=== PATIENT | female | born 1950 | race Caucasian/White ===

== ENCOUNTER 2017-01-24 18:06 | Emergency (ER) | payer BC, MEDICARE ==
[2017-01-24] MEDS ORDERED: NORCO 5/325 MG PO ONE (18:18)
[2017-01-24] MEDS ORDERED: BACIGUENT PACKET TP ONE (18:19)
--- NOTE | 2017-01-24 18:25 | ERPHSYRPT ---
- History of Present Illness Time Seen by Provider: 01/24/17 18:15 Source: patient, family Physician History: CC: injury Hx: 67 y/o lady was working on her mower and the deck fell. She has pain and swelling and cut to the left hand. Also pain and swelling to the right distal forearm. No N/T/W. No other injuries. She takes a NOAC for carotid artery disease. She takes ASA. Last tetanus believed to be 3-4 years ago but nurse is trying to confirm. Injury this evening. Pain moderate. She was cutting the grass. Timing/Duration: today Allergies/Adverse Reactions: cephalexin monohydrate [From [employer]] Allergy (Verified 01/24/17 18:27) makes her "swell up like a toad" Home Medications: Hydrocodone/APAP 5/325 [Milldale 5/325 mg] 1 tab PO BID PRN 07/02/13 [History ] Levothyroxine Sodium [Synthroid] 125 mcg PO DAILY 07/02/13 [History] Lisinopril 1 tablet PO DAILY 10/16/14 [History] Aspirin 81 mg PO DAILY 05/29/15 [History] Fluticasone Propionate [Flonase Nasal] 2 spray NS DAILY 05/29/15 [History] Atorvastatin Calcium [Lipitor] 40 mg PO UD 01/24/17 [History] Budesonide/Formoterol Fumarate [Symbicort 80-4.5 Mcg Inhaler] 6.9 gm IH BID 11/05 [History] Ropinirole HCl [Requip] 1 mg PO HS 01/24/17 [History] Ticagrelor [Brilinta] 90 mg PO DAILY 01/24/17 [History] Hx Tetanus, Diphtheria Vaccination/Date Given: Yes Hx Influenza Vaccination/Date Given: Yes Hx Pneumococcal Vaccination/Date Given: No - Review of Systems Constitutional: No Symptoms Respiratory: No Dyspnea Cardiac: No Chest Pain Musculoskeletal: Injury, No Back Pain, No Neck Pain Neurological: No Focal Weakness, No Parasthesia All Other Systems: Reviewed and Negative - Past Medical History Pertinent Past Medical History: Yes Neurological History: No Pertinent History ENT History: No Pertinent History Cardiac History: Hypertension Respiratory History: No Pertinent History Endocrine Medical History: Hypothyroidism Musculoskeletal History: Degenerative Disk Disease, Osteoarthritis, Rheumatoid Arthritis, Other GI Medical History: GERD History: No Pertinent History Psycho-Social History: No Pertinent History Female Reproductive Disorders: No Pertinent History Other Medical History: CHRONIC BACK PAIN,TUBAL - Past Surgical History Past Surgical History: Yes Neuro Surgical History: No Pertinent History Cardiac: No Pertinent History Respiratory: No Pertinent History Gastrointestinal: No Pertinent History Genitourinary: No Pertinent History Musculoskeletal: Orthopedic Surgery Female Surgical History: Tubal Ligation Other Surgical History: back surgery x3 king carpal tunnel, rt elbow, left kness replaced - Social History Smoking Status: Current every day smoker How long have you smoked: 50 yrs Exposure to second hand smoke: Yes Drug Use: none Patient Lives Alone: No - Female History Hx Now: No - Nursing Vital Signs Nursing Vital Signs: Initial Vital Signs Temperature 98.5 F 01/24/17 18:13 Pulse Rate 85 01/24/17 18:13 Respiratory Rate 16 01/24/17 18:13 Blood Pressure 144/74 01/24/17 18:13 O2 Sat by Pulse Oximetry 95 01/24/17 18:13 Pain Scale Pain Intensity 10 - Physical Exam General Appearance: alert Ears, Nose, Throat Exam: moist mucous membranes Neck Exam: supple Cardiovascular Exam: regular rate/rhythm Extremity Exam: lacerations (left hand dorsal 3cm superficail flap arcuate laceration), other (abrasions right forearm distal) Neurologic Exam: alert, oriented x 3, cooperative, sensation nml, No motor deficits Skin Exam: warm, dry - Course Nursing assessment & vital signs reviewed: Yes - Radiology Exams left hand and right forearm X-ray Interpretation: Reviewed by me, Negative, No Fracture, Other (old hand FB present on prior films) Ordered Tests: Active Orders 24 hr Category Date Time Status Cold Application STAT Care 01/24/17 18:19 Active Wound Care STAT Care 01/24/17 18:19 Active Wound Care STAT Care 01/24/17 18:57 Active FOREARM Stat Exams 01/24/17 18:18 Taken HAND (MINIMUM 3 VIEWS) Stat Exams 01/24/17 18:18 Taken Medication Summary Discontinued Medications Generic Name Dose Route Start Last Admin Trade Name Freq PRN Reason Stop Dose Admin Hydrocodone Bitart/Acetaminophen 1 tab 01/24/17 18:18 01/24/17 18:36 Mil[place] 5/325 Mg PO 01/24/17 18:19 1 tab STAT ONE Administration Hydrocodone Bitart/Acetaminophen Confirm 01/24/17 18:32 [place] 5/325 Mg Administered 01/24/17 18:33 Dose 1 tab .ROUTE .STK-MED ONE Bacitracin 0.9 gm 01/24/17 18:19 01/24/17 18:37 Baciguent Packet TP 01/24/17 18:20 0.9 gm STAT ONE Administration Diphtheria/Tetanus/Acell Pertussis 0.5 ml 01/24/17 18:47 Adacel Vial IM 01/24/17 18:48 .ONCE ONE - Progress Progress Note: 01/24/17 18:58 left hand 3 cm arcuate laceration, superficial. Right forearm 2 cm superficial laceration mid forearm. Hematoma underlying and another distal forearm hematoma. Counseled pt/family regarding: diagnosis, need for follow-up, rad results - Departure Time of Disposition: 18:59 Departure Disposition: Home Clinical Impression: Laceration of left hand, Laceration of right forearm, Traumatic hematoma of right forearm Condition: Stable Critical Care Time: No Referrals: LAURA SHELTON, [Primary Care Provider] - Instructions: Laceration Repair Steri-Strips, Contusion Additional Instructions: Keep wounds clean and dry. Ice packs off and on. Take your norco as already prescribed for pain. Stay with family today.
[2017-01-24 18:29] VITALS: BP 144/74; PULSE 85; O2SAT 95
[2017-01-24] MEDS ORDERED: NORCO 5/325 MG ONE (18:32)
[2017-01-24] MEDS ORDERED: Adacel Vial IM ONE ×2 (18:47→19:07)
[2017-01-24] MEDS ORDERED: BACIGUENT PACKET ONE (21:32)
--- NOTE | 2017-01-24 22:44 | XRAY ---
Indication: Pain following injury. Comparison: None 2 views of the right forearm demonstrates tiny epicondyle osteophyte. No other bony, articular, or soft tissue abnormalities.
--- NOTE | 2017-01-24 22:46 | XRAY ---
Indication: Pain following injury. Comparison: None 3 views of the left hand demonstrates mild degenerative changes of the radiocarpal and scaphoid multangular articulation. First metatarsal base tiny soft tissue foreign body. No other bony, articular, or soft tissue abnormalities.
== END 2017-01-24 19:32 | disposition home or self-care (01) ==
LOC: ED 18:06
DX: S61.412A Laceration without foreign body of left hand, initial encounter (principal); S51.811A Laceration without foreign body of right forearm, initial encounter; S50.11XA Contusion of right forearm, initial encounter; W45.8XXA Other foreign body or object entering through skin, initial encounter; W28.XXXA Contact with powered lawn mower, initial encounter
CPT/HCPCS: 73090; 73130; 90471; 90715; 99283; A9270-GY

== ENCOUNTER 2018-01-13 07:31 | Emergency (ER) | payer BC ==
--- NOTE | 2018-01-13 08:00 | ERPHSYRPT ---
- History of Present Illness Time Seen by Provider: 01/13/18 07:54 Source: patient Exam Limitations: no limitations Patient Subjective Stated Complaint: pt reports stumbling and falling into a lawn chair yesterda-reports pain to right rib area-denies sob Triage Nursing Assessment: pt pink warm and dry-ambulatory with no increase work of breathing-bruising noted to right side-no decrepitis noted Physician History: 67-year-old white female arrives with complaint of bruising right anterior chest pain with palpation and movement right anterior chest since yesterday afternoon. Patient states she tripped and hit her chest on the lawn chair she is having the above noted symptoms. She denies any shortness of breath she has had nausea yesterday none today.Patient does have a prescription for chronic Stanford for pain she states she has not taken any today. She does state that she has a history of atherosclerotic coronary artery disease with cardiac stents this does not feel like heart pain she states this is definitely just tenderness in the upper anterior chest. Past medical history includes hypothyroidism, hyperlipidemia, high blood pressure, GERD, arthritis, chronic back pain, tubal ligation. Past surgical history includes tubal ligation, orthopedic surgery, back surgery 3, right elbow surgery, carpal tunnel surgery, left knee arthroplasty. social history is positive for tobacco use. Timing/Duration: yesterday Severity: mild Modifying Factors: Improves With: medication, other (pian right anterior chest with movement and palpation) Associated Symptoms: chest pain (pain right anterior chest with movement and palpation), No nausea, No vomiting, No abdominal pain, No shortness of breath, No heartburn, No diaphoresis, No cough, No chills Allergies/Adverse Reactions: cephalexin monohydrate [From Kef[employer]] Allergy (Verified 01/24/17 18:27) makes her "swell up like a toad" Home Medications: Hydrocodone/APAP 5/325 [Stanford 5/325 mg] 1 tab PO BID PRN 07/02/13 [History ] Levothyroxine Sodium [Synthroid] 125 mcg PO DAILY 07/02/13 [History] Lisinopril 1 tablet PO DAILY 10/16/14 [History] Aspirin 81 mg PO DAILY 05/29/15 [History] Fluticasone Propionate [Flonase Nasal] 2 spray NS DAILY 05/29/15 [History] Atorvastatin Calcium [Lipitor] 40 mg PO UD 01/24/17 [History] Budesonide/Formoterol Fumarate [Symbicort 80-4.5 Mcg Inhaler] 6.9 gm IH BID 11/05 [History] Ropinirole HCl [Requip] 1 mg PO HS 01/24/17 [History] Ticagrelor [Brilinta] 90 mg PO DAILY 01/24/17 [History] Hx Tetanus, Diphtheria Vaccination/Date Given: Yes Hx Influenza Vaccination/Date Given: Yes Hx Pneumococcal Vaccination/Date Given: No Immunizations Up to Date: Yes - Review of Systems Constitutional: No Fever, No Chills Eyes: No Symptoms Ears, Nose, & Throat: No Symptoms Respiratory: No Cough, No Dyspnea Cardiac: Chest Pain (pain right anterior chest with movement and palpation) Abdominal/Gastrointestinal: No Abdominal Pain, No Nausea, No Vomiting, No Diarrhea Genitourinary Symptoms: No Dysuria Musculoskeletal: Injury (contusion right anterior chest yesterday) Skin: Other (ecchymosis right upper anterior chest) Neurological: No Dizziness, No Focal Weakness, No Sensory Changes Psychological: No Symptoms Endocrine: No Symptoms All Other Systems: Reviewed and Negative - Past Medical History Pertinent Past Medical History: Yes Neurological History: No Pertinent History ENT History: No Pertinent History Cardiac History: High Cholesterol, Hypertension, Other (coronary artery disease) Respiratory History: No Pertinent History Endocrine Medical History: Hyperthyroidism Musculoskeletal History: Arthritis GI Medical History: GERD History: No Pertinent History Psycho-Social History: No Pertinent History Female Reproductive Disorders: No Pertinent History Other Medical History: CHRONIC BACK PAIN,TUBAL - Past Surgical History Past Surgical History: Yes Neuro Surgical History: No Pertinent History Cardiac: No Pertinent History, Other (cardiac stents x 4) Respiratory: No Pertinent History Gastrointestinal: No Pertinent History Genitourinary: No Pertinent History Musculoskeletal: Orthopedic Surgery Female Surgical History: Tubal Ligation Other Surgical History: back surgery x3 king carpal tunnel, rt elbow, left kness replaced - Social History Smoking Status: Current every day smoker How long have you smoked: 50 yrs Exposure to second hand smoke: Yes Drug Use: none Patient Lives Alone: No - Female History Hx Now: No - Nursing Vital Signs Nursing Vital Signs: Initial Vital Signs Temperature 98.5 F 01/13/18 07:36 Pulse Rate 100 H 01/13/18 07:36 Respiratory Rate 18 01/13/18 07:36 Blood Pressure 169/87 01/13/18 07:36 O2 Sat by Pulse Oximetry 94 L 01/13/18 07:36 Pain Scale Pain Intensity 9 - Physical Exam General Appearance: no apparent distress, alert Eye Exam: PERRL/EOMI, eyes nml inspection Ears, Nose, Throat Exam: normal ENT inspection, TMs normal, pharynx normal, moist mucous membranes Neck Exam: normal inspection, non-tender, supple, full range of motion Respiratory Exam: normal breath sounds, lungs clear, other (right anterior chest with 2 areas of exxhymosis approximately 3 cm each these afeas are tender with pailpation), No respiratory distress Cardiovascular Exam: regular rate/rhythm, normal heart sounds, normal peripheral pulses, capillary refill <2 sec, No murmur Gastrointestinal/Abdomen Exam: soft, normal bowel sounds, No tenderness, No mass Back Exam: normal inspection, normal range of motion, No CVA tenderness, No vertebral tenderness Extremity Exam: normal inspection, normal range of motion, pelvis stable Neurologic Exam: alert, oriented x 3, cooperative, normal mood/affect, nml cerebellar function, nml station & gait, sensation nml, No motor deficits Skin Exam: ecchymosis (2 areas of ecchymosis right anterior upper chest approximately 3 cm each) Lymphatic Exam: No adenopathy SpO2 Interpretation: normal (94%) SpO2: 94 Oxygen Delivery: Room Air - Course Nursing assessment & vital signs reviewed: Yes EKG Interpreted by Me: RATE (82 bpm), Sinus Rhythm, NORMAL AXIS, Other (EKG: Sinus rhythm 82 bpm, normal axis, isolated T-wave inversion in lead 3 ,new as compared toM2015, no acute ST or T wave changes noted) - Radiology Exams Chest X-ray Interpretation: Discussed w/ radiologist (non acute hyperinflated chest) Ordered Tests: Active Orders 24 hr Category Date Time Status EKG-ER Only STAT Care 01/13/18 07:53 Active IV Insertion STAT Care 01/13/18 08:02 Active CHEST 2 VIEWS (PA AND LAT) Stat Exams 01/13/18 07:53 Completed CBC W DIFF Stat Lab 01/13/18 08:30 Completed CMP Stat Lab 01/13/18 08:30 Completed TROPONIN Q3H Lab 01/13/18 08:30 Completed TROPONIN Q3H Lab 01/13/18 11:15 Ordered TROPONIN Q3 Lab 01/13/18 14:15 Ordered TROPONIN Q3 Lab 01/13/18 17:15 Ordered TROPONIN Q3 Lab 01/13/18 20:15 Ordered Lab/Rad Data: Laboratory Result Diagrams 01/13/18 08:30 01/13/18 08:30 Laboratory Results 01/13/18 01/13/18 01/13/18 Range/Units 08:30 08:30 08:30 WBC 7.0 (4.0-10.5) K/mm3 RBC 4.18 (4.1-5.4) M/mm3 Hgb 13.4 (12.0-16.0) gm/dl Hct 40.3 (35-47) % MCV 96.4 (78-100) fl MCH 32.1 H (26-32) pg MCHC 33.3 (32-36) g/dl RDW 12.7 (11.5-14.0) % Plt Count 171 (150-450) K/mm3 MPV 11.7 H (6-9.5) fl Gran % 59.9 (36.0-66.0) % Eos # (Auto) 0.29 (0-0.5) Absolute Lymphs (auto) 1.88 (1.0-4.6) Absolute Monos (auto) 0.55 (0.0-1.3) Lymphocytes % 27.0 (24.0-44.0) % Monocytes % 7.9 (0.0-12.0) % Eosinophils % 4.2 (0.00-5.0) % Basophils % 1.0 (0.0-0.4) % Absolute Granulocytes 4.18 (1.4-6.9) Basophils # 0.07 (0-0.4) Sodium 143 (137-145) mmol/L Potassium 3.7 (3.5-5.1) mmol/L Chloride 106 (98-107) mmol/L Carbon Dioxide 31 H (22-30) mmol/L Anion Gap 10.1 (5-15) MEQ/L BUN 13 (7-17) mg/dL Creatinine 0.89 (0.52-1.04) mg/dL Estimated GFR > 60.0 ML/MIN Glucose 95 (74-106) mg/dL Calcium 9.1 (8.4-10.2) mg/dL Total Bilirubin 0.50 (0.2-1.3) mg/dL AST 25 (14-36) U/L ALT 19 (0-35) U/L Alkaline Phosphatase 101 (38-126) U/L Troponin I < 0.012 (0.000-0.034) ng/mL Serum Total Protein 6.3 (6.3-8.2) g/dL Albumin 3.7 (3.5-5.0) g/dL - Progress Progress: improved Progress Note: 01/13/18 09:09 67-year-old white female arrives with contusion to her right anterior chest she is tender in the area with movement and palpation. She does have a history of atherosclerotic coronary artery disease. Patient fell yesterday and struck her chest on a on a lawn chair. She has ecchymosis and tenderness in the left upper anterior chest. Tendernesses with palpation and movement she states this does not feel like heart pain. She is stable and only hurts when she moves she was moving at work and this was irritating her. Vitals are stable EKG and chest x-ray are essentially normal. Awaiting troponin. This appears to be noncardiac chest pain. An pain secondary to contusion. Will await troponin patient takes Stanford on a regular basis at home for pain she states she takes this when ever she needs for pain, she recently filled 120 10/ 325 hydrocodone tablets on January 08, 2018, she states she did not take any this morning she states she is driving today and therefore we will let patient take her pain medication when she arrives home. 01/13/18 09:16 Patient's labs, EKG, chest x-ray, troponin all normal. Patient does not want a repeat troponin. Will plan to discharge patient. Will give patient off today and tomorrow from work. 01/13/18 09:18 I have offered the patient aspirin here in the emergency room she states that she has some in the car and prefers to take it there. - Departure Time of Disposition: 09:18 Departure Disposition: Home Clinical Impression: Non-cardiac chest pain Chest wall contusion Qualifiers: Encounter type: initial encounter Laterality: right Qualified Code(s): S20.211A - Contusion of right front wall of thorax, initial encounter Accidental fall Qualifiers: Encounter type: initial encounter Qualified Code(s): W19.XXXA - Unspecified fall, initial encounter Condition: Fair Critical Care Time: No Referrals: LAURA SHELTON, [Primary Care Provider] - Instructions: Bruised Rib Additional Instructions: Return home. Cold packs to contused area 24-48 hours. Continue pain medication as prescribed by your family doctor/pain [facility] traffic controller center. Continue other medications as prescribed by your family doctor. Follow-up with your family doctor. Return for acute distress or for severe symptoms.
[2018-01-13 08:39] LABS: Basophil (Absolute #) 0.07 (0-0.4); Eosinophil % 4.2 % (0.00-5.0); Eosinophil (Absolute #) 0.29 (0-0.5); Granulocyte Absolute (ANC) 4.18 (1.4-6.9); Granulocytes % 59.9 % (36.0-66.0); Hematocrit 40.3 % (35-47); Hemoglobin 13.4 gm/dl (12.0-16.0); Lymphocyte (Absolute #) 1.88 (1.0-4.6); Mean Cell Volume 96.4 fl (78-100); Mean Corpuscular Hemoglobin 32.1 pg (26-32); Mean Corpuscular Hgb Concent. 33.3 g/dl (32-36); Mean Platelet Volume 11.7 fl (6-9.5); Monocyte (Absolute #) 0.55 (0.0-1.3); Monocytes % 7.9 % (0.0-12.0); Platelet Count 171 K/mm3 (150-450); Red Blood Count 4.18 M/mm3 (4.1-5.4); Red Cell Distribution Width 12.7 % (11.5-14.0)
[2018-01-13 08:58] LABS: ALBUMIN 3.7 g/dL (3.5-5.0); ALKALINE PHOSPHATASE 101 U/L (38-126); ANION GAP 10.1 MEQ/L (5-15); BLOOD UREA NITROGEN 13 mg/dL (7-17); CHLORIDE 106 mmol/L (98-107); Calcium 9.1 mg/dL (8.4-10.2); Carbon Dioxide 31 mmol/L (22-30); Creatinine 1 0.89 mg/dL (0.52-1.04); Glucose 95 mg/dL (74-106); Potassium 3.7 mmol/L (3.5-5.1); SGOT/AST 25 U/L (14-36); SGPT/ALT 19 U/L (0-35); SODIUM 143 mmol/L (137-145); Total Protein 6.3 g/dL (6.3-8.2)
--- NOTE | 2018-01-13 08:59 | XRAY ---
Indication: Right chest contusion/pain following fall. Comparison: April 05, 2016. PA/lateral chest hyperinflated and clear. Heart and mediastinal structures within normal limits. New stent graft emanates from the aortic arch. Bony thorax intact again with minimal degenerative changes. Impression: Nonacute hyperinflated chest.
[2018-01-13 09:26] VITALS: BP 147/88; PULSE 91; O2SAT 99
== END 2018-01-13 09:24 | disposition home or self-care (01) ==
LOC: ED 07:31
DX: R07.89 Other chest pain (principal); S20.211A Contusion of right front wall of thorax, initial encounter; W01.198A Fall on same level from slipping, tripping and stumbling with subsequent striking against other object, initial encounter; Z79.82 Long term (current) use of aspirin; Z79.899 Other long term (current) drug therapy
CPT/HCPCS: 36415; 71046; 80053; 84484; 85025; 93005; 99284

== ENCOUNTER 2020-01-09 11:59 | Emergency (ER) | payer MEDICARE ==
--- NOTE | 2020-01-09 12:01 | ERPHSYRPT ---
- History of Present Illness Time Seen by Provider: 01/09/20 12:01 Source: patient Exam Limitations: no limitations Physician History: Is a 69-year-old white female who approximately 1 week ago suffered a direct blow of an ax handle to the left knee and proximal tibia on the left side. Patient continues to have pain. Patient is concerned about her knee replacement site and possible fracture of her bone. Patient can ambulate but it hurts to do so. Method of Injury: direct blow (Ax handle) Occurred: last week Quality: aching Severity of Pain-Max: mild Severity of Pain-Current: mild Lower Extremities Pain: leg: left, knee: left Modifying Factors: Improves With: movement Associated Symptoms: other (Can bear weight but hurts to do so) Allergies/Adverse Reactions: cephalexin [From Keflex] Allergy (Verified 01/09/20 12:06) cephalexin monohydrate [From Keflex] Allergy (Verified 01/09/20 12:06) makes her "swell up like a toad" Home Medications: Aspirin 81 mg PO DAILY 05/29/15 [History] Atorvastatin Calcium [Lipitor] 20 mg PO UD 01/24/17 [History] Ropinirole HCl [Requip] 3 mg PO HS 01/24/17 [History] Isosorbide Mononitrate 30 mg [Imdur 30 MG] 30 mg PO DAILY 08/11/18 [History] Levothyroxine Sodium 112 Mcg [Synthroid 112 Mcg] 137 mcg PO DAILY 08/11/18 [History] Metoprolol Tartrate 50 mg PO BID 08/11/18 [History] lisinopriL [Lisinopril] 20 mg PO DAILY 08/11/18 [History] Hx Tetanus, Diphtheria Vaccination/Date Given: Yes Hx Influenza Vaccination/Date Given: Yes Hx Pneumococcal Vaccination/Date Given: Yes Travel Risk - International Travel Have you traveled outside of the country in past 3 weeks: No - Coronavirus Screening Are you exhibiting any of the following symptoms?: No Close contact with a COVID-19 positive Pt in past 14-21 Days: No - Review of Systems Constitutional: No Symptoms Eyes: No Symptoms Ears, Nose, & Throat: No Symptoms Respiratory: No Symptoms Cardiac: No Symptoms Abdominal/Gastrointestinal: No Symptoms Genitourinary Symptoms: No Symptoms Musculoskeletal: Injury (Left knee and proximal lower leg) Skin: No Symptoms Neurological: No Symptoms Psychological: No Symptoms Endocrine: No Symptoms Hematologic/Lymphatic: No Symptoms Immunological/Allergic: No Symptoms All Other Systems: Reviewed and Negative - Past Medical History Pertinent Past Medical History: Yes Neurological History: No Pertinent History ENT History: No Pertinent History Cardiac History: Coronary Artery Disease, High Cholesterol, Hypertension, Other Respiratory History: No Pertinent History, COPD Endocrine Medical History: Hyperthyroidism, Hypothyroidism Musculoskeletal History: No Pertinent History, Arthritis GI Medical History: GERD History: No Pertinent History Psycho-Social History: No Pertinent History Female Reproductive Disorders: No Pertinent History Other Medical History: CHRONIC BACK PAIN,TUBAL - Past Surgical History Past Surgical History: Yes Neuro Surgical History: No Pertinent History Cardiac: No Pertinent History, Other, Cardiac Stent Respiratory: No Pertinent History Gastrointestinal: No Pertinent History Genitourinary: No Pertinent History Musculoskeletal: Orthopedic Surgery Female Surgical History: No Pertinent History, Tubal Ligation Other Surgical History: Left knee replacement, 3 back surgeries, Right elbow surgeries, 3 carpal tunnel surgeries on right and left hand. - Social History Smoking Status: Current every day smoker How long have you smoked: 55 years Exposure to second hand smoke: Yes Drug Use: none Patient Lives Alone: No - Nursing Vital Signs Nursing Vital Signs: Initial Vital Signs Temperature 98.2 F 01/09/20 12:08 Pulse Rate 105 H 01/09/20 12:08 Respiratory Rate 18 01/09/20 12:08 Blood Pressure 152/86 01/09/20 12:08 O2 Sat by Pulse Oximetry 94 L 01/09/20 12:08 Pain Scale Pain Intensity 10 - Physical Exam General Appearance: no apparent distress, alert, anxiety Eyes, Ears, Nose, Throat Exam: normal ENT inspection, moist mucous membranes Neck Exam: normal inspection, non-tender, supple, full range of motion Cardiovascular/Respiratory Exam: chest non-tender, no respiratory distress Gastrointestinal/Abdominal Exam: non-tender Back Exam: normal inspection, normal range of motion, No CVA tenderness, No vertebral tenderness Hips Exam: bilateral: non-tender, normal inspection, normal range of motion, no evidence of injury Legs Exam: right leg: non-tender, left leg: normal inspection, normal range of motion, no evidence of injury, bone tenderness (Proximal), soft tissue tenderness (Proximal) Knees Exam: right knee: non-tender, left knee: normal inspection, normal range of motion, no evidence of injury, bone tenderness, soft tissue tenderness Ankle Exam: bilateral ankle: non-tender, normal inspection, normal range of motion, no evidence of injury Foot Exam: bilateral foot: non-tender, normal inspection, normal range of motion, no evidence of injury Neuro/Tendon Exam: normal sensation, normal motor functions, normal tendon functions Mental Status Exam: alert, oriented x 3, cooperative Skin Exam: normal color, warm, dry SpO2 Interpretation: normal O2 Delivery: Room Air - Course Nursing assessment & vital signs reviewed: Yes Ordered Tests: Active Orders 24 hr Category Date Time Status KNEE (3 VIEWS) Stat Exams 01/09/20 12:11 Completed LOWER LEG Stat Exams 01/09/20 12:11 Completed - Progress Progress: unchanged, pain not gone completely, re-examined Progress Note: 01/09/20 12:51 X-ray of left knee and x-ray of left lower leg reveals no evidence of acute fracture or dislocation Counseled pt/family regarding: diagnosis, need for follow-up, rad results - Departure Departure Disposition: Home Clinical Impression: Contusion of left knee, Contusion of left lower leg Condition: Stable Critical Care Time: No Referrals: LAURA SHELTON, DO [Primary Care Provider] - Additional Instructions: Ice pack to painful areas 3 times a day for the next 2 to 3 days. Tylenol for pain. May follow-up with your primary care physician or the [facility] orthopedic clinic for persistent symptoms. Forms: Work/School Release Form
[2020-01-09 12:16] VITALS: BP 152/86; O2SAT 94
--- NOTE | 2020-01-09 12:45 | XRAY ---
Indication: Pain following injury one week ago. Comparison: None 2 view left lower leg demonstrates mild osteopenia and total knee arthroplasty with intact articulation/prosthesis and tiny heterotopic ossifications. No other bony, articular, or soft tissue abnormalities.
--- NOTE | 2020-01-09 12:47 | XRAY ---
Indication: Pain following injury one week ago. Comparison: None 3 view left knee demonstrates mild osteopenia, total knee arthroplasty with intact articulation/prosthesis, tiny anterior heterotopic ossifications, and mild vascular calcifications. No other bony, articular, or soft tissue abnormalities.
[2020-01-09 13:03] VITALS: PULSE 88
== END 2020-01-09 13:07 | disposition home or self-care (01) ==
LOC: ED 11:59
DX: S80.02XA Contusion of left knee, initial encounter (principal); S80.12XA Contusion of left lower leg, initial encounter; W22.8XXA Striking against or struck by other objects, initial encounter; Y93.89 Activity, other specified; Y92.9 Unspecified place or not applicable; I25.10 Atherosclerotic heart disease of native coronary artery without angina pectoris; I10 Essential (primary) hypertension; E78.00 Pure hypercholesterolemia, unspecified; E03.9 Hypothyroidism, unspecified; J44.9 Chronic obstructive pulmonary disease, unspecified; E05.90 Thyrotoxicosis, unspecified without thyrotoxic crisis or storm; Z96.652 Presence of left artificial knee joint; Z72.0 Tobacco use
CPT/HCPCS: 73562; 73590; 99283

== ENCOUNTER 2020-09-18 19:43 | Emergency (ER) | payer MEDICARE ==
[2020-09-18 20:10] VITALS: O2SAT 96
--- NOTE | 2020-09-18 20:32 | ERPHSYRPT ---
- History of Present Illness Source: patient Exam Limitations: no limitations Patient Subjective Stated Complaint: The patient states that she was walking down her deck stairs when she slipped on the wet stairs and then the stairs broke. The patient caught her hand on the deck and has a cut on her palm and ring finger on the right hand. The patient states that she feels like she might have a piece of spinter in the cut on her palm. The patient is complaining of a stinging pain of 9/10. Triage Nursing Assessment: . Physician History: 70 yo wf fell while chasing her cat when her wood porch step broke injuring her R hand. Pt is R handed and denies other injury. Tetanus is UTD. Occurred: just prior to arrival Reason for Fall: slipped (When wooden step broke) Injuries/Pain Location: upper extremity Loss of Consciousness: no loss of consciousness Quality: aching Severity of Pain-Max: severe Severity of Pain-Current: severe Modifying Factors: Improves With: movement Associated Symptoms (Fall): extremity injury, No abdominal pain, No back pain, No confusion, No chest pain, No dizziness, No headache, No lightheadedness, No muscle spasms, No nausea, No neck pain, No ringing in ears, No seizures, No shortness of breath, No slurred speech, No trouble walking, No vomiting, No vision changes Allergies/Adverse Reactions: cephalexin [From Keflex] Allergy (Verified 09/18/20 20:13) cephalexin monohydrate [From Keflex] Allergy (Verified 09/18/20 20:13) makes her "swell up like a toad" Home Medications: Aspirin 81 mg PO DAILY 05/29/15 [History] Atorvastatin Calcium [Lipitor] 20 mg PO UD 01/24/17 [History] Ropinirole HCl [Requip] 3 mg PO HS 01/24/17 [History] Isosorbide Mononitrate 30 mg [Imdur 30 MG] 30 mg PO DAILY 08/11/18 [History] Levothyroxine Sodium 112 Mcg [Synthroid 112 Mcg] 137 mcg PO DAILY 08/11/18 [History] Metoprolol Tartrate 50 mg PO BID 08/11/18 [History] lisinopriL [Lisinopril] 20 mg PO DAILY 08/11/18 [History] Alendronate Sodium 70 mg [Fosamax 70 MG] 70 mg PO WEEKLY 09/18/20 [History] Furosemide 20 mg [Lasix 20 mg] 20 mg PO DAILY 09/18/20 [History] Gabapentin 300 mg PO BID 09/18/20 [History] Hydrocodone/Acetaminophen [Hydrocodone-Acetamin 10-325 mg] 10 mg PO Q12H PRN PRN 09/18/20 [History] Hx Tetanus, Diphtheria Vaccination/Date Given: Yes (2 years ago) Hx Influenza Vaccination/Date Given: Yes Hx Pneumococcal Vaccination/Date Given: Yes Immunizations Up to Date: Yes Travel Risk - International Travel Have you traveled outside of the country in past 3 weeks: No - Coronavirus Screening Are you exhibiting any of the following symptoms?: No Close contact with a COVID-19 positive Pt in past 14-21 Days: No - Vaccine Status Have you recieved a Covid-19 vaccination: No - Review of Systems Constitutional: No Symptoms Eyes: No Symptoms Ears, Nose, & Throat: No Symptoms Respiratory: No Symptoms Cardiac: No Symptoms Abdominal/Gastrointestinal: No Symptoms Genitourinary Symptoms: No Symptoms Skin: No Symptoms Neurological: No Symptoms Psychological: No Symptoms Endocrine: No Symptoms Hematologic/Lymphatic: No Symptoms Immunological/Allergic: No Symptoms - Past Medical History Pertinent Past Medical History: Yes Neurological History: No Pertinent History ENT History: No Pertinent History Cardiac History: Coronary Artery Disease, High Cholesterol, Hypertension, Other Respiratory History: No Pertinent History, COPD Endocrine Medical History: Hypothyroidism Musculoskeletal History: Arthritis GI Medical History: GERD History: No Pertinent History Psycho-Social History: No Pertinent History Female Reproductive Disorders: No Pertinent History Other Medical History: CHRONIC BACK PAIN,TUBAL - Past Surgical History Past Surgical History: Yes Neuro Surgical History: No Pertinent History Cardiac: No Pertinent History, Other, Cardiac Stent Respiratory: No Pertinent History Gastrointestinal: No Pertinent History Genitourinary: No Pertinent History Musculoskeletal: Orthopedic Surgery Female Surgical History: No Pertinent History, Tubal Ligation Other Surgical History: Left knee replacement, 3 back surgeries, Right elbow surgeries, 3 carpal tunnel surgeries on right and left hand. 3 cardiac stents in 2019 - Social History Smoking Status: Current every day smoker How long have you smoked: 55 years Exposure to second hand smoke: Yes Drug Use: none Patient Lives Alone: No Significant Family History: no pertinent family hx - Nursing Vital Signs Nursing Vital Signs: Initial Vital Signs Temperature 98.2 F 09/18/20 20:04 Pulse Rate 97 H 09/18/20 20:04 Respiratory Rate 20 09/18/20 20:04 Blood Pressure 99/62 09/18/20 20:04 O2 Sat by Pulse Oximetry 96 09/18/20 20:04 Pain Scale Pain Intensity 1 - Margarita Coma Score Best Eye Response ([place]): (4) open spontaneously Best Verbal Response ([place]): (5) oriented Best Motor Response ([place]): (6) obeys commands [place] Total: 15 - Physical Exam General Appearance: no apparent distress Head Injury: no evidence of injury Eye Exam: PERRL/EOMI, eyes nml inspection ENT Exam: airway nml, nml ext.inspection, No evidence of ENT injury, No clear fluid (ears), No clear fluid (nose), No hemotympanum Neck Exam: supple, trachea midline (C-spine nttp) Respiratory/Chest Exam: normal breath sounds, rhonchi (Occ scattered), No respiratory distress Cardiovascular Exam: normal heart sounds, regular rate/rhythm, No murmur Gastrointestinal Exam: soft, normal bowel sounds, No tenderness Back Exam: normal inspection (No T or L-spine TTP) Extremity Exam: normal inspection, pelvis stable, other (R hand w superficial lac R palm and R 4th digit/Good hemostasis/superficial wo evidence of tendon injury/Good radial pulse, distal sensation, and capillary return) Peripheral Pulses: carotid (R): 2+, carotid (L): 2+ Neurologic Exam: alert, oriented x 3, cooperative, sticker operator II-XII nml as tested, normal mood/affect, nml cerebellar function, nml station & gait, sensation nml Skin Exam: normal color, warm, dry SpO2 Interpretation: normal SpO2: 96 O2 Delivery: Room Air Procedures - Laceration/Wound Repair Right Hand Wound Location: Right, hand (R palm and R 4th digit) Wound Length (cm): 1 Wound's Depth, Shape: superficial Wound Explored: clean Irrigated: No Hibiclens Prep: Yes Wound Repaired With: Steri-strips (Per nursing/NVI) - Course Nursing assessment & vital signs reviewed: Yes - Radiology Exams Hand X-ray Interpretation: Interpreted by me (R hand neg per ER read) Ordered Tests: Active Orders 24 hr Category Date Time Status HAND (MINIMUM 3 VIEWS) Stat Exams 09/18/20 20:44 Taken - Progress Progress: improved Progress Note: 09/18/20 21:04 Pt refuses pain meds as she has [place] prescribed 09/18/20 21:09 Tetanus is up to date - Departure Departure Disposition: Home Clinical Impression: Hand laceration Condition: Stable Critical Care Time: No Referrals: LAURA SHELTON, [Primary Care Provider] - Instructions: Wound Care (DC) Additional Instructions: Keep lacerations dry for 48 hours, then wash 1-2 times a day with soap/water Watch for signs of infection-redness/pain/pus/temperature greater than 100.5 Forms: Work/School Release Form Prescriptions: Doxycycline Monohydrate 100 mg PO BID #14 tablet
[2020-09-18 21:10] VITALS: BP 106/76; PULSE 85
--- NOTE | 2020-09-19 08:57 | XRAY ---
Indication: Laceration following fall. 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 No other bony, articular, or soft tissue abnormalities.
== END 2020-09-18 21:15 | disposition home or self-care (01) ==
LOC: ED 19:43
DX: S61.411A Laceration without foreign body of right hand, initial encounter (principal); S61.214A Laceration without foreign body of right ring finger without damage to nail, initial encounter; W10.9XXA Fall (on) (from) unspecified stairs and steps, initial encounter; Y93.9 Activity, unspecified; Y92.89 Other specified places as the place of occurrence of the external cause
CPT/HCPCS: 73130; 99283

== ENCOUNTER 2021-09-02 12:14 | Day surgery (SDC) | payer MEDICARE ==
[2021-09-02] MEDS ORDERED: Lactated Ringers 1,000 ML IV SCH (13:00)
[2021-09-02] MEDS ORDERED: DIPRIVAN 200 MG/20 ML IV ONE ×2 (16:51→17:35)
[2021-09-02] MEDS ORDERED: Xylocaine-Mpf 2% 5 Ml Vial ONE (16:51)
[2021-09-02] MEDS ORDERED: Versed 2 MG/2 ML Injection ONE (16:51)
[2021-09-02] MEDS ORDERED: Ketamine HCl 50 MG/ML ONE (16:52)
[2021-09-02] MEDS ORDERED: TRANDATE 20 MG/4 ML SYRINGE IV ONE (17:21)
[2021-09-02 18:48] VITALS: BP 133/78; O2SAT 89
[2021-09-02 19:03] VITALS: PULSE 97
--- NOTE | 2021-09-03 08:20 | OP ---
PROCEDURE DATE/TIME: 09/02/2021 7343 PREOPERATIVE DIAGNOSES: 1) Dysphagia. 2) Due for surveillance colonoscopy with history of polyps. POSTOPERATIVE DIAGNOSES: 1) Mild hemorrhagic gastritis, significant respiratory secretions. No esophageal stricture. 2) Colonic polyps. 3) Mild colonic diverticulosis. 4) Mild hemorrhoidal disease. PROCEDURES: 1) EGD with biopsies. 2) Colonoscopy with hot snare polypectomy. 3) Cold snare polypectomies. 4) Cold forceps polypectomy. PROCEDURE PERFORMED BY: Sharron Patrick M.D. ANESTHESIA: MAC. ESTIMATED BLOOD LOSS: Minimal. COMPLICATIONS: None. SPECIMENS: 1) Antral biopsy. 2) Proximal ascending colon polyp (immediately outside of cecum). 3) Ascending colon polyp. 4) Sigmoid colon polyp. 5) Distal sigmoid colon polyps x3. HISTORY: This is a 71-year-old female who presents for EGD and colonoscopy. Risks, benefits, alternatives, H&P and consent, all reviewed with her and confirmed. She was seen in the preoperative area. DESCRIPTION OF PROCEDURE: She was then brought back to the endoscopy suite. She is laid in the left lateral decubitus position. Anesthesia and I were both in close communication. The patient had lowered O2 saturations at baseline and so she was given preoxygenation. After a complete time out, I then inserted the scope. The patient has a significant amount of respiratory secretions suctioned from the back of her throat and I very easily entered the esophagus. There is no cervical stricture. I did however encounter significant thick secretions and so I immediately suctioned these. She also had some secretions down to the level of the stomach as well as some gastric contents in her stomach that were also suctioned immediately about 50 cc. We then advanced the scope to the duodenum. The duodenum was normal. We advanced to approximately the level of proximal section portion. The scope was then withdrawn back into the stomach. She had some mild gastritis with mucosal erythema in the antrum this was biopsied and sent to pathology for Helicobacter pylori. She also had multiple petechiae and spots of old blood throughout her stomach. I suspect this is from coughing this was visualized immediately upon entering the stomach from the esophagus view. The remainder of her stomach the mucosa actually looked okay just mild hemorrhagic gastritis. We then confirmed hemostasis, insured there was no obvious hiatal hernia and then carefully withdrew the scope checking the remainder of the esophagus. The gastroesophageal junction at 40 cm. The gastroesophageal junction looked okay and then the scope was further removed. The esophagus is wide open and patent. There is no cervical stricture. There is no stricture anywhere. I did suction the esophagus the whole way and just in the few minutes that it takes to do the scope she had built up significant thick secretions in her esophagus and my suspicion is that this is what is causing her dysphagia because there is so much of the thick secretions. These were fully suctioned and then the scope is removed. The patient was then repositioned for colonoscopy. First, a rectal exam is done. The patient does have a mass in her anterior perianal area in the posterior perineal region this is about 1 cm to 1.5 cm. It looks warty. There are two other 1 mm perianal lesions suspicious for warty disease. We then did a rectal exam. The patient has mild external and internal hemorrhoid disease, nothing significant. The scope is then inserted and gently advanced to the level of the cecum. The prep throughout the colon looked fair. There was a quite a bit of thick liquid stool and staining. We suctioned and irrigated copiously to clear the cecum. At first I was concerned that we would not be able to clear the cecum because of how thick the stool was but I was able to get a satisfactory view and see approximately over 80% of the mucosa throughout the colon. We continued irrigating copiously and then I was able to visualize the appendiceal orifice and then the edge of the ileocecal valve. We surveyed the remainder of the cecum, which was normal. Immediately outside of the cecum there was a polyp this is about 5 mm. It was taken with cold snare in entirety, suctioned into a trap and retrieved and sent to pathology. We then found another ascending polyp this one was larger this was at least 1 cm to 1.2 cm in size this was a broad-based semi-pedunculated polyp with a broader base this was taken with hot snare in entirety. The defect looked good. Everything looked hemostatic. The polyp is removed in entirety. There is no large mucosal defect. We then continued to withdrawal the scope and we found a sigmoid polyp which was small about 2 x 3 mm taken with cold forceps in entirety and then three small distal sigmoid polyps all about 1 to 2 mm taken with cold snare for the 2 mm polyps and then last one taken with cold forceps in entirety. All of this sent to pathology. All sites were hemostatic. There were no concerns. Nothing looked like cancer. PLAN: The patient tolerated the procedures well. She will need an EGD on an as needed basis and colonoscopy in approximately two years based on her fair prep and significant polyps as well as her polyp history. I have written down when to start her blood thinners and I will hold her aspirin for two days based on the larger polyp and then she will restart these sequentially and then Plavix as long as she is not having any rectal bleeding. She will also be following up with me in the office to discuss her pathology report as well.
== END 2021-09-02 19:05 | disposition home or self-care (01) ==
LOC: SDC 12:14
PROVIDERS: ATTEND Surgery
DX: K29.71 Gastritis, unspecified, with bleeding (principal); R13.10 Dysphagia, unspecified; Z12.11 Encounter for screening for malignant neoplasm of colon; Z09 Encounter for follow-up examination after completed treatment for conditions other than malignant neoplasm; D12.5 Benign neoplasm of sigmoid colon; D12.2 Benign neoplasm of ascending colon; Z86.010 Personal history of colon polyps; K57.30 Diverticulosis of large intestine without perforation or abscess without bleeding; K64.8 Other hemorrhoids
CPT/HCPCS: 88305; 88312; 99100; J2250; J2704

== ENCOUNTER 2021-11-17 15:08 | Emergency (ER) | payer MEDICARE ==
[2021-11-17] MEDS ORDERED: Pepcid 20 MG VIAL IV ONE ×2 (17:44→17:48)
[2021-11-17] MEDS ORDERED: Zofran 4 MG/2 ML VIAL IV ONE (17:44)
--- NOTE | 2021-11-17 17:44 | ERPHSYRPT ---
- History of Present Illness Time Seen by Provider: 11/17/21 17:41 Historian: patient Exam Limitations: no limitations Patient Subjective Stated Complaint: pt here for abd pain . took peto today without relief, some nausea. Triage Nursing Assessment: pt alert, walked in , resp easy, skin w/d/p. pt placed on o2 2 lnc as per home Physician History: pt has abd pain since this am. no trauma, IActivel did not work for it. Nontender abd. prior BG surgery and tubal ligation. no CP or SOBreaqth but has COPD. Timing/Duration: today Activities at Onset: none Quality: cramping, sharpness Abdominal Pain Onset Location: generalized abdomen Pain Radiation: no radiation Severity of Pain-Max: moderate Severity of Pain-Current: moderate Modifying Factors: Improves With: nothing Associated Symptoms: denies symptoms Previous symptoms: no prior history Allergies/Adverse Reactions: cephalexin [From Keflex] Allergy (Verified 09/02/21 12:44) cephalexin monohydrate [From Keflex] Allergy (Verified 09/02/21 12:44) makes her "swell up like a toad" Home Medications: Aspirin 81 mg PO DAILY 05/29/15 [History] Isosorbide Mononitrate 30 mg [Imdur 30 MG] 30 mg PO DAILY 08/11/18 [History] Metoprolol Tartrate 25 mg PO BID 08/11/18 [History] lisinopriL [Lisinopril] 20 mg PO DAILY 08/11/18 [History] Alendronate Sodium 70 mg [Fosamax 70 MG] 70 mg PO WEEKLY 09/18/20 [History] Furosemide 20 mg [Lasix 20 mg] 20 mg PO DAILY PRN 09/18/20 [History] Hydrocodone/Acetaminophen [Hydrocodone-Acetamin 10-325 mg] 10 mg PO Q6H PRN PRN 09/18/20 [History] Atorvastatin Calcium [Lipitor 20MG Tablet] 20 mg PO DAILY 08/28/21 [History] Docusate Sodium [Colace] 100 mg PO BID PRN PRN 08/28/21 [History] Levothyroxine Sodium 100 Mcg [Synthroid 100 Mcg] 200 mcg PO DAILY 08/28/21 [History] Nitroglycerin 0.4 mg (Ed) [Nitrostat 0.4 MG (ED)] 0.4 mg SL DIRECTIONS UNKNOWN 08/28/21 [History] Spironolactone 25 mg PO DAILY 08/28/21 [History] Albuterol 8 gm Mdi Hfa [Ventolin Hfa MDI] 2 puff IH Q4-6HPRN PRN 09/02/21 [History] Fluticasone/Umeclidin/Vilanter [Trelegy Ellipta 100-62.5-25] 1 puff IH DAILY [History] Gabapentin [Neurontin ] 300 mg PO HS 09/02/21 [History] PANTOPRAZOLE 40 mg Tablet [Protonix 40MG Tablet] 40 mg PO HS 09/02/21 [History] Hx Tetanus, Diphtheria Vaccination/Date Given: Yes (2 years ago) Hx Influenza Vaccination/Date Given: Yes Hx Pneumococcal Vaccination/Date Given: Yes Immunizations Up to Date: Yes Travel Risk - International Travel Have you traveled outside of the country in past 3 weeks: No - Coronavirus Screening Are you exhibiting any of the following symptoms?: No - Vaccine Status Have you recieved a Covid-19 vaccination: No - Review of Systems Constitutional: No Fever, No Chills Eyes: No Symptoms Ears, Nose, & Throat: No Symptoms Respiratory: No Cough, No Dyspnea Cardiac: No Chest Pain, No Edema, No Syncope Abdominal/Gastrointestinal: Abdominal Pain, No Nausea, No Vomiting, No Diarrhea Genitourinary Symptoms: No Dysuria Musculoskeletal: No Back Pain, No Neck Pain Skin: No Rash Neurological: No Dizziness, No Focal Weakness, No Sensory Changes Psychological: No Symptoms Endocrine: No Symptoms Hematologic/Lymphatic: No Symptoms Immunological/Allergic: No Symptoms All Other Systems: Reviewed and Negative - Past Medical History Pertinent Past Medical History: Yes Neurological History: No Pertinent History ENT History: No Pertinent History Cardiac History: Coronary Artery Disease, High Cholesterol, Hypertension, Other Respiratory History: No Pertinent History, COPD Endocrine Medical History: Hypothyroidism Musculoskeletal History: Arthritis GI Medical History: GERD History: No Pertinent History Psycho-Social History: No Pertinent History Female Reproductive Disorders: No Pertinent History Other Medical History: CHRONIC BACK PAIN,TUBAL - Past Surgical History Past Surgical History: Yes Neuro Surgical History: No Pertinent History Cardiac: No Pertinent History, Other, Cardiac Stent Respiratory: No Pertinent History Gastrointestinal: No Pertinent History Genitourinary: No Pertinent History Musculoskeletal: Orthopedic Surgery Female Surgical History: No Pertinent History, Tubal Ligation Other Surgical History: Left knee replacement, 3 back surgeries, Right elbow surgeries, 3 carpal tunnel surgeries on right and left hand. 3 cardiac stents in 2019 - Social History Smoking Status: Current every day smoker How long have you smoked: 57 Exposure to second hand smoke: No Drug Use: none Patient Lives Alone: No Significant Family History: no pertinent family hx - Nursing Vital Signs Nursing Vital Signs: Initial Vital Signs Temperature 97.0 F 11/17/21 16:08 Pulse Rate 77 11/17/21 16:08 Respiratory Rate 18 11/17/21 16:08 Blood Pressure 179/75 11/17/21 16:08 O2 Sat by Pulse Oximetry 99 11/17/21 16:08 Pain Scale Pain Intensity 8 - Physical Exam General Appearance: no apparent distress, alert Eye Exam: PERRL/EOMI, eyes nml inspection Ears, Nose, Throat Exam: normal ENT inspection, pharynx normal, moist mucous membranes Neck Exam: normal inspection, non-tender, supple, full range of motion Respiratory Exam: normal breath sounds, lungs clear, No respiratory distress Cardiovascular Exam: regular rate/rhythm, normal heart sounds Gastrointestinal/Abdomen Exam: soft, No tenderness, No mass Pelvic Exam: deferred Rectal Exam: deferred Back Exam: normal inspection, normal range of motion, No CVA tenderness, No vertebral tenderness Extremity Exam: normal inspection, normal range of motion, pelvis stable Neurologic Exam: alert, oriented x 3, cooperative, normal mood/affect, nml cerebellar function, sensation nml, No motor deficits Skin Exam: normal color, warm, dry SpO2 Interpretation: normal SpO2: 99 O2 Delivery: Nasal Cannula - Course Nursing assessment & vital signs reviewed: Yes - CT Exams Head CT Interpretation: Tele-radiologist Report, Other (liver hemangioma, bilateral adrenal adenomas, gran dx, CAD) Ordered Tests: Active Orders 24 hr Category Date Time Status EKG-ER Only STAT Care 11/17/21 17:44 Active IV Insertion STAT Care 11/17/21 17:44 Active ABDOMEN AND PELVIS W/0 CONTRAS [CT] Stat Exams 11/17/21 18:14 Taken AMYLASE Stat Lab 11/17/21 17:47 Completed CBC W DIFF Stat Lab 11/17/21 17:47 Completed CMP Stat Lab 11/17/21 17:47 Completed LIPASE Stat Lab 11/17/21 17:47 Completed Lactic Acid Stat Lab 11/17/21 17:44 Completed TROPONIN Q3H Lab 11/17/21 17:47 Completed TROPONIN Q3H Lab 11/17/21 20:45 Ordered TROPONIN Q3H Lab 11/17/21 23:45 Ordered TROPONIN Q3H Lab 11/18/21 02:45 Ordered TROPONIN Q3H Lab 11/18/21 05:45 Ordered UA W/RFX CULTURE Stat Lab 11/17/21 17:46 Completed Medication Summary Generic Name Dose Route Start Last Admin Trade Name Freq PRN Reason Stop Dose Admin Sodium Chloride 1,000 mls @ 100 mls/hr 11/17/21 17:45 11/17/21 17:54 Sodium Chloride 0.9% 1000 Ml IV 12/17/21 17:44 100 mls/hr .Q10H CHRISTINA Administration Discontinued Medications Generic Name Dose Route Start Last Admin Trade Name Freq PRN Reason Stop Dose Admin Famotidine 20 mg 11/17/21 17:44 11/17/21 17:53 Famotidine 20 Mg/1 Vial IV 11/17/21 17:45 20 mg STAT ONE Administration Famotidine Confirm 11/17/21 17:48 Famotidine 20 Mg/1 Vial Administered 11/17/21 17:49 Dose 20 mg IV .STK-MED ONE Ondansetron HCl 4 mg 11/17/21 17:44 11/17/21 17:53 Ondansetron Hcl 4 Mg/2 Ml Vial IV 11/17/21 17:45 4 mg STAT ONE Administration Ondansetron HCl Confirm 11/17/21 17:48 Ondansetron Hcl 4 Mg/2 Ml Vial Administered 11/17/21 17:49 Dose 4 mg .ROUTE .STK-MED ONE Lab/Rad Data: Laboratory Result Diagrams 11/17/21 17:47 11/17/21 17:47 Laboratory Results 11/17/21 11/17/21 11/17/21 Range/Units 17:47 17:47 17:47 WBC 6.9 (4.0-10.5) x10^3/uL RBC 4.52 (4.1-5.4) x10^6/uL Hgb 11.8 L (12.0-16.0) g/dL Hct 39.7 (35-47) % MCV 87.8 (78-100) fL MCH 26.1 (26-32) pg MCHC 29.7 L (32-36) g/dL RDW 15.7 H (11.5-14.0) % Plt Count 208 (150-450) x10^3/uL MPV 10.8 (7.5-11.0) fL Gran % 70.3 H (36.0-66.0) % Immature Gran % (Auto) 0.3 (0.00-0.4) % Nucleat RBC Rel Count 0.0 (0.00-0.1) % Eos # (Auto) 0.15 (0-0.5) x10^3/uL Immature Gran # (Auto) 0.02 (0.00-0.03) x10^3u/L Absolute Lymphs (auto) 1.36 (1.0-4.6) x10^3/uL Absolute Monos (auto) 0.48 (0.0-1.3) x10^3/uL Absolute Nucleated RBC 0.00 (0.00-0.01) x10^3u/L Lymphocytes % 19.6 L (24.0-44.0) % Monocytes % 6.9 (0.0-12.0) % Eosinophils % 2.2 (0.00-5.0) % Basophils % 0.7 (0.0-0.4) % Absolute Granulocytes 4.88 (1.4-6.9) x10^3/uL Basophils # 0.05 (0-0.4) x10^3/uL Sodium 140 (137-145) mmol/L Potassium 3.5 (3.5-5.1) mmol/L Chloride 106 (98-107) mmol/L Carbon Dioxide 29 (22-30) mmol/L Anion Gap 8.7 (5-15) MEQ/L BUN 11 (7-17) mg/dL Creatinine 0.83 (0.52-1.04) mg/dL Estimated GFR > 60.0 ML/MIN Glucose 106 (74-106) mg/dL Lactic Acid (0.4-2.0) Calcium 9.0 (8.4-10.2) mg/dL Total Bilirubin 0.80 (0.2-1.3) mg/dL AST 23 (14-36) U/L ALT 18 (0-35) U/L Alkaline Phosphatase 93 (38-126) U/L Troponin I < 0.012 (0.000-0.034) ng/mL Serum Total Protein 6.4 (6.3-8.2) g/dL Albumin 3.9 (3.5-5.0) g/dL Amylase 64 (30-110) U/L Lipase 50 (23-300) U/L Urinalys Dipstick Clnc Urine Color (YELLOW) Urine Appearance (CLEAR) Urine pH (5-6) Ur Specific [place] (1.005-1.025) POC Urine Protein Conf (Negative) Urine Ketones (NEGATIVE) Urine Nitrite (NEGATIVE) Urine Bilirubin (NEGATIVE) Urine Urobilinogen (0-1) mg/dL Urine Leukocytes (NEGATIVE) Urine WBC (Auto) (0-5) /HPF Urine RBC (Auto) (0-2) /HPF U Epithel Cells (Auto) (FEW) /HPF Urine Bacteria (Auto) (NEGATIVE) /HPF Urine RBC (0-5) Kasi/ul Ur Culture Indicated? Urine Glucose (NEGATIVE) mg/dL 11/17/21 11/17/21 Range/Units 17:46 17:44 WBC (4.0-10.5) x10^3/uL RBC (4.1-5.4) x10^6/uL Hgb (12.0-16.0) g/dL Hct (35-47) % MCV (78-100) fL MCH (26-32) pg MCHC (32-36) g/dL RDW (11.5-14.0) % Plt Count (150-450) x10^3/uL MPV (7.5-11.0) fL Gran % (36.0-66.0) % Immature Gran % (Auto) (0.00-0.4) % Nucleat RBC Rel Count (0.00-0.1) % Eos # (Auto) (0-0.5) x10^3/uL Immature Gran # (Auto) (0.00-0.03) x10^3u/L Absolute Lymphs (auto) (1.0-4.6) x10^3/uL Absolute Monos (auto) (0.0-1.3) x10^3/uL Absolute Nucleated RBC (0.00-0.01) x10^3u/L Lymphocytes % (24.0-44.0) % Monocytes % (0.0-12.0) % Eosinophils % (0.00-5.0) % Basophils % (0.0-0.4) % Absolute Granulocytes (1.4-6.9) x10^3/uL Basophils # (0-0.4) x10^3/uL Sodium (137-145) mmol/L Potassium (3.5-5.1) mmol/L Chloride (98-107) mmol/L Carbon Dioxide (22-30) mmol/L Anion Gap (5-15) MEQ/L BUN (7-17) mg/dL Creatinine (0.52-1.04) mg/dL Estimated GFR ML/MIN Glucose (74-106) mg/dL Lactic Acid 0.6 (0.4-2.0) Calcium (8.4-10.2) mg/dL Total Bilirubin (0.2-1.3) mg/dL AST (14-36) U/L ALT (0-35) U/L Alkaline Phosphatase (38-126) U/L Troponin I (0.000-0.034) ng/mL Serum Total Protein (6.3-8.2) g/dL Albumin (3.5-5.0) g/dL Amylase (30-110) U/L Lipase (23-300) U/L Urinalys Dipstick Clnc MAIN LAB Urine Color YELLOW (YELLOW) Urine Appearance CLEAR (CLEAR) Urine pH 7.5 (5-6) Ur Specific [place] 1.010 (1.005-1.025) POC Urine Protein Conf NEGATIVE (Negative) Urine Ketones NEGATIVE (NEGATIVE) Urine Nitrite NEGATIVE (NEGATIVE) Urine Bilirubin NEGATIVE (NEGATIVE) Urine Urobilinogen 0.2 (0-1) mg/dL Urine Leukocytes NEGATIVE (NEGATIVE) Urine WBC (Auto) NONE SEEN (0-5) /HPF Urine RBC (Auto) 0-2 (0-2) /HPF U Epithel Cells (Auto) NONE (FEW) /HPF Urine Bacteria (Auto) RARE (NEGATIVE) /HPF Urine RBC TRACE-INTACT (0-5) Kasi/ul Ur Culture Indicated? NO Urine Glucose NEGATIVE (NEGATIVE) mg/dL - Progress Progress: improved, re-examined Progress Note: 11/17/21 20:23 pt is advised that we have not yet determined the cause for her pain and that undetected pathology of a serious nature including vascular or cardiac, could still be evolving- she understands and prefers outpt f/u with pmd rather than admit and further eval in ER or hospital - she has the capacity to make this choice. 11/17/21 20:29 pt advised to f/u PMD with adrenal adenomas, granulomatous dx, blood pressure, trace hematuria CAD vascular Dx, and other findings. 11/17/21 20:32 Discussed with : Malick Counseled pt/family regarding: lab results, diagnosis, need for follow-up, rad results - Departure Departure Disposition: Home Clinical Impression: Abdominal pain of unknown etiology Condition: Good Critical Care Time: No Referrals: LAURA SHELTON, [Primary Care Provider] - Follow up/PCP as directed Instructions: Acute Abdomen (Belly Pain), Adult (DC)
[2021-11-17] MEDS ORDERED: Sodium Chloride 0.9% 1000 ML 1,000 ML IV SCH (17:45)
[2021-11-17] MEDS ORDERED: Zofran 4 MG/2 ML VIAL ONE (17:48)
[2021-11-17] MEDS ORDERED: Sodium Chloride 0.9% 1000 ML 1,000 ML ONE (17:48)
[2021-11-17 17:50] LABS: Absolute Neutrophil Ct (ANC) 4.88 x10^3/uL (1.4-6.9); Basophil (Absolute #) 0.05 x10^3/uL (0-0.4); Eosinophil % 2.2 % (0.00-5.0); Eosinophil (Absolute #) 0.15 x10^3/uL (0-0.5); Hematocrit 39.7 % (35-47); Hemoglobin 11.8 g/dL (12.0-16.0); Lymphocyte (Absolute #) 1.36 x10^3/uL (1.0-4.6); Lymphocytes % 19.6 % (24.0-44.0); Mean Cell Volume 87.8 fL (78-100); Mean Corpuscular Hemoglobin 26.1 pg (26-32); Mean Corpuscular Hgb Concent. 29.7 g/dL (32-36); Mean Platelet Volume 10.8 fL (7.5-11.0); Monocyte (Absolute #) 0.48 x10^3/uL (0.0-1.3); Monocytes % 6.9 % (0.0-12.0); Neutrophil % 70.3 % (36.0-66.0); Platelet Count 208 x10^3/uL (150-450); Red Blood Count 4.52 x10^6/uL (4.1-5.4); Red Cell Distribution Width 15.7 % (11.5-14.0); White Blood Count 6.9 x10^3/uL (4.0-10.5)
[2021-11-17 17:56] LABS: ALBUMIN 3.9 g/dL (3.5-5.0); ALKALINE PHOSPHATASE 93 U/L (38-126); AMYLASE 64 U/L (30-110); ANION GAP 8.7 MEQ/L (5-15); BLOOD UREA NITROGEN 11 mg/dL (7-17); CHLORIDE 106 mmol/L (98-107); Carbon Dioxide 29 mmol/L (22-30); Creatinine 1 0.83 mg/dL (0.52-1.04); EST GLOMERULAR FILTRATION RATE > 60.0 ML/MIN; Glucose 106 mg/dL (74-106); LIPASE 50 U/L (23-300); Potassium 3.5 mmol/L (3.5-5.1); SGOT/AST 23 U/L (14-36); SGPT/ALT 18 U/L (0-35); SODIUM 140 mmol/L (137-145); Total Protein 6.4 g/dL (6.3-8.2)
[2021-11-17 18:10] LABS: Bacteria RARE /HPF (NEGATIVE); RBC 0-2 /HPF (0-2)
[2021-11-17 18:12] LABS: Appearance CLEAR (CLEAR); Bilirubin NEGATIVE (NEGATIVE); Dipstick done @ ? MAIN LAB; Glucose NEGATIVE (NEGATIVE); Ketones NEGATIVE (NEGATIVE); Nitrite NEGATIVE (NEGATIVE); Ph 7.5 (5-6); Protein,Urine Dip NEGATIVE (Negative); RBC TRACE-INTACT Ery/ul (0-5); Urine Cultured Indicated? NO; Urobilinogen 0.2 mg/dL (0-1); WBC NONE SEEN /HPF (0-5)
[2021-11-17 19:57] VITALS: O2SAT 99
[2021-11-17 20:38] VITALS: BP 167/79; PULSE 80
--- NOTE | 2021-11-17 21:25 | XRAY ---
Indication: Abdomen pain, nausea, and constipation. Multiple contiguous axial images obtained through the abdomen and pelvis without contrast. Comparison: July 17, 2021. Lung bases again demonstrates scattered fibrosis/scarring without focal infiltrate or effusion. Heart not enlarged. Noncontrasted stomach and bowel loops appear nonobstructed. Appendix not visualized. Mild diffuse scattered colonic fecal debris. No free fluid/air. Again bilateral adrenal adenomas, tiny hepatic/splenic calcified granulomas, right renal atrophy, and cholecystectomy. Stable CT proven posterior right lobe hepatic hemangioma. Remaining liver, pancreas, spleen, adrenal glands, kidneys, ureters, and bladder are unremarkable for noncontrast exam. There remains moderate aortoiliac calcifications without AAA. Osseous structures intact again with mild/moderate degenerative changes throughout the spine and minimal grade 1 L4 spondylolisthesis. Impression: 1. Again mild diffuse fecal stasis, bilateral adrenal adenomas, right renal atrophy, hepatic hemangioma, arteriosclerotic disease, chronic bony findings, and old granulomatous disease. 2. Remaining CT abdomen/pelvis without contrast exam is again negative. Comment: Preliminary interpretation made by [facility]. No critical discrepancy.
== END 2021-11-17 20:43 | disposition home or self-care (01) ==
LOC: ED 15:08
DX: R10.84 Generalized abdominal pain (principal); E78.5 Hyperlipidemia, unspecified; I10 Essential (primary) hypertension; J44.9 Chronic obstructive pulmonary disease, unspecified; Z72.0 Tobacco use; Z79.891 Long term (current) use of opiate analgesic; Z79.899 Other long term (current) drug therapy
CPT/HCPCS: 36000; 36415; 74176; 80053; 81015; 82150; 83605; 83690; 84484; 85025; 93005; 96374; 96375; 99284; J2405

== ENCOUNTER 2022-07-04 05:28 | Observation (INO) | payer MEDICARE ==
[2022-07-04] MEDS ORDERED: DUONEB 0.5-3 MG/3 ml Neb IH ONE ×3 (05:48→06:14)
[2022-07-04] MEDS ORDERED: solu-MEDROL 125 MG, Sterile H2O 10 ml 2 ML IV ONE ×2 (05:49)
[2022-07-04] MEDS ORDERED: solu-MEDROL ONE (05:51)
[2022-07-04] MEDS ORDERED: Sterile H2O 10 ml IJ ONE (05:51)
[2022-07-04 06:13] LABS: Absolute Neutrophil Ct (ANC) 3.33 x10^3/uL (1.4-6.9); Basophil (Absolute #) 0.02 x10^3/uL (0-0.4); Eosinophil % 0.7 % (0.00-5.0); Eosinophil (Absolute #) 0.03 x10^3/uL (0-0.5); Hematocrit 40.1 % (35-47); Hemoglobin 11.4 g/dL (12.0-16.0); Lymphocyte (Absolute #) 0.73 x10^3/uL (1.0-4.6); Lymphocytes % 16.1 % (24.0-44.0); Mean Cell Volume 78.8 fL (78-100); Mean Corpuscular Hemoglobin 22.4 pg (26-32); Mean Corpuscular Hgb Concent. 28.4 g/dL (32-36); Mean Platelet Volume 10.9 fL (7.5-11.0); Monocyte (Absolute #) 0.42 x10^3/uL (0.0-1.3); Monocytes % 9.3 % (0.0-12.0); Neutrophil % 73.3 % (36.0-66.0); Platelet Count 164 x10^3/uL (150-450); Red Blood Count 5.09 x10^6/uL (4.1-5.4); Red Cell Distribution Width 17.9 % (11.5-14.0); White Blood Count 4.5 x10^3/uL (4.0-10.5)
[2022-07-04 06:20] LABS: ALBUMIN 3.7 g/dL (3.5-5.0); ALKALINE PHOSPHATASE 110 U/L (38-126); ANION GAP 7.7 MEQ/L (5-15); BLOOD UREA NITROGEN 9 mg/dL (7-17); CHLORIDE 98 mmol/L (98-107); Calcium 8.2 mg/dL (8.4-10.2); Carbon Dioxide 32 mmol/L (22-30); Creatinine 1 0.71 mg/dL (0.52-1.04); EST GLOMERULAR FILTRATION RATE > 60.0 ML/MIN; Glucose 121 mg/dL (74-106); Potassium 4.1 mmol/L (3.5-5.1); SGOT/AST 30 U/L (14-36); SGPT/ALT 19 U/L (0-35); SODIUM 134 mmol/L (137-145); Total Protein 6.4 g/dL (6.3-8.2)
[2022-07-04] MEDS ORDERED: Ativan 1 MG ONE (06:42)
[2022-07-04] MEDS ORDERED: Ativan 1 MG PO ONE (06:44)
--- NOTE | 2022-07-04 06:50 | ERPHSYRPT ---
- History of Present Illness Source: patient, family Exam Limitations: no limitations Patient Subjective Stated Complaint: Pt reports on 06/30/22 she developed productive cough worse than usual, fever of 102, congestion, increasing shortness of breath. Pt reports she took at home covid test on 06/30/22 and was positive. Normally wears 2L O2 at home and was told by PCP approx 2 days ago to increase liter flow to 3L. Shortness of breath has worsened. Triage Nursing Assessment: Pt alert and oriented x3. Ambulated to waiting room without difficulty, wheeled from waiting room to ED cot by ED staff due to pt reported shortness of breath and pursed lips breathing on room air. Skin w/p/d. O2 sat 82% on room air. Inspiratory/expiratory wheezing throughout, crackles bilateral lower bases, diminished breath sounds worse left lower base. Bowel sounds active in all four quads. Abdomen firm, nontender, round. No lower extremity edema. Timing/Duration: day(s) (6), gradual onset, worse Activities at Onset: rest Severity of Dyspnea-Max: moderate Severity of Dyspnea-Current: moderate Possible Cause: illness exposure Modifying Factors: Improves With: oxygen. Worsens With: coughing, exertion Associated Symptoms: anxiety, cough, heaviness, productive cough, tightness Hx Tetanus, Diphtheria Vaccination/Date Given: Yes Hx Influenza Vaccination/Date Given: No Hx Pneumococcal Vaccination/Date Given: Yes <MANUEL WHITE - Last Filed: 07/04/22 06:56> <YANETH STOKES - Last Filed: 07/04/22 09:40> - History of Present Illness Time Seen by Provider: 07/04/22 05:50 Physician History: 72-year-old female with history of chronic respiratory failure secondary to COPD, tobacco abuse, hypertension, hyperlipidemia presented to the ER with chief complaint of worsening shortness of breath for last 1 week. Patient reports she has positive home COVID test 4 days ago. Reports cough productive of clear to yellow sputum moderate in amount with bouts of coughing to the point getting difficult to catch her breath. Patient feels short of breath despite using 2 L oxygen. She has saturation in lower 80s on presentation in the ER. Complaining of generalized chest tightness and pressure. (MANUEL WHITE) Allergies/Adverse Reactions: cephalexin [From Keflex] Allergy (Verified 07/04/22 05:30) Home Medications: Isosorbide Mononitrate 30 mg [Imdur 30 MG] 30 mg PO DAILY 08/11/18 [History] Metoprolol Tartrate 25 mg PO BID 08/11/18 [History] lisinopriL [Lisinopril] 20 mg PO DAILY 08/11/18 [History] Alendronate Sodium 70 mg [Fosamax 70 MG] 70 mg PO WEEKLY 09/18/20 [Hi story] Furosemide 20 mg [Lasix 20 mg] 20 mg PO DAILY PRN 09/18/20 [History] Hydrocodone/Acetaminophen [Hydrocodone-Acetamin 10-325 mg] 10 mg PO Q6H PRN PRN 09/18/20 [History] Atorvastatin Calcium [Lipitor 20MG Tablet] 20 mg PO DAILY 08/28/21 [History] Docusate Sodium [Colace] 100 mg PO BID PRN PRN 08/28/21 [History] Levothyroxine Sodium 100 Mcg [Synthroid 100 Mcg] 200 mcg PO DAILY 08/28/21 [History] Nitroglycerin 0.4 mg (Ed) [Nitrostat 0.4 MG (ED)] 0.4 mg SL DIRECTIONS UNKNOWN 08/28/21 [History] Spironolactone 25 mg PO DAILY 08/28/21 [History] Albuterol 8 gm Mdi Hfa [Ventolin Hfa MDI] 2 puff IH Q4-6HPRN PRN 09/02/21 [History] PANTOPRAZOLE 40 mg Tablet [Protonix 40MG Tablet] 40 mg PO HS 09/02/21 [History] Fluticasone/Umeclidin/Vilanter [Trelegy Ellipta 100-62.5-25] 1 puff IH DAILY 07/04/22 [History] Prednisone 20 mg [Deltasone 20 mg] 20 mg PO DAILY 07/04/22 [History] Travel Risk - International Travel Have you traveled outside of the country in past 3 weeks: No - Coronavirus Screening Are you exhibiting any of the following symptoms?: Yes Symptoms: Fever, Cough: New Onset, Shortness of Breath, Headaches/Body Aches/Fat igue Close contact with a COVID-19 positive Pt in past 14-21 Days: Yes - Vaccine Status Have you recieved a Covid-19 vaccination: Yes 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 - Vaccination Dates Date of 2cond Vaccination (if applicable): n/a <CHRISTOPHERMANUEL - Last Filed: 07/04/22 06:56> - Review of Systems Constitutional: Fever, Chills, Fatigue, Weakness Eyes: No Symptoms Ears, Nose, & Throat: Sinus Drainage Respiratory: Cough, Dyspnea, Wheezing Cardiac: No Symptoms Abdominal/Gastrointestinal: No Symptoms Genitourinary Symptoms: No Symptoms Musculoskeletal: Myalgias Skin: No Symptoms Neurological: No Symptoms Psychological: No Symptoms Endocrine: No Symptoms Hematologic/Lymphatic: No Symptoms Immunological/Allergic: No Symptoms <MANUEL WHITE - Last Filed: 07/04/22 06:56> - Past Medical History Pertinent Past Medical History: Yes Neurological History: No Pertinent History ENT History: No Pertinent History Cardiac History: Coronary Artery Disease, High Cholesterol, Hypertension, Other Respiratory History: No Pertinent History, COPD Endocrine Medical History: Hypothyroidism Musculoskeletal History: Arthritis GI Medical History: GERD History: No Pertinent History Psycho-Social History: No Pertinent History Female Reproductive Disorders: No Pertinent History Other Medical History: CHRONIC BACK PAIN,TUBAL - Past Surgical History Past Surgical History: Yes Neuro Surgical History: No Pertinent History Cardiac: No Pertinent History, Other, Cardiac Stent Respiratory: No Pertinent History Gastrointestinal: No Pertinent History Genitourinary: No Pertinent History Musculoskeletal: Orthopedic Surgery Female Surgical History: No Pertinent History, Tubal Ligation Other Surgical History: Left knee replacement, 3 back surgeries, Right elbow surgeries, 3 carpal tunnel surgeries on right and left hand. 3 cardiac stents in 2019 - Social History Smoking Status: Current every day smoker How long have you smoked: 57 Exposure to second hand smoke: Yes Drug Use: none Patient Lives Alone: No Significant Family History: no pertinent family hx <MANUEL WHITE - Last Filed: 07/04/22 06:56> - Physical Exam General Appearance: mild distress, alert, anxiety Eye Exam: PERRL/EOMI, eyes nml inspection Ears, Nose, Throat Exam: hearing grossly normal, pharyngeal erythema Neck Exam: normal inspection, non-tender, supple, full range of motion Respiratory Exam: diminished breath sounds, accessory muscle use, rhonchi, wheezing Cardiovascular/Chest Exam: normal heart sounds, regular rate/rhythm Abdominal/Gastrointestinal Exam: soft Extremity Exam: non-tender, normal range of motion Neurologic Exam: alert, oriented x 3, 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-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 as tested Skin Exam: normal color SpO2 Interpretation: hypoxic, O2 applied SpO2: 92 O2 Delivery: Nasal Cannula (3 L) <MANUEL WHITE - Last Filed: 07/04/22 06:56> - Nursing Vital Signs Nursing Vital Signs: Initial Vital Signs Temperature 98 F 07/04/22 05:29 Pulse Rate 104 H 07/04/22 05:29 Respiratory Rate 28 H 07/04/22 05:29 Blood Pressure 160/84 07/04/22 05:29 O2 Sat by Pulse Oximetry 82 L 07/04/22 05:29 Pain Scale Pain Intensity 4 - Course EKG Interpreted by Me: RATE, Sinus Rhythm, NORMAL AXIS, NORMAL INTERVALS, Non- specific ST Changes <MANUEL WHITE - Last Filed: 07/04/22 06:56> - CT Exams Chest CT Interpretation: Discussed w/radiologist (RLL atelectasis/fibrosis-sca rring/5mm nodule) <YANETH STOKES - Last Filed: 07/04/22 09:40> Ordered Tests: Active Orders 24 hr Category Date Time Status Bedrest ROUTINE Activity 07/04/22 09:22 Active Snuff Maker STAT Care 07/04/22 06:04 Active Code Status Order ROUTINE Care 07/04/22 09:22 Active EKG-ER Only STAT Care 07/04/22 06:03 Active IV Care Q6H Care 07/04/22 09:22 Active IV Insertion STAT Care 07/04/22 06:[address] in Observation ROUTINE Care 07/04/22 09:22 Active Pulse Oximetry (ED) STAT Care 07/04/22 06:03 Active Abdias Amandae, Apply ROUTINE Care 07/04/22 09:22 Active Vital Signs Q4H Care 07/04/22 09:22 Active Weight,Daily 0600 Care 07/04/22 09:22 Active Heart-Healthy Diet Diet 07/04/22 Lunch Active CHEST 1 VIEW (PORTABLE) Stat Exams 07/04/22 06:06 Completed CHEST WITHOUT CONTRAST [CT] Stat Exams 07/04/22 07:32 Completed BLOOD CULTURE Stat Lab 07/04/22 06:23 Received BNP [NT PRO BNP] Stat Lab 07/04/22 06:07 Completed CBC AM.LAB Lab 07/05/22 04:00 Ordered CBC W DIFF Stat Lab 07/04/22 06:03 Completed CMP AM.LAB Lab 07/05/22 04:00 Ordered CMP Stat Lab 07/04/22 06:03 Completed D-DIMER QUANTITATIVE Stat Lab 07/04/22 06:46 Completed Lactic Acid Stat Lab 07/04/22 06:23 Completed MAG [MAGNESIUM] Stat Lab 07/04/22 06:46 Completed PROCALCITONIN Stat Lab 07/04/22 06:10 Completed TROPONIN Q4H Lab 07/04/22 06:15 Completed TROPONIN Q4H Lab 07/04/22 11:15 Ordered TROPONIN Q4H Lab 07/04/22 15:15 Ordered UA W/RFX UR CULTURE Stat Lab 07/04/22 06:06 Completed Oxygen Nasal Cannula 3 lpm RT 07/04/22 09:22 Active Respiratory Therapy Assessment DAILY RT 07/04/22 06:17 Active Transfer Order Routine Transfer 07/04/22 Ordered Medication Summary Generic Name Dose Route Start Last Admin Trade Name Freq PRN Reason Stop Dose Admin Albuterol/Ipratropium 3 ml 07/04/22 11:00 Ipratropium/Albuterol Sulfate 3 Ml Ampul.Neb IH 08/03/22 10:59 Q4HRT [facility] Enoxaparin Sodium 40 mg 07/04/22 10:00 Enoxaparin Sodium 40 Mg/0.4 Ml Syringe SQ 08/03/22 09:59 DAILY [facility] Famotidine 20 mg 07/04/22 10:00 Famotidine 20 Mg Tablet PO 08/03/22 09:59 Q12HT [facility] Remdesivir 200 mg/ Sodium 250 mls @ 125 mls/hr 07/04/22 09:25 Chloride IV 07/04/22 11:24 ONCE ONE Remdesivir 100 mg/ Sodium 100 mls @ 100 mls/hr 07/04/22 09:30 Chloride IV 07/07/22 10:29 Q24H CHRISTINA Nicotine 21 mg 07/04/22 09:30 Nicotine 21 Mg/Patch Patch TOP 08/03/22 09:29 Q24H CHRISTINA Discontinued Medications Generic Name Dose Route Start Last Admin Trade Name Freq PRN Reason Stop Dose Admin Albuterol/Ipratropium 3 ml 07/04/22 05:48 07/04/22 06:16 Ipratropium/Albuterol Sulfate 3 Ml Ampul.Neb IH 07/04/22 05:49 3 ml STAT ONE Administration Albuterol/Ipratropium Confirm 07/04/22 06:11 Ipratropium/Albuterol Sulfate 3 Ml Ampul.Neb Administered 07/04/22 06:12 Dose 3 ml IH .STK-MED ONE Albuterol/Ipratropium Confirm 07/04/22 06:14 Ipratropium/Albuterol Sulfate 3 Ml Ampul.Neb Administered 07/04/22 06:15 Dose 3 ml IH .STK-MED ONE Methylprednisolone Sodium 0 mg 07/04/22 05:49 07/04/22 05:52 Succinate 125 mg/ Sterile IV 07/04/22 05:50 125 mg Water 2 ml STAT ONE Administration Dexamethasone Sodium Phosphate 10 mg 07/04/22 09:24 07/04/22 09:28 Dexamethasone Sod Phosphate 10 Mg/Ml IV 07/04/22 09:25 10 mg STAT ONE Administration Dexamethasone Sodium Phosphate Confirm 07/04/22 09:26 Dexamethasone Sod Phosphate 10 Mg/Ml Administered 07/04/22 09:27 Dose 10 mg .ROUTE .STK-MED ONE Ketorolac Tromethamine 15 mg 07/04/22 08:31 07/04/22 08:33 Ketorolac Tromethamine 30 Mg/Ml Inj IV 07/04/22 08:32 15 mg STAT ONE Administration Ketorolac Tromethamine Confirm 07/04/22 08:32 Ketorolac Tromethamine 30 Mg/Ml Inj Administered 07/04/22 08:33 Dose 30 mg .ROUTE .STK-MED ONE Lorazepam 1 mg 07/04/22 06:44 07/04/22 06:46 Lorazepam 1 Mg Tablet PO 07/04/22 06:45 1 mg STAT ONE Administration Lorazepam Confirm 07/04/22 06:42 Lorazepam 1 Mg Tablet Administered 07/04/22 06:43 Dose 1 mg .ROUTE .STK-MED ONE Methylprednisolone Sodium Succinate Confirm 07/04/22 05:51 Methylprednis Sod Succ 125 Mg/2 Ml Vial Administered 07/04/22 05:52 Dose 125 mg .ROUTE .STK-MED ONE Sterile Water Confirm 07/04/22 05:51 Water For Injection,Sterile 10 Ml Vial Administered 07/04/22 05:52 Dose 10 ml IJ .[facility]-MED ONE Lab/Rad Data: Laboratory Result Diagrams 07/04/22 06:03 07/04/22 06:03 Laboratory Results 07/04/22 07/04/22 07/04/22 Range/Units 06:46 06:46 06:23 WBC (4.0-10.5) x10^3/uL RBC (4.1-5.4) x10^6/uL Hgb (12.0-16.0) g/dL Hct (35-47) % MCV (78-100) fL MCH (26-32) pg MCHC (32-36) g/dL RDW (11.5-14.0) % Plt Count (150-450) x10^3/uL MPV (7.5-11.0) fL Gran % (36.0-66.0) % Immature Gran % (Auto) (0.00-0.4) % Nucleat RBC Rel Count (0.00-0.1) % Eos # (Auto) (0-0.5) x10^3/uL Immature Gran # (Auto) (0.00-0.03) x10^3u/L Absolute Lymphs (auto) (1.0-4.6) x10^3/uL Absolute Monos (auto) (0.0-1.3) x10^3/uL Absolute Nucleated RBC (0.00-0.01) x10^3u/L Lymphocytes % (24.0-44.0) % Monocytes % (0.0-12.0) % Eosinophils % (0.00-5.0) % Basophils % (0.0-0.4) % Absolute Granulocytes (1.4-6.9) x10^3/uL Basophils # (0-0.4) x10^3/uL D-Dimer 0.27 (0.0-0.50) mg/L Sodium (137-145) mmol/L Potassium (3.5-5.1) mmol/L Chloride (98-107) mmol/L Carbon Dioxide (22-30) mmol/L Anion Gap (5-15) MEQ/L BUN (7-17) mg/dL Creatinine (0.52-1.04) mg/dL Estimated GFR ML/MIN Glucose (74-106) mg/dL Lactic Acid 0.7 (0.4-2.0) Calcium (8.4-10.2) mg/dL Magnesium 2.2 (1.6-2.3) mg/dL Total Bilirubin (0.2-1.3) mg/dL AST (14-36) U/L ALT (0-35) U/L Alkaline Phosphatase (38-126) U/L Troponin I (0.000-0.034) ng/mL NT-Pro-B Natriuret Pep (0-900) pg/mL Serum Total Protein (6.3-8.2) g/dL Albumin (3.5-5.0) g/dL Procalcitonin (0.030-0.080) ng/mL Urine Color (Yellow) Urine Appearance (Clear) Urine pH (4.6-8.0) Ur Specific Flippin (1.005-1.030) Urine Protein (Negative) Urine Glucose (UA) (Negative) mg/dL Urine Ketones (Negative) Urine Blood (Negative) Urine Nitrite (Negative) Urine Bilirubin (Negative) Urine Urobilinogen (0.2) mg/dL Ur Leukocyte Esterase (Negative) U Hyaline Cast (Auto) (0-2) /LPF Urine Microscopic RBC (0-5) /HPF Urine Microscopic WBC (0-5) /HPF Ur Epithelial Cells (None Seen) /HPF Urine Bacteria (None Seen) /HPF Urine Culture Reflexed (NO) Influenza Type A Ag (NEGATIVE) Influenza Type B Ag (NEGATIVE) RSV (PCR) (Negative) SARS-CoV-2 (PCR) (NEGATIVE) Slides for Path Review 07/04/22 07/04/22 07/04/22 Range/Units 06:18 06:15 06:10 WBC (4.0-10.5) x10^3/uL RBC (4.1-5.4) x10^6/uL Hgb (12.0-16.0) g/dL Hct (35-47) % MCV (78-100) fL MCH (26-32) pg MCHC (32-36) g/dL RDW (11.5-14.0) % Plt Count (150-450) x10^3/uL MPV (7.5-11.0) fL Gran % (36.0-66.0) % Immature Gran % (Auto) (0.00-0.4) % Nucleat RBC Rel Count (0.00-0.1) % Eos # (Auto) (0-0.5) x10^3/uL Immature Gran # (Auto) (0.00-0.03) x10^3u/L Absolute Lymphs (auto) (1.0-4.6) x10^3/uL Absolute Monos (auto) (0.0-1.3) x10^3/uL Absolute Nucleated RBC (0.00-0.01) x10^3u/L Lymphocytes % (24.0-44.0) % Monocytes % (0.0-12.0) % Eosinophils % (0.00-5.0) % Basophils % (0.0-0.4) % Absolute Granulocytes (1.4-6.9) x10^3/uL Basophils # (0-0.4) x10^3/uL D-Dimer (0.0-0.50) mg/L Sodium (137-145) mmol/L Potassium (3.5-5.1) mmol/L Chloride (98-107) mmol/L Carbon Dioxide (22-30) mmol/L Anion Gap (5-15) MEQ/L BUN (7-17) mg/dL Creatinine (0.52-1.04) mg/dL Estimated GFR ML/MIN Glucose (74-106) mg/dL Lactic Acid (0.4-2.0) Calcium (8.4-10.2) mg/dL Magnesium (1.6-2.3) mg/dL Total Bilirubin (0.2-1.3) mg/dL AST (14-36) U/L ALT (0-35) U/L Alkaline Phosphatase (38-126) U/L Troponin I < 0.012 (0.000-0.034) ng/mL NT-Pro-B Natriuret Pep (0-900) pg/mL Serum Total Protein (6.3-8.2) g/dL Albumin (3.5-5.0) g/dL Procalcitonin 0.062 (0.030-0.080) ng/mL Urine Color (Yellow) Urine Appearance (Clear) Urine pH (4.6-8.0) Ur Specific Flippin (1.005-1.030) Urine Protein (Negative) Urine Glucose (UA) (Negative) mg/dL Urine Ketones (Negative) Urine Blood (Negative) Urine Nitrite (Negative) Urine Bilirubin (Negative) Urine Urobilinogen (0.2) mg/dL Ur Leukocyte Esterase (Negative) U Hyaline Cast (Auto) (0-2) /LPF Urine Microscopic RBC (0-5) /HPF Urine Microscopic WBC (0-5) /HPF Ur Epithelial Cells (None Seen) /HPF Urine Bacteria (None Seen) /HPF Urine Culture Reflexed (NO) Influenza Type A Ag NEGATIVE (NEGATIVE) Influenza Type B Ag NEGATIVE (NEGATIVE) RSV (PCR) NEGATIVE (Negative) SARS-CoV-2 (PCR) POSITIVE A (NEGATIVE) Slides for Path Review 07/04/22 07/04/22 07/04/22 Range/Units 06:07 06:06 06:03 WBC (4.0-10.5) x10^3/uL RBC (4.1-5.4) x10^6/uL Hgb (12.0-16.0) g/dL Hct (35-47) % MCV (78-100) fL MCH (26-32) pg MCHC (32-36) g/dL RDW (11.5-14.0) % Plt Count (150-450) x10^3/uL MPV (7.5-11.0) fL Gran % (36.0-66.0) % Immature Gran % (Auto) (0.00-0.4) % Nucleat RBC Rel Count (0.00-0.1) % Eos # (Auto) (0-0.5) x10^3/uL Immature Gran # (Auto) (0.00-0.03) x10^3u/L Absolute Lymphs (auto) (1.0-4.6) x10^3/uL Absolute Monos (auto) (0.0-1.3) x10^3/uL Absolute Nucleated RBC (0.00-0.01) x10^3u/L Lymphocytes % (24.0-44.0) % Monocytes % (0.0-12.0) % Eosinophils % (0.00-5.0) % Basophils % (0.0-0.4) % Absolute Granulocytes (1.4-6.9) x10^3/uL Basophils # (0-0.4) x10^3/uL D-Dimer (0.0-0.50) mg/L Sodium 134 L (137-145) mmol/L Potassium 4.1 (3.5-5.1) mmol/L Chloride 98 (98-107) mmol/L Carbon Dioxide 32 H (22-30) mmol/L Anion Gap 7.7 (5-15) MEQ/L BUN 9 (7-17) mg/dL Creatinine 0.71 (0.52-1.04) mg/dL Estimated GFR > 60.0 ML/MIN Glucose 121 H (74-106) mg/dL Lactic Acid (0.4-2.0) Calcium 8.2 L (8.4-10.2) mg/dL Magnesium (1.6-2.3) mg/dL Total Bilirubin 0.40 (0.2-1.3) mg/dL AST 30 (14-36) U/L ALT 19 (0-35) U/L Alkaline Phosphatase 110 (38-126) U/L Troponin I (0.000-0.034) ng/mL NT-Pro-B Natriuret Pep 311 (0-900) pg/mL Serum Total Protein 6.4 (6.3-8.2) g/dL Albumin 3.7 (3.5-5.0) g/dL Procalcitonin (0.030-0.080) ng/mL Urine Color Yellow (Yellow) Urine Appearance Cloudy A (Clear) Urine pH 6.0 (4.6-8.0) Ur Specific Flippin 1.010 (1.005-1.030) Urine Protein 30 (Negative) Urine Glucose (UA) Negative (Negative) mg/dL Urine Ketones Negative (Negative) Urine Blood Negative (Negative) Urine Nitrite Negative (Negative) Urine Bilirubin Negative (Negative) Urine Urobilinogen 1.0 A (0.2) mg/dL Ur Leukocyte Esterase Negative (Negative) U Hyaline Cast (Auto) NONE SEEN (0-2) /LPF Urine Microscopic RBC 0-2 (0-5) /HPF Urine Microscopic WBC 0-2 (0-5) /HPF Ur Epithelial Cells Rare (None Seen) /HPF Urine Bacteria None Seen (None Seen) /HPF Urine Culture Reflexed NO (NO) Influenza Type A Ag (NEGATIVE) Influenza Type B Ag (NEGATIVE) RSV (PCR) (Negative) SARS-CoV-2 (PCR) (NEGATIVE) Slides for Path Review 07/04/22 Range/Units 06:03 WBC 4.5 (4.0-10.5) x10^3/uL RBC 5.09 (4.1-5.4) x10^6/uL Hgb 11.4 L (12.0-16.0) g/dL Hct 40.1 (35-47) % MCV 78.8 (78-100) fL MCH 22.4 L (26-32) pg MCHC 28.4 L (32-36) g/dL RDW 17.9 H (11.5-14.0) % Plt Count 164 (150-450) x10^3/uL MPV 10.9 (7.5-11.0) fL Gran % 73.3 H (36.0-66.0) % Immature Gran % (Auto) 0.2 (0.00-0.4) % Nucleat RBC Rel Count 0.0 (0.00-0.1) % Eos # (Auto) 0.03 (0-0.5) x10^3/uL Immature Gran # (Auto) 0.01 (0.00-0.03) x10^3u/L Absolute Lymphs (auto) 0.73 L (1.0-4.6) x10^3/uL Absolute Monos (auto) 0.42 (0.0-1.3) x10^3/uL Absolute Nucleated RBC 0.00 (0.00-0.01) x10^3u/L Lymphocytes % 16.1 L (24.0-44.0) % Monocytes % 9.3 (0.0-12.0) % Eosinophils % 0.7 (0.00-5.0) % Basophils % 0.4 (0.0-0.4) % Absolute Granulocytes 3.33 (1.4-6.9) x10^3/uL Basophils # 0.02 (0-0.4) x10^3/uL D-Dimer (0.0-0.50) mg/L Sodium (137-145) mmol/L Potassium (3.5-5.1) mmol/L Chloride (98-107) mmol/L Carbon Dioxide (22-30) mmol/L Anion Gap (5-15) MEQ/L BUN (7-17) mg/dL Creatinine (0.52-1.04) mg/dL Estimated GFR ML/MIN Glucose (74-106) mg/dL Lactic Acid (0.4-2.0) Calcium (8.4-10.2) mg/dL Magnesium (1.6-2.3) mg/dL Total Bilirubin (0.2-1.3) mg/dL AST (14-36) U/L ALT (0-35) U/L Alkaline Phosphatase (38-126) U/L Troponin I (0.000-0.034) ng/mL NT-Pro-B Natriuret Pep (0-900) pg/mL Serum Total Protein (6.3-8.2) g/dL Albumin (3.5-5.0) g/dL Procalcitonin (0.030-0.080) ng/mL Urine Color (Yellow) Urine Appearance (Clear) Urine pH (4.6-8.0) Ur Specific Flippin (1.005-1.030) Urine Protein (Negative) Urine Glucose (UA) (Negative) mg/dL Urine Ketones (Negative) Urine Blood (Negative) Urine Nitrite (Negative) Urine Bilirubin (Negative) Urine Urobilinogen (0.2) mg/dL Ur Leukocyte Esterase (Negative) U Hyaline Cast (Auto) (0-2) /LPF Urine Microscopic RBC (0-5) /HPF Urine Microscopic WBC (0-5) /HPF Ur Epithelial Cells (None Seen) /HPF Urine Bacteria (None Seen) /HPF Urine Culture Reflexed (NO) Influenza Type A Ag (NEGATIVE) Influenza Type B Ag (NEGATIVE) RSV (PCR) (Negative) SARS-CoV-2 (PCR) (NEGATIVE) Slides for Path Review YES - Progress Progress: improved, re-examined Air Movement: fair Blood Culture(s) Obtained: Yes Counseled pt/family regarding: lab results, diagnosis, need for follow-up, rad results <MANUEL WHITE - Last Filed: 07/04/22 06:56> - Progress Discussed with : N.Willow Will see patient in: hospital (observation) <YANETH STOKES - Last Filed: 07/04/22 09:40> - Progress Progress Note: 07/04/22 06:54 72-year-old with history of COPD tobacco abuse on 2 L oxygen normally is evaluated for increasing shortness of breath and positive COVID-19 at home few days ago. Patient was in mild to moderate distress on presentation with oxygen saturation in the low 80s. She is given DuoNeb and Solu-Medrol, placed on 3 L oxygen and satting in the low 90s. Chest x-ray questionable airspace disease on the right side. Normal white count, fairly unremarkable chemistry is an negative procalcitonin. (MANUEL WHITE) 07/04/22 07:33 Assumed care of pt at 7:00AM w h/o COPD/continued tobacco abuse/2L O2 dep at home/CAD/stents/hypertension/hypothyroidism who tested + for CV19 on 06/30/22 at home who presented for worsening dyspnea. Pt has had a cough x2wks/coryza/nausea/ wo vomiting/diarrhea/melena/hematochezia. WF on 3L O2 NC w sats 92% Lungs scattered rales, worse at L base Heart Tachy woM Abdomen good BS, soft/NTTP +CV19 WBC4.5/Lactate WNL/+CV19 CXR diffuse airspace dz EKG-NSR/Normal QT-QTc/Tall Rwave V2/Tall Twaves/No acute ST segment changes Ordered Trop/CT chest wo Troponin neg/CT chest wo acute infiltrate Obs per Dr. Daugherty, wants to start Remdisavir All labs/CXR/CT chest results reviewed and shared w pt Pt w obs admit due to hypoxia/COPD w continued tobacco use/high risk of ER return/Increasing O2 requirement Full Code per pt History per pt and daughter Daughter w CV19 also, so unable to care for pt 20mg IV Decadron 07/04/22 07:39 07/04/22 09:27 07/04/22 09:39 (YANETH STOKES) <MANUEL WHITE - Last Filed: 07/04/22 06:56> - Departure Departure Disposition: Observation Critical Care Time: Yes Critical Care Time(excluding separately billable procedures): Critical 30-74 mins (hypoxia) <YANETH STOKES - Last Filed: 07/04/22 09:40> - Departure Clinical Impression: COVID-19, COPD (chronic obstructive pulmonary disease) with chronic bronchitis Condition: Stable Referrals: LAURA SHELTON, DO [Primary Care Provider] - Follow up/PCP as directed Instructions: Chronic Obstructive Pulmonary Disease
[2022-07-04 06:56] LABS: Appearance Cloudy (Clear); Bacteria None Seen /HPF (None Seen); Bilirubin Negative (Negative); Blood Negative (Negative); Epithelial Cells Rare /HPF (None Seen); Glucose, Urine Negative (Negative); Hyaline Casts NONE SEEN /LPF (0-2); Ketones Negative (Negative); Leukocyte Esterase Negative (Negative); Nitrite Negative (Negative); Protein,Urine Dip 30 (Negative); RBC 0-2 /HPF (0-5); WBC 0-2 /HPF (0-5)
[2022-07-04 07:05] LABS: ADD URINE CULTURE? NO (NO)
[2022-07-04 07:05] LABS: INFLUENZA A NEGATIVE (NEGATIVE); INFLUENZA B NEGATIVE (NEGATIVE); RESPIRATORY SYNCTIAL VIRUS NEGATIVE (Negative)
[2022-07-04 07:06] LABS: SARS-CoV-2 Xpert Express POSITIVE (NEGATIVE)
[2022-07-04] MEDS ORDERED: TORAdol 30 mg Injection IV ONE (08:31)
[2022-07-04] MEDS ORDERED: TORAdol 30 mg Injection ONE (08:32)
--- NOTE | 2022-07-04 08:35 | XRAY ---
Indication: Short of breath. Positive Covid 19. Multiple contiguous axial images obtained through the chest without contrast as ordered. Comparison: None Lungs demonstrate anterior medial right lower lobe postobstructive atelectasis. Elsewhere mild scattered bilateral subsegmental fibrosis/scarring and tiny left upper lobe calcified granulomas. Left midlung demonstrates 5 mm dayton-fissural noncalcified nodularity. No infiltrate, effusion, or pneumothorax. Heart not enlarged with scattered coronary calcifications. Aorta moderately arteriosclerotic without aneurysm. Left subclavian artery stent. Small left hilar calcified nodes. No pathologic mediastinal lymphadenopathy. Small hiatal hernia. Mid to distal esophagus demonstrates small fluid leveling presumed from gastroesophageal reflux. Bony thorax intact with osteopenia and mild/moderate degenerative changes throughout the spine. Limited upper abdomen demonstrates splenic calcified granulomas, right renal atrophy, and cholecystectomy clips. Impression: 1. Anterior medial right lower lobe postobstructive atelectasis. Rule out aspiration given small hiatal hernia and evidence for GERD. Endobronchial mass not completely excluded. 2. Indeterminant 5 mm left dayton-fissural noncalcified nodularity. Outside comparison studies recommended if available. If not, recommend follow-up per Fleischner guidelines. 3. Chronic findings including pulmonary fibrosis/scarring, chronic bony findings, right renal atrophy, arteriosclerotic disease, and old granulomatous disease.
--- NOTE | 2022-07-04 08:36 | XRAY ---
Indication: Short of breath. Positive Covid 19. Comparison: None Portable chest hyperinflated with CT proven medial right lower lobe postobstructive atelectasis and scattered adenosis/scarring. Heart not enlarged. Bony thorax intact with mild osteopenia and degenerative changes.
[2022-07-04 09:06] LABS: Slide Review 1 YES
[2022-07-04] MEDS ORDERED: DECADRON 10MG INJ. IV ONE (09:24)
[2022-07-04] MEDS ORDERED: REMDESIVIR 200 MG in Sodium Chloride 0.9% 250 ML 250 ML IV ONE (09:25)
[2022-07-04] MEDS ORDERED: DECADRON 10MG INJ. ONE (09:26)
[2022-07-04] MEDS: DUONEB 0.5-3 MG/3 ml Neb IH SCH ×3 (11:22→18:45)
[2022-07-04] MEDS: Pepcid 20 MG PO SCH ×2 (11:28→21:42)
[2022-07-04] MEDS: ENOXAPARIN SODIUM SQ SCH (11:28)
[2022-07-04] MEDS: Nicoderm CQ 21 MG TOP SCH (11:39)
[2022-07-04] MEDS ORDERED: xanAX 0.25 MG PO PRN (14:30)
[2022-07-04] MEDS: NEURONTIN PO SCH ×2 (14:41→21:42)
[2022-07-04 15:02] LABS: Amphetamine,Urine NEGATIVE (NEGATIVE); Barbiturate,Urine NEGATIVE (NEGATIVE); Benzodiazepine,Urine NEGATIVE (NEGATIVE); Cocaine,Urine NEGATIVE (NEGATIVE); Methadone,Urine NEGATIVE (NEGATIVE); Opiate,Urine POSITIVE (NEGATIVE); PCP,Urine NEGATIVE (NEGATIVE); THC,Urine NEGATIVE (NEGATIVE)
[2022-07-04] MEDS ORDERED: Docusate Sodium 100 MG PO PRN (17:23)
[2022-07-04] MEDS ORDERED: LASIX 20 MG PO PRN (17:23)
[2022-07-04] MEDS ORDERED: Ventolin Hfa MDI IH PRN (17:23)
[2022-07-04] MEDS ORDERED: Fosamax 70 MG PO PRN (17:30)
[2022-07-04] MEDS ORDERED: Nitrostat 0.4 MG Tablet SL PRN (17:30)
[2022-07-04] MEDS ORDERED: VENTOLIN COMMON CANISTER IH PRN (17:32)
[2022-07-04] MEDS ORDERED: MEDICATION INTERVENTION MC SCH (17:45)
[2022-07-04] MEDS: Protonix 40MG Tablet PO SCH (21:42)
[2022-07-04] MEDS: Mylicon 80MG PO SCH (21:42)
[2022-07-04] MEDS: Lopressor 25MG Tab PO SCH (21:42)
[2022-07-04] MEDS ORDERED: NON-FORMULARY ITEM (Budesonide/Glycopyr/Formoterol [Breztri Aerosphere Inhaler] 10.7 GM Hf IH SCH (22:00)
[2022-07-05] MEDS: DUONEB 0.5-3 MG/3 ml Neb IH SCH ×4 (00:57→10:54)
[2022-07-05 06:28] LABS: Hematocrit 40.8 % (35-47); Hemoglobin 11.6 g/dL (12.0-16.0); Mean Cell Volume 79.4 fL (78-100); Mean Corpuscular Hemoglobin 22.6 pg (26-32); Mean Corpuscular Hgb Concent. 28.4 g/dL (32-36); Mean Platelet Volume 10.7 fL (7.5-11.0); Platelet Count 143 x10^3/uL (150-450); Red Blood Count 5.14 x10^6/uL (4.1-5.4); Red Cell Distribution Width 18.1 % (11.5-14.0); White Blood Count 6.9 x10^3/uL (4.0-10.5)
[2022-07-05 06:48] LABS: ALBUMIN 3.7 g/dL (3.5-5.0); ALKALINE PHOSPHATASE 103 U/L (38-126); BLOOD UREA NITROGEN 13 mg/dL (7-17); CHLORIDE 100 mmol/L (98-107); Calcium 8.3 mg/dL (8.4-10.2); Carbon Dioxide 33 mmol/L (22-30); Creatinine 1 0.61 mg/dL (0.52-1.04); EST GLOMERULAR FILTRATION RATE > 60.0 ML/MIN; Glucose 117 mg/dL (74-106); Potassium 4.3 mmol/L (3.5-5.1); SGOT/AST 33 U/L (14-36); SGPT/ALT 23 U/L (0-35); SODIUM 137 mmol/L (137-145); Total Protein 6.5 g/dL (6.3-8.2)
[2022-07-05] MEDS: PLAVIX Tablet PO SCH (09:10)
[2022-07-05] MEDS: SYNTHROID 25 MCG PO SCH (09:10)
[2022-07-05] MEDS: Lopressor 25MG Tab PO SCH ×2 (09:10→21:21)
[2022-07-05] MEDS: SYNTHROID 100 MCG PO SCH (09:10)
[2022-07-05] MEDS: Zestril 20 MG PO SCH (09:10)
[2022-07-05] MEDS: Pepcid 20 MG PO SCH ×2 (09:10→21:21)
[2022-07-05] MEDS: NEURONTIN PO SCH ×3 (09:10→21:21)
[2022-07-05] MEDS: ENOXAPARIN SODIUM SQ SCH (09:11)
[2022-07-05] MEDS: ZOCOR 20MG PO SCH (09:11)
[2022-07-05] MEDS: Mylicon 80MG PO SCH ×3 (09:11→21:21)
[2022-07-05] MEDS: Aldactone 25 MG PO SCH (09:13)
[2022-07-05] MEDS: HYDROCODONE-ACETAMIN 10-325 MG PO PRN ×2 (09:16→18:50)
[2022-07-05 09:57] LABS: Slide Review YES
[2022-07-05] MEDS ORDERED: NON-FORMULARY ITEM (Atorvastatin Calcium 20 MG Tab) PO SCH (10:00)
[2022-07-05] MEDS: REMDESIVIR 100 MG in Sodium Chloride 100ML MINI-BAG PLUS 100 ML IV SCH (10:49)
[2022-07-05] MEDS: VENTOLIN COMMON CANISTER IH SCH ×3 (10:58→18:28)
[2022-07-05] MEDS: Nicoderm CQ 21 MG TOP SCH (10:58)
[2022-07-05] MEDS ORDERED: MOTRIN 600 MG PO PRN (16:35)
--- NOTE | 2022-07-05 18:15 | PCM.HP ---
History of Present Illness - Chief Complaint Chief Complaint: covid 19 , hypoxia History of Present Illness: is a 72 year old female patient of Dr Lisa Jerez with history of chronic respiratory failure secondary to COPD, tobacco abuse, hypertension, hyperlipidemia presented to the ER with chief complaint of worsening shortness of breath for last 1 week. Patient reports she has positive home COVID test 4 days ago. Reports cough productive of clear to yellow sputum moderate in amount with bouts of coughing to the point getting difficult to catch her breath. Patient feels short of breath despite using 2 L oxygen. She has saturation in lower 80s on presentation in the ER. Complaining of generalized chest tightness and pressure. ER covid test is positive and patient is admited to Covid room on Medsurg with protocol. 1st dose Remdisivir given in ER. - Review of Systems Constitutional: Fever, Chills, Weakness Eyes: No Symptoms Ears, Nose, & Throat: Nose Congestion, Sinus Drainage Abdominal/Gastrointestinal: Hematemesis Genitourinary Symptoms: No Symptoms Musculoskeletal: Myalgias Skin: No Symptoms Neurological: No Symptoms Psychological: No Symptoms Endocrine: No Symptoms Hematologic/Lymphatic: No Symptoms Immunological/Allergic: No Symptoms Medications & Allergies Home Medications: Home Medication List Metoprolol Tartrate 25 mg PO BID 08/11/18 [History Confirmed 07/04/22] lisinopriL [Lisinopril] 20 mg PO DAILY 08/11/18 [History Confirmed 07/04/22] Alendronate Sodium 70 mg [Fosamax 70 MG] 70 mg PO WEEKLY 09/18/20 [History Confirmed 07/04/22] Furosemide 20 mg [Lasix 20 mg] 20 mg PO DAILY PRN 09/18/20 [History Confirmed 07/04/22] Hydrocodone/Acetaminophen [Hydrocodone-Acetamin 10-325 mg] 10 mg PO Q8HPRN PRN 09/18/20 [History Confirmed 07/04/22] Atorvastatin Calcium [Lipitor 20MG Tablet] 40 mg PO DAILY 08/28/21 [History Confirmed 07/04/22] Docusate Sodium [Colace] 100 mg PO BID PRN PRN 08/28/21 [History Confirmed 07/04/22] Levothyroxine Sodium 100 Mcg [Synthroid 100 Mcg] 200 mcg PO DAILY 08/28/21 [History Confirmed 07/04/22] Nitroglycerin 0.4 mg (Ed) [Nitrostat 0.4 MG (ED)] 0.4 mg SL DIRECTIONS UNKNOWN 08/28/21 [History Confirmed 07/04/22] Spironolactone 25 mg PO DAILY 08/28/21 [History Confirmed 07/04/22] Albuterol 8 gm Mdi Hfa [Ventolin Hfa MDI] 2 puff IH Q4-6HPRN PRN 09/02/21 [History Confirmed 07/04/22] Clopidogrel Bisulfate [Plavix] 75 mg PO DAILY #0 09/02/21 [Rx Confirmed 07/04/22] PANTOPRAZOLE 40 mg Tablet [Protonix 40MG Tablet] 40 mg PO HS 09/02/21 [History Confirmed 07/04/22] Budesonide/Glycopyr/Formoterol [Breztri Aerosphere Inhaler] 2 puff IH BID 07/04/22 [History Confirmed 07/04/22] Gabapentin [Neurontin ] 300 mg PO TID 07/04/22 [History Confirmed 07/04/22] Levothyroxine Sodium 25 Mcg [Synthroid 25 Mcg] 25 mcg PO DAILY 07/04/22 [History Confirmed 07/04/22] Simethicone 80 mg [Mylicon 80MG] 80 mg PO TID 07/04/22 [History Confirmed 07/04/22] Allergies/Adverse Reactions: Allergies Allergy/AdvReac Type Severity Reaction Status Date / Time cephalexin [From Keflex] Allergy Verified 07/04/22 05:30 - Past Medical History Past Medical History: Yes Neurological History: No Pertinent History ENT History: No Pertinent History Cardiac History: Coronary Artery Disease, High Cholesterol, Hypertension, Other Respiratory History: No Pertinent History, COPD Endocrine Medical History: Hypothyroidism Musculoskelatal History: Arthritis GI Medical History: GERD History: No Pertinent History Pyscho-Social History: No Pertinent History Reproductive Disorders: No Pertinent History Comment: CHRONIC BACK PAIN,TUBAL - Female History Are you now?: No - Past Surgical History Past Surgical History: Yes Neuro Surgical History: No Pertinent History Cardiac History: No Pertinent History, Other, Cardiac Stent Respiratory Surgery: No Pertinent History GI Surgical History: No Pertinent History Genitourinary Surgical Hx: No Pertinent History Musculskeletal Surgical Hx: Orthopedic Surgery Female Surgical History: No Pertinent History, Tubal Ligation Other Surgical History: Left knee replacement, 3 back surgeries, Right elbow surgeries, 3 carpal tunnel surgeries on right and left hand. 3 cardiac stents in 2019 - Social History Smoking Status: Former smoker How long have you smoked: 57 Exposure to second hand smoke: Yes Alcohol: None Drug Use: none Significant Family History: no pertinent family hx - Physical Exam Vital Signs: Vital Signs - 24 hr Temp Pulse Resp BP Pulse Ox 07/05/22 16:00 97.9 F 86 17 153/64 90 L 07/05/22 15:10 87 20 94 L 07/05/22 11:34 98.0 F 85 17 121/63 92 L 07/05/22 11:15 91 L 07/05/22 10:58 69 20 84 L 07/05/22 08:02 90 22 92 L 07/05/22 08:00 97.1 F 82 18 166/86 96 07/05/22 04:00 98.0 F 74 18 163/85 95 07/04/22 23:44 97.6 F 72 22 144/72 95 07/04/22 20:00 98.1 F 95 H 17 154/81 94 L 07/04/22 18:45 95 H 17 93 L Neurologic Exam: alert, oriented x 3, cooperative Eye Exam: eyes nml inspection Ears, Nose, Throat Exam: moist mucous membranes, pharyngeal erythema (PND) Neck Exam: normal inspection Respiratory Exam: wheezing (coarse exp scattered mid lung swann), other (O2 4L/NC) Cardiovascular Exam: tachycardia (regular 90), other Gastrointestinal/Abdomen Exam: soft (nontender) Back Exam: normal inspection Extremity Exam: normal inspection, other (no tenderness) Skin Exam: warm, dry, pale Results - Labs Lab/Micro Results: Lab Results-Last 24 Hours 07/05/22 07/05/22 Range/Units 06:01 06:01 WBC 6.9 (4.0-10.5) x10^3/uL RBC 5.14 (4.1-5.4) x10^6/uL Hgb 11.6 L (12.0-16.0) g/dL Hct 40.8 (35-47) % MCV 79.4 (78-100) fL MCH 22.6 L (26-32) pg MCHC 28.4 L (32-36) g/dL RDW 18.1 H (11.5-14.0) % Plt Count 143 L (150-450) x10^3/uL MPV 10.7 (7.5-11.0) fL Sodium 137 (137-145) mmol/L Potassium 4.3 (3.5-5.1) mmol/L Chloride 100 (98-107) mmol/L Carbon Dioxide 33 H (22-30) mmol/L Anion Gap 8.0 (5-15) MEQ/L BUN 13 (7-17) mg/dL Creatinine 0.61 (0.52-1.04) mg/dL Estimated GFR > 60.0 ML/MIN Glucose 117 H (74-106) mg/dL Calcium 8.3 L (8.4-10.2) mg/dL Total Bilirubin 0.40 (0.2-1.3) mg/dL AST 33 (14-36) U/L ALT 23 (0-35) U/L Alkaline Phosphatase 103 (38-126) U/L Serum Total Protein 6.5 (6.3-8.2) g/dL Albumin 3.7 (3.5-5.0) g/dL Slides for Path Review YES Microbiology 07/04/22 06:23 Blood Culture - Preliminary Blood NO GROWTH TO DATE 07/04/22 06:18 Blood Culture - Preliminary Blood NO GROWTH TO DATE - Radiology Impressions Radiology Exams & Impressions: Radiology Procedures Category Date Time Status CHEST 1 VIEW (PORTABLE) Stat Exams 07/04/22 06:06 Completed CHEST WITHOUT CONTRAST [CT] Stat Exams 07/04/22 07:32 Completed - Other Procedures and Tests Respiratory Therapy 07/05/22 07:00 Respiratory Therapy Assessment DAILY Assessment/Plan (1) COVID-19 Current Visit: Yes Status: Acute Assessment & Plan: started o Remdisivir Code(s): U07.1 - COVID-19 (2) COPD with exacerbation Current Visit: No Status: Acute Assessment & Plan: RT- monitor continuous Oximetry Code(s): J44.1 - CHRONIC OBSTRUCTIVE PULMONARY DISEASE W (ACUTE) EXACERBATION (3) Anxiety Current Visit: Yes Status: Acute Code(s): F41.9 - ANXIETY DISORDER, UNSPECIFIED (4) Hypertension Current Visit: No Status: Acute Code(s): I10 - ESSENTIAL (PRIMARY) HYPERTENSION
[2022-07-05] MEDS: FLUTICASONE-SALMETEROL 250-50 IH SCH (18:28)
[2022-07-05] MEDS: Protonix 40MG Tablet PO SCH (21:21)
[2022-07-05] MEDS: xanAX 0.25 MG PO SCH (21:22)
[2022-07-05] MEDS: Cyclobenzaprine 10 MG PO SCH (21:22)
[2022-07-06 05:42] LABS: A-aADO2 99; ABG HEMOGLOBIN 11.6; ABG POTASSIUM 4.5 (3.5-5.1); ARTERIAL BLD GAS O2 SATURATION 99.7 % (95-100); ARTERIAL BLOOD GAS BASE EXCESS 9.5 (-2.0-2.0); ARTERIAL BLOOD GAS FIO2 40 %; ARTERIAL BLOOD GAS PCO2 31 mmHg (35-45); ARTERIAL BLOOD GAS PO2 147 mmHg (75-100); ARTERIAL BLOOD GAS pH 7.61 (7.35-7.45); HCO3- 31.1 (22-28); HGB O2 SAT 88.1 g/dF (94-100); Methhemoglobin 1.1 % (1.4-1.5)
[2022-07-06 05:43] LABS: ABG SITE LEFT RADIAL; ALLEN TEST OK? YES; CARBOXYHEMOGLOBIN 10.5 % THgb (0.0-6.9)
[2022-07-06] MEDS: VENTOLIN COMMON CANISTER IH SCH ×4 (06:53→20:15)
[2022-07-06] MEDS: FLUTICASONE-SALMETEROL 250-50 IH SCH ×2 (06:54→20:15)
[2022-07-06] MEDS: Spiriva 18 Mcg/Cap Inhaler IH SCH (06:54)
[2022-07-06] MEDS: NEURONTIN PO SCH ×3 (08:53→21:01)
[2022-07-06] MEDS: Mylicon 80MG PO SCH ×3 (08:53→21:01)
[2022-07-06] MEDS: Zestril 20 MG PO SCH (08:53)
[2022-07-06] MEDS: ZOCOR 20MG PO SCH (08:53)
[2022-07-06] MEDS: Aldactone 25 MG PO SCH (08:53)
[2022-07-06] MEDS: xanAX 0.25 MG PO SCH ×3 (08:53→21:01)
[2022-07-06] MEDS: SYNTHROID 100 MCG PO SCH (08:53)
[2022-07-06] MEDS: Pepcid 20 MG PO SCH ×2 (08:54→21:01)
[2022-07-06] MEDS: SYNTHROID 25 MCG PO SCH (08:54)
[2022-07-06] MEDS: ENOXAPARIN SODIUM SQ SCH (08:54)
[2022-07-06] MEDS: PLAVIX Tablet PO SCH (08:54)
[2022-07-06] MEDS: Lopressor 25MG Tab PO SCH ×2 (08:54→21:01)
[2022-07-06] MEDS: Nicoderm CQ 21 MG TOP SCH (09:13)
[2022-07-06] MEDS: HYDROCODONE-ACETAMIN 10-325 MG PO PRN (09:19)
[2022-07-06] MEDS: REMDESIVIR 100 MG in Sodium Chloride 100ML MINI-BAG PLUS 100 ML IV SCH (11:00)
--- NOTE | 2022-07-06 12:52 | PCM.NOTE ---
Date and Time: 07/06/22 1250 Subjective Assessment: Patient with wheezing/coarse exp today but feeling stronger ,appetite is ok. Will start IV Dexamethasone now. Objective Exam General Appearance: no apparent distress Neurologic Exam: alert, oriented x 3, cooperative Skin Exam: normal color, warm, dry Ears, Nose, Throat Exam: normal ENT inspection Neck Exam: normal inspection Respiratory Exam: rhonchi, wheezing Cardiovascular Exam: regular rate/rhythm Extremity Exam: normal inspection OBJECTIVE DATA Vital Signs: Vital Signs - 24 hr Temp Pulse Resp BP Pulse Ox 07/06/22 12:00 97.2 F 82 16 144/64 93 L 07/06/22 11:04 76 20 94 L 07/06/22 08:00 97.4 F 71 21 128/63 93 L 07/06/22 06:54 92 H 16 95 07/06/22 04:00 97.1 F 60 20 131/63 93 L 07/06/22 02:00 20 07/05/22 23:51 98.2 F 64 17 99/57 95 07/05/22 20:00 97.8 F 76 20 128/63 95 07/05/22 18:28 96 H 16 96 07/05/22 16:00 97.9 F 86 17 153/64 90 L 07/05/22 15:10 87 20 94 L Pain Assessment - Last Documented Pain Intensity 4 Pain Scale Used 0-10 Pain Scale Intake and Output: Intake & Output 07/04/22 07/05/22 07/06/22 07/07/22 11:59 11:59 11:59 11:59 Intake Total 1132 880 Output Total 200 250 Balance 932 630 Weight 52.3 kg 71.4 kg 72 kg Lab Results: Lab Results-Last 24 Hours 07/06/22 Range/Units 05:37 Puncture Site LEFT RADIAL pCO2 31 L (35-45) mmHg pO2 147 H* (75-100) mmHg Base Excess 9.5 H (-2.0-2.0) O2 Saturation 88.1 L (94-100) g/dF ABG pH 7.61 H* (7.35-7.45) ABG HCO3 31.1 H* (22-28) ABG O2 Sat (Measured) 99.7 (95-100) % Mello Test YES A-a Gradient 99 a/A Ratio 0.60 Hemoglobin 11.6 Carboxyhemoglobin 10.5 H* (0.0-6.9) % THgb Methemoglobin 1.1 L (1.4-1.5) % Potassium 4.5 (3.5-5.1) Temperature 37.0 C POC O2 Flow Rate 40 % Multi-Disciplinary Progress Notes: Multi-Disciplinary Progress Notes 07/06/22 05:10 Respiratory Note by Abelardo Garcia DUE TO INCREASING FIO2 AND PT SHOWING SIGNS OF AMS, NURSING CALLED TO ASK IF I WOULD PERFORM AN ABG. Initialized on 07/06/22 05:10 - END OF NOTE Assessment/Plan (1) COPD (chronic obstructive pulmonary disease) with chronic bronchitis Current Visit: Yes Status: Acute Assessment & Plan: see orders Code(s): J44.9 - CHRONIC OBSTRUCTIVE PULMONARY DISEASE, UNSPECIFIED (2) COVID-19 Current Visit: Yes Status: Acute Code(s): U07.1 - COVID-19
[2022-07-06] MEDS: Decadron 4 MG INJ IV SCH (13:43)
[2022-07-06] MEDS: Cyclobenzaprine 10 MG PO SCH (21:01)
[2022-07-06] MEDS: Protonix 40MG Tablet PO SCH (21:01)
[2022-07-07] MEDS: FLUTICASONE-SALMETEROL 250-50 IH SCH ×2 (07:31→17:56)
[2022-07-07] MEDS: VENTOLIN COMMON CANISTER IH SCH ×2 (07:31→10:35)
[2022-07-07] MEDS: Spiriva 18 Mcg/Cap Inhaler IH SCH (07:31)
[2022-07-07] MEDS: ZOCOR 20MG PO SCH (10:46)
[2022-07-07] MEDS: PLAVIX Tablet PO SCH (10:46)
[2022-07-07] MEDS: SYNTHROID 100 MCG PO SCH (10:46)
[2022-07-07] MEDS: Pepcid 20 MG PO SCH (10:46)
[2022-07-07] MEDS: Aldactone 25 MG PO SCH (10:46)
[2022-07-07] MEDS: Lopressor 25MG Tab PO SCH (10:46)
[2022-07-07] MEDS: Mylicon 80MG PO SCH (10:46)
[2022-07-07] MEDS: Zestril 20 MG PO SCH (10:46)
[2022-07-07] MEDS: NEURONTIN PO SCH ×2 (10:46→16:03)
[2022-07-07] MEDS: xanAX 0.25 MG PO SCH ×2 (10:46→16:03)
[2022-07-07] MEDS: SYNTHROID 25 MCG PO SCH (10:47)
[2022-07-07] MEDS: REMDESIVIR 100 MG in Sodium Chloride 100ML MINI-BAG PLUS 100 ML IV SCH (10:47)
[2022-07-07] MEDS: ENOXAPARIN SODIUM SQ SCH (10:47)
[2022-07-07] MEDS: Nicoderm CQ 21 MG TOP SCH (10:48)
[2022-07-07] MEDS: Decadron 4 MG INJ IV SCH (10:48)
[2022-07-07 16:12] VITALS: BP 154/71
[2022-07-07 18:04] VITALS: PULSE 68; O2SAT 94
--- NOTE | 2022-07-07 18:54 | PCM.DCORD ---
- Discharge Disposition: HOME HEALTH SERVICE Prescriptions: New Prednisone 10 mg [Deltasone 10 mg] 30 mg PO DAILY #20 tablet Albuterol 2.5 mg/3 ml Neb [Proventil 2.5 mg/3 ml Neb] 2.5 mg IH QID #60 Continue Metoprolol Tartrate 25 mg PO BID lisinopriL [Lisinopril] 20 mg PO DAILY Alendronate Sodium 70 mg [Fosamax 70 MG] 70 mg PO WEEKLY Hydrocodone/Acetaminophen [Hydrocodone-Acetamin 10-325 mg] 10 mg PO Q8HPRN PRN PRN Reason: Pain Furosemide 20 mg [Lasix 20 mg] 20 mg PO DAILY PRN PRN Reason: fluid overload Atorvastatin Calcium [Lipitor 20MG Tablet] 40 mg PO DAILY Docusate Sodium [Colace] 100 mg PO BID PRN PRN PRN Reason: Constipation Nitroglycerin 0.4 mg (Ed) [Nitrostat 0.4 MG (ED)] 0.4 mg SL DIRECTIONS UNKNOWN Spironolactone 25 mg PO DAILY Levothyroxine Sodium 100 Mcg [Synthroid 100 Mcg] 200 mcg PO DAILY Albuterol 8 gm Mdi Hfa [Ventolin Hfa MDI] 2 puff IH Q4-6HPRN PRN PRN Reason: Shortness Of Breath/Wheezing PANTOPRAZOLE 40 mg Tablet [Protonix 40MG Tablet] 40 mg PO HS Clopidogrel Bisulfate [Plavix] 75 mg PO DAILY #0 Gabapentin [Neurontin ] 300 mg PO TID Levothyroxine Sodium 25 Mcg [Synthroid 25 Mcg] 25 mcg PO DAILY Budesonide/Glycopyr/Formoterol [Breztri Aerosphere Inhaler] 2 puff IH BID Simethicone 80 mg [Mylicon 80MG] 80 mg PO TID Additional Instructions: WEAR 3L/NC AT ALL TIMES A REFERRAL WAS FAXED TO [facility]. THEY WILL CONTACT YOU TO ARRANGE A VISIT. THEIR PHONE NUMBER IS [phone] Follow up with: SHELTON,LAURA D., DO [Primary Care Provider] - Call for Appointment
[2022-07-07] MEDS ORDERED: VENTOLIN COMMON CANISTER IH SCH (19:00)
--- NOTE | 2022-07-07 19:13 | PCM.DS ---
Discharge Summary Date of Admission: 07/04/22 09:50 Date of Discharge: 07/07/22 Admitting Physician: JACK PARK DO Primary Care Provider: LAURA SHELTON Allergies Allergies cephalexin [From Keflex] Allergy (Verified 07/04/22 05:30) Hospital Summary - Hospital Course Hospital Course: Patient with COPD exacerbation due to Covid. Has improved but still wheezing . Treated with Remdisivir ,Dexamethasone IV. At baseline patient is on O2 @Lat HS but requires continuous O2 at 4 L. Has had reduced appetite but still eating at each meal and drinking. Anxiety chrinic and worse on steroids but mild. See discharge orders and followup instructions. - Vitals & Intake/Output Vital Signs: Vital Signs Temperature 97.3 F 07/07/22 11:28 Pulse Rate 68 07/07/22 18:03 Respiratory Rate 18 07/07/22 18:03 Blood Pressure 154/71 07/07/22 16:00 O2 Sat by Pulse Oximetry 94 L 07/07/22 18:03 Intake & Output: Intake & Output 07/05/22 07/06/22 07/07/22 07/08/22 11:59 11:59 11:59 11:59 Intake Total 8431 035 7026 240 Output Total 200 250 500 Balance 748 518 1541 240 Weight 71.4 kg 72 kg 71.8 kg - Lab Result Diagrams: 07/05/22 06:01 07/05/22 06:01 Micro Results-Entire Visit: Microbiology 07/04/22 06:23 Blood Culture - Preliminary Blood NO GROWTH TO DATE 07/04/22 06:18 Blood Culture - Preliminary Blood NO GROWTH TO DATE - Procedures and Test Procedures and Tests throughout Hospitalization: Therapy Orders & Screens 07/04/22 06:17 Respiratory Therapy Assessment DAILY Comment: 07/04/22 09:22 Oxygen Nasal Cannula 3 lpm Comment: 07/05/22 07:00 Respiratory Therapy Assessment DAILY Comment: Diagnosis: covid 19 , hypoxia 07/05/22 18:44 Respiratory MDI BID Comment: Diagnosis: covid 19 , hypoxia Discharge Exam General Appearance: no apparent distress Neurologic Exam: alert, oriented x 3, cooperative, normal mood/affect Eye Exam: eyes nml inspection Ears, Nose, Throat Exam: normal ENT inspection Neck Exam: normal inspection Respiratory Exam: wheezing (scattered) Cardiovascular Exam: regular rate/rhythm Gastrointestinal/Abdomen Exam: soft (nontender) Extremity Exam: normal inspection Final Diagnosis/Problem List - Final Discharge Diagnosis/Problem (1) COVID-19 Current Visit: Yes Status: Acute Assessment & Plan: improved on Remdisivir Code(s): U07.1 - COVID-19 (2) COPD with exacerbation Current Visit: No Status: Acute Assessment & Plan: improved still wheezing -Home neb tx and prednisone Code(s): J44.1 - CHRONIC OBSTRUCTIVE PULMONARY DISEASE W (ACUTE) EXACERBATION (3) Anxiety Current Visit: Yes Status: Chronic Code(s): F41.9 - ANXIETY DISORDER, UNSPECIFIED (4) Hypertension Current Visit: No Status: Chronic Code(s): I10 - ESSENTIAL (PRIMARY) HYPERTENSION - Discharge Disposition: HOME HEALTH SERVICE Condition: Stable Prescriptions: New Prednisone 10 mg [Deltasone 10 mg] 30 mg PO DAILY #20 tablet Albuterol 2.5 mg/3 ml Neb [Proventil 2.5 mg/3 ml Neb] 2.5 mg IH QID #60 Continue Metoprolol Tartrate 25 mg PO BID lisinopriL [Lisinopril] 20 mg PO DAILY Alendronate Sodium 70 mg [Fosamax 70 MG] 70 mg PO WEEKLY Hydrocodone/Acetaminophen [Hydrocodone-Acetamin 10-325 mg] 10 mg PO Q8HPRN PRN PRN Reason: Pain Furosemide 20 mg [Lasix 20 mg] 20 mg PO DAILY PRN PRN Reason: fluid overload Atorvastatin Calcium [Lipitor 20MG Tablet] 40 mg PO DAILY Docusate Sodium [Colace] 100 mg PO BID PRN PRN PRN Reason: Constipation Nitroglycerin 0.4 mg (Ed) [Nitrostat 0.4 MG (ED)] 0.4 mg SL DIRECTIONS UNKNOWN Spironolactone 25 mg PO DAILY Levothyroxine Sodium 100 Mcg [Synthroid 100 Mcg] 200 mcg PO DAILY Albuterol 8 gm Mdi Hfa [Ventolin Hfa MDI] 2 puff IH Q4-6HPRN PRN PRN Reason: Shortness Of Breath/Wheezing PANTOPRAZOLE 40 mg Tablet [Protonix 40MG Tablet] 40 mg PO HS Clopidogrel Bisulfate [Plavix] 75 mg PO DAILY #0 Gabapentin [Neurontin ] 300 mg PO TID Levothyroxine Sodium 25 Mcg [Synthroid 25 Mcg] 25 mcg PO DAILY Budesonide/Glycopyr/Formoterol [Breztri Aerosphere Inhaler] 2 puff IH BID Simethicone 80 mg [Mylicon 80MG] 80 mg PO TID Additional Instructions: WEAR 3L/NC AT ALL TIMES A REFERRAL WAS FAXED TO [facility]. THEY WILL CONTACT YOU TO ARRANGE A VISIT. THEIR PHONE NUMBER IS [phone] Follow up with: LAURA SHELTON, [Primary Care Provider] - Call for Appointment
== END 2022-07-07 19:35 | disposition home health service (06) ==
LOC: ED 05:28 → MED SURG 09:50
PROVIDERS: ADMIT Family Medicine; ATTEND Family Medicine
DX: U07.1 COVID-19 (principal); J44.1 Chronic obstructive pulmonary disease with (acute) exacerbation; F41.9 Anxiety disorder, unspecified; J96.10 Chronic respiratory failure, unspecified whether with hypoxia or hypercapnia; I10 Essential (primary) hypertension; E78.5 Hyperlipidemia, unspecified; I25.10 Atherosclerotic heart disease of native coronary artery without angina pectoris; Z79.899 Other long term (current) drug therapy; Z20.828 Contact with and (suspected) exposure to other viral communicable diseases; Z72.0 Tobacco use; Z99.81 Dependence on supplemental oxygen; Z79.01 Long term (current) use of anticoagulants
CPT/HCPCS: 0241U; 36000; 36415; 36600; 71045; 71250; 80053; 80307; 81001; 82375; 82803; 83605; 83735; 83880; 84145; 84484; 85025; 85027; 85379; 87040; 93005; 93041; 94640; 94760; 94762; 96374; 96375; 99285; 99291; 93268; J0248; J1100; J1650; J1885; J2930; A9270-GY; G0378

== ENCOUNTER 2022-09-28 18:17 | Emergency (ER) | payer MEDICARE ==
--- NOTE | 2022-09-28 18:35 | ERPHSYRPT ---
- History of Present Illness Time Seen by Provider: 09/28/22 19:00 Historian: patient Exam Limitations: no limitations Physician History: Recurring abdominal pain without pattern for about 4 months. Primarily RUQ area, already had her gallbladder removed. No fever or other sx. Timing/Duration: today, worse Activities at Onset: none Quality: cramping Abdominal Pain Onset Location: RUQ Pain Radiation: no radiation Severity of Pain-Max: moderate Modifying Factors: Improves With: nothing Associated Symptoms: denies symptoms Allergies/Adverse Reactions: cephalexin [From Keflex] Allergy (Verified 09/28/22 18:38) Home Medications: Metoprolol Tartrate 25 mg PO BID 08/11/18 [History] lisinopriL [Lisinopril] 20 mg PO DAILY 08/11/18 [History] Alendronate Sodium 70 mg [Fosamax 70 MG] 70 mg PO WEEKLY 09/18/20 [History] Furosemide 20 mg [Lasix 20 mg] 20 mg PO DAILY PRN 09/18/20 [History] Hydrocodone/Acetaminophen [Hydrocodone-Acetamin 10-325 mg] 10 mg PO Q8HPRN PRN 09/18/20 [History] Atorvastatin Calcium [Lipitor 20MG Tablet] 40 mg PO DAILY 08/28/21 [History] Docusate Sodium [Colace] 100 mg PO BID PRN PRN 08/28/21 [History] Levothyroxine Sodium 100 Mcg [Synthroid 100 Mcg] 200 mcg PO DAILY 08/28/21 [History] Nitroglycerin 0.4 mg (Ed) [Nitrostat 0.4 MG (ED)] 0.4 mg SL DIRECTIONS UNKNOWN 08/28/21 [History] Spironolactone 25 mg PO DAILY 08/28/21 [History] Albuterol 8 gm Mdi Hfa [Ventolin Hfa MDI] 2 puff IH Q4-6HPRN PRN 09/02/21 [History] PANTOPRAZOLE 40 mg Tablet [Protonix 40MG Tablet] 40 mg PO HS 09/02/21 [History] Budesonide/Glycopyr/Formoterol [Breztri Aerosphere Inhaler] 2 puff IH BID 07/04/22 [History] Gabapentin [Neurontin ] 300 mg PO TID 07/04/22 [History] Levothyroxine Sodium 25 Mcg [Synthroid 25 Mcg] 25 mcg PO DAILY 07/04/22 [History] Simethicone 80 mg [Mylicon 80MG] 80 mg PO TID 07/04/22 [History] Hx Tetanus, Diphtheria Vaccination/Date Given: Yes Hx Influenza Vaccination/Date Given: No Hx Pneumococcal Vaccination/Date Given: Yes Travel Risk - Vaccine Status Have you recieved a Covid-19 vaccination: Yes 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[employer] - Vaccination Dates Date of 2cond Vaccination (if applicable): 2020 - Review of Systems Constitutional: No Symptoms Eyes: No Symptoms Ears, Nose, & Throat: No Symptoms Respiratory: No Symptoms Cardiac: No Symptoms Abdominal/Gastrointestinal: Abdominal Pain Genitourinary Symptoms: No Symptoms Musculoskeletal: No Symptoms Skin: No Symptoms Neurological: No Symptoms Psychological: No Symptoms Endocrine: No Symptoms Hematologic/Lymphatic: No Symptoms Immunological/Allergic: No Symptoms All Other Systems: Reviewed and Negative - Past Medical History Pertinent Past Medical History: Yes Neurological History: No Pertinent History ENT History: No Pertinent History Cardiac History: Coronary Artery Disease, High Cholesterol, Hypertension, Other Respiratory History: No Pertinent History, COPD Endocrine Medical History: Hypothyroidism Musculoskeletal History: Arthritis GI Medical History: GERD History: No Pertinent History Psycho-Social History: No Pertinent History Female Reproductive Disorders: No Pertinent History Other Medical History: CHRONIC BACK PAIN,TUBAL - Past Surgical History Past Surgical History: Yes Neuro Surgical History: No Pertinent History Cardiac: No Pertinent History, Other, Cardiac Stent Respiratory: No Pertinent History Gastrointestinal: No Pertinent History Genitourinary: No Pertinent History Musculoskeletal: Orthopedic Surgery Female Surgical History: No Pertinent History, Tubal Ligation Other Surgical History: Left knee replacement, 3 back surgeries, Right elbow surgeries, 3 carpal tunnel surgeries on right and left hand. 3 cardiac stents in 2019 - Social History Smoking Status: Former smoker How long have you smoked: 57 Exposure to second hand smoke: Yes Drug Use: none Patient Lives Alone: No Significant Family History: no pertinent family hx - Nursing Vital Signs Nursing Vital Signs: Initial Vital Signs Temperature 97.5 F 09/28/22 18:38 Pulse Rate 93 H 09/28/22 18:38 Respiratory Rate 18 09/28/22 18:38 Blood Pressure 171/72 09/28/22 18:38 O2 Sat by Pulse Oximetry 96 09/28/22 18:38 Pain Scale Pain Intensity 9 - Physical Exam General Appearance: mild distress Eye Exam: PERRL/EOMI Ears, Nose, Throat Exam: normal ENT inspection Neck Exam: normal inspection, non-tender Respiratory Exam: normal breath sounds, lungs clear Cardiovascular Exam: regular rate/rhythm, normal heart sounds Gastrointestinal/Abdomen Exam: soft, normal bowel sounds, tenderness (RUQ , mild) Pelvic Exam: not done Rectal Exam: not done Back Exam: normal inspection, normal range of motion Extremity Exam: normal inspection, normal range of motion Neurologic Exam: alert, oriented x 3, cooperative Skin Exam: normal color, warm, dry SpO2 Interpretation: normal O2 Delivery: Nasal Cannula (on home oxygen) - Course Nursing assessment & vital signs reviewed: Yes - Radiology Exams Chest X-ray Interpretation: Interpreted by me, Other (COPD) - CT Exams Abdomen/Pelvis CT Interpretation: Tele-radiologist Report, Other (no acute changes) Ordered Tests: Active Orders 24 hr Category Date Time Status IV Insertion STAT Care 09/28/22 19:13 Active ABDOMEN AND PELVIS W/0 CONTRAS [CT] Stat Exams 09/28/22 19:31 Completed CHEST 1 VIEW (PORTABLE) Stat Exams 09/28/22 19:30 Taken AMYLASE Stat Lab 09/28/22 19:03 Completed CBC W DIFF Stat Lab 09/28/22 19:03 Completed CMP Stat Lab 09/28/22 19:03 Completed LIPASE Stat Lab 09/28/22 19:03 Completed UA W/RFX UR CULTURE Stat Lab 09/28/22 19:31 Completed Medication Summary Discontinued Medications Generic Name Dose Route Start Last Admin Trade Name Sandie PRN Reason Stop Dose Admin Hydrocodone Bitart/Acetaminophen 1 tablet 09/28/22 20:52 09/28/22 20:58 Hydrocodone/Acetamin 10-325 Mg Tablet PO 09/28/22 20:53 1 tablet NOW ONE Administration Lab/Rad Data: Laboratory Result Diagrams 09/28/22 19:03 09/28/22 19:03 Laboratory Results 09/28/22 09/28/22 09/28/22 Range/Units 19:31 19:03 19:03 WBC (4.0-10.5) x10^3/uL RBC (4.1-5.4) x10^6/uL Hgb (12.0-16.0) g/dL Hct (35-47) % MCV (78-100) fL MCH (26-32) pg MCHC (32-36) g/dL RDW (11.5-14.0) % Plt Count (150-450) x10^3/uL MPV (7.5-11.0) fL Gran % (36.0-66.0) % Immature Gran % (Auto) (0.00-0.4) % Nucleat RBC Rel Count (0.00-0.1) % Eos # (Auto) (0-0.5) x10^3/uL Immature Gran # (Auto) (0.00-0.03) x10^3u/L Absolute Lymphs (auto) (1.0-4.6) x10^3/uL Absolute Monos (auto) (0.0-1.3) x10^3/uL Absolute Nucleated RBC (0.00-0.01) x10^3u/L Lymphocytes % (24.0-44.0) % Monocytes % (0.0-12.0) % Eosinophils % (0.00-5.0) % Basophils % (0.0-0.4) % Absolute Granulocytes (1.4-6.9) x10^3/uL Basophils # (0-0.4) x10^3/uL Sodium 140 (137-145) mmol/L Potassium 4.2 (3.5-5.1) mmol/L Chloride 102 (98-107) mmol/L Carbon Dioxide 33 H (22-30) mmol/L Anion Gap 9.3 (5-15) MEQ/L BUN 12 (7-17) mg/dL Creatinine 0.86 (0.52-1.04) mg/dL Estimated GFR > 60.0 ML/MIN Glucose 124 H (74-106) mg/dL Calcium 8.3 L (8.4-10.2) mg/dL Total Bilirubin 0.60 (0.2-1.3) mg/dL AST 31 (14-36) U/L ALT 25 (0-35) U/L Alkaline Phosphatase 103 (38-126) U/L Serum Total Protein 6.6 (6.3-8.2) g/dL Albumin 3.6 (3.5-5.0) g/dL Amylase 53 (30-110) U/L Lipase 57 (23-300) U/L Urine Color Yellow (Yellow) Urine Appearance Clear (Clear) Urine pH 8.0 (4.6-8.0) Ur Specific [place] <=1.005 (1.005-1.030) Urine Protein Negative (Negative) Urine Glucose (UA) Negative (Negative) mg/dL Urine Ketones Negative (Negative) Urine Blood Negative (Negative) Urine Nitrite Negative (Negative) Urine Bilirubin Negative (Negative) Urine Urobilinogen 0.2 (0.2) mg/dL Ur Leukocyte Esterase Negative (Negative) U Hyaline Cast (Auto) NONE SEEN (0-2) /LPF Urine Microscopic RBC 0-2 (0-5) /HPF Urine Microscopic WBC 0-2 (0-5) /HPF Ur Epithelial Cells None Seen (None Seen) /HPF Urine Bacteria None Seen (None Seen) /HPF Urine Culture Reflexed NO (NO) 09/28/22 Range/Units 19:03 WBC 7.7 (4.0-10.5) x10^3/uL RBC 5.06 (4.1-5.4) x10^6/uL Hgb 11.6 L (12.0-16.0) g/dL Hct 40.9 (35-47) % MCV 80.8 (78-100) fL MCH 22.9 L (26-32) pg MCHC 28.4 L (32-36) g/dL RDW 17.2 H (11.5-14.0) % Plt Count 274 (150-450) x10^3/uL MPV 10.4 (7.5-11.0) fL Gran % 75.8 H (36.0-66.0) % Immature Gran % (Auto) 0.1 (0.00-0.4) % Nucleat RBC Rel Count 0.0 (0.00-0.1) % Eos # (Auto) 0.20 (0-0.5) x10^3/uL Immature Gran # (Auto) 0.01 (0.00-0.03) x10^3u/L Absolute Lymphs (auto) 1.12 (1.0-4.6) x10^3/uL Absolute Monos (auto) 0.46 (0.0-1.3) x10^3/uL Absolute Nucleated RBC 0.00 (0.00-0.01) x10^3u/L Lymphocytes % 14.6 L (24.0-44.0) % Monocytes % 6.0 (0.0-12.0) % Eosinophils % 2.6 (0.00-5.0) % Basophils % 0.9 (0.0-0.4) % Absolute Granulocytes 5.79 (1.4-6.9) x10^3/uL Basophils # 0.07 (0-0.4) x10^3/uL Sodium (137-145) mmol/L Potassium (3.5-5.1) mmol/L Chloride (98-107) mmol/L Carbon Dioxide (22-30) mmol/L Anion Gap (5-15) MEQ/L BUN (7-17) mg/dL Creatinine (0.52-1.04) mg/dL Estimated GFR ML/MIN Glucose (74-106) mg/dL Calcium (8.4-10.2) mg/dL Total Bilirubin (0.2-1.3) mg/dL AST (14-36) U/L ALT (0-35) U/L Alkaline Phosphatase (38-126) U/L Serum Total Protein (6.3-8.2) g/dL Albumin (3.5-5.0) g/dL Amylase (30-110) U/L Lipase (23-300) U/L Urine Color (Yellow) Urine Appearance (Clear) Urine pH (4.6-8.0) Ur Specific [place] (1.005-1.030) Urine Protein (Negative) Urine Glucose (UA) (Negative) mg/dL Urine Ketones (Negative) Urine Blood (Negative) Urine Nitrite (Negative) Urine Bilirubin (Negative) Urine Urobilinogen (0.2) mg/dL Ur Leukocyte Esterase (Negative) U Hyaline Cast (Auto) (0-2) /LPF Urine Microscopic RBC (0-5) /HPF Urine Microscopic WBC (0-5) /HPF Ur Epithelial Cells (None Seen) /HPF Urine Bacteria (None Seen) /HPF Urine Culture Reflexed (NO) No sig. abnormalities. - Progress Progress: improved Progress Note: 09/28/22 21:08 Unclear source of this recurring RUQ abdominal pain, she has no gallbladder, no sig abnormalities on testing, she declined a GI cocktail, ischemic bowel seems unlikely, but should be considered, advised recheck soon with PCP. Counseled pt/family regarding: lab results, diagnosis, need for follow-up, rad results Medical Desision Making - Diagnostic Testing Diagnostic test were ordered, analyzed, and reviewed by me: Yes Radiological Interpretation: Teleradiologist Report - Departure Departure Disposition: Home Clinical Impression: Abdominal pain Qualifiers: Abdominal location: right upper quadrant Qualified Code(s): R10.11 - Right upper quadrant pain Condition: Stable Critical Care Time: No Referrals: LAURA SHELTON, DO [Primary Care Provider] - Follow up/PCP as directed Additional Instructions: Take your medicine, including antacids, see your PCP for a recheck, more tests or a referral to a specialist could be done.
[2022-09-28 19:06] LABS: Absolute Neutrophil Ct (ANC) 5.79 x10^3/uL (1.4-6.9); BASOPHIL % 0.9 % (0.0-0.4); Basophil (Absolute #) 0.07 x10^3/uL (0-0.4); Eosinophil % 2.6 % (0.00-5.0); Hematocrit 40.9 % (35-47); Hemoglobin 11.6 g/dL (12.0-16.0); IMMATURE GRAN # 0.01 x10^3u/L (0.00-0.03); IMMATURE GRAN % 0.1 % (0.00-0.4); Lymphocyte (Absolute #) 1.12 x10^3/uL (1.0-4.6); Lymphocytes % 14.6 % (24.0-44.0); Mean Cell Volume 80.8 fL (78-100); Mean Corpuscular Hemoglobin 22.9 pg (26-32); Mean Corpuscular Hgb Concent. 28.4 g/dL (32-36); Mean Platelet Volume 10.4 fL (7.5-11.0); Monocyte (Absolute #) 0.46 x10^3/uL (0.0-1.3); Neutrophil % 75.8 % (36.0-66.0); Platelet Count 274 x10^3/uL (150-450); Red Blood Count 5.06 x10^6/uL (4.1-5.4); Red Cell Distribution Width 17.2 % (11.5-14.0); White Blood Count 7.7 x10^3/uL (4.0-10.5)
[2022-09-28 19:15] LABS: ALBUMIN 3.6 g/dL (3.5-5.0); ALKALINE PHOSPHATASE 103 U/L (38-126); AMYLASE 53 U/L (30-110); ANION GAP 9.3 MEQ/L (5-15); BLOOD UREA NITROGEN 12 mg/dL (7-17); CHLORIDE 102 mmol/L (98-107); Calcium 8.3 mg/dL (8.4-10.2); Carbon Dioxide 33 mmol/L (22-30); Creatinine 1 0.86 mg/dL (0.52-1.04); EST GLOMERULAR FILTRATION RATE > 60.0 ML/MIN; Glucose 124 mg/dL (74-106); LIPASE 57 U/L (23-300); Potassium 4.2 mmol/L (3.5-5.1); SGOT/AST 31 U/L (14-36); SGPT/ALT 25 U/L (0-35); SODIUM 140 mmol/L (137-145); Total Protein 6.6 g/dL (6.3-8.2)
[2022-09-28 19:40] LABS: Appearance Clear (Clear); Bacteria None Seen /HPF (None Seen); Bilirubin Negative (Negative); Blood Negative (Negative); Epithelial Cells None Seen /HPF (None Seen); Glucose, Urine Negative (Negative); Hyaline Casts NONE SEEN /LPF (0-2); Ketones Negative (Negative); Leukocyte Esterase Negative (Negative); Nitrite Negative (Negative); Protein,Urine Dip Negative (Negative); RBC 0-2 /HPF (0-5); Specific Gravity <=1.005 (1.005-1.030); Urobilinogen 0.2 mg/dL (0.2); WBC 0-2 /HPF (0-5)
[2022-09-28 19:42] LABS: ADD URINE CULTURE? NO (NO)
[2022-09-28 20:39] VITALS: BP 183/96; PULSE 93; O2SAT 99
--- NOTE | 2022-09-28 20:49 | XRAY ---
CLINICAL HISTORY:abd pain COMPARISON:None; TECHNIQUES:Contiguous multislice CT examination of the abdomen and pelvis were acquired in axial plane with coronal and sagittal reconstruction without IV contrast. CTDI: 6.77 mGy, DLP: 322.7 mGy*cm; FINDINGS: The liver shows unchanged hypodense lesion in the right posterior lobe measuring 2.3 cm. Mild hepatomegaly. Gallbladder is postsurgical. Unchanged bilateral hypodense benign adrenal adenomas are seen. The right adrenal nodule measures 4.0 x 2.6 cm and the left nodule measures 3.2 x 2.6 cm in size. Pancreas is normal in shape. Peripancreatic planes appear normal. No parenchymal calcification or ductal dilatation is seen. The spleen shows multiple tiny calcified granulomas. Mild right renal atrophy. Both kidneys are otherwise normal in attenuation. No calculi or hydronephrosis is seen. The stomach and bowel loops are normal. The constipation is noted. The appendix is normal. Intimal calcification of aorta and its branches is seen. The urinary bladder is empty. The uterus is retroverted, atrophic and grossly unremarkable. Bone window setting shows severe lumbar spondylosis in the form of multilevel disc space reduction, degenerative vacuum disc phenomenon, osteophytes and multilevel vertebral listhesis. IMPRESSION: 1-The present CT was compared with previous study dated 11/17/2021. No interval change is noted in the findings. 2-No acute abdominal pathology is noted. 3-Unchanged hypodense lesion in the liver. 4-Mild hepatomegaly. 5-Unchanged bilateral adrenal adenomas. 6-Severe lumbar spondylosis. Electronically Signed by: Gregorio Krause MD. 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
[2022-09-28] MEDS ORDERED: HYDROCODONE-ACETAMIN 10-325 MG PO ONE (20:52)
--- NOTE | 2022-09-29 08:33 | XRAY ---
Indication: COPD. Comparison: July 04, 2022 Portable chest again demonstrates COPD and scattered subsegmental atelectasis/scarring. No focal infiltrate, consolidation, or large effusion. Heart not enlarged again with coronary stent and stent emanating from aortic arch. Bony thorax intact again with osteopenia and degenerative changes. Impression: Nonacute chest with chronic features.
== END 2022-09-28 21:08 | disposition home or self-care (01) ==
LOC: ED 18:17
DX: R10.11 Right upper quadrant pain (principal); E78.5 Hyperlipidemia, unspecified; I10 Essential (primary) hypertension; Z79.891 Long term (current) use of opiate analgesic; Z79.899 Other long term (current) drug therapy
CPT/HCPCS: 36000; 36415; 71045; 74176; 80053; 81001; 82150; 83690; 85025; 99284; A9270-GY

== ENCOUNTER 2023-10-11 10:35 | Emergency (ER) | payer MEDICARE ==
--- NOTE | 2023-10-11 11:11 | ERPHSYRPT ---
- History of Present Illness Time Seen by Provider: 10/11/23 11:11 Source: patient Exam Limitations: no limitations Physician History: This is a 73-year-old white female patient who does have a history of chronic low back pain issues and presents to the emergency department with worsening low back pain in the last few days. Pain suddenly got much worse at approximately 1 AM when the patient ended up taking gabapentin, hydrocodone and tizanidine without much relief of her pain. She is chronically on those medications. Patient denies fall or acute trauma. She denies urinary urgency, urinary frequency or dysuria. Patient has multiple medical problems including COPD, coronary artery disease, hyperlipidemia, hypertension and hypothyroidism. Timing/Duration: day(s) (Last few days), worse (This morning at 1 AM) Quality: sharp, stabbing Back Pain Location: lumbar spine, paraspinous muscles Severity of Pain-Max: moderate Severity of Pain-Current: moderate Modifying Factors: Improves With: movement Associated Symptoms: lower back pain, muscle spasms (Primarily to the right side of the lumbar spine level.), No urinary incontinence, No loss of bowel control, No numbness in legs/feet Previous symptoms: same symptoms as today, no recent treatment Allergies/Adverse Reactions: cephalexin [From Keflex] Allergy (Verified 10/11/23 11:12) Home Medications: Metoprolol Tartrate 25 mg PO BID 08/11/18 [History] lisinopriL [Lisinopril] 20 mg PO DAILY 08/11/18 [History] Alendronate Sodium 70 mg [Fosamax 70 MG] 70 mg PO WEEKLY 09/18/20 [History] Furosemide 20 mg [Lasix 20 mg] 20 mg PO DAILY PRN 09/18/20 [History] Hydrocodone/Acetaminophen [Hydrocodone-Acetamin 10-325 mg] 10 mg PO Q8HPRN PRN 09/18/20 [History] Atorvastatin Calcium [Lipitor 20MG Tablet] 40 mg PO DAILY 08/28/21 [History] Docusate Sodium [Colace] 100 mg PO BID PRN PRN 08/28/21 [History] Levothyroxine Sodium 100 Mcg [Synthroid 100 Mcg] 200 mcg PO DAILY 08/28/21 [History] Nitroglycerin 0.4 mg (Ed) [Nitrostat 0.4 MG (ED)] 0.4 mg SL DIRECTIONS UNKNOWN 08/28/21 [History] Spironolactone 25 mg PO DAILY 08/28/21 [History] Albuterol 8 gm Mdi Hfa [Ventolin Hfa MDI] 2 puff IH Q4-6HPRN PRN 09/02/21 [History] PANTOPRAZOLE 40 mg Tablet [Protonix 40MG Tablet] 40 mg PO HS 09/02/21 [History] Budesonide/Glycopyr/Formoterol [Breztri Aerosphere Inhaler] 2 puff IH BID 07/04/22 [History] Gabapentin [Neurontin ] 300 mg PO TID 07/04/22 [History] Levothyroxine Sodium 25 Mcg [Synthroid 25 Mcg] 25 mcg PO DAILY 07/04/22 [History] Simethicone 80 mg [Mylicon 80MG] 80 mg PO TID 07/04/22 [History] Hx Tetanus, Diphtheria Vaccination/Date Given: Yes Hx Influenza Vaccination/Date Given: No Hx Pneumococcal Vaccination/Date Given: Yes Travel Risk - International Travel Have you traveled outside of the country in past 3 weeks: No - Emerging Infectious Disease Are you exhibiting symptoms associated with any current EIDs: No - Review of Systems Constitutional: No Symptoms Eyes: No Symptoms Ears, Nose, & Throat: No Symptoms Respiratory: No Symptoms Cardiac: No Symptoms Abdominal/Gastrointestinal: No Symptoms Genitourinary Symptoms: No Symptoms Musculoskeletal: Back Pain (Right side lumbar level muscle spasms) Skin: No Symptoms Neurological: No Symptoms Psychological: No Symptoms Endocrine: No Symptoms Hematologic/Lymphatic: No Symptoms Immunological/Allergic: No Symptoms All Other Systems: Reviewed and Negative - Past Medical History Pertinent Past Medical History: Yes Neurological History: No Pertinent History ENT History: No Pertinent History Cardiac History: Coronary Artery Disease, High Cholesterol, Hypertension, Other Respiratory History: No Pertinent History, COPD Endocrine Medical History: Hypothyroidism Musculoskeletal History: Arthritis GI Medical History: GERD History: No Pertinent History Psycho-Social History: No Pertinent History Female Reproductive Disorders: No Pertinent History Other Medical History: CHRONIC BACK PAIN,TUBAL - Past Surgical History Past Surgical History: Yes Neuro Surgical History: No Pertinent History Cardiac: No Pertinent History, Other, Cardiac Stent Respiratory: No Pertinent History Gastrointestinal: No Pertinent History Genitourinary: No Pertinent History Musculoskeletal: Orthopedic Surgery Female Surgical History: No Pertinent History, Tubal Ligation Other Surgical History: Left knee replacement, 3 back surgeries, Right elbow surgeries, 3 carpal tunnel surgeries on right and left hand. 3 cardiac stents in 2019 Significant Family History: no pertinent family hx - Social History Smoking Status: Former smoker How long have you smoked: 57 Exposure to second hand smoke: Yes Drug Use: none Patient Lives Alone: No - Nursing Vital Signs Nursing Vital Signs: Initial Vital Signs Temperature 98.0 F 10/11/23 11:13 Pulse Rate 53 L 10/11/23 11:13 Respiratory Rate 18 10/11/23 11:13 Blood Pressure 117/58 10/11/23 11:13 O2 Sat by Pulse Oximetry 98 10/11/23 11:13 Pain Scale Pain Intensity 10 - Physical Exam General Appearance: no apparent distress, alert, anxiety Eye Exam: PERRL/EOMI, eyes nml inspection Ears, Nose, Throat Exam: normal ENT inspection, moist mucous membranes Neck Exam: normal inspection, non-tender, supple, full range of motion Respiratory Exam: normal breath sounds, lungs clear, airway intact, No chest tenderness, No respiratory distress Cardiovascular Exam: regular rate/rhythm, normal heart sounds, normal peripheral pulses Gastrointestinal Exam: soft, normal bowel sounds, tenderness (Mild bilateral lower quadrant tenderness to palpation), guarding (Mild to palpation bilateral lower quadrants), No rebound Pelvic Exam: not done Rectal Exam: not done Back Exam: normal inspection, normal range of motion, muscle spasm (Lumbar level right side), No CVA tenderness, No vertebral tenderness Neurologic Exam: alert, oriented x 3, cooperative, dough cutter II-XII nml as tested, nml cerebellar function, nml station & gait, sensation nml Skin Exam: normal color, warm, No dry Lymphatic Exam: No adenopathy SpO2 Interpretation: normal - Course Nursing assessment & vital signs reviewed: Yes Ordered Tests: Active Orders 24 hr Category Date Time Status ABDOMEN AND PELVIS W/0 CONTRAS [CT] Stat Exams 10/11/23 11:34 Completed RECONSTRUCTION [CT] Stat Exams 10/11/23 11:34 Completed CULTURE,URINE Stat Lab 10/11/23 11:40 Received UA W/RFX UR CULTURE Stat Lab 10/11/23 11:40 Completed Lab/Rad Data: Laboratory Results 10/11/23 Range/Units 11:40 Urine Color Yellow (Yellow) Urine Appearance Clear (Clear) Urine pH 8.0 (4.6-8.0) Ur Specific [place] 1.015 (1.005-1.030) Urine Protein Trace A (Negative) Urine Glucose (UA) Negative (Negative) mg/dL Urine Ketones Negative (Negative) Urine Blood Negative (Negative) Urine Nitrite Negative (Negative) Urine Bilirubin Negative (Negative) Urine Urobilinogen 1.0 A (0.2) mg/dL Ur Leukocyte Esterase Negative (Negative) U Hyaline Cast (Auto) NONE SEEN (0-2) /LPF Urine Microscopic RBC 0-2 (0-5) /HPF Urine Microscopic WBC 0-2 (0-5) /HPF Ur Epithelial Cells None Seen (None Seen) /HPF Urine Bacteria None Seen (None Seen) /HPF Urine Culture Reflexed YES (NO) - Progress Progress: improved, pain not gone completely, re-examined Progress Note: 10/11/23 11:57 My medical decision making and the assignment of moderate complexity to this patient's medical issue today is based on review of the patient's past medical history, review the patient's medication list, review of the patient's drug allergy list, history of present illness and physical findings on examination. The workup in this patient includes urinalysis, CT scan of the abdomen pelvis, CT scan of the lumbar spine. Differential diagnosis includes urinary tract infection/kidney infection, acute lumbar spine abnormality, intra-abdominal/pelvic acute process. 10/11/23 13:52 I interpreted the patient's urinalysis. There is no evidence of any acute urinary tract infection. The CT scans were interpreted by the radiologist and I reviewed the impression. The CT scan of the abdomen pelvis without contrast shows no acute appendicitis. There is no evidence of ureteral calculi. There are multiple splenic focal calcification presumed to be granuloma. Lower cuts of the chest revealed minimal pericardial effusion. The stomach, small bowel and large bowel are normal without evidence of obstruction. There are marked aortoiliac atherosclerotic calcifications without mention of abdominal aortic aneurysm. The CT scan of the lumbar spine reconstruction reveals no acute fracture. There are lumbar spine degenerative changes. There are bilateral adrenal masses which were also defined in the CT scan of the abdomen pelvis. The results were discussed in detail with the patient and the patient's family member. Counseled pt/family regarding: lab results, diagnosis, rad results Medical Desision Making - Independent Historian Additional History obtained from: Family - Diagnostic Testing Diagnostic test were ordered, analyzed, and reviewed by me: Yes Radiological Interpretation: Reviewed by me - Departure Departure Disposition: Home Clinical Impression: Acute exacerbation of chronic low back pain Condition: Stable Critical Care Time: No Referrals: LAURA SHELTON, [Primary Care Provider] - Follow up/PCP as directed Additional Instructions: Continue your other pain medication as prescribed. In addition take your prednisone as prescribed. Call your primary prescribing provider tomorrow, 10/11/2023 to make arrangement for further evaluation and management within the next 3 to 5 days Prescriptions: Prednisone 10 mg [Deltasone 10 mg] 10 mg PO TID #12 tablet
[2023-10-11 11:20] VITALS: RESP 18
[2023-10-11 11:21] VITALS: TEMP 98
[2023-10-11 11:54] LABS: Appearance Clear (Clear); Bacteria None Seen /HPF (None Seen); Bilirubin Negative (Negative); Blood Negative (Negative); Epithelial Cells None Seen /HPF (None Seen); Glucose, Urine Negative (Negative); Hyaline Casts NONE SEEN /LPF (0-2); Ketones Negative (Negative); Leukocyte Esterase Negative (Negative); Nitrite Negative (Negative); Protein,Urine Dip Trace (Negative); RBC 0-2 /HPF (0-5); Specific Gravity 1.015 (1.005-1.030); WBC 0-2 /HPF (0-5)
[2023-10-11 11:55] LABS: ADD URINE CULTURE? YES (NO)
--- NOTE | 2023-10-11 13:36 | XRAY ---
CLINICAL HISTORY: Back pain COMPARISON: None. TECHNIQUE: CT scan of lumbar spine done. Axial images were obtained with reformatted coronal and sagittal images and submitted for interpretation. One of the following dose reduction techniques were utilized for this exam: Automated exposure control, adjustment of the mA and/or kV according to patient size, and use of iterative reconstruction. FINDINGS: No acute fractures could be detected. Degenerated lumbar discs in the form of reduced height with vacuum phenomena. Lumbar spine degenerative changes with osteophytes formation and endplate sclerosis. First-degree spondylolisthesis of L3 over L4 vertebra. First degree retrolisthesis of L2 over L3 and L4 over L5 vertebrae Reduced osseous mineralization. Lower lumbar spine-laminectomy with clear operative bed. Sacralized L5 with pseudoarthrosis of its dysplastic transverse processes on each side with the sacrum , no fusion. No definite fractures could be detected. Segmental disc analysis level by level: L1- L2: There is a posterior disc bulge compressing the ventral aspect of thecal sac, lateral recesses, and neural foraminal narrowing with exiting nerve root indentation. L2- L3: There is a bi-posterolateral asymmetrical disc bulge compressing the ventral aspect of the thecal sac, lateral recesses, and neural foraminal narrowing with exiting nerve roots indentation more on the right side. L3- L4: There is a bi-posterolateral asymmetrical disc bulge compressing the ventral aspect of the thecal sac, lateral recesses and neural foraminal narrowing with exiting nerve roots indentation more on the right side, bilateral moderate facet joint arthrosis noted in the form of joint narrowing, marginal sclerosis and subchondral cystic erosions. L4- L5: There is a wide base posterior disc bulge compressing the ventral aspect of thecal sasc , lateral recesses, and neural foraminal narrowing with exiting nerve root indentation. L5- S1: There is posterior asymmetrical disc herniation compressing the ventral aspect of thecal sasc , lateral recesses and neural foraminal narrowing with exiting nerve roots indentation more on the right side , bilateral mild facet joint arthrosis noted. Multilevel facet joint arthropathy is noted. The central canal is unremarkable. No retro paraspinal soft tissue masses. No developmental canal stenosis. Other findings include splenic calcification, aortic atherosclerotic calcification, and bilateral adrenal masses. IMPRESSION: 1. No acute fractures. 2. Lumbar spine degenerative changes with osteophytes formation and endplate sclerosis. 3. First-degree spondylolisthesis of L3 over L4. 4. First-degree retrolisthesis of L2 over L3 and L4 over L5. 5. Lower lumbar spine-laminectomy with clear operative bed. 6. Reduced osseous mineralization. 7. Type IIb Sacralized L5 regarding Castelvi classification. 8. Multilevel lumbar disc lesions as described. 9. Bilateral adrenal masses. CT is advised for further characterization. The referring physician's office was called at at 12:[address] on 10/11/2023 and the results were verbally communicated to Dr. Stringer. Electronically Signed by: Gregorio Krause MD. (10/11/2023 13:31:33 EDT)
--- NOTE | 2023-10-11 13:44 | XRAY ---
CLINICAL HISTORY: Back pain COMPARISON: None. TECHNIQUE: A CT scan of the abdomen and pelvis was performed without IV contrast. Coronal and sagittal reconstructive images were also obtained. One of the following dose reduction techniques were utilized for this exam: Automated exposure control, adjustment of the mA and/or kV according to patient size, and use of iterative reconstruction. FINDINGS: Marked aortoiliac intimal atherosclerotic calcifications. Scanned chest cuts revealed minimal pericardial effusion measuring 9 mm in depth, and bilateral lower thick atelectatic bands. Surgically removed gall bladder, with a clear operative bed. Average-sized spleen, with multiple calcific foci scattered in its parenchyma, could be granulomas. The liver is enlarged, right lobe span is 18.8 cm with regular margins. No focal or diffuse parenchymal abnormality. No hepatic mass is identified. Dilated subhepatic IVC and hepatic veins, could be secondary right heart strain for further assessment. 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 Small-sized right kidney, with no dense stones, cysts or back pressure. Normal CT appearance of the uterus and both adenxial regions. A small omental nodule noted anterior to spleen, measures 12 mm, with minute calcific foci likely splenule. The intrahepatic biliary radicals and the bile ducts are normal. Pancreas appears normal. No peripancreatic fat stranding, pancreatic pseudocyst, or peripancreatic fluid collection. The left kidney is normal in size, shape and orientation. No calculi, cyst mass, or hydronephrosis. No evidence of acute appendicitis Both ureters and urinary bladder appear normal. Stomach and small bowel loops are unremarkable. Caecum and ileocecal junction appear normal. Large bowel loops appear normal without evidence of bowel obstruction. Sigmoid and rectum appear normal. Inadequate filling of the urinary bladder with no stones or masses inside. No evidence of significant enlargement of the mesenteric or retroperitoneal lymph nodes. IMPRESSION: 1. Scanned chest cuts revealed minimal pericardial effusion and bilateral lower thick atelectatic bands. 2. Multiple splenic calcific foci could be granulomas. 3. Hepatomegaly, for clinicolaboratory correlation. 4. Dilated subhepatic IVC and hepatic veins, could be secondary right heart strain for further assessment. 5. 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 6. Small-sized right kidney. Electronically Signed by: Gregorio Krause MD. (10/11/2023 13:40:50 EDT)
[2023-10-11] MEDS ORDERED: Sterile H2O 10 ml IJ ONE (14:07)
[2023-10-11] MEDS ORDERED: ZOFRAN ODT 4 MG ONE (14:08)
[2023-10-11] MEDS ORDERED: Norflex 60 MG/2 ML ONE (14:08)
[2023-10-11] MEDS ORDERED: Hydromorphone 1 mg/ml Injection ONE (14:08)
[2023-10-11] MEDS ORDERED: solu-MEDROL ONE (14:09)
[2023-10-11] MEDS: ZOFRAN ODT 4 MG PO ONE (14:11)
[2023-10-11] MEDS: Norflex 60 MG/2 ML IM ONE (14:11)
[2023-10-11] MEDS: solu-MEDROL 125 MG, Sterile H2O 10 ml 2 ML IM ONE (14:11)
[2023-10-11] MEDS: Hydromorphone 1 mg/ml Injection IM ONE (14:12)
[2023-10-11 14:47] VITALS: BP 130/75; PULSE 52; O2SAT 97
== END 2023-10-11 14:49 | disposition home or self-care (01) ==
LOC: ED 10:35
DX: G89.29 Other chronic pain (principal); M54.50 Low back pain, unspecified; E27.8 Other specified disorders of adrenal gland; E78.5 Hyperlipidemia, unspecified; I10 Essential (primary) hypertension; Z79.891 Long term (current) use of opiate analgesic; Z79.52 Long term (current) use of systemic steroids; Z79.899 Other long term (current) drug therapy
CPT/HCPCS: 74176; 76376; 81001; 87086; 96372; 99284; J1170; J2360; J2919; Q0162

== ENCOUNTER 2023-11-17 23:40 | Emergency (ER) | payer MEDICARE ==
[2023-11-17 23:54] VITALS: TEMP 97.1
[2023-11-18] MEDS ORDERED: DECADRON 10MG INJ. ONE (00:03)
[2023-11-18] MEDS ORDERED: TORAdol 30 mg Injection ONE (00:03)
[2023-11-18] MEDS: DECADRON 10MG INJ. IM ONE (00:05)
[2023-11-18] MEDS: TORAdol 30 mg Injection IM ONE (00:05)
--- NOTE | 2023-11-18 00:08 | ERPHSYRPT ---
- History of Present Illness Time Seen by Provider: 11/17/23 23:55 Source: patient Exam Limitations: no limitations Patient Subjective Stated Complaint: pt states she has been having lower back pain increased today with radiation down her lt leg. Triage Nursing Assessment: pt alert and oriented, answers questions approp. pt ambulates into room with slow steady gait noted. respirations nonlabored. skin warm and dry. Physician History: Patient is a 73-year-old female presents to the emergency department for evaluation of acute on chronic back pain. Patient's back pain today is typical of her usual back pain. Patient had her usual pain back in September last month. Today's pain is the same. No interval trauma. No numbness tingling or weakness. No change in bowel bladder function. No saddle anesthesia. No recen t back procedure. No fever. Leg pain described as an ache that is localized to the lumbar area. Pain worse with movement and palpation. Pain improves with rest. Patient voices no other complaints or concerns at this time. Portions of this note were created with voice recognition technology. There may be grammatical, spelling, punctuation or sound alike errors Timing/Duration: today Method of Injury: unknown Quality: dull Back Pain Location: lumbar spine Severity of Pain-Max: moderate Severity of Pain-Current: mild Modifying Factors: Improves With: movement Associated Symptoms: denies symptoms Previous symptoms: same symptoms as today Allergies/Adverse Reactions: cephalexin [From Keflex] Allergy (Verified 11/17/23 23:44) Home Medications: Metoprolol Tartrate 25 mg PO BID 08/11/18 [History] lisinopriL [Lisinopril] 20 mg PO DAILY 08/11/18 [History] Alendronate Sodium 70 mg [Fosamax 70 MG] 70 mg PO WEEKLY 09/18/20 [History] Furosemide 20 mg [Lasix 20 mg] 20 mg PO DAILY PRN 09/18/20 [History] Hydrocodone/Acetaminophen [Hydrocodone-Acetamin 10-325 mg] 10 mg PO Q8HPRN PRN 09/18/20 [History] Atorvastatin Calcium [Lipitor 20MG Tablet] 40 mg PO DAILY 08/28/21 [History] Docusate Sodium [Colace] 100 mg PO BID PRN PRN 08/28/21 [History] Levothyroxine Sodium 100 Mcg [Synthroid 100 Mcg] 200 mcg PO DAILY 08/28/21 [History] Nitroglycerin 0.4 mg (Ed) [Nitrostat 0.4 MG (ED)] 0.4 mg SL DIRECTIONS UNKNOWN 08/28/21 [History] Spironolactone 25 mg PO DAILY 08/28/21 [History] Albuterol 8 gm Mdi Hfa [Ventolin Hfa MDI] 2 puff IH Q4-6HPRN PRN 09/02/21 [History] PANTOPRAZOLE 40 mg Tablet [Protonix 40MG Tablet] 40 mg PO HS 09/02/21 [History] Budesonide/Glycopyr/Formoterol [Breztri Aerosphere Inhaler] 2 puff IH BID 07/04/22 [History] Gabapentin [Neurontin ] 300 mg PO TID 07/04/22 [History] Levothyroxine Sodium 25 Mcg [Synthroid 25 Mcg] 25 mcg PO DAILY 07/04/22 [History] Simethicone 80 mg [Mylicon 80MG] 80 mg PO TID 07/04/22 [History] Hx Tetanus, Diphtheria Vaccination/Date Given: Yes (2016) Hx Influenza Vaccination/Date Given: Yes Hx Pneumococcal Vaccination/Date Given: Yes Immunizations Up to Date: Yes Travel Risk - International Travel Have you traveled outside of the country in past 3 weeks: No - Emerging Infectious Disease Are you exhibiting symptoms associated with any current EIDs: No - Review of Systems Constitutional: No Symptoms, No Fever, No Chills Eyes: No Symptoms Ears, Nose, & Throat: No Symptoms Respiratory: No Symptoms, No Cough, No Dyspnea Cardiac: No Symptoms, No Chest Pain, No Edema, No Syncope Abdominal/Gastrointestinal: No Symptoms, No Abdominal Pain, No Nausea, No Vomiting, No Diarrhea Genitourinary Symptoms: No Symptoms, No Dysuria Musculoskeletal: No Symptoms, No Back Pain, No Neck Pain Skin: No Symptoms, No Rash Neurological: No Symptoms, No Dizziness, No Focal Weakness, No Sensory Changes Psychological: No Symptoms Endocrine: No Symptoms Hematologic/Lymphatic: No Symptoms Immunological/Allergic: No Symptoms All Other Systems: Reviewed and Negative - Past Medical History Pertinent Past Medical History: Yes Neurological History: No Pertinent History ENT History: No Pertinent History Cardiac History: Coronary Artery Disease, High Cholesterol, Hypertension, Other Respiratory History: COPD Endocrine Medical History: Hypothyroidism Musculoskeletal History: Arthritis GI Medical History: GERD History: No Pertinent History Psycho-Social History: No Pertinent History Female Reproductive Disorders: No Pertinent History Other Medical History: CHRONIC BACK PAIN,TUBAL - Past Surgical History Past Surgical History: Yes Neuro Surgical History: No Pertinent History Cardiac: No Pertinent History, Other, Cardiac Stent Respiratory: No Pertinent History Gastrointestinal: No Pertinent History Genitourinary: No Pertinent History Musculoskeletal: Orthopedic Surgery Female Surgical History: No Pertinent History, Tubal Ligation Other Surgical History: Left knee replacement, 3 back surgeries, Right elbow surgeries, 3 carpal tunnel surgeries on right and left hand. 3 cardiac stents in 2019 Significant Family History: no pertinent family hx - Social History Smoking Status: Current every day smoker How long have you smoked: 57 Exposure to second hand smoke: Yes Drug Use: none Patient Lives Alone: No - Nursing Vital Signs Nursing Vital Signs: Initial Vital Signs Temperature 97.1 F 11/17/23 23:46 Pulse Rate 84 11/17/23 23:46 Respiratory Rate 16 11/17/23 23:46 Blood Pressure 153/106 11/17/23 23:46 O2 Sat by Pulse Oximetry 94 L 11/17/23 23:46 Pain Scale Pain Intensity [Left Lower 10 Back] Pain Intensity 3 - Physical Exam General Appearance: no apparent distress, alert Eye Exam: PERRL/EOMI, eyes nml inspection Neck Exam: normal inspection, non-tender, supple, full range of motion, No meningismus, No midline tenderness Respiratory Exam: normal breath sounds, lungs clear, airway intact, No respiratory distress Cardiovascular Exam: regular rate/rhythm, normal heart sounds, No normal peripheral pulses Gastrointestinal Exam: soft, No tenderness, No mass Extremity Exam: normal inspection, normal range of motion, No calf tenderness, No pedal edema Peripheral Pulses: dorsalis-pedis (R): 2+, dorsalis-pedis (L): 2+ Neurologic Exam: alert, oriented x 3, cooperative, cell installer II-XII nml as tested, normal mood/affect, nml station & gait, sensation nml, No motor deficits Skin Exam: normal color, warm, dry, No rash Lymphatic Exam: No adenopathy SpO2 Interpretation: normal SpO2: 94 O2 Delivery: Room Air - Course Nursing assessment & vital signs reviewed: Yes Ordered Tests: Active Orders 24 hr Category Date Time Status UA W/RFX UR CULTURE Stat Lab 11/18/23 00:01 Completed Medication Summary Discontinued Medications Generic Name Dose Route Start Last Admin Trade Name Freq PRN Reason Stop Dose Admin Dexamethasone Sodium Phosphate 10 mg 11/18/23 00:01 11/18/23 00:05 Dexamethasone Sod Phosphate 10 Mg/Ml IM 11/18/23 00:02 10 mg STAT ONE Administration Dexamethasone Sodium Phosphate Confirm 11/18/23 00:03 Dexamethasone Sod Phosphate 10 Mg/Ml Administered 11/18/23 00:04 Dose 10 mg .ROUTE .STK-MED ONE Ketorolac Tromethamine 30 mg 11/18/23 00:02 11/18/23 00:05 Ketorolac Tromethamine 30 Mg/Ml Inj IM 11/18/23 00:03 30 mg STAT ONE Administration Ketorolac Tromethamine Confirm 11/18/23 00:03 Ketorolac Tromethamine 30 Mg/Ml Inj Administered 11/18/23 00:04 Dose 30 mg .ROUTE .STK-MED ONE Ondansetron HCl 4 mg 11/18/23 00:49 11/18/23 00:56 Zofran 4 Mg/Udtablet Orally Disintegrating PO 11/18/23 00:50 4 mg STAT ONE Administration Ondansetron HCl Confirm 11/18/23 00:55 Zofran 4 Mg/Udtablet Orally Disintegrating Administered 11/18/23 00:56 Dose 4 mg .ROUTE .STK-MED ONE Lab/Rad Data: Laboratory Results 11/18/23 Range/Units 00:01 Urine Color Yellow (Yellow) Urine Appearance Clear (Clear) Urine pH 7.5 (4.6-8.0) Ur Specific [place] 1.010 (1.005-1.030) Urine Protein Negative (Negative) Urine Glucose (UA) Negative (Negative) mg/dL Urine Ketones Negative (Negative) Urine Blood Negative (Negative) Urine Nitrite Negative (Negative) Urine Bilirubin Negative (Negative) Urine Urobilinogen 1.0 A (0.2) mg/dL Ur Leukocyte Esterase Negative (Negative) U Hyaline Cast (Auto) NONE SEEN (0-2) /LPF Urine Microscopic RBC 0-2 (0-5) /HPF Urine Microscopic WBC 0-2 (0-5) /HPF Ur Epithelial Cells None Seen (None Seen) /HPF Urine Bacteria None Seen (None Seen) /HPF Urine Culture Reflexed NO (NO) - Progress Progress: improved Progress Note: Patient reassessed. She states the same improving. However she reports that she has not eaten. She is hungry but states that the medication made her feel somewhat nauseous. We will administer Zofran ODT. And we will feed patient and reassess pain within the hour. 11/18/23 00:50 Patient reassessed. Patient states pain has improved. Patient ready for discharge. Will discharge home. Patient agrees to follow-up with her primary care doctor within 48 hours for evaluation. Patient 73-year-old female presents to our ED with acute on chronic back pain. Patient's back pain is the same as previous. Will discharge home. Complexity problem addressed is moderate acute complicated. No critical care time. Complexity data reviewed and analyzed is none. No specialized testing ordered. Risk of complication and or risk morbidity/mortality patient management is low. Vital stable. Time spent to discharge patient is ap proximately 10 minutes. Plan of care established for shared decision making. No social determinants of health present impede follow-up. Portions of this note were created with voice recognition technology. There may be grammatical, spelling, punctuation or sound alike errors 11/18/23 02:19 Counseled pt/family regarding: diagnosis, need for follow-up - Departure Departure Disposition: Home Clinical Impression: Chronic back pain Condition: Stable Critical Care Time: No Referrals: LAURA SHELTON, DO [Primary Care Provider] - Follow up/PCP as directed Additional Instructions: Discharge/Care Plan JUS AZUL was seen on 11/18/23 in the Emergency Room. The patient was counseled regarding Diagnosis,Lab results, Imaging studies, need for follow up and when to return to the Emergency Room. Prescriptions given: Discharge Note I have spoken with the patient and/or caregivers. I have explained the patient's condition, diagnosis and treatment plan based on the information available to me at this time. I have answered the patient's and/or caregiver's questions and a ddressed any concerns. The patient and/or caregivers have as good understanding of the patient's diagnosis, condition and treatment plan as can be expected at this point. The vital signs have been stable. The patient's condition is stable and appropriate for discharge from the emergency department. The patient will pursue further outpatient evaluation with the primary care physician or other designated or consulting physician as outlined in the discharge instructions. The patient and/or caregivers are agreeable to this plan of care and follow-up instructions have been explained in detail. The patient and/or caregivers have received these instruction. The patient/and or caregivers are aware that any significant change in condition or worsening of symptoms should prompt an immediate return to this or the closest emergency department or call 911.
[2023-11-18 00:23] LABS: Appearance Clear (Clear); Bacteria None Seen /HPF (None Seen); Bilirubin Negative (Negative); Blood Negative (Negative); Epithelial Cells None Seen /HPF (None Seen); Glucose, Urine Negative (Negative); Hyaline Casts NONE SEEN /LPF (0-2); Ketones Negative (Negative); Leukocyte Esterase Negative (Negative); Nitrite Negative (Negative); Ph 7.5 (4.6-8.0); Protein,Urine Dip Negative (Negative); RBC 0-2 /HPF (0-5); WBC 0-2 /HPF (0-5)
[2023-11-18 00:33] LABS: ADD URINE CULTURE? NO (NO)
[2023-11-18] MEDS ORDERED: ZOFRAN ODT 4 MG ONE (00:55)
[2023-11-18] MEDS: ZOFRAN ODT 4 MG PO ONE (00:56)
[2023-11-18 01:03] VITALS: RESP 18
[2023-11-18 02:21] VITALS: O2SAT 94
[2023-11-18 02:25] VITALS: BP 146/78; PULSE 87
== END 2023-11-18 02:45 | disposition home or self-care (01) ==
LOC: ED 23:40
DX: G89.29 Other chronic pain (principal); M54.50 Low back pain, unspecified; E78.5 Hyperlipidemia, unspecified; I10 Essential (primary) hypertension; Z79.891 Long term (current) use of opiate analgesic; Z79.899 Other long term (current) drug therapy; Z72.0 Tobacco use
CPT/HCPCS: 81001; 96372; 99283; J1100; J1885; Q0162

== ENCOUNTER 2024-03-16 11:59 | Emergency (ER) | payer MEDICARE ==
--- NOTE | 2024-03-16 12:02 | ERPHSYRPT ---
- History of Present Illness Time Seen by Provider: 03/16/24 12:02 Source: patient, family Exam Limitations: no limitations Physician History: This is an obese 74-year-old white female patient of nurse practitioner Solitario who also sees a pain specialist for chronic low back pain issues and was brought in to the emergency department by private vehicle escorted by her daughter. Patient is chronically on gabapentin, tizanidine and hydrocodone. Patient fell 2 days ago hitting her head and abdominal wall as well as her posterior pelvis. Patient has a history of COPD, coronary artery disease, hyperlipidemia, hypertension, hypothyroidism and gastroesophageal reflux disease. Patient denies neck pain. Patient denies chest pain. Patient has no complaints of extremity pain or trauma. Occurred: days ago (2) Reason for Fall: lost balance Injuries/Pain Location: head, abdomen (Anteriorly), pelvis (Posteriorly) Loss of Consciousness: no loss of consciousness Quality: aching Severity of Pain-Max: moderate Severity of Pain-Current: moderate Modifying Factors: Improves With: movement Associated Symptoms (Fall): abdominal pain, back pain (Posterior pelvis), No confusion, No chest pain, No extremity injury Allergies/Adverse Reactions: cephalexin [From Keflex] Allergy (Verified 11/17/23 23:44) Home Medications: Metoprolol Tartrate 25 mg PO BID 08/11/18 [History] lisinopriL [Lisinopril] 20 mg PO DAILY 08/11/18 [History] Alendronate Sodium 70 mg [Fosamax 70 MG] 70 mg PO WEEKLY 09/18/20 [History] Furosemide 20 mg [Lasix 20 mg] 20 mg PO DAILY PRN 09/18/20 [History] Hydrocodone/Acetaminophen [Hydrocodone-Acetamin 10-325 mg] 10 mg PO Q8HPRN PRN 09/18/20 [History] Atorvastatin Calcium [Lipitor 20MG Tablet] 40 mg PO DAILY 08/28/21 [History] Docusate Sodium [Colace] 100 mg PO BID PRN PRN 08/28/21 [History] Levothyroxine Sodium 100 Mcg [Synthroid 100 Mcg] 200 mcg PO DAILY 08/28/21 [History] Nitroglycerin 0.4 mg (Ed) [Nitrostat 0.4 MG (ED)] 0.4 mg SL DIRECTIONS UNKNOWN 08/28/21 [History] Spironolactone 25 mg PO DAILY 08/28/21 [History] Albuterol 8 gm Mdi Hfa [Ventolin Hfa MDI] 2 puff IH Q4-6HPRN PRN 09/02/21 [History] PANTOPRAZOLE 40 mg Tablet [Protonix 40MG Tablet] 40 mg PO HS 09/02/21 [History] Budesonide/Glycopyr/Formoterol [Breztri Aerosphere Inhaler] 2 puff IH BID 07/04/22 [History] Gabapentin [Neurontin ] 300 mg PO TID 07/04/22 [History] Levothyroxine Sodium 25 Mcg [Synthroid 25 Mcg] 25 mcg PO DAILY 07/04/22 [History] Simethicone 80 mg [Mylicon 80MG] 80 mg PO TID 07/04/22 [History] Hx Tetanus, Diphtheria Vaccination/Date Given: Yes (2016) Hx Influenza Vaccination/Date Given: Yes Hx Pneumococcal Vaccination/Date Given: Yes Travel Risk - International Travel Have you traveled outside of the country in past 3 weeks: No - Emerging Infectious Disease Are you exhibiting symptoms associated with any current EIDs: No - Review of Systems Constitutional: No Symptoms Eyes: No Symptoms Ears, Nose, & Throat: No Symptoms Respiratory: No Symptoms Cardiac: No Symptoms Abdominal/Gastrointestinal: Abdominal Pain (Anterior abdominal wall) Genitourinary Symptoms: No Symptoms Musculoskeletal: No Symptoms, Fall (Posterior pelvic rim) Skin: No Symptoms Neurological: Headache Psychological: No Symptoms Endocrine: No Symptoms Hematologic/Lymphatic: No Symptoms Immunological/Allergic: No Symptoms All Other Systems: Reviewed and Negative - Past Medical History Pertinent Past Medical History: Yes Neurological History: No Pertinent History ENT History: No Pertinent History Cardiac History: Coronary Artery Disease, High Cholesterol, Hypertension, Other Respiratory History: COPD Endocrine Medical History: Hypothyroidism Musculoskeletal History: Arthritis GI Medical History: GERD History: No Pertinent History Psycho-Social History: No Pertinent History Female Reproductive Disorders: No Pertinent History Other Medical History: CHRONIC BACK PAIN,TUBAL - Past Surgical History Past Surgical History: Yes Neuro Surgical History: No Pertinent History Cardiac: No Pertinent History, Other, Cardiac Stent Respiratory: No Pertinent History Gastrointestinal: No Pertinent History Genitourinary: No Pertinent History Musculoskeletal: Orthopedic Surgery Female Surgical History: No Pertinent History, Tubal Ligation Other Surgical History: Left knee replacement, 3 back surgeries, Right elbow surgeries, 3 carpal tunnel surgeries on right and left hand. 3 cardiac stents in 2019 Significant Family History: no pertinent family hx - Social History Smoking Status: Current every day smoker How long have you smoked: 57 Exposure to second hand smoke: Yes Drug Use: none Patient Lives Alone: No - Social Determinants of Health Will the patient participate in the screening: Declined to provide - Nursing Vital Signs Nursing Vital Signs: Initial Vital Signs Temperature 97.2 F 03/16/24 12:08 Pulse Rate 79 03/16/24 12:08 Respiratory Rate 20 03/16/24 12:08 Blood Pressure 201/103 03/16/24 12:08 O2 Sat by Pulse Oximetry 94 L 03/16/24 12:08 Pain Scale Pain Intensity 7 - Margarita Coma Score Best Eye Response ([place]): (4) open spontaneously Best Verbal Response ([place]): (5) oriented Best Motor Response ([place]): (6) obeys commands [place] Total: 15 - Physical Exam General Appearance: no apparent distress, alert, anxiety, obese Head Injury: no evidence of injury Eye Exam: PERRL/EOMI, eyes nml inspection ENT Exam: airway nml, nml ext.inspection Neck Exam: supple, trachea midline, full range of motion, normal alignment, normal inspection Respiratory/Chest Exam: normal breath sounds, No chest tenderness, No respiratory distress, No ecchymosis, No crepitus Cardiovascular Exam: normal heart sounds, regular rate/rhythm Gastrointestinal Exam: soft, normal bowel sounds, tenderness (Generalized abdominal wall tenderness to palpation), guarding (Abdominal wall tenderness to palpation), No rebound Rectal Exam: not done Back Exam: normal inspection, normal range of motion, No CVA tenderness, No vertebral tenderness Extremity Exam: normal inspection, normal range of motion, capillary refill <3 sec, pelvis stable Neurologic Exam: alert, oriented x 3, cooperative, catalogue clerk II-XII nml as tested, nml cerebellar function, nml station & gait, sensation nml Skin Exam: normal color, warm, dry SpO2 Interpretation: normal O2 Delivery: Room Air - Course Nursing assessment & vital signs reviewed: Yes Ordered Tests: Active Orders 24 hr Category Date Time Status ABDOMEN AND PELVIS W/0 CONTRAS [CT] Stat Exams 03/16/24 12:28 Completed HEAD WITHOUT CONTRAST [CT] Stat Exams 03/16/24 12:29 Completed UA W/RFX UR CULTURE Stat Lab 03/16/24 12:34 Completed Medication Summary Discontinued Medications Generic Name Dose Route Start Last Admin Trade Name Freq PRN Reason Stop Dose Admin Hydromorphone HCl 0.5 mg 03/16/24 12:29 03/16/24 12:36 Hydromorphone 1 Mg/1ml Inj IM 03/16/24 12:30 0.5 mg STAT ONE Administration Hydromorphone HCl Confirm 03/16/24 12:35 Hydromorphone 1 Mg/1ml Inj Administered 03/16/24 12:36 Dose 1 mg .ROUTE .STK-MED ONE Ondansetron HCl 4 mg 03/16/24 12:29 03/16/24 12:36 Zofran 4 Mg/Udtablet Orally Disintegrating PO 03/16/24 12:30 4 mg STAT ONE Administration Ondansetron HCl Confirm 03/16/24 12:35 Zofran 4 Mg/Udtablet Orally Disintegrating Administered 03/16/24 12:36 Dose 4 mg .ROUTE .STK-MED ONE Lab/Rad Data: Laboratory Results 03/16/24 Range/Units 12:34 Urine Color Yellow (Yellow) Urine Appearance Clear (Clear) Urine pH 8.0 (4.6-8.0) Ur Specific [place] 1.010 (1.005-1.030) Urine Protein Negative (Negative) Urine Glucose (UA) Negative (Negative) mg/dL Urine Ketones Negative (Negative) Urine Blood Negative (Negative) Urine Nitrite Negative (Negative) Urine Bilirubin Negative (Negative) Urine Urobilinogen 1.0 A (0.2) mg/dL Ur Leukocyte Esterase Negative (Negative) U Hyaline Cast (Auto) NONE SEEN (0-2) /LPF Urine Microscopic RBC 3-5 (0-5) /HPF Urine Microscopic WBC 0-2 (0-5) /HPF Ur Epithelial Cells None Seen (None Seen) /HPF Urine Bacteria None Seen (None Seen) /HPF Urine Culture Reflexed NO (NO) - Progress Progress Note: 03/16/24 12:37 Medical decision making and the assignment of low to moderate complexity of this patient's medical issue today is based on review of the patient's past medical history, review patient medication list, review patient drug allergy list, history present illness and physical findings on examination. The workup in this patient includes urinalysis, CT scan of the head without contrast and CT scan of the abdomen pelvis without contrast. Differential diagnosis includes but is not limited to acute intracranial abnormality, intra-abdominal/pelvic abnormality, urinary tract infection 03/16/24 14:14 I interpreted the patient's laboratory data results. Based on the laboratory data results, there are no acute, emergent medical issues. CT scan of the abdomen pelvis without contrast was interpreted by the radiologist and I reviewed the impression. The impression states mild diffuse fecal stasis with rectal impaction. Borderline cardiomegaly. Bilateral adenomas of the adrenal glands that are stable. Right renal atrophy. No abdominal aortic aneurysm. No free air or free fluid. Counseled pt/family regarding: lab results, diagnosis, need for follow-up, rad results Medical Desision Making - Independent Historian Additional History obtained from: Family - Diagnostic Testing Diagnostic test were ordered, analyzed, and reviewed by me: Yes Radiological Interpretation: Reviewed by me, Teleradiologist Report - Risk of complications Low Risk: Low risk of morbidity from additional dx testing or treatment - Departure Departure Disposition: Home Clinical Impression: Fall with no significant injury, Constipation Condition: Stable Critical Care Time: No Referrals: LAURA SHELTON, DO [Primary Care Provider] - Follow up/PCP as directed Additional Instructions: Drink plenty of fluids. Minimize your narcotic use. If there are no contraindications you may use MiraLAX and milk of magnesia [id number]. Follow directions on the container/package. You may also use [id number] fleets enemas or glycerin suppositories rectally. Call your primary care provider today to make arrangements for follow-up appointment to be seen in the next 3 to 5 days.
[2024-03-16 12:15] VITALS: RESP 20; TEMP 97.2
[2024-03-16] MEDS ORDERED: Hydromorphone 1 mg/ml Injection ONE (12:35)
[2024-03-16] MEDS ORDERED: ZOFRAN ODT 4 MG ONE (12:35)
[2024-03-16] MEDS: Hydromorphone 1 mg/ml Injection IM ONE (12:36)
[2024-03-16] MEDS: ZOFRAN ODT 4 MG PO ONE (12:36)
[2024-03-16 13:02] VITALS: PULSE 88
[2024-03-16 13:03] LABS: Appearance Clear (Clear); Bacteria None Seen /HPF (None Seen); Bilirubin Negative (Negative); Blood Negative (Negative); Epithelial Cells None Seen /HPF (None Seen); Glucose, Urine Negative (Negative); Hyaline Casts NONE SEEN /LPF (0-2); Ketones Negative (Negative); Leukocyte Esterase Negative (Negative); Nitrite Negative (Negative); Protein,Urine Dip Negative (Negative); WBC 0-2 /HPF (0-5)
[2024-03-16 13:04] LABS: ADD URINE CULTURE? NO (NO)
--- NOTE | 2024-03-16 13:58 | XRAY ---
Indication: Status post fall. Multiple contiguous axial images obtained through the head without contrast. Comparison: None Age-appropriate global atrophy. Remote lacunar infarct right caudate head. Right mid centrum semi-ovale demonstrates 1.1 cm focus of remote infarct. No acute intracranial hemorrhage, abnormal extra-axial fluid collection, or mass effect. Fourth ventricle is midline without hydrocephalus. Bony calvarium intact. Visualized paranasal sinuses and mastoid air cells are clear. Impression: Atrophy within normal limits. Remote lacunar infarct right caudate head and small remote infarct right centrum semiovale. No acute intracranial abnormalities.
--- NOTE | 2024-03-16 14:04 | XRAY ---
Indication: Status post fall. Multiple contiguous axial images obtained through the abdomen and pelvis without contrast. Comparison: October 11, 2023 Lung bases again demonstrates scattered subsegmental atelectasis/scarring. No infiltrate or effusion. Heart is again borderline enlarged with scattered coronary calcifications. Noncontrasted stomach and bowel loops appear nonobstructed. Again mild diffuse scattered colonic fecal debris throughout with new mild rectal impaction. Again incidental bilateral adrenal adenomas, right renal atrophy, tiny splenic calcified granulomas, and cholecystectomy. No free fluid/air. Remaining liver, pancreas, spleen, adrenal glands, kidneys, ureters, bladder, and uterus are unremarkable for noncontrast exam. Again moderate scattered aortoiliac calcifications without AAA. Osseous structures intact again with osteopenia, minimal dextroscoliosis centered at L2, mild/moderate multilevel degenerative spondylosis, and minimal grade 1 L3 listhesis. Impression: 1. Again mild diffuse fecal stasis with new rectal impaction. 2. Stable chronic findings including borderline cardiomegaly, bibasilar atelectasis/scarring, bilateral adrenal adenomas, right renal atrophy, arteriosclerotic disease, chronic bony findings, and old granulomatous disease. 3. Remaining CT abdomen/pelvis without contrast exam is negative.
[2024-03-16 14:23] VITALS: BP 157/80; O2SAT 97
== END 2024-03-16 14:29 | disposition home or self-care (01) ==
LOC: ED 11:59
DX: Z04.3 Encounter for examination and observation following other accident (principal); K59.00 Constipation, unspecified; R51.9 Headache, unspecified; R10.9 Unspecified abdominal pain; E78.5 Hyperlipidemia, unspecified; I10 Essential (primary) hypertension; Z79.891 Long term (current) use of opiate analgesic; Z79.899 Other long term (current) drug therapy; Z72.0 Tobacco use
CPT/HCPCS: 70450; 74176; 81001; 96372; 99283; J1170; Q0162

== ENCOUNTER 2024-06-28 23:33 | Observation (INO) | payer MEDICARE ==
[2024-06-29 01:04] LABS: Absolute Neutrophil Ct (ANC) 10.66 x10^3/uL (1.56-6.13); BASOPHIL % 0.5 % (0.1-1.2); Basophil (Absolute #) 0.06 x10^3/uL (0.01-0.08); Eosinophil % 1.5 % (0.7-5.8); Hematocrit 47.8 % (34.1-44.9); Hemoglobin 15.2 g/dL (11.2-15.7); IMMATURE GRAN # 0.05 x10^3u/L (0.001-0.031); IMMATURE GRAN % 0.4 % (0.001-0.429); Lymphocyte (Absolute #) 1.63 x10^3/uL (1.18-3.74); Lymphocytes % 12.2 % (19.3-51.7); Mean Cell Volume 95.4 fL (79.4-94.8); Mean Corpuscular Hemoglobin 30.3 pg (25.6-32.2); Mean Corpuscular Hgb Concent. 31.8 g/dL (32.2-35.5); Mean Platelet Volume 11.3 fL (9.4-12.3); Monocyte (Absolute #) 0.72 x10^3/uL (0.24-0.86); Monocytes % 5.4 % (4.7-12.5); Platelet Count 181 x10^3/uL (182-369); Red Blood Count 5.01 x10^6/uL (3.93-5.22); Red Cell Distribution Width 14.1 % (11.7-14.4); White Blood Count 13.3 x10^3/uL (3.98-10.04)
[2024-06-29 01:12] LABS: ALBUMIN 3.8 g/dL (3.5-5.0); ANION GAP 5.5 MEQ/L (5-15); BILIRUBIN,TOTAL 0.6 mg/dL (0.2-1.3); Calcium 8.9 mg/dL (8.4-10.2); Creatinine 1 0.95 mg/dL (0.52-1.04); EST GLOMERULAR FILTRATION RATE 63.3 ML/MIN; Potassium 3.8 mmol/L (3.5-5.1); Total Protein 7.1 g/dL (6.3-8.2)
[2024-06-29] MEDS ORDERED: Levofloxacin 500MG/100ML D5W 500 MG/100 ML BAG IV ONE (01:38)
[2024-06-29] MEDS ORDERED: Sterile H2O 10 ml IJ ONE (01:38)
[2024-06-29] MEDS ORDERED: solu-MEDROL ONE (01:38)
--- NOTE | 2024-06-29 01:38 | ERPHSYRPT ---
- History of Present Illness Time Seen by Provider: 06/29/24 01:52 Source: patient Exam Limitations: no limitations Patient Subjective Stated Complaint: c/o shortness of breath Triage Nursing Assessment: patient brought to ED by daughter with c/o shortness of breath. patient was 85% on 2L via nasal cannula. patient is 91% on 3L. patient has course crackles in upper lobes. Patient is a current everyday smoker. Tachycardic, hypertensive, gait steady, patient is unable to lay flat. Patient states that shes had a cough for several months. coughing up yellow thick sputum. Physician History: 74-year-old female current smoker history of COPD home O2 presents to emergency department for evaluation of shortness of breath. Patient states her shortness of breath has gotten progressively worse over the last 3 to 4 days. Patient normally uses 3 L nasal cannula however her requirement has gone up. Patient admits to a productive cough of yellow sputum. Symptoms are progressive symptoms are moderate in intensity. No specific worsening or improving factors. No associated chest pain. No nausea vomiting or diaphoresis. Patient otherwise feels well. She voices no other complaints or concerns at this time. Portions of this note were created with voice recognition technology. There may be grammatical, spelling, punctuation or sound alike errors Timing/Duration: day(s) Activities at Onset: activity Severity of Dyspnea-Max: moderate Severity of Dyspnea-Current: mild Possible Cause: occasional episodes Modifying Factors: Improves With: albuterol nebulizer Associated Symptoms: denies symptoms Allergies/Adverse Reactions: cephalexin [From Keflex] Allergy (Verified 06/28/24 23:50) Home Medications: Metoprolol Tartrate 25 mg PO BID 08/11/18 [History] lisinopriL [Lisinopril] 20 mg PO DAILY 08/11/18 [History] Alendronate Sodium 70 mg [Fosamax 70 MG] 70 mg PO WEEKLY 09/18/20 [History] Furosemide 20 mg [Lasix 20 mg] 20 mg PO DAILY PRN 09/18/20 [History] Atorvastatin Calcium [Lipitor 20MG Tablet] 40 mg PO DAILY 08/28/21 [History] Docusate Sodium [Colace] 100 mg PO BID PRN PRN 08/28/21 [History] Levothyroxine Sodium 100 Mcg [Synthroid 100 Mcg] 200 mcg PO DAILY 08/28/21 [History] Nitroglycerin 0.4 mg (Ed) [Nitrostat 0.4 MG (ED)] 0.4 mg SL DIRECTIONS UNKNOWN 08/28/21 [History] Spironolactone 25 mg PO DAILY 08/28/21 [History] Albuterol 8 gm Mdi Hfa [Ventolin Hfa MDI] 2 puff IH Q4-6HPRN PRN 09/02/21 [History] PANTOPRAZOLE 40 mg Tablet [Protonix 40MG Tablet] 40 mg PO HS 09/02/21 [History] Budesonide/Glycopyr/Formoterol [Breztri Aerosphere Inhaler] 2 puff IH BID 07/04/22 [History] Gabapentin [Neurontin ] 300 mg PO TID 07/04/22 [History] Levothyroxine Sodium 25 Mcg [Synthroid 25 Mcg] 25 mcg PO DAILY 07/04/22 [History] Simethicone 80 mg [Mylicon 80MG] 80 mg PO BID 07/04/22 [History] Tramadol HCl 50 mg [Ultram 50 mg] 50 mg PO Q8H PRN PRN 06/29/24 [History] Hx Tetanus, Diphtheria Vaccination/Date Given: Yes (2016) Hx Influenza Vaccination/Date Given: No Hx Pneumococcal Vaccination/Date Given: No Travel Risk - International Travel Have you traveled outside of the country in past 3 weeks: No - Emerging Infectious Disease Are you exhibiting symptoms associated with any current EIDs: Yes Symptoms: Shortness of Breath - Review of Systems Constitutional: No Symptoms, No Fever, No Chills Eyes: No Symptoms Ears, Nose, & Throat: No Symptoms Respiratory: No Symptoms, No Cough, No Dyspnea Cardiac: No Symptoms, No Chest Pain, No Edema, No Syncope Abdominal/Gastrointestinal: No Symptoms, No Abdominal Pain, No Nausea, No Vomiting, No Diarrhea Genitourinary Symptoms: No Symptoms, No Dysuria Musculoskeletal: No Symptoms, No Back Pain, No Neck Pain Skin: No Symptoms, No Rash Neurological: No Symptoms, No Dizziness, No Focal Weakness, No Sensory Changes Psychological: No Symptoms Endocrine: No Symptoms Hematologic/Lymphatic: No Symptoms Immunological/Allergic: No Symptoms All Other Systems: Reviewed and Negative - Past Medical History Pertinent Past Medical History: Yes Neurological History: No Pertinent History ENT History: No Pertinent History Cardiac History: Coronary Artery Disease, High Cholesterol, Hypertension, Other Respiratory History: COPD Endocrine Medical History: Hypothyroidism Musculoskeletal History: Arthritis GI Medical History: GERD History: No Pertinent History Psycho-Social History: No Pertinent History Female Reproductive Disorders: No Pertinent History Other Medical History: CHRONIC BACK PAIN,TUBAL - Past Surgical History Past Surgical History: Yes Neuro Surgical History: No Pertinent History Cardiac: No Pertinent History, Other, Cardiac Stent Respiratory: No Pertinent History Gastrointestinal: No Pertinent History Genitourinary: No Pertinent History Musculoskeletal: Orthopedic Surgery Female Surgical History: No Pertinent History, Tubal Ligation Other Surgical History: Left knee replacement, 3 back surgeries, Right elbow surgeries, 3 carpal tunnel surgeries on right and left hand. 3 cardiac stents in 2019 Significant Family History: no pertinent family hx - Social History Smoking Status: Current every day smoker How long have you smoked: 57 Exposure to second hand smoke: Yes Drug Use: none Patient Lives Alone: No - Social Determinants of Health Will the patient participate in the screening: Yes Do you worry about a steady place to live?: No Do you have any problems with any of the following?: Unsafe leanne/stairs In the past 12 months,have you had to go without utilities?: No Transportation Issues: No Has anyone in your support network made you feel unsafe?: No Have you or anyone in your house had to go without enough: No - Nursing Vital Signs Nursing Vital Signs: Initial Vital Signs Temperature 98.4 F 06/28/24 23:37 Pulse Rate 118 H 06/28/24 23:37 Respiratory Rate 20 06/28/24 23:37 Blood Pressure 187/133 06/28/24 23:37 O2 Sat by Pulse Oximetry 85 L 06/28/24 23:37 Pain Scale Pain Intensity 0 - Physical Exam General Appearance: no apparent distress, alert Eye Exam: PERRL/EOMI, eyes nml inspection Ears, Nose, Throat Exam: hearing grossly normal, normal ENT inspection, normal pharynx Neck Exam: normal inspection, supple Respiratory Exam: diminished breath sounds, rhonchi, wheezing Cardiovascular/Chest Exam: normal heart sounds, regular rate/rhythm Abdominal/Gastrointestinal Exam: soft, No tenderness, No distention, No mass Extremity Exam: non-tender, normal range of motion, normal inspection, no calf tenderness, pedal edema (1+ pitting edema) Neurologic Exam: alert, oriented x 3, cooperative, instrument designer II-XII nml as tested, sensation nml, No motor deficits Skin Exam: normal color, warm, No dry Lymphatic Exam: No adenopathy SpO2 Interpretation: normal SpO2: 92 O2 Delivery: Nasal Cannula - Course Nursing assessment & vital signs reviewed: Yes EKG Interpreted by Me: RATE (73), Sinus Rhythm, NORMAL AXIS, NORMAL INTERVALS, NORMAL QRS - Radiology Exams Chest X-ray Interpretation: Teleradiologist Report (Basal congestion, atelectasis) Ordered Tests: Active Orders 24 hr Category Date Time Status Residential Advisor STAT Care 06/29/24 00:32 Active EKG-ER Only STAT Care 06/29/24 00:31 Active IV Insertion STAT Care 06/29/24 00:31 Active Pulse Oximetry (ED) STAT Care 06/29/24 00:31 Active CHEST 1 VIEW (PORTABLE) Stat Exams 06/29/24 01:34 Completed BLOOD CULTURE Stat Lab 06/29/24 00:50 Received CBC W DIFF Stat Lab 06/29/24 00:45 Completed CMP Stat Lab 06/29/24 00:45 Completed CULTURE,SPUTUM Stat Lab 06/29/24 02:26 Received D-DIMER QUANTITATIVE Stat Lab 06/29/24 00:45 Completed MAG [MAGNESIUM] Stat Lab 06/29/24 00:50 Completed NT PRO BNPII Stat Lab 06/29/24 00:45 Completed TROPONIN Q4H Lab 06/29/24 00:45 Completed TROPONIN Q4H Lab 06/29/24 04:45 Ordered TROPONIN Q4H Lab 06/29/24 08:45 Ordered Respiratory Therapy Assessment DAILY RT 06/29/24 01:54 Active Transfer Order Routine Transfer 06/29/24 Ordered Medication Summary Discontinued Medications Generic Name Dose Route Start Last Admin Trade Name Freq PRN Reason Stop Dose Admin Albuterol/Ipratropium 3 ml 06/29/24 01:33 06/29/24 01:53 Ipratropium/Albuterol Sulfate 3 Ml Ampul.Neb IH 06/29/24 01:34 3 ml STAT ONE Administration Albuterol/Ipratropium Confirm 06/29/24 01:49 Ipratropium/Albuterol Sulfate 3 Ml Ampul.Neb Administered 06/29/24 01:50 Dose 3 ml IH .STK-MED ONE Methylprednisolone Sodium 0 mg 06/29/24 01:32 06/29/24 01:39 Succinate 125 mg/ Sterile IV 06/29/24 01:33 125 mg Water 2 ml STAT ONE Administration Furosemide 20 mg 06/29/24 03:07 Furosemide 20 Mg/Vial IV 06/29/24 03:08 ONCE STA Levofloxacin/Dextrose 500 mg in 100 mls @ 100 mls/hr 06/29/24 01:33 06/29/24 01:40 Levofloxacin 500mg/100ml D5w IV 06/29/24 02:32 100 mls/hr STAT STA 100 mls/hr Administration Levofloxacin/Dextrose Confirm 06/29/24 01:38 Levofloxacin 500mg/100ml D5w Administered 06/29/24 01:39 Dose 500 mg in 100 mls @ ud IV .STK-MED ONE Methylprednisolone Sodium Succinate Confirm 06/29/24 01:38 Methylprednis Sod Succ 125 Mg/2 Ml Vial Administered 06/29/24 01:39 Dose 125 mg .ROUTE .STK-MED ONE Sterile Water Confirm 06/29/24 01:38 Water For Injection,Sterile 10 Ml Vial Administered 06/29/24 01:39 Dose 10 ml IJ .STK-MED ONE Lab/Rad Data: Laboratory Result Diagrams 06/29/24 00:45 06/29/24 00:45 Laboratory Results 06/29/24 06/29/24 06/29/24 Range/Units 00:50 00:45 00:45 WBC (3.98-10.04) x10^3/uL RBC (3.93-5.22) x10^6/uL Hgb (11.2-15.7) g/dL Hct (34.1-44.9) % MCV (79.4-94.8) fL MCH (25.6-32.2) pg MCHC (32.2-35.5) g/dL RDW (11.7-14.4) % Plt Count (182-369) x10^3/uL MPV (9.4-12.3) fL Gran % (34.0-71.1) % Immature Gran % (Auto) (0.001-0.429) % Nucleat RBC Rel Count (0.00-0.2) % Eos # (Auto) (0.04-0.36) x10^3/uL Immature Gran # (Auto) (0.001-0.031) x10^3u/L Absolute Lymphs (auto) (1.18-3.74) x10^3/uL Absolute Monos (auto) (0.24-0.86) x10^3/uL Absolute Nucleated RBC (0.00-0.012) x10^3u/L Lymphocytes % (19.3-51.7) % Monocytes % (4.7-12.5) % Eosinophils % (0.7-5.8) % Basophils % (0.1-1.2) % Absolute Granulocytes (1.56-6.13) x10^3/uL Basophils # (0.01-0.08) x10^3/uL D-Dimer (0.0-0.50) mg/L Sodium (135-145) mmol/L Potassium (3.5-5.1) mmol/L Chloride (98-107) mmol/L Carbon Dioxide (22-30) mmol/L Anion Gap (5-15) MEQ/L BUN (7-17) mg/dL Creatinine (0.52-1.04) mg/dL Estimated GFR ML/MIN Glucose (74-106) mg/dL Calcium (8.4-10.2) mg/dL Magnesium 2.1 (1.6-2.3) mg/dL Total Bilirubin (0.2-1.3) mg/dL AST (14-36) U/L ALT (0-35) U/L Alkaline Phosphatase (38-126) U/L Troponin I < 0.012 (0.000-0.033) ng/mL NT-Pro-B Natriuret Pep 1570 (<300) pg/mL Serum Total Protein (6.3-8.2) g/dL Albumin (3.5-5.0) g/dL 06/29/24 06/29/24 06/29/24 Range/Units 00:45 00:45 00:45 WBC 13.3 H (3.98-10.04) x10^3/uL RBC 5.01 (3.93-5.22) x10^6/uL Hgb 15.2 (11.2-15.7) g/dL Hct 47.8 H (34.1-44.9) % MCV 95.4 H (79.4-94.8) fL MCH 30.3 (25.6-32.2) pg MCHC 31.8 L (32.2-35.5) g/dL RDW 14.1 (11.7-14.4) % Plt Count 181 L (182-369) x10^3/uL MPV 11.3 (9.4-12.3) fL Gran % 80.0 H (34.0-71.1) % Immature Gran % (Auto) 0.4 (0.001-0.429) % Nucleat RBC Rel Count 0.0 (0.00-0.2) % Eos # (Auto) 0.20 (0.04-0.36) x10^3/uL Immature Gran # (Auto) 0.05 H (0.001-0.031) x10^3u/L Absolute Lymphs (auto) 1.63 (1.18-3.74) x10^3/uL Absolute Monos (auto) 0.72 (0.24-0.86) x10^3/uL Absolute Nucleated RBC 0.00 (0.00-0.012) x10^3u/L Lymphocytes % 12.2 L (19.3-51.7) % Monocytes % 5.4 (4.7-12.5) % Eosinophils % 1.5 (0.7-5.8) % Basophils % 0.5 (0.1-1.2) % Absolute Granulocytes 10.66 H (1.56-6.13) x10^3/uL Basophils # 0.06 (0.01-0.08) x10^3/uL D-Dimer 0.48 (0.0-0.50) mg/L Sodium 140 (135-145) mmol/L Potassium 3.8 (3.5-5.1) mmol/L Chloride 101 (98-107) mmol/L Carbon Dioxide 37 H (22-30) mmol/L Anion Gap 5.5 (5-15) MEQ/L BUN 11 (7-17) mg/dL Creatinine 0.95 (0.52-1.04) mg/dL Estimated GFR 63.3 ML/MIN Glucose 116 H (74-106) mg/dL Calcium 8.9 (8.4-10.2) mg/dL Magnesium (1.6-2.3) mg/dL Total Bilirubin 0.60 (0.2-1.3) mg/dL AST 23 (14-36) U/L ALT 14 (0-35) U/L Alkaline Phosphatase 120 (38-126) U/L Troponin I (0.000-0.033) ng/mL NT-Pro-B Natriuret Pep (<300) pg/mL Serum Total Protein 7.1 (6.3-8.2) g/dL Albumin 3.8 (3.5-5.0) g/dL - Progress Progress: improved Air Movement: good Progress Note: 74-year-old female presents to emergency department for evaluation of shortness of breath. Patient is a current smoker on home O2. Physical exam reveals coarse diminished breath sounds with wheezing at both lung swann. No acute respiratory distress. Initial troponin negative. D-dimer negative. Chest x- ray shows some mild basal congestion. 1+ pitting edema. BNP elevated. Patient received 20 mg of Lasix IV. Patient also received Solu-Medrol nebulized albuterol as well as antibiotics. Patient reassessed. Symptoms improved at rest. However patient tends to become short of breath and desaturates with exertion. Patient will require further evaluation and treatment. Case discussed with hospitalist Dr. Murray who accepts admission to observation. Plan of care discussed with patient. She agrees to admission at [facility] for further evaluation and treatment. Patient voices no other complaints or concerns at this time. Portions of this note were created with voice recognition technology. There may be grammatical, spelling, punctuation or sound alike errors Complexity of problem addressed is moderate acute complicated no critical care time. Complexity of data reviewed and analyzed is extensive. Test ordered test reviewed results analyzed and correlated clinically with history and physical exam. Management discussed with hospitalist Dr. Murray who accepts admission to observation at 3:07 AM. Risk of complication and or risk of morbidity/mortality of patient management is high. Patient requires hospitalization for further evaluation and treatment. Vital stable. Time spent admit patient approximately 15 minutes. Plan of care established for shared decision making. No social determinants of health present to impede follow-up. Portions of this note were created with voice recognition technology. There may be grammatical, spelling, punctuation or sound alike errors 06/29/24 03:10 Blood Culture(s) Obtained: Yes Antibiotics given: Yes Counseled pt/family regarding: lab results, diagnosis, rad results - Departure Departure Disposition: Observation Clinical Impression: COPD exacerbation, Shortness of breath, Current smoker, Prolonged QT interval, Hypoxia Condition: Stable Critical Care Time: No Referrals: LAURA SHELTON, DO [Primary Care Provider] - Follow up/PCP as directed Instructions: Chronic Obstructive Pulmonary Disease
[2024-06-29] MEDS: solu-MEDROL 125 MG, Sterile H2O 10 ml 2 ML IV ONE (01:39)
[2024-06-29] MEDS: Levofloxacin 500MG/100ML D5W 500 MG/100 ML BAG IV STA (01:40)
[2024-06-29] MEDS ORDERED: DUONEB 0.5-3 MG/3 ml Neb IH ONE (01:49)
[2024-06-29] MEDS: DUONEB 0.5-3 MG/3 ml Neb IH ONE (01:53)
--- NOTE | 2024-06-29 02:54 | XRAY ---
CLINICAL HISTORY: sob COMPARISON: None. TECHNIQUE: Radiograph of chest was acquired. FINDINGS: Suspicious reticulonodular opacities are noted in bilateral lower zones, more on right side. Ill-defined opacities noted in the right supradiaphragmatic region, possibly basal atelectasis. No pleural effusion is detected. Apparent cardiomegaly is detected. No acute osseous abnormality. IMPRESSION: 1. Suspicious reticulonodular opacities are noted in bilateral lower zones, more on right side. This could be secondary to basal congestion. 2. Few linear atelectatic changes noted in the left costophrenic angle region. 3. Ill-defined opacities noted in the right supradiaphragmatic region, possibly basal atelectasis. Electronically Signed by: Gabriel Tabor MD. (06/29/2024 02:50:28 EST)
[2024-06-29] MEDS: Lasix 20 MG/2 ML IV STA (03:12)
[2024-06-29] MEDS ORDERED: Lasix 20 MG/2 ML ONE (03:12)
[2024-06-29] MEDS ORDERED: Ventolin Hfa MDI IH PRN (05:04)
--- NOTE | 2024-06-29 05:16 | PCM.HP ---
History of Present Illness - Chief Complaint Chief Complaint: Shortness of breath Date: 06/29/24 History of Present Illness: 74-year-old with a history of CHF, COPD, chronic hypoxia on 3 L, hypothyroidism, CAD, and current tobacco use, who presents with progressive dyspnea for the past few days. She notes that today she was having difficulty maintaining her oxygen saturation, and was satting 89% on her usual 3 L by nasal cannula. Patient noticed progressive worsening leg edema, orthopnea, and early satiety for the past few days. She takes PRN Lasix, but has not used it recently. She tried using her albuterol inhaler for her dyspnea, with no relief. She denies PND, fevers, congestion, sore throat, sick contacts. Denies chest pain or nausea. She has had some right sided, aching, constant abdominal pain present for the last year that is unchanged today. - Review of Systems All Other Systems: Reviewed and Negative Medications & Allergies Home Medications: Home Medication List Metoprolol Tartrate 25 mg PO BID 08/11/18 [History Confirmed 06/29/24] lisinopriL [Lisinopril] 20 mg PO DAILY 08/11/18 [History Confirmed 06/29/24] Alendronate Sodium 70 mg [Fosamax 70 MG] 70 mg PO WEEKLY 09/18/20 [History Confirmed 06/29/24] Furosemide 20 mg [Lasix 20 mg] 20 mg PO DAILY PRN 09/18/20 [History Confirmed 06/29/24] Atorvastatin Calcium [Lipitor 20MG Tablet] 40 mg PO DAILY 08/28/21 [History Confirmed 06/29/24] Docusate Sodium [Colace] 100 mg PO BID PRN PRN 08/28/21 [History Confirmed 06/29/24] Levothyroxine Sodium 100 Mcg [Synthroid 100 Mcg] 200 mcg PO DAILY 08/28/21 [History Confirmed 06/29/24] Nitroglycerin 0.4 mg (Ed) [Nitrostat 0.4 MG (ED)] 0.4 mg SL DIRECTIONS UNKNOWN 08/28/21 [History Confirmed 06/29/24] Spironolactone 25 mg PO DAILY 08/28/21 [History Confirmed 06/29/24] Albuterol 8 gm Mdi Hfa [Ventolin Hfa MDI] 2 puff IH Q4-6HPRN PRN 09/02/21 [History Confirmed 06/29/24] Clopidogrel Bisulfate [Plavix] 75 mg PO DAILY #0 09/02/21 [Rx Confirmed 06/29/24] PANTOPRAZOLE 40 mg Tablet [Protonix 40MG Tablet] 40 mg PO HS 09/02/21 [History Confirmed 06/29/24] Budesonide/Glycopyr/Formoterol [Breztri Aerosphere Inhaler] 2 puff IH BID [History Confirmed 06/29/24] Gabapentin [Neurontin ] 300 mg PO TID 07/04/22 [History Confirmed 06/29/24] Levothyroxine Sodium 25 Mcg [Synthroid 25 Mcg] 25 mcg PO DAILY 07/04/22 [History Confirmed 06/29/24] Simethicone 80 mg [Mylicon 80MG] 80 mg PO BID 07/04/22 [History Confirmed 06/29/24] Tramadol HCl 50 mg [Ultram 50 mg] 50 mg PO Q8H PRN PRN 06/29/24 [History Confirmed 06/29/24] Allergies/Adverse Reactions: Allergies Allergy/AdvReac Type Severity Reaction Status Date / Time cephalexin [From Keflex] Allergy Verified 06/28/24 23:50 - Past Medical History Past Medical History: Yes Neurological History: No Pertinent History ENT History: No Pertinent History Cardiac History: Coronary Artery Disease, High Cholesterol, Hypertension, Other Respiratory History: COPD Endocrine Medical History: Hypothyroidism Musculoskelatal History: Arthritis GI Medical History: GERD History: No Pertinent History Pyscho-Social History: No Pertinent History Reproductive Disorders: No Pertinent History Comment: CHRONIC BACK PAIN,TUBAL - Past Surgical History Past Surgical History: Yes Neuro Surgical History: No Pertinent History Cardiac History: No Pertinent History, Other, Cardiac Stent Respiratory Surgery: No Pertinent History GI Surgical History: No Pertinent History Genitourinary Surgical Hx: No Pertinent History Musculskeletal Surgical Hx: Orthopedic Surgery Female Surgical History: Hysterectomy, Tubal Ligation Other Surgical History: Left knee replacement, 3 back surgeries, Right elbow surgeries, 3 carpal tunnel surgeries on right and left hand. 3 cardiac stents in 2019 Significant Family History: no pertinent family hx - Social History Smoking Status: Current every day smoker How long have you smoked: 57 Exposure to second hand smoke: Yes Alcohol: None Drug Use: none - Social Determinants of Health Will the patient participate in the screening: Yes Do you worry about a steady place to live?: No Do you have any problems with any of the following?: Water leak In the past 12 months,have you had to go without utilities?: Yes Have you or anyone in your house had to go without enough: No Transportation Issues: No Has anyone in your support network made you feel unsafe?: No Does the patient want assistance with any of the above?: Yes Comment: Pt and daughter want help getting on [facility]. - Physical Exam Vital Signs: Vital Signs - 24 hr Temp Pulse Resp BP BP Pulse Ox 06/29/24 04:57 86 18 90 L 06/29/24 04:13 97.1 F 102 H 16 161/72 88 L 06/29/24 03:56 97.1 F 102 H 16 161/72 88 L 06/29/24 03:13 92 L 06/29/24 03:00 101 H 20 164/104 93 L 06/29/24 02:30 105 H 17 155/80 93 L 06/29/24 02:00 106 H 26 H 157/106 93 L 06/29/24 01:53 105 H 18 91 L 06/29/24 01:30 107 H 19 176/95 92 L 06/29/24 01:00 98 H 18 184/96 91 L 06/29/24 00:31 92 L 06/29/24 00:30 100 H 22 167/108 93 L 06/29/24 00:00 172/104 06/28/24 23:37 98.4 F 118 H 20 187/133 91 L General Appearance: no apparent distress, other (Sitting up in bed) Neurologic Exam: alert, oriented x 3, normal mood/affect Eye Exam: eyes nml inspection, No scleral icterus Ears, Nose, Throat Exam: normal ENT inspection, moist mucous membranes Neck Exam: supple, full range of motion Respiratory Exam: other (No wheezing. Mild faint crackles in the bilateral bases. No work of breathing, on 5 L oxygen by nasal cannula.) Cardiovascular Exam: other (Regular rate and rhythm. No murmurs or gallops. 2+ pitting edema in the ankles bilaterally.) Gastrointestinal/Abdomen Exam: No tenderness, No distention Back Exam: normal inspection, normal range of motion Extremity Exam: normal range of motion, No joint swelling Skin Exam: normal color, No rash Results - Labs Lab/Micro Results: Lab Results-Last 24 Hours 06/29/24 06/29/24 06/29/24 Range/Units 00:45 00:45 00:45 WBC 13.3 H (3.98-10.04) x10^3/uL RBC 5.01 (3.93-5.22) x10^6/uL Hgb 15.2 (11.2-15.7) g/dL Hct 47.8 H (34.1-44.9) % MCV 95.4 H (79.4-94.8) fL MCH 30.3 (25.6-32.2) pg MCHC 31.8 L (32.2-35.5) g/dL RDW 14.1 (11.7-14.4) % Plt Count 181 L (182-369) x10^3/uL MPV 11.3 (9.4-12.3) fL Gran % 80.0 H (34.0-71.1) % Immature Gran % (Auto) 0.4 (0.001-0.429) % Nucleat RBC Rel Count 0.0 (0.00-0.2) % Eos # (Auto) 0.20 (0.04-0.36) x10^3/uL Immature Gran # (Auto) 0.05 H (0.001-0.031) x10^3u/L Absolute Lymphs (auto) 1.63 (1.18-3.74) x10^3/uL Absolute Monos (auto) 0.72 (0.24-0.86) x10^3/uL Absolute Nucleated RBC 0.00 (0.00-0.012) x10^3u/L Lymphocytes % 12.2 L (19.3-51.7) % Monocytes % 5.4 (4.7-12.5) % Eosinophils % 1.5 (0.7-5.8) % Basophils % 0.5 (0.1-1.2) % Absolute Granulocytes 10.66 H (1.56-6.13) x10^3/uL Basophils # 0.06 (0.01-0.08) x10^3/uL D-Dimer 0.48 (0.0-0.50) mg/L Sodium 140 (135-145) mmol/L Potassium 3.8 (3.5-5.1) mmol/L Chloride 101 (98-107) mmol/L Carbon Dioxide 37 H (22-30) mmol/L Anion Gap 5.5 (5-15) MEQ/L BUN 11 (7-17) mg/dL Creatinine 0.95 (0.52-1.04) mg/dL Estimated GFR 63.3 ML/MIN Glucose 116 H (74-106) mg/dL Calcium 8.9 (8.4-10.2) mg/dL Magnesium (1.6-2.3) mg/dL Total Bilirubin 0.60 (0.2-1.3) mg/dL AST 23 (14-36) U/L ALT 14 (0-35) U/L Alkaline Phosphatase 120 (38-126) U/L Troponin I (0.000-0.033) ng/mL NT-Pro-B Natriuret Pep (<300) pg/mL Serum Total Protein 7.1 (6.3-8.2) g/dL Albumin 3.8 (3.5-5.0) g/dL 06/29/24 06/29/24 06/29/24 Range/Units 00:45 00:45 00:50 WBC (3.98-10.04) x10^3/uL RBC (3.93-5.22) x10^6/uL Hgb (11.2-15.7) g/dL Hct (34.1-44.9) % MCV (79.4-94.8) fL MCH (25.6-32.2) pg MCHC (32.2-35.5) g/dL RDW (11.7-14.4) % Plt Count (182-369) x10^3/uL MPV (9.4-12.3) fL Gran % (34.0-71.1) % Immature Gran % (Auto) (0.001-0.429) % Nucleat RBC Rel Count (0.00-0.2) % Eos # (Auto) (0.04-0.36) x10^3/uL Immature Gran # (Auto) (0.001-0.031) x10^3u/L Absolute Lymphs (auto) (1.18-3.74) x10^3/uL Absolute Monos (auto) (0.24-0.86) x10^3/uL Absolute Nucleated RBC (0.00-0.012) x10^3u/L Lymphocytes % (19.3-51.7) % Monocytes % (4.7-12.5) % Eosinophils % (0.7-5.8) % Basophils % (0.1-1.2) % Absolute Granulocytes (1.56-6.13) x10^3/uL Basophils # (0.01-0.08) x10^3/uL D-Dimer (0.0-0.50) mg/L Sodium (135-145) mmol/L Potassium (3.5-5.1) mmol/L Chloride (98-107) mmol/L Carbon Dioxide (22-30) mmol/L Anion Gap (5-15) MEQ/L BUN (7-17) mg/dL Creatinine (0.52-1.04) mg/dL Estimated GFR ML/MIN Glucose (74-106) mg/dL Calcium (8.4-10.2) mg/dL Magnesium 2.1 (1.6-2.3) mg/dL Total Bilirubin (0.2-1.3) mg/dL AST (14-36) U/L ALT (0-35) U/L Alkaline Phosphatase (38-126) U/L Troponin I < 0.012 (0.000-0.033) ng/mL NT-Pro-B Natriuret Pep 1570 (<300) pg/mL Serum Total Protein (6.3-8.2) g/dL Albumin (3.5-5.0) g/dL - Radiology Impressions Radiology Exams & Impressions: Radiology Procedures Category Date Time Status CHEST 1 VIEW (PORTABLE) Stat Exams 06/29/24 01:34 Completed ECHO W/2D AND DOPPLER [US] Routine Exams 06/29/24 05:06 Ordered Chest x-ray pulmonary cephalization and bibasilar congestion, consistent with pulmonary edema. (Images personally reviewed) - Other Procedures and Tests Respiratory Therapy 06/29/24 01:54 Respiratory Therapy Assessment DAILY 06/29/24 05:01 Incentive Spirometry UD 06/29/24 05:03 Oxygen Nasal Cannula 3 lpm Assessment/Plan (1) Acute exacerbation of CHF (congestive heart failure) Current Visit: Yes Status: Acute Assessment & Plan: 74-year-old woman with a history of CHF, COPD, chronic hypoxia, hypertension, hypothyroidism, and CAD, here with dyspnea and edema, consistent with CHF exacerbation. ## Acute on chronic heart failure unknown if systolic or diastolic type, although since patient is on beta-joceline, MONICA inhibitor, and spironolactone, I suspect it is systolic. Patient here with progressive leg edema, orthopnea, worsening hypoxia, pulmonary edema on chest x-ray, and elevation in BNP from baseline 300 up to 1570. Although patient has COPD, these findings suggest more CHF. Trigger is unknown, although patient takes her Lasix only PRN at home and has not taken recently. Start Lasix 40 mg IV BID Daily weight Low-sodium diet Check TSH Check echocardiogram Continue lisinopril 20 mg daily, spironolactone 25 mg daily Continue Lopressor 25 mg BID ## Acute on chronic hypoxic respiratory failure patient at baseline is on 3 L oxygen. Currently she is up to 5 L, secondary to CHF exacerbation as above. Titrate FiO2 to maintain SpO2 between 91 to 94% ## Hypothyroidism Continue home levothyroxine 225 mcg daily Check TSH levels ## COPD does not appear to be in acute exacerbation (see above). She was given a dose of Solu-Medrol in the ED for presumed COPD exacerbation, but her history, exam, lab, and imaging findings point more to a cardiac cause. Discontinue any further steroids Continue home Breztri inhaler BID PRN albuterol CODE STATUS: Full code Diet: Low-sodium Prophylaxis: Lovenox 40 Dispo: Place in observation Code(s): I50.9 - HEART FAILURE, UNSPECIFIED Telemedicine Encounter - Telemedicine Encounter Telemedicine Encounter: "The entirety of this encounter was performed via Telemedicine" This visit was performed using real-time audio and video connection between my location and thepatients locationwith the assistance of a surrogateat the patients location. Written or verbal consent was obtained from the patient/guardian to perform this [facility]. Any patient questions regarding the telemedicine interaction were answered.
[2024-06-29] MEDS: ULTRAM 50 MG PO PRN (05:28)
[2024-06-29] MEDS ORDERED: VENTOLIN COMMON CANISTER IH PRN (06:40)
[2024-06-29] MEDS: DUONEB 0.5-3 MG/3 ml Neb IH SCH (06:57)
[2024-06-29] MEDS: NEURONTIN PO SCH (08:04)
[2024-06-29] MEDS: ZOCOR 20MG PO SCH (08:44)
[2024-06-29] MEDS: Zofran 4 MG/2 ML VIAL IV PRN (08:44)
[2024-06-29] MEDS: SYNTHROID 100 MCG PO SCH (08:45)
[2024-06-29] MEDS: Lopressor 25MG Tab PO SCH (08:45)
[2024-06-29] MEDS: SYNTHROID 25 MCG PO SCH (08:45)
[2024-06-29] MEDS: Zestril 20 MG PO SCH (08:45)
[2024-06-29] MEDS: PLAVIX Tablet PO SCH (08:46)
[2024-06-29] MEDS: Lasix 40 MG/4 ML IV SCH (08:46)
[2024-06-29] MEDS: Mylicon 80MG PO SCH (08:46)
[2024-06-29] MEDS: ENOXAPARIN SODIUM SQ SCH (08:46)
[2024-06-29] MEDS: Aldactone 25 MG PO SCH (08:46)
[2024-06-29] MEDS ORDERED: Lopressor 50 MG PO SCH (10:00)
[2024-06-29] MEDS ORDERED: NON-FORMULARY ITEM (Budesonide/Glycopyr/Formoterol [Breztri Aerosphere Inhaler] 10.7 GM Hf IH SCH (10:00)
[2024-06-29] MEDS ORDERED: NON-FORMULARY ITEM (Atorvastatin Calcium 20 MG Tab) PO SCH (10:00)
[2024-06-29] MEDS: TYLENOL 325 MG PO PRN (10:19)
[2024-06-29] MEDS: Requip 0.5 MG PO SCH (10:20)
[2024-06-29] MEDS: PATIENT OWN MEDICATION IH SCH (10:22)
[2024-06-29] MEDS ORDERED: PATIENT OWN MEDICATION IH PRN (13:03)
[2024-06-29] MEDS: Augmentin 875-125 Tablet PO SCH (14:06)
[2024-06-29] MEDS: Acidophilus TABLET PO SCH (16:54)
[2024-06-29] MEDS: solu-MEDROL 40 MG, Sterile H2O 10 ml 1 ML IV SCH (21:36)
[2024-06-29] MEDS: Protonix 40MG Tablet PO SCH (21:36)
--- NOTE | 2024-06-30 05:08 | PCM.NOTE ---
Date and Time: 06/30/24 0502 Subjective Assessment: HPI: 74-year-old with a history of CHF, COPD, chronic hypoxia on 3 L, hypothyroidism, CAD, and current tobacco use, who presents with progressive dyspnea for the past few days. She notes that today she was having difficulty maintaining her oxygen saturation, and was satting 89% on her usual 3 L by nasal cannula. Patient noticed progressive worsening leg edema, orthopnea, and early satiety for the past few days. She takes PRN Lasix, but has not used it recently. She tried using her albuterol inhaler for her dyspnea, with no relief. She denies PND, fevers, congestion, sore throat, sick contacts. Denies chest pain or nausea. She has had some right sided, aching, constant abdominal pain present for the last year that is unchanged today. CXR demonstrated reticulonodular opacities are noted in bilateral lower zones, more on right side. This could be secondary to basal congestion. Few linear atelectatic changes noted in the left costophrenic angle region. Ill-defined opacities noted in the right supradiaphragmatic region, possibly basal atelectasis. Admitted for CHF exacerbation 06/30/24: Met with patient bedside. Abdominal pain has improved. Dyspnea improved. 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 U-cult with gram negative ID -sens pending. Will continue augmentin for now. - Review of Systems Constitutional: Weakness Eyes: No Symptoms Ears, Nose, & Throat: No Symptoms Respiratory: Cough, Short Of Breath Cardiac: Edema (BLE) Abdominal/Gastrointestinal: Abdominal Pain Genitourinary Symptoms: No Symptoms Musculoskeletal: No Symptoms Skin: No Symptoms Neurological: No Symptoms Psychological: No Symptoms Endocrine: No Symptoms Hematologic/Lymphatic: No Symptoms Immunological/Allergic: No Symptoms Objective Exam General Appearance: no apparent distress Neurologic Exam: alert, oriented x 3, cooperative Skin Exam: pale Eye Exam: PERRL Ears, Nose, Throat Exam: normal ENT inspection Neck Exam: normal inspection Respiratory Exam: diminished breath sounds, crackles/rales Cardiovascular Exam: regular rate/rhythm, normal heart sounds Gastrointestinal/Abdomen Exam: soft, normal bowel sounds Extremity Exam: swelling (BLE +2 pitting) Back Exam: normal inspection Pelvic Exam: deferred Rectal Exam: deferred Objective Data Vital Signs: Vital Signs - 24 hr Temp Pulse Resp BP Pulse Ox 06/30/24 04:00 97.1 F 80 20 129/61 99 06/30/24 01:00 72 18 91 L 06/29/24 23:47 96.8 F 72 20 145/67 94 L 06/29/24 19:42 96.0 F 77 18 116/61 97 06/29/24 19:20 78 18 93 L 06/29/24 15:27 97.9 F 80 17 127/65 97 06/29/24 13:15 69 18 93 L 06/29/24 11:35 98.0 F 61 16 136/64 95 06/29/24 07:17 98.2 F 94 H 16 180/81 96 06/29/24 07:02 88 20 96 Pain Assessment - Last Documented Pain Intensity 0 Pain Scale Used 0-10 Pain Scale Intake and Output: Intake & Output 06/27/24 06/28/24 06/29/24 06/30/24 11:59 11:59 11:59 11:59 Intake Total 480 1000 Output Total 800 Balance 480 200 Weight 63.9 kg Lab Results: Lab Results-Last 24 Hours 06/29/24 Range/Units 21:02 POC Glucometer 115 H (74 to 106) mg/dL Radiology Exams: Radiology Procedures Category Date Time Status CHEST 1 VIEW (PORTABLE) Stat Exams 06/29/24 01:34 Completed ECHO W/2D AND DOPPLER [US] Routine Exams 06/29/24 05:06 Taken Assessment/Plan (1) Acute exacerbation of CHF (congestive heart failure) Current Visit: Yes Status: Acute Assessment & Plan: -Acute on chronic heart failure unknown if systolic or diastolic type, although since patient is on beta-joceline, MONICA inhibitor, and spironolactone, I suspect it is systolic. Patient here with progressive leg edema, orthopnea, worsening hypoxia, pulmonary edema on chest x-ray, and elevation in BNP from baseline 300 up to 1570. Although patient has COPD, these findings suggest more CHF. Trigger is unknown, although patient takes her Lasix only PRN at home and has not taken recently -BNP reviewed at 1570 Check echocardiogram Continue lisinopril 20 mg daily, spironolactone 25 mg daily Continue Lopressor 25 mg BID -continue lasix 40mg bid -strict I&O -elevate HOB -daily weights Code(s): I50.9 - HEART FAILURE, UNSPECIFIED (2) Acute respiratory failure with hypoxia Current Visit: Yes Status: Acute Assessment & Plan: 2/ to chf/copd exac see plan above Code(s): J96.01 - ACUTE RESPIRATORY FAILURE WITH HYPOXIA (3) Hypothyroid Current Visit: Yes Status: Acute Assessment & Plan: -continue levothyroxine -TSH pending Code(s): E03.9 - HYPOTHYROIDISM, UNSPECIFIED (4) COPD exacerbation Current Visit: Yes Status: Acute Assessment & Plan: -supplemental oxygen with spo2 goal > 91% - currently on 5L baseline 2L -continue home breztri inh -NEB as needed -solumedrol -RT to follow - Augmentin (allergy to cephalexin) Code(s): J44.1 - CHRONIC OBSTRUCTIVE PULMONARY DISEASE W (ACUTE) EXACERBATION (5) Current smoker Current Visit: Yes Status: Acute Assessment & Plan: -advised cessation Code(s): F17.200 - NICOTINE DEPENDENCE, UNSPECIFIED, UNCOMPLICATED (6) UTI (urinary tract infection) Current Visit: Yes Status: Acute Assessment & Plan: -Ucult reviewed showing gram - ID - sensitivity pending - continue Augmentin for now Code(s): N39.0 - URINARY TRACT INFECTION, SITE NOT SPECIFIED
[2024-06-30 05:13] LABS: Hematocrit 48.7 % (34.1-44.9); Hemoglobin 15.4 g/dL (11.2-15.7); Mean Cell Volume 94.9 fL (79.4-94.8); Mean Corpuscular Hgb Concent. 31.6 g/dL (32.2-35.5); Mean Platelet Volume 11.1 fL (9.4-12.3); Platelet Count 182 x10^3/uL (182-369); Red Blood Count 5.13 x10^6/uL (3.93-5.22); Red Cell Distribution Width 13.7 % (11.7-14.4); White Blood Count 12.9 x10^3/uL (3.98-10.04)
[2024-06-30 05:30] LABS: Calcium 9.2 mg/dL (8.4-10.2); Creatinine 1 1.18 mg/dL (0.52-1.04); EST GLOMERULAR FILTRATION RATE 48.8 ML/MIN; MAGNESIUM 2.3 mg/dL (1.6-2.3); Potassium 4.3 mmol/L (3.5-5.1)
[2024-06-30 05:49] LABS: ANION GAP 11.3 MEQ/L (5-15)
[2024-06-30 06:02] LABS: TSH, 3RD Generation 9.218 mIU/L (0.470-4.680)
[2024-06-30] MEDS ORDERED: ROCEPHIN 1 GM / 100 ML NaCl 1 GM/100 ML IVPB IV SCH (10:00)
[2024-06-30] MEDS: Docusate Sodium 100 MG PO PRN (16:42)
--- NOTE | 2024-07-01 05:09 | PCM.NOTE ---
Date and Time: 07/01/24 0508 Subjective Assessment: HPI: 74-year-old with a history of CHF, COPD, chronic hypoxia on 3 L, hypothyroidism, CAD, and current tobacco use, who presents with progressive dyspnea for the past few days. She notes that today she was having difficulty maintaining her oxygen saturation, and was satting 89% on her usual 3 L by nasal cannula. Patient noticed progressive worsening leg edema, orthopnea, and early satiety for the past few days. She takes PRN Lasix, but has not used it recently. She tried using her albuterol inhaler for her dyspnea, with no relief. She denies PND, fevers, congestion, sore throat, sick contacts. Denies chest pain or nausea. She has had some right sided, aching, constant abdominal pain present for the last year that is unchanged today. CXR demonstrated reticulonodular opacities are noted in bilateral lower zones, more on right side. This could be secondary to basal congestion. Few linear atelectatic changes noted in the left costophrenic angle region. Ill-defined opacities noted in the right supradiaphragmatic region, possibly basal atelectasis. Admitted for CHF exacerbation 06/30/24: Met with patient bedside. Abdominal pain has improved. Dyspnea improved. 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 U-cult with gram negative ID -sens pending. Will continue augmentin for now. Objective Data Vital Signs: Vital Signs - 24 hr Temp Pulse Resp BP Pulse Ox 07/01/24 03:40 97.9 F 82 18 130/60 96 07/01/24 01:15 82 16 95 07/01/24 00:00 97.3 F 77 16 135/71 97 06/30/24 19:51 98.2 F 91 H 18 120/58 97 06/30/24 19:28 98.2 F 91 H 18 126/58 97 06/30/24 17:37 71 16 96 06/30/24 15:58 97.9 F 75 16 148/66 92 L 06/30/24 13:00 64 16 96 06/30/24 11:24 97.9 F 83 16 124/58 93 L 06/30/24 07:13 98.2 F 81 21 128/60 96 06/30/24 05:23 61 18 94 L Pain Assessment - Last Documented Pain Intensity 0 Pain Scale Used 0-10 Pain Scale Intake and Output: Intake & Output 06/28/24 06/29/24 06/30/24 07/01/24 11:59 11:59 11:59 11:59 Intake Total 480 1480 1560 Output Total 1800 1400 Balance 480 -320 160 Weight 63.9 kg 63.2 kg Lab Results: Lab Results-Last 24 Hours 06/30/24 06/30/24 06/30/24 Range/Units 05:05 05:05 05:05 WBC 12.9 H (3.98-10.04) x10^3/uL RBC 5.13 (3.93-5.22) x10^6/uL Hgb 15.4 (11.2-15.7) g/dL Hct 48.7 H (34.1-44.9) % MCV 94.9 H (79.4-94.8) fL MCH 30.0 (25.6-32.2) pg MCHC 31.6 L (32.2-35.5) g/dL RDW 13.7 (11.7-14.4) % Plt Count 182 (182-369) x10^3/uL MPV 11.1 (9.4-12.3) fL Sodium 139 (135-145) mmol/L Potassium 4.3 (3.5-5.1) mmol/L Chloride 95 L (98-107) mmol/L Carbon Dioxide 37 H (22-30) mmol/L Anion Gap 11.3 (5-15) MEQ/L BUN 23 H (7-17) mg/dL Creatinine 1.18 H (0.52-1.04) mg/dL Estimated GFR 48.8 ML/MIN Glucose 152 H (74-106) mg/dL Calcium 9.2 (8.4-10.2) mg/dL Magnesium 2.3 (1.6-2.3) mg/dL Procalcitonin 0.063 (0.030-0.080) ng/mL TSH 3rd Generation 9.218 H (0.470-4.680) mIU/L Radiology Exams: Radiology Procedures Category Date Time Status ECHO W/2D AND DOPPLER [US] Routine Exams 06/29/24 05:06 Taken Multi-Disciplinary Progress Notes: Multi-Disciplinary Progress Notes 06/30/24 11:30 (created 06/30/24 15:11) Case Management Note by Nessa Thompson S/W PATIENT- SHE CONTINUES TO DENY ANY NEW NEEDS AT TIME OF DC. SHE REPORTS SHE HAS HER DAUGHTER AT HOME TO HELP HER IF NEEDED Initialized on 06/30/24 15:11 - END OF NOTE Assessment/Plan (1) Acute exacerbation of CHF (congestive heart failure) Current Visit: Yes Status: Acute Assessment & Plan: -Acute on chronic heart failure unknown if systolic or diastolic type, although since patient is on beta-joceline, MONICA inhibitor, and spironolactone, I suspect it is systolic. Patient here with progressive leg edema, orthopnea, worsening hypoxia, pulmonary edema on chest x-ray, and elevation in BNP from baseline 300 up to 1570. Although patient has COPD, these findings suggest more CHF. Trigger is unknown, although patient takes her Lasix only PRN at home and has not taken recently -BNP reviewed at 1570 Check echocardiogram Continue lisinopril 20 mg daily, spironolactone 25 mg daily Continue Lopressor 25 mg BID -continue lasix 40mg bid -strict I&O -elevate HOB -daily weights Code(s): I50.9 - HEART FAILURE, UNSPECIFIED (2) Acute respiratory failure with hypoxia Current Visit: Yes Status: Acute Assessment & Plan: 2/2 to chf/copd exac see plan above Code(s): J96.01 - ACUTE RESPIRATORY FAILURE WITH HYPOXIA (3) Hypothyroid Current Visit: Yes Status: Acute Assessment & Plan: -continue levothyroxine -TSH pending Code(s): E03.9 - HYPOTHYROIDISM, UNSPECIFIED (4) COPD exacerbation Current Visit: Yes Status: Acute Assessment & Plan: -supplemental oxygen with spo2 goal > 91% - currently on 5L baseline 2L -continue home breztri inh -NEB as needed -solumedrol -RT to follow - Augmentin (allergy to cephalexin) Code(s): J44.1 - CHRONIC OBSTRUCTIVE PULMONARY DISEASE W (ACUTE) EXACERBATION (5) Current smoker Current Visit: Yes Status: Acute Assessment & Plan: -advised cessation Code(s): F17.200 - NICOTINE DEPENDENCE, UNSPECIFIED, UNCOMPLICATED (6) UTI (urinary tract infection) Current Visit: Yes Status: Acute Assessment & Plan: -Ucult reviewed showing gram - ID - sensitivity pending - continue Augmentin for now Code(s): I50.9 - HEART FAILURE, UNSPECIFIED (2) Acute respiratory failure with hypoxia Current Visit: Yes Status: Acute Code(s): J96.01 - ACUTE RESPIRATORY FAILURE WITH HYPOXIA (3) Hypothyroid Current Visit: Yes Status: Acute Code(s): E03.9 - HYPOTHYROIDISM, UNSPECIFIED (4) COPD exacerbation Current Visit: Yes Status: Acute Code(s): J44.1 - CHRONIC OBSTRUCTIVE PULMONARY DISEASE W (ACUTE) EXACERBATION (5) Current smoker Current Visit: Yes Status: Acute Code(s): F17.200 - NICOTINE DEPENDENCE, UNSPECIFIED, UNCOMPLICATED (6) UTI (urinary tract infection) Current Visit: Yes Status: Acute Code(s): N39.0 - URINARY TRACT INFECTION, SITE NOT SPECIFIED
[2024-07-01 05:21] LABS: Hematocrit 47.7 % (34.1-44.9); Hemoglobin 14.9 g/dL (11.2-15.7); Mean Cell Volume 94.5 fL (79.4-94.8); Mean Corpuscular Hemoglobin 29.5 pg (25.6-32.2); Mean Corpuscular Hgb Concent. 31.2 g/dL (32.2-35.5); Platelet Count 181 x10^3/uL (182-369); Red Blood Count 5.05 x10^6/uL (3.93-5.22); White Blood Count 10.2 x10^3/uL (3.98-10.04)
--- NOTE | 2024-07-01 09:22 | XRAY ---
Indication: Short of breath. Comparison: June 29, 2024 Portable apical lordotic chest again hyperinflated with new mild left base infiltrate/atelectasis/effusion. Right base subsegmental atelectasis/scarring improved. Heart not enlarged again with incidental stent emanating from aortic arch. Bony thorax intact again with osteopenia and degenerative changes.
[2024-07-01] MEDS ORDERED: LEVOFLOXACIN 750MG/150ML D5W 750 MG/150 ML BAG IV SCH (10:00)
[2024-07-01] MEDS: Levaquin 250MG/50ML D5W 250 MG/50 ML BAG IV SCH (11:36)
--- NOTE | 2024-07-01 11:42 | PCM.DS ---
Discharge Summary Date of Admission: 06/29/24 03:22 Date of Discharge: 07/01/24 Admitting Physician: JESSE NATION MD Consults: Consults on Case 06/29/24 04:48 Case Management [facility] Needs Assessment ROUTINE Primary Care Provider: LAURA SHELTON Allergies Allergies cephalexin [From Keflex] Allergy (Verified 06/28/24 23:50) Hospital Summary - Hospital Course Hospital Course: HPI: 74-year-old with a history of CHF, COPD, chronic hypoxia on 3 L, hypothyroidism, CAD, and current tobacco use, who presents with progressive dyspnea for the past few days. She notes that today she was having difficulty maintaining her oxygen saturation, and was satting 89% on her usual 3 L by nasal cannula. Patient noticed progressive worsening leg edema, orthopnea, and early satiety for the past few days. She takes PRN Lasix, but has not used it recently. She tried using her albuterol inhaler for her dyspnea, with no relief. She denies PND, fevers, congestion, sore throat, sick contacts. Denies chest pain or nausea. She has had some right sided, aching, constant abdominal pain present for the last year that is unchanged today. CXR demonstrated reticulonodular opacities are noted in bilateral lower zones, more on right side. This could be secondary to basal congestion. Few linear atelectatic changes noted in the left costophrenic angle region. Ill-defined opacities noted in the right supradiaphragmatic region, possibly basal atelectasis. Admitted for CHF exacerbation and pneumonia. Sputum cultures showing ecoli and proteus mirabilis with sensitivity to levaquin. Abdominal pain resolved. Dyspnea and cough improved. Edema resolved. Patient at baseline oxygen of 3L. Levothyroxine adjustments made due to increased TSH level, dose increased to 250 - patient advised recheck with PCP in 4 weeks. Advised smoking cessation. Will send on nicotine patches. Previous reported UTI in error Discharge Note New Diagnosis: pneumonia/chf exacerbation New Medications: Levofloxacin/ prednisone/ levothyroxine - dose change to 250mcg Follow Up: Pulm/pcp Latest Assessment & Plan (1) Acute exacerbation of CHF (congestive heart failure) Current Visit: Yes Status: Acute Assessment & Plan: -Acute on chronic heart failure unknown if systolic or diastolic type, although since patient is on beta-joceline, MONICA inhibitor, and spironolactone, I suspect it is systolic. Patient here with progressive leg edema, orthopnea, worsening hypoxia, pulmonary edema on chest x-ray, and elevation in BNP from baseline 300 up to 1570. Although patient has COPD, these findings suggest more CHF. Trigger is unknown, although patient takes her Lasix only PRN at home and has not taken recently -BNP reviewed at 1570 Check echocardiogram Continue lisinopril 20 mg daily, spironolactone 25 mg daily Continue Lopressor 25 mg BID -continue lasix 40mg bid -strict I&O -elevate HOB -daily weights Code(s): I50.9 - HEART FAILURE, UNSPECIFIED Pneumonia -CXR with mild left base infiltrate/atelectasis/effusion. Right base subsegmental atelectasis/scarring improved. -sputum culture with proteus mirabilis - will send home with levofloxacin (2) Acute respiratory failure with hypoxia Current Visit: Yes Status: Acute Assessment & Plan: / to chf/copd exac see plan above Code(s): J96.01 - ACUTE RESPIRATORY FAILURE WITH HYPOXIA (3) Hypothyroid Current Visit: Yes Status: Acute Assessment & Plan: -continue levothyroxine -TSH \ Code(s): E03.9 - HYPOTHYROIDISM, UNSPECIFIED (4) COPD exacerbation Current Visit: Yes Status: Acute Assessment & Plan: -supplemental oxygen with spo2 goal > 91% - currently on 5L baseline 2L -continue home breztri inh -NEB as needed -solumedrol -RT to follow - Augmentin (allergy to cephalexin) Code(s): J44.1 - CHRONIC OBSTRUCTIVE PULMONARY DISEASE W (ACUTE) EXACERBATION (5) Current smoker Current Visit: Yes Status: Acute Assessment & Plan: -advised cessation Code(s): F17.200 - NICOTINE DEPENDENCE, UNSPECIFIED, UNCOMPLICATED Code(s): I50.9 - HEART FAILURE, UNSPECIFIED I spent 35 minutes [id number] with the patient on the day of discharge performing discharge exam, discussing hospital stay and discharge instructions with patient and caregivers, preparation of discharge records, prescriptions & referral forms and addressing any questions/concerns the patient had as docume nted above. - Vitals & Intake/Output Vital Signs: Vital Signs Temperature 97.8 F 07/01/24 07:23 Pulse Rate 77 07/01/24 07:23 Respiratory Rate 16 07/01/24 07:23 Blood Pressure 146/68 07/01/24 07:23 O2 Sat by Pulse Oximetry 92 L 07/01/24 07:23 Intake & Output: Intake & Output 06/28/24 06/29/24 06/30/24 07/01/24 11:59 11:59 11:59 11:59 Intake Total 480 1480 1920 Output Total 1800 1400 Balance 480 -320 520 Weight 63.9 kg 63.2 kg - Lab Result Diagrams: 07/01/24 05:13 06/30/24 05:05 Lab Results-Last 24 Hrs: Lab Results-Last 24 Hours 07/01/24 Range/Units 05:13 WBC 10.2 H (3.98-10.04) x10^3/uL RBC 5.05 (3.93-5.22) x10^6/uL Hgb 14.9 (11.2-15.7) g/dL Hct 47.7 H (34.1-44.9) % MCV 94.5 (79.4-94.8) fL MCH 29.5 (25.6-32.2) pg MCHC 31.2 L (32.2-35.5) g/dL RDW 14.0 (11.7-14.4) % Plt Count 181 L (182-369) x10^3/uL MPV 11.0 (9.4-12.3) fL Micro Results-Entire Visit: Microbiology 06/29/24 02:26 Gram Stain - Final Sputum - Expectorant Sputum Culture - Final Proteus Mirabilis Escherichia Coli 06/29/24 00:45 Blood Culture - Preliminary Blood 06/29/24 00:50 Blood Culture - Preliminary Blood - Radiology Exams Ordered Rad Exams-Entire Visit: Radiology Procedures Category Date Time Status CHEST 1 VIEW (PORTABLE) Routine Exams 07/01/24 07:22 Completed - Procedures and Test Procedures and Tests throughout Hospitalization: Therapy Orders & Screens 06/29/24 01:54 Respiratory Therapy Assessment DAILY Comment: 06/29/24 04:48 RT Screen per Nursing Assess ONCE Comment: Protocol Order Physician Instructions: Greater than 3 points order RT Admission Screen Reason For Exam: Triggered on Admission Diagnosis: COPD Exacerbation Diagnosis: COPD Exacerbation Pneumonia: No Home O2: Yes: Baseline 2L Asthma: No CHF: No Home CPAP/BIPAP: Yes: Non-compliant Home Nebs/MDI: Yes: Non-compliant Total Points: 15 Smoking Cessation Education ONCE Comment: Diagnosis: COPD Exacerbation Smoking Status: Current every day smoker How long have you smoked: 57 Approximately how many cigarettes per day: 1/2 pack a day Do you dip or chew tobacco: No 06/29/24 04:57 Oxygen Nasal Cannula 5 lpm Comment: Diagnosis: COPD Exacerbation 06/29/24 05:01 Incentive Spirometry UD Comment: Diagnosis: COPD Exacerbation 06/29/24 05:03 Oxygen Nasal Cannula 3 lpm Comment: titrate to keep SpO2 91-94% Diagnosis: CHF Exacerbation 06/29/24 13:27 Respiratory MDI BID Comment: Diagnosis: Shortness of breath Final Diagnosis/Problem List - Final Discharge Diagnosis/Problem (1) Acute exacerbation of CHF (congestive heart failure) Current Visit: Yes Status: Acute Code(s): I50.9 - HEART FAILURE, UNSPECIFIED (2) Pneumonia Current Visit: Yes Status: Acute Code(s): J18.9 - PNEUMONIA, UNSPECIFIED ORGANISM (3) Acute respiratory failure with hypoxia Current Visit: Yes Status: Resolved Code(s): J96.01 - ACUTE RESPIRATORY FAILURE WITH HYPOXIA (4) Hypothyroid Current Visit: Yes Status: Chronic Code(s): E03.9 - HYPOTHYROIDISM, UNSPECIFIED (5) COPD exacerbation Current Visit: Yes Status: Acute Code(s): J44.1 - CHRONIC OBSTRUCTIVE PULMONARY DISEASE W (ACUTE) EXACERBATION (6) Current smoker Current Visit: Yes Status: Chronic Code(s): F17.200 - NICOTINE DEPENDENCE, UNSPECIFIED, UNCOMPLICATED - Discharge Discharge Date: 07/01/24 Disposition: Home, Self-Care Condition: Stable Prescriptions: New levoFLOXacin [Levofloxacin] 750 mg PO DAILY 7 Days #7 tablet Levothyroxine Sodium 200 mcg PO DAILY 30 Days #30 tablet Levothyroxine Sodium 50 mcg PO DAILY 30 Days #30 cap predniSONE [Prednisone] 20 mg PO BID 5 Days #10 tablet Continue Metoprolol Tartrate 25 mg PO BID lisinopriL [Lisinopril] 20 mg PO DAILY Alendronate Sodium 70 mg [Fosamax 70 MG] 70 mg PO WEEKLY Furosemide 20 mg [Lasix 20 mg] 20 mg PO DAILY PRN PRN Reason: fluid overload Atorvastatin Calcium [Lipitor 20MG Tablet] 40 mg PO DAILY Docusate Sodium [Colace] 100 mg PO BID PRN PRN PRN Reason: Constipation Nitroglycerin 0.4 mg (Ed) [Nitrostat 0.4 MG (ED)] 0.4 mg SL DIRECTIONS UNKNOWN Spironolactone 25 mg PO DAILY Albuterol 8 gm Mdi Hfa [Ventolin Hfa MDI] 2 puff IH Q4-6HPRN PRN PRN Reason: Shortness Of Breath/Wheezing PANTOPRAZOLE 40 mg Tablet [Protonix 40MG Tablet] 40 mg PO HS Clopidogrel Bisulfate [Plavix] 75 mg PO DAILY #0 Gabapentin [Neurontin ] 300 mg PO TID Budesonide/Glycopyr/Formoterol [Breztri Aerosphere Inhaler] 2 puff IH BID Simethicone 80 mg [Mylicon 80MG] 80 mg PO BID Tramadol HCl 50 mg [Ultram 50 mg] 50 mg PO Q8H PRN PRN PRN Reason: Pain Discontinued Levothyroxine Sodium 100 Mcg [Synthroid 100 Mcg] 200 mcg PO DAILY Levothyroxine Sodium 25 Mcg [Synthroid 25 Mcg] 25 mcg PO DAILY Follow up with: LAURA SHELTON DO [Primary Care Provider] - Call for Appointment
[2024-07-01] MEDS: Levofloxacin 500MG/100ML D5W 500 MG/100 ML BAG IV SCH (12:45)
[2024-07-01 12:54] VITALS: BP 111/42; RESP 18; TEMP 98.5
[2024-07-01 13:26] VITALS: PULSE 75; O2SAT 97
== END 2024-07-01 14:48 | disposition home health service (06) ==
LOC: ED 23:33 → MED SURG 06-29 03:22
PROVIDERS: ADMIT Internal Medicine; ATTEND Internal Medicine
DX: I50.9 Heart failure, unspecified (principal); J18.9 Pneumonia, unspecified organism; Z59.19 Other inadequate housing; J96.01 Acute respiratory failure with hypoxia; E03.9 Hypothyroidism, unspecified; J44.1 Chronic obstructive pulmonary disease with (acute) exacerbation; F17.200 Nicotine dependence, unspecified, uncomplicated; J44.9 Chronic obstructive pulmonary disease, unspecified; I25.10 Atherosclerotic heart disease of native coronary artery without angina pectoris; N39.0 Urinary tract infection, site not specified; Z79.899 Other long term (current) drug therapy; Z99.81 Dependence on supplemental oxygen; Z79.01 Long term (current) use of anticoagulants
CPT/HCPCS: 36415; 71045; 80048; 80053; 82947; 83735; 83880; 84145; 84443; 84484; 85025; 85027; 85379; 87040; 87070; 87077; 87186; 93005; 93041; 93306; 94640; 94760; 94762; 96365; 96374; 99285; Q3014; 93268; J1650; J1940; J1956; J2405; J2919; A9270-GY; G0378

== ENCOUNTER 2024-08-06 20:30 | Emergency (ER) | payer MEDICARE ==
[2024-08-06 20:49] VITALS: TEMP 97.3
--- NOTE | 2024-08-06 21:15 | ERPHSYRPT ---
- History of Present Illness Time Seen by Provider: 08/06/24 21:07 Source: patient, family Exam Limitations: no limitations Patient Subjective Stated Complaint: Pt reports she was carrying groceries into the house on uneven concrete when she fell landing on right side of chin. Pt denies any other pain/injuries. Pt denies any LOC. Triage Nursing Assessment: Pt alert and oriented x3. Respirations easy/nonlabored. Skin w/p/d. Wheeled to ED cot, transferred from chair to cot per self without difficulty. Bruising to right side of chin with minimal swelling. No active bleeding. Physician History: 74-year-old female with multiple medical problems including coronary artery disease with stenting, congestive heart failure, hypertension, hyperlipidemia, COPD with chronic respiratory failure on 2 L oxygen was carrying grocery bags and tripped leading to fall and hit her right lateral face/mandible with swelling and hematoma. Patient reports mild to moderate dull aching pain with palpation. No difficulty talking. Patient also report mild dull aching pain on the right side of the neck. Denies any loss of consciousness. No numbness tingling or focal weakness. Patient also wants to be checked for flu as she is having mild sinus/nasal congestion and occasional cough. She is on 2 L normally and no shortness of breath. Allergies/Adverse Reactions: cephalexin [From Keflex] Allergy (Verified 08/06/24 20:42) Home Medications: Metoprolol Tartrate 25 mg PO BID 08/11/18 [History] lisinopriL [Lisinopril] 20 mg PO DAILY 08/11/18 [History] Alendronate Sodium 70 mg [Fosamax 70 MG] 70 mg PO WEEKLY 09/18/20 [History] Furosemide 20 mg [Lasix 20 mg] 20 mg PO DAILY PRN 09/18/20 [History] Atorvastatin Calcium [Lipitor 20MG Tablet] 40 mg PO DAILY 08/28/21 [History] Docusate Sodium [Colace] 100 mg PO BID PRN PRN 08/28/21 [History] Nitroglycerin 0.4 mg (Ed) [Nitrostat 0.4 MG (ED)] 0.4 mg SL DIRECTIONS UNKNOWN 08/28/21 [History] Spironolactone 25 mg PO DAILY 08/28/21 [History] Albuterol 8 gm Mdi Hfa [Ventolin Hfa MDI] 2 puff IH Q4-6HPRN PRN 09/02/21 [History] PANTOPRAZOLE 40 mg Tablet [Protonix 40MG Tablet] 40 mg PO HS 09/02/21 [History] Budesonide/Glycopyr/Formoterol [Breztri Aerosphere Inhaler] 2 puff IH BID 07/04/22 [History] Gabapentin [Neurontin ] 300 mg PO TID 07/04/22 [History] Simethicone 80 mg [Mylicon 80MG] 80 mg PO BID 07/04/22 [History] Tramadol HCl 50 mg [Ultram 50 mg] 50 mg PO Q8H PRN PRN 06/29/24 [History] Promethazine HCl 25 mg [Phenergan 25 mg] 1 tab PO Q6HPRN PRN 08/06/24 [History] Hx Tetanus, Diphtheria Vaccination/Date Given: No Hx Influenza Vaccination/Date Given: No Hx Pneumococcal Vaccination/Date Given: No Travel Risk - International Travel Have you traveled outside of the country in past 3 weeks: No - Emerging Infectious Disease Are you exhibiting symptoms associated with any current EIDs: Yes Symptoms: Fever - Review of Systems Constitutional: No Symptoms Ears, Nose, & Throat: Nose Congestion, Mouth Pain Respiratory: Cough Cardiac: No Symptoms Abdominal/Gastrointestinal: No Symptoms Musculoskeletal: Fall Skin: No Symptoms Neurological: No Symptoms - Past Medical History Pertinent Past Medical History: Yes Neurological History: No Pertinent History ENT History: No Pertinent History Cardiac History: Coronary Artery Disease, High Cholesterol, Hypertension, Other Respiratory History: COPD Endocrine Medical History: Hypothyroidism Musculoskeletal History: Arthritis GI Medical History: GERD, Hernia History: No Pertinent History Psycho-Social History: No Pertinent History Female Reproductive Disorders: No Pertinent History Other Medical History: CHRONIC BACK PAIN,TUBAL - Past Surgical History Past Surgical History: Yes Neuro Surgical History: No Pertinent History Cardiac: No Pertinent History, Other, Cardiac Stent Respiratory: No Pertinent History Gastrointestinal: No Pertinent History Genitourinary: No Pertinent History Musculoskeletal: Orthopedic Surgery Female Surgical History: Hysterectomy, Tubal Ligation Other Surgical History: Left knee replacement, 3 back surgeries, Right elbow surgeries, 3 carpal tunnel surgeries on right and left hand. 3 cardiac stents in 2019 Significant Family History: no pertinent family hx - Social History Smoking Status: Current every day smoker Exposure to second hand smoke: Yes Drug Use: none - Social Determinants of Health Will the patient participate in the screening: Declined to provide - Nursing Vital Signs Nursing Vital Signs: Initial Vital Signs Temperature 97.3 F 08/06/24 20:37 Pulse Rate 90 08/06/24 20:37 Respiratory Rate 17 08/06/24 20:37 Blood Pressure 166/87 08/06/24 20:37 O2 Sat by Pulse Oximetry 94 L 08/06/24 20:37 Pain Scale Pain Intensity 8 - Margarita Coma Score Best Eye Response ([place]): (4) open spontaneously Best Verbal Response (Margarita): (5) oriented Best Motor Response (Margarita): (6) obeys commands [place] Total: 15 - Physical Exam General Appearance: no apparent distress, alert Head Injury: no evidence of injury Eye Exam: PERRL/EOMI, eyes nml inspection ENT Exam: airway nml, nml ext.inspection, other (Contusion/bruising right lateral mandible) Neck Exam: supple, trachea midline, normal alignment, other (Mild tenderness right trapezius) Respiratory/Chest Exam: decreased breath sounds, wheezing, No respiratory distress Cardiovascular Exam: normal heart sounds, regular rate/rhythm Back Exam: normal inspection, normal range of motion Extremity Exam: normal inspection, normal range of motion Neurologic Exam: alert, oriented x 3, cooperative, 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 II-XII nml as tested, normal mood/affect, nml cerebellar function, sensation nml, motor deficits Skin Exam: normal color SpO2 Interpretation: normal SpO2: 94 O2 Delivery: Room Air Ordered Tests: Active Orders 24 hr Category Date Time Status CERVICAL SPINE WO CONTRAST [CT] Stat Exams 08/06/24 21:07 Completed FACIAL BONES WO CONTRAST [CT] Stat Exams 08/06/24 21:08 Completed HEAD WITHOUT CONTRAST [CT] Stat Exams 08/06/24 21:07 Completed Medication Summary Discontinued Medications Generic Name Dose Route Start Last Admin Trade Name Freq PRN Reason Stop Dose Admin Hydrocodone Bitart/Acetaminophen 1 tab 08/06/24 22:17 08/06/24 22:36 Hydrocodone/Apap 5/325 1 Tab Tablet PO 08/06/24 22:18 1 tab STAT ONE Administration Hydrocodone Bitart/Acetaminophen Confirm 08/06/24 22:35 Hydrocodone/Apap 5/325 1 Tab Tablet Administered 08/06/24 22:36 Dose 1 tab .ROUTE .STK-MED ONE Lab/Rad Data: Laboratory Results 08/06/24 Range/Units 21:00 Influenza Type A Ag NEGATIVE (NEGATIVE) Influenza Type B Ag NEGATIVE (NEGATIVE) RSV (PCR) NEGATIVE (NEGATIVE) SARS-CoV-2 (PCR) NEGATIVE (NEGATIVE) - Progress Progress: improved Progress Note: 08/06/24 22:54 74-year-old is evaluated in the ER for ground-level mechanical fall with injury to the right mandible and pain in the right neck. She is given symptomatic treatment. CT head cervical spine and facial bones are negative for any acute trauma findings. Patient is feeling better on reevaluation. Also has negative COVID flu and RSV. Has minimal wheezing on exam and patient is on 2 L oxygen with saturation around 95%. Do not think needs imaging or any other workup and is stable for discharge. Counseled on symptomatic care. Discussed signs symptoms of worsening needing return to ER which she seems understanding. Stable for discharge. Counseled pt/family regarding: lab results, diagnosis, need for follow-up, rad results Medical Desision Making - Independent Historian Additional History obtained from: Child - Diagnostic Testing Diagnostic test were ordered, analyzed, and reviewed by me: Yes Radiological Interpretation: Reviewed by me, Teleradiologist Report - Risk of complications The pt has a mod risk of morbidity or mortality based on: Need for prescription drug management - Departure Departure Disposition: Home Clinical Impression: Contusion of ramus of mandible, Viral URI with cough, Fall Condition: Stable Critical Care Time: No Referrals: LAURA SHELTON DO [Primary Care Provider] - Follow up with PCP 1 day Instructions: Contusion (DC), Preventing falls in adults Additional Instructions: Take Tylenol as needed. Intermittent ice application. Follow-up with primary care for reevaluation. Return to ER for any worsening.
[2024-08-06 21:33] VITALS: RESP 16
[2024-08-06 21:40] LABS: INFLUENZA A NEGATIVE (NEGATIVE); INFLUENZA B NEGATIVE (NEGATIVE); RESPIRATORY SYNCTIAL VIRUS NEGATIVE (NEGATIVE); SARS-CoV-2 Xpert Express NEGATIVE (NEGATIVE)
--- NOTE | 2024-08-06 22:25 | XRAY ---
CLINICAL HISTORY: fall COMPARISON: - TECHNIQUE: Multiple axial images are obtained from the skull base to the vertex without contrast. CT scan was performed according to ALARA (as low as reasonable achievable). FINDINGS: There is cerebral atrophy. Enlarged Virchow Rashard space is seen in the right centrum semiovale No evidence of space occupying lesion, hemorrhage, edema, mass effect, midline shift, extra axial collection, or hydrocephalus is noted. Basal cisterns are symmetric and normal in size and configuration. There are scattered periventricular hypodensities as can be seen with chronic microvascular ischemic changes. The howe-white matter differentiation is preserved. Visualized paranasal sinuses and mastoid air cells are well aerated. Orbital contents are within normal limits. Bony structures are intact. IMPRESSION: 1. No evidence of acute intracranial abnormality is demonstrated. 2. Chronic microvascular ischemic changes. 3. Cerebral atrophy. Electronically Signed by: Gabriel Tabor MD. (08/06/2024 22:20:35 EST)
--- NOTE | 2024-08-06 22:27 | XRAY ---
CLINICAL HISTORY: fall COMPARISON: - TECHNIQUE: Computed tomography of the cervical spine performed without intravenous contrast. Contiguous axial images were obtained from the skull base to T2, with sagittal and coronal reformatted images reconstructed from the axial data. CT scan was performed according to ALARA (as low as reasonable achievable). FINDINGS: Loss of normal cervical lordosis. Anterior osteophytes are seen at multiple levels C3-4 disc space is reduced with endplate degenerative changes at inferior endplate of C3. Cervical vertebral bodies are normal in height and alignment, with no evidence of fracture or subluxation. Lateral masses of C1 are symmetrical, and the dens is intact. Prevertebral soft tissues are not widened. The remaining suprahyoid and infrahyoid soft tissues in the neck are unremarkable. C2-C3: No disc bulge, mass effect on the cord or neuroforaminal narrowing. C3-C4: No disc bulge, mass effect on the cord or neuroforaminal narrowing. C4-C5: Disc osteophytic complex with bilateral foraminal narrowing C5-C6: Disc osteophytic complex with bilateral foraminal narrowing C6-C7: Disc osteophytic complex with bilateral foraminal narrowing C7-T1: No disc bulge, mass effect on the cord or neuroforaminal narrowing. Thyroid gland appears unremarkable. IMPRESSION: 1.No acute fracture or subluxation in the cervical spine 2. Changes of cervical spondylosis Electronically Signed by: Gabriel Tabor MD. (08/06/2024 22:22:20 EST)
[2024-08-06] MEDS ORDERED: NORCO 5/325 MG ONE (22:35)
[2024-08-06] MEDS: NORCO 5/325 MG PO ONE (22:36)
--- NOTE | 2024-08-06 22:39 | XRAY ---
CLINICAL HISTORY: fall, right mandible injury COMPARISON: None. TECHNIQUE: Computed tomography of the orbits/face was performed without intravenous contrast. Contiguous axial images were obtained. Reformatted coronal and sagittal images were also reviewed. CT scan was performed according to ALARA (as low as reasonable achievable). FINDINGS: Subcutaneous soft tissue edema, fat stranidng is seen in the right lower face. No acute facial fractures. The paranasal sinuses and mastoid air cells are clear. The globes, optic nerves, extraocular muscles and retro-orbital fat are grossly unremarkable. Reformatted imaging demonstrates intact roof and floor of the orbits. Included portions of the mandible are intact. The included intracranial substances and airway are unremarkable. IMPRESSION: 1. No fracture seen in the facial bones 2. Subcutaneous soft tissue edema, fat stranidng is seen in the right lower face. Electronically Signed by: Gabriel Tabor MD. (08/06/2024 22:34:38 EST)
[2024-08-06 23:06] VITALS: BP 155/74; PULSE 76
[2024-08-07 00:27] VITALS: O2SAT 94
== END 2024-08-06 23:12 | disposition home or self-care (01) ==
LOC: ED 20:30
DX: S00.83XA Contusion of other part of head, initial encounter (principal); W01.0XXA Fall on same level from slipping, tripping and stumbling without subsequent striking against object, initial encounter; J06.9 Acute upper respiratory infection, unspecified; R05.1 Acute cough; R51.9 Headache, unspecified; M54.2 Cervicalgia; R09.81 Nasal congestion; I10 Essential (primary) hypertension; E78.5 Hyperlipidemia, unspecified; Z79.891 Long term (current) use of opiate analgesic; Z79.899 Other long term (current) drug therapy; Z72.0 Tobacco use; Z99.81 Dependence on supplemental oxygen
CPT/HCPCS: 0241U; 70450; 70486; 72125; 99284; A9270-GY

== ENCOUNTER 2024-08-11 22:33 | Observation (INO) | payer MEDICARE ==
[2024-08-11] MEDS ORDERED: DUONEB 0.5-3 MG/3 ml Neb IH ONE (22:46)
--- NOTE | 2024-08-11 23:02 | ERPHSYRPT ---
- History of Present Illness Time Seen by Provider: 08/11/24 22:37 Source: patient Exam Limitations: no limitations Patient Subjective Stated Complaint: short of breath since yesterday, wear O2 at home, been dropping to 85%. Triage Nursing Assessment: Pt brought back in a wheelchair, c/o not being able to keep her oxygen sats up at home. Pt states, "I have been running 86% on 2L at home" that she wears all the times. Pt came into ER not wearing her oxygen, informed me that she left it in the car. Pt was 86% on rm air upon arrival, placed pt on 2L n/c and she anna to 88%, placed pt on 4L n/c and pt anna to 90- 91%. Pt has inspiratory wheezes noted to rt ant upper lobe and crackles/rhonchi to rt ant base. Pt is clear to left upper ant lobe and coarse to left lower ant lobe. Pt has coarse breath sounds to bilat post lobes upper and lower. Pt has 1+ pitting edema to bilat lower ext, but pt did not take her water pill today. Heart tones reg. Physician History: 74-year-old female with history of coronary artery disease with stenting, hypertension, hyperlipidemia, COPD with tobacco abuse, chronic respiratory failure on 2 L oxygen presented in the ER with increasing shortness of breath and cough for the last couple of days. Patient report her oxygen saturation was dropping to 85% on 2 L, increased to 3 L but still was not much up. Patient usual oxygen saturation is around 90 to 91%. Denies any chest pain or palpitations. Denies any fever or chills. Cough is productive of minimal clear to yellow sputum. Allergies/Adverse Reactions: cephalexin [From Keflex] Allergy (Verified 08/11/24 22:56) Home Medications: Metoprolol Tartrate 25 mg PO BID 08/11/18 [History] lisinopriL [Lisinopril] 20 mg PO DAILY 08/11/18 [History] Alendronate Sodium 70 mg [Fosamax 70 MG] 70 mg PO WEEKLY 09/18/20 [History] Furosemide 20 mg [Lasix 20 mg] 20 mg PO DAILY PRN 09/18/20 [History] Atorvastatin Calcium [Lipitor 20MG Tablet] 40 mg PO HS 08/28/21 [History] Docusate Sodium [Colace] 100 mg PO BID PRN PRN 08/28/21 [History] Nitroglycerin 0.4 mg (Ed) [Nitrostat 0.4 MG (ED)] 0.4 mg SL DIRECTIONS UNKNOWN 08/28/21 [History] Spironolactone 25 mg PO DAILY 08/28/21 [History] Albuterol 8 gm Mdi Hfa [Ventolin Hfa MDI] 2 puff IH Q4-6HPRN PRN 09/02/21 [History] PANTOPRAZOLE 40 mg Tablet [Protonix 40MG Tablet] 40 mg PO HS 09/02/21 [History] Budesonide/Glycopyr/Formoterol [Breztri Aerosphere Inhaler] 2 puff IH BID 07/04/22 [History] Gabapentin [Neurontin ] 300 mg PO TID 07/04/22 [History] Simethicone 80 mg [Mylicon 80MG] 80 mg PO BID 07/04/22 [History] Tramadol HCl 50 mg [Ultram 50 mg] 50 mg PO Q8H PRN PRN 06/29/24 [History] Promethazine HCl 25 mg [Phenergan 25 mg] 1 tab PO Q6HPRN PRN 08/06/24 [Hi story] Albuterol 2.5 mg/3 ml Neb [Proventil 2.5 mg/3 ml Neb] 1 neb NEB Q6H PRN PRN 08/11/24 [History] Hx Tetanus, Diphtheria Vaccination/Date Given: No Hx Influenza Vaccination/Date Given: No Hx Pneumococcal Vaccination/Date Given: No Travel Risk - International Travel Have you traveled outside of the country in past 3 weeks: No - Emerging Infectious Disease Are you exhibiting symptoms associated with any current EIDs: Yes Symptoms: Shortness of Breath - Review of Systems Constitutional: Fatigue, Weakness Eyes: No Symptoms Ears, Nose, & Throat: No Symptoms Respiratory: Cough, Dyspnea, Dyspnea on Exertion (SILVA), Wheezing Cardiac: Edema Abdominal/Gastrointestinal: No Symptoms Genitourinary Symptoms: No Symptoms Musculoskeletal: Arthralgias Skin: No Symptoms Neurological: No Symptoms Psychological: No Symptoms Endocrine: No Symptoms Hematologic/Lymphatic: No Symptoms Immunological/Allergic: No Symptoms - Past Medical History Pertinent Past Medical History: Yes Neurological History: No Pertinent History ENT History: No Pertinent History Cardiac History: Coronary Artery Disease, High Cholesterol, Hypertension, Other Respiratory History: COPD Endocrine Medical History: Hypothyroidism Musculoskeletal History: Arthritis GI Medical History: GERD, Hernia History: No Pertinent History Psycho-Social History: No Pertinent History Female Reproductive Disorders: No Pertinent History Other Medical History: CHRONIC BACK PAIN,TUBAL, wears home oxygen 2L at all times - Past Surgical History Past Surgical History: Yes Neuro Surgical History: No Pertinent History Cardiac: Cardiac Catheterization, Cardiac Stent, Other Respiratory: No Pertinent History Gastrointestinal: No Pertinent History Genitourinary: No Pertinent History Musculoskeletal: Orthopedic Surgery Female Surgical History: Hysterectomy, Tubal Ligation Other Surgical History: Left knee replacement, 3 back surgeries, Right elbow surgeries, 3 carpal tunnel surgeries on right and left hand. 3 cardiac stents in 2019 Significant Family History: no pertinent family hx - Social History Smoking Status: Current every day smoker How long have you smoked: 60 yrs Exposure to second hand smoke: Yes Drug Use: none - Social Determinants of Health Will the patient participate in the screening: Yes Do you worry about a steady place to live?: No Do you have any problems with any of the following?: No known problems In the past 12 months,have you had to go without utilities?: No Transportation Issues: No Has anyone in your support network made you feel unsafe?: No Have you or anyone in your house had to go w/o enough food: No - Nursing Vital Signs Nursing Vital Signs: Initial Vital Signs Blood Pressure 165/104 08/11/24 22:34 O2 Sat by Pulse Oximetry 87 L 08/11/24 22:34 Pain Scale Pain Intensity 0 - Physical Exam General Appearance: no apparent distress, alert Eye Exam: PERRL/EOMI Ears, Nose, Throat Exam: hearing grossly normal, nasal congestion Neck Exam: normal inspection, non-tender, supple, full range of motion Respiratory Exam: diminished breath sounds, accessory muscle use, rhonchi, wheezing Cardiovascular/Chest Exam: normal heart sounds, regular rate/rhythm Abdominal/Gastrointestinal Exam: soft, normal bowel sounds, No tenderness Extremity Exam: non-tender, No no pedal edema Neurologic Exam: alert, oriented x 3, cooperative Skin Exam: normal color SpO2 Interpretation: O2 applied SpO2: 90 O2 Delivery: Nasal Cannula Ordered Tests: Active Orders 24 hr Category Date Time Status Sausage Meat Trimmer STAT Care 08/11/24 22:39 Active EKG-ER Only STAT Care 08/11/24 22:37 Active IV Insertion STAT Care 08/11/24 22:37 Active Oxygen-ED Only Nasal Cannula 2 lpm Care 08/11/24 22:37 Active CHEST 1 VIEW (PORTABLE) Stat Exams 08/11/24 23:23 Taken BLOOD CULTURE Stat Lab 08/11/24 23:01 Ordered CBC W DIFF Stat Lab 08/11/24 23:01 Completed CMP Stat Lab 08/11/24 23:01 Completed Lactic Acid Stat Lab 08/11/24 22:37 Completed MAGNESIUM Stat Lab 08/11/24 23:01 Completed NT PRO BNPII Stat Lab 08/11/24 23:00 Completed TROPONIN Q4H Lab 08/11/24 22:45 Completed TROPONIN Q4H Lab 08/12/24 02:45 Ordered TROPONIN Q4H Lab 08/12/24 06:45 Ordered Respiratory Therapy Assessment DAILY RT 08/11/24 23:09 Active Transfer Order Routine Transfer 08/12/24 Ordered Medication Summary Generic Name Dose Route Start Last Admin Trade Name Freq PRN Reason Stop Dose Admin Levofloxacin/Dextrose 750 mg in 150 mls @ 100 mls/hr 08/11/24 23:45 08/12/24 00:02 Levofloxacin 750mg/150ml D5w IV 08/12/24 01:14 100 mls/hr STAT STA 100 mls/hr Administration Discontinued Medications Generic Name Dose Route Start Last Admin Trade Name Freq PRN Reason Stop Dose Admin Albuterol/Ipratropium 3 ml 08/11/24 22:37 08/11/24 23:08 Ipratropium/Albuterol Sulfate 3 Ml Ampul.Neb IH 08/11/24 22:38 3 ml STAT ONE Administration Albuterol/Ipratropium Confirm 08/11/24 22:46 Ipratropium/Albuterol Sulfate 3 Ml Ampul.Neb Administered 08/11/24 22:47 Dose 3 ml IH .STK-MED ONE Methylprednisolone Sodium 0 mg 08/11/24 22:37 08/11/24 23:26 Succinate 125 mg/ Sterile IV 08/11/24 22:38 125 mg Water 2 ml STAT ONE Administration Hydralazine HCl 10 mg 08/11/24 23:45 08/12/24 00:02 Hydralazine Hcl 20 Mg/Ml Vial IV 08/11/24 23:46 10 mg STAT ONE Administration Hydralazine HCl Confirm 08/12/24 00:01 Hydralazine Hcl 20 Mg/Ml Vial Administered 08/12/24 00:02 Dose 20 mg .ROUTE .STK-MED ONE Levofloxacin/Dextrose Confirm 08/12/24 00:01 Levofloxacin 750mg/150ml D5w Administered 08/12/24 00:02 Dose 750 mg in 150 mls @ ud IV .STK-MED ONE Methylprednisolone Sodium Succinate Confirm 08/11/24 23:24 Methylprednis Sod Succ 125 Mg/2 Ml Vial Administered 08/11/24 23: Dose 125 mg .ROUTE .STK-MED ONE Sterile Water Confirm 08/11/24 23:24 Water For Injection,Sterile 10 Ml Vial Administered 08/11/24 23:25 Dose 10 ml IJ .STK-MED ONE Lab/Rad Data: Laboratory Result Diagrams 08/11/24 23:01 08/11/24 23:01 Laboratory Results 08/11/24 08/11/24 08/11/24 Range/Units 23:01 23:01 23:00 WBC 14.9 H (3.98-10.04) x10^3/uL RBC 4.64 (3.93-5.22) x10^6/uL Hgb 14.0 (11.2-15.7) g/dL Hct 43.4 (34.1-44.9) % MCV 93.5 (79.4-94.8) fL MCH 30.2 (25.6-32.2) pg MCHC 32.3 (32.2-35.5) g/dL RDW 14.8 H (11.7-14.4) % Plt Count 186 (182-369) x10^3/uL MPV 10.3 (9.4-12.3) fL Gran % 81.1 H (34.0-71.1) % Immature Gran % (Auto) 0.5 H (0.001-0.429) % Nucleat RBC Rel Count 0.0 (0.00-0.2) % Eos # (Auto) 0.10 (0.04-0.36) x10^3/uL Immature Gran # (Auto) 0.07 H (0.001-0.031) x10^3u/L Absolute Lymphs (auto) 1.50 (1.18-3.74) x10^3/uL Absolute Monos (auto) 1.09 H (0.24-0.86) x10^3/uL Absolute Nucleated RBC 0.00 (0.00-0.012) x10^3u/L Lymphocytes % 10.1 L (19.3-51.7) % Monocytes % 7.3 (4.7-12.5) % Eosinophils % 0.7 (0.7-5.8) % Basophils % 0.3 (0.1-1.2) % Absolute Granulocytes 12.11 H (1.56-6.13) x10^3/uL Basophils # 0.05 (0.01-0.08) x10^3/uL Sodium 139 (135-145) mmol/L Potassium 3.5 (3.5-5.1) mmol/L Chloride 101 (98-107) mmol/L Carbon Dioxide 30 (22-30) mmol/L Anion Gap 10.7 (5-15) MEQ/L BUN 11 (7-17) mg/dL Creatinine 0.81 (0.52-1.04) mg/dL Estimated GFR 76.6 ML/MIN Glucose 139 H (74-106) mg/dL Lactic Acid (0.4-2.0) Calcium 8.3 L (8.4-10.2) mg/dL Magnesium 2.3 (1.6-2.3) mg/dL Total Bilirubin 0.70 (0.2-1.3) mg/dL AST 19 (14-36) U/L ALT 15 (0-35) U/L Alkaline Phosphatase 99 (38-126) U/L Troponin I (0.000-0.033) ng/mL NT-Pro-B Natriuret Pep (<300) pg/mL Serum Total Protein 6.1 L (6.3-8.2) g/dL Albumin 3.5 (3.5-5.0) g/dL Influenza Type A Ag NEGATIVE (NEGATIVE) Influenza Type B Ag NEGATIVE (NEGATIVE) RSV (PCR) NEGATIVE (NEGATIVE) SARS-CoV-2 (PCR) NEGATIVE (NEGATIVE) 08/11/24 08/11/24 08/11/24 Range/Units 23:00 22:45 22:37 WBC (3.98-10.04) x10^3/uL RBC (3.93-5.22) x10^6/uL Hgb (11.2-15.7) g/dL Hct (34.1-44.9) % MCV (79.4-94.8) fL MCH (25.6-32.2) pg MCHC (32.2-35.5) g/dL RDW (11.7-14.4) % Plt Count (182-369) x10^3/uL MPV (9.4-12.3) fL Gran % (34.0-71.1) % Immature Gran % (Auto) (0.001-0.429) % Nucleat RBC Rel Count (0.00-0.2) % Eos # (Auto) (0.04-0.36) x10^3/uL Immature Gran # (Auto) (0.001-0.031) x10^3u/L Absolute Lymphs (auto) (1.18-3.74) x10^3/uL Absolute Monos (auto) (0.24-0.86) x10^3/uL Absolute Nucleated RBC (0.00-0.012) x10^3u/L Lymphocytes % (19.3-51.7) % Monocytes % (4.7-12.5) % Eosinophils % (0.7-5.8) % Basophils % (0.1-1.2) % Absolute Granulocytes (1.56-6.13) x10^3/uL Basophils # (0.01-0.08) x10^3/uL Sodium (135-145) mmol/L Potassium (3.5-5.1) mmol/L Chloride (98-107) mmol/L Carbon Dioxide (22-30) mmol/L Anion Gap (5-15) MEQ/L BUN (7-17) mg/dL Creatinine (0.52-1.04) mg/dL Estimated GFR ML/MIN Glucose (74-106) mg/dL Lactic Acid 1.2 (0.4-2.0) Calcium (8.4-10.2) mg/dL Magnesium (1.6-2.3) mg/dL Total Bilirubin (0.2-1.3) mg/dL AST (14-36) U/L ALT (0-35) U/L Alkaline Phosphatase (38-126) U/L Troponin I 0.013 (0.000-0.033) ng/mL NT-Pro-B Natriuret Pep 1450 (<300) pg/mL Serum Total Protein (6.3-8.2) g/dL Albumin (3.5-5.0) g/dL Influenza Type A Ag (NEGATIVE) Influenza Type B Ag (NEGATIVE) RSV (PCR) (NEGATIVE) SARS-CoV-2 (PCR) (NEGATIVE) - Progress Progress: improved, re-examined Air Movement: fair Progress Note: 08/12/24 00:42 74-year-old with chronic respiratory failure on 2 L oxygen, CAD with stenting, hypertension, tobacco abuse is evaluated in the ER for increasing shortness of breath and cough with hypoxia. Patient is given DuoNeb and Solu-Medrol, placed on 4 L oxygen with saturation in low 90s. EKG showed sinus rhythm with no ST elevation. Negative initial troponins. White count of 15, chemistries fairly unremarkable except for chronic CKD. Chest x-ray showed bilateral airspace disease reviewed by me with pending official read. I have given a dose of Levaquin. Patient is feeling better on reevaluation. I believe patient would benefit with IV steroid, frequent neb treatments and antibiotics. Discussed with Dr. Gunn, reviewed history, workup and agreed with admission. Complexity of problem addressed: High Mild/complexity of data reviewed and analyzed: Extensive Risk of complication LRR/dependence of morbidity/mortality of patient management: High risk. Blood Culture(s) Obtained: Yes Antibiotics given: Yes Discussed with : Fay Will see patient in: hospital (observation) Counseled pt/family regarding: lab results, diagnosis, need for follow-up, rad results, smoking cessation Medical Desision Making - Independent Historian Additional History obtained from: Family - Discussion of managment Care discussed with:: hospitalist Reviewed:: Test results Agreed on:: Treatment plan, place in obs Will see patient: in hospital - Diagnostic Testing Diagnostic test were ordered, analyzed, and reviewed by me: Yes Radiological Interpretation: Interpreted by me, Reviewed by me - Risk of complications The pt has a mod risk of morbidity or mortality based on: Need for prescription drug management The pt has a high risk of morbidity or mortality based on: Drug therapy requiring intensive monitoring for toxicity, Decision regarding hospitilization or escalation of hosp level of care - Departure Departure Disposition: Observation Clinical Impression: COPD with acute exacerbation, Pneumonia Condition: Stable Critical Care Time: No Referrals: LAURA SHELTON DO [Primary Care Provider] - Follow up/PCP as directed Instructions: Chronic Obstructive Pulmonary Disease
[2024-08-11 23:04] LABS: Absolute Neutrophil Ct (ANC) 12.11 x10^3/uL (1.56-6.13); BASOPHIL % 0.3 % (0.1-1.2); Basophil (Absolute #) 0.05 x10^3/uL (0.01-0.08); Eosinophil % 0.7 % (0.7-5.8); Hematocrit 43.4 % (34.1-44.9); IMMATURE GRAN # 0.07 x10^3u/L (0.001-0.031); IMMATURE GRAN % 0.5 % (0.001-0.429); Lymphocytes % 10.1 % (19.3-51.7); Mean Cell Volume 93.5 fL (79.4-94.8); Mean Corpuscular Hemoglobin 30.2 pg (25.6-32.2); Mean Corpuscular Hgb Concent. 32.3 g/dL (32.2-35.5); Mean Platelet Volume 10.3 fL (9.4-12.3); Monocyte (Absolute #) 1.09 x10^3/uL (0.24-0.86); Monocytes % 7.3 % (4.7-12.5); Neutrophil % 81.1 % (34.0-71.1); Platelet Count 186 x10^3/uL (182-369); Red Blood Count 4.64 x10^6/uL (3.93-5.22); Red Cell Distribution Width 14.8 % (11.7-14.4); White Blood Count 14.9 x10^3/uL (3.98-10.04)
[2024-08-11] MEDS: DUONEB 0.5-3 MG/3 ml Neb IH ONE (23:08)
[2024-08-11 23:18] LABS: ALBUMIN 3.5 g/dL (3.5-5.0); ANION GAP 10.7 MEQ/L (5-15); BILIRUBIN,TOTAL 0.7 mg/dL (0.2-1.3); Calcium 8.3 mg/dL (8.4-10.2); Creatinine 1 0.81 mg/dL (0.52-1.04); EST GLOMERULAR FILTRATION RATE 76.6 ML/MIN; MAGNESIUM 2.3 mg/dL (1.6-2.3); Potassium 3.5 mmol/L (3.5-5.1); Total Protein 6.1 g/dL (6.3-8.2)
[2024-08-11] MEDS ORDERED: Sterile H2O 10 ml IJ ONE (23:24)
[2024-08-11] MEDS ORDERED: solu-MEDROL ONE (23:24)
[2024-08-11] MEDS: solu-MEDROL 125 MG, Sterile H2O 10 ml 2 ML IV ONE (23:26)
[2024-08-11 23:42] LABS: INFLUENZA A NEGATIVE (NEGATIVE); INFLUENZA B NEGATIVE (NEGATIVE); RESPIRATORY SYNCTIAL VIRUS NEGATIVE (NEGATIVE); SARS-CoV-2 Xpert Express NEGATIVE (NEGATIVE)
[2024-08-12] MEDS ORDERED: LEVOFLOXACIN 750MG/150ML D5W 750 MG/150 ML BAG IV ONE (00:01)
[2024-08-12] MEDS ORDERED: APRESOLINE 20 MG/ML INJ ONE (00:01)
[2024-08-12] MEDS: LEVOFLOXACIN 750MG/150ML D5W 750 MG/150 ML BAG IV STA (00:02)
[2024-08-12] MEDS: APRESOLINE 20 MG/ML INJ IV ONE (00:02)
[2024-08-12] MEDS ORDERED: Docusate Sodium 100 MG PO PRN (04:24)
[2024-08-12] MEDS ORDERED: TYLENOL 325 MG PO PRN (04:26)
--- NOTE | 2024-08-12 04:42 | PCM.HP ---
History of Present Illness - Chief Complaint Chief Complaint: shortness of breath Date: 08/12/24 History of Present Illness: 74-year-old woman with a history of diastolic heart failure, COPD, chronic hypoxia on 2 L oxygen, hypothyroidism, CAD, and active tobacco use, who presents with 2 days of progressive dyspnea and wheezing, associated with worsening of her hypoxia. She had to increase her oxygen to 3 L, but remained hypoxic. She has had some nausea, but denies any cough, fever, congestion, or sore throat. Denies any chest pain. Of note, she did not take any of her medications today. She reports some possible leg edema, but denies PND or early satiety. Notes that her weight was measured by her home health nurse yesterday and is at her baseline of 144 pounds. She only felt relief after getting neb treatments in the ED, and feels like her breathing is doing better now. - Review of Systems All Other Systems: Reviewed and Negative Medications & Allergies Home Medications: Home Medication List Metoprolol Tartrate 25 mg PO BID 08/11/18 [History Confirmed 08/11/24] lisinopriL [Lisinopril] 20 mg PO DAILY 08/11/18 [History Confirmed 08/11/24] Alendronate Sodium 70 mg [Fosamax 70 MG] 70 mg PO WEEKLY 09/18/20 [History Confirmed 08/11/24] Furosemide 20 mg [Lasix 20 mg] 20 mg PO DAILY PRN 09/18/20 [History Confirmed 08/11/24] Atorvastatin Calcium [Lipitor 20MG Tablet] 40 mg PO HS 08/28/21 [History Confirmed 08/11/24] Docusate Sodium [Colace] 100 mg PO BID PRN PRN 08/28/21 [History Confirmed 08/11/24] Nitroglycerin 0.4 mg (Ed) [Nitrostat 0.4 MG (ED)] 0.4 mg SL DIRECTIONS UNKNOWN 08/28/21 [History Confirmed 08/11/24] Spironolactone 25 mg PO DAILY 08/28/21 [History Confirmed 08/11/24] Albuterol 8 gm Mdi Hfa [Ventolin Hfa MDI] 2 puff IH Q4-6HPRN PRN 09/02/21 [History Confirmed 08/11/24] Clopidogrel Bisulfate [Plavix] 75 mg PO DAILY #0 09/02/21 [Rx Confirmed 08/11/24] PANTOPRAZOLE 40 mg Tablet [Protonix 40MG Tablet] 40 mg PO HS 09/02/21 [ History Confirmed 08/11/24] Budesonide/Glycopyr/Formoterol [Breztri Aerosphere Inhaler] 2 puff IH BID 07/04/22 [History Confirmed 08/11/24] Gabapentin [Neurontin ] 300 mg PO TID 07/04/22 [History Confirmed 08/11/24] Simethicone 80 mg [Mylicon 80MG] 80 mg PO BID 07/04/22 [History Confirmed 08/11/24] Tramadol HCl 50 mg [Ultram 50 mg] 50 mg PO Q8H PRN PRN 06/29/24 [History Confirmed 08/11/24] Levothyroxine Sodium 50 mcg PO DAILY 30 Days #30 cap 07/01/24 [Rx Confirmed 08/11/24] Levothyroxine Sodium 200 mcg PO DAILY 30 Days #30 tablet 07/01/24 [Rx Confirmed 08/11/24] Promethazine HCl 25 mg [Phenergan 25 mg] 1 tab PO Q6HPRN PRN 08/06/24 [History Confirmed 08/11/24] Albuterol 2.5 mg/3 ml Neb [Proventil 2.5 mg/3 ml Neb] 1 neb NEB Q6H PRN PRN 08/11/24 [History Confirmed 08/11/24] Allergies/Adverse Reactions: Allergies Allergy/AdvReac Type Severity Reaction Status Date / Time cephalexin [From Keflex] Allergy Verified 08/11/24 22:56 - Past Medical History Past Medical History: Yes Neurological History: No Pertinent History ENT History: No Pertinent History Cardiac History: Coronary Artery Disease, High Cholesterol, Hypertension, Other Respiratory History: COPD Endocrine Medical History: Hypothyroidism Musculoskelatal History: Arthritis GI Medical History: GERD, Hernia History: No Pertinent History Pyscho-Social History: No Pertinent History Reproductive Disorders: No Pertinent History Comment: CHRONIC BACK PAIN,TUBAL, wears home oxygen 2L at all times - Past Surgical History Past Surgical History: Yes Neuro Surgical History: No Pertinent History Cardiac History: Cardiac Catheterization, Cardiac Stent, Other Respiratory Surgery: No Pertinent History GI Surgical History: No Pertinent History Genitourinary Surgical Hx: No Pertinent History Musculskeletal Surgical Hx: Orthopedic Surgery Female Surgical History: Hysterectomy, Tubal Ligation Other Surgical History: Left knee replacement, 3 back surgeries, Right elbow surgeries, 3 carpal tunnel surgeries on right and left hand. 3 cardiac stents in 2019 Significant Family History: no pertinent family hx - Social History Smoking Status: Current every day smoker How long have you smoked: 60 yrs Exposure to second hand smoke: Yes Alcohol: None Drug Use: none - Social Determinants of Health Will the patient participate in the screening: Yes Do you worry about a steady place to live?: No Do you have any problems with any of the following?: No known problems In the past 12 months,have you had to go without utilities?: No Have you or anyone in your house had to go without enough: No Transportation Issues: No Has anyone in your support network made you feel unsafe?: No Does the patient want assistance with any of the above?: Yes Comment: Pt and daughter want help getting on [facility]. - Physical Exam Vital Signs: Vital Signs - 24 hr Temp Pulse Resp BP BP Pulse Ox 08/12/24 04:02 82 16 91 L 08/12/24 01:00 96 H 25 H 158/75 88 L 08/12/24 00:50 90 L 08/12/24 00:45 99 H 20 152/80 93 L 08/12/24 00:30 96 H 26 H 149/78 90 L 08/12/24 00:16 100 H 23 152/90 93 L 08/12/24 00:03 100 H 24 167/142 90 L 08/11/24 23:30 106 H 17 205/106 90 L 08/11/24 23:21 24 92 L 08/11/24 23:11 100 H 20 91 L 08/11/24 23:00 101 H 24 170/86 88 L 08/11/24 22:36 98.7 F 103 H 24 165/104 90 L 08/11/24 22:34 165/104 87 L Physical Exam GEN: Sitting up in bed in no acute distress. HENT: Normocephalic, atraumatic. Moist mucous membranes. EYES: Normal inspection, anicteric sclera, extraocular movements intact. NECK: Supple, full range of motion CV: Regular rate and rhythm, no murmurs, no gallops. No edema noted in legs. PULM: Clear to auscultation bilaterally, no work of breathing. On 4 L oxygen by nasal cannula. ABD: Nondistended, nontender. MSK: No joint effusions, full range of motion SKIN: No rashes, normal color. NEURO: Face symmetric, no focal motor or sensory deficits. PSYCH: Alert, oriented x 3 Results - Labs Lab/Micro Results: Lab Results-Last 24 Hours 08/11/24 08/11/24 08/11/24 Range/Units 22:37 22:45 23:00 WBC (3.98-10.04) x10^3/uL RBC (3.93-5.22) x10^6/uL Hgb (11.2-15.7) g/dL Hct (34.1-44.9) % MCV (79.4-94.8) fL MCH (25.6-32.2) pg MCHC (32.2-35.5) g/dL RDW (11.7-14.4) % Plt Count (182-369) x10^3/uL MPV (9.4-12.3) fL Gran % (34.0-71.1) % Immature Gran % (Auto) (0.001-0.429) % Nucleat RBC Rel Count (0.00-0.2) % Eos # (Auto) (0.04-0.36) x10^3/uL Immature Gran # (Auto) (0.001-0.031) x10^3u/L Absolute Lymphs (auto) (1.18-3.74) x10^3/uL Absolute Monos (auto) (0.24-0.86) x10^3/uL Absolute Nucleated RBC (0.00-0.012) x10^3u/L Lymphocytes % (19.3-51.7) % Monocytes % (4.7-12.5) % Eosinophils % (0.7-5.8) % Basophils % (0.1-1.2) % Absolute Granulocytes (1.56-6.13) x10^3/uL Basophils # (0.01-0.08) x10^3/uL Sodium (135-145) mmol/L Potassium (3.5-5.1) mmol/L Chloride (98-107) mmol/L Carbon Dioxide (22-30) mmol/L Anion Gap (5-15) MEQ/L BUN (7-17) mg/dL Creatinine (0.52-1.04) mg/dL Estimated GFR ML/MIN Glucose (74-106) mg/dL Lactic Acid 1.2 (0.4-2.0) Calcium (8.4-10.2) mg/dL Magnesium (1.6-2.3) mg/dL Total Bilirubin (0.2-1.3) mg/dL AST (14-36) U/L ALT (0-35) U/L Alkaline Phosphatase (38-126) U/L Troponin I 0.013 (0.000-0.033) ng/mL NT-Pro-B Natriuret Pep 1450 (<300) pg/mL Serum Total Protein (6.3-8.2) g/dL Albumin (3.5-5.0) g/dL Influenza Type A Ag (NEGATIVE) Influenza Type B Ag (NEGATIVE) RSV (PCR) (NEGATIVE) SARS-CoV-2 (PCR) (NEGATIVE) 08/11/24 08/11/24 08/11/24 Range/Units 23:00 23:01 23:01 WBC 14.9 H (3.98-10.04) x10^3/uL RBC 4.64 (3.93-5.22) x10^6/uL Hgb 14.0 (11.2-15.7) g/dL Hct 43.4 (34.1-44.9) % MCV 93.5 (79.4-94.8) fL MCH 30.2 (25.6-32.2) pg MCHC 32.3 (32.2-35.5) g/dL RDW 14.8 H (11.7-14.4) % Plt Count 186 (182-369) x10^3/uL MPV 10.3 (9.4-12.3) fL Gran % 81.1 H (34.0-71.1) % Immature Gran % (Auto) 0.5 H (0.001-0.429) % Nucleat RBC Rel Count 0.0 (0.00-0.2) % Eos # (Auto) 0.10 (0.04-0.36) x10^3/uL Immature Gran # (Auto) 0.07 H (0.001-0.031) x10^3u/L Absolute Lymphs (auto) 1.50 (1.18-3.74) x10^3/uL Absolute Monos (auto) 1.09 H (0.24-0.86) x10^3/uL Absolute Nucleated RBC 0.00 (0.00-0.012) x10^3u/L Lymphocytes % 10.1 L (19.3-51.7) % Monocytes % 7.3 (4.7-12.5) % Eosinophils % 0.7 (0.7-5.8) % Basophils % 0.3 (0.1-1.2) % Absolute Granulocytes 12.11 H (1.56-6.13) x10^3/uL Basophils # 0.05 (0.01-0.08) x10^3/uL Sodium 139 (135-145) mmol/L Potassium 3.5 (3.5-5.1) mmol/L Chloride 101 (98-107) mmol/L Carbon Dioxide 30 (22-30) mmol/L Anion Gap 10.7 (5-15) MEQ/L BUN 11 (7-17) mg/dL Creatinine 0.81 (0.52-1.04) mg/dL Estimated GFR 76.6 ML/MIN Glucose 139 H (74-106) mg/dL Lactic Acid (0.4-2.0) Calcium 8.3 L (8.4-10.2) mg/dL Magnesium 2.3 (1.6-2.3) mg/dL Total Bilirubin 0.70 (0.2-1.3) mg/dL AST 19 (14-36) U/L ALT 15 (0-35) U/L Alkaline Phosphatase 99 (38-126) U/L Troponin I (0.000-0.033) ng/mL NT-Pro-B Natriuret Pep (<300) pg/mL Serum Total Protein 6.1 L (6.3-8.2) g/dL Albumin 3.5 (3.5-5.0) g/dL Influenza Type A Ag NEGATIVE (NEGATIVE) Influenza Type B Ag NEGATIVE (NEGATIVE) RSV (PCR) NEGATIVE (NEGATIVE) SARS-CoV-2 (PCR) NEGATIVE (NEGATIVE) - Radiology Impressions Radiology Exams & Impressions: Radiology Procedures Category Date Time Status CHEST 1 VIEW (PORTABLE) Stat Exams 08/11/24 23:23 Taken Chest x-ray bibasilar scattered infiltrates (images reviewed) - Other Procedures and Tests Respiratory Therapy 08/11/24 23:09 Respiratory Therapy Assessment DAILY 08/12/24 03:14 Oxygen Nasal Cannula 4 lpm 08/12/24 04:26 Respiratory Therapy Consult ONCE Assessment/Plan (1) COPD with exacerbation Current Visit: Yes Status: Acute Assessment & Plan: 74-year-old woman with a history of COPD, chronic hypoxia, HFpEF, CAD, hypertension, tobacco use, and hypothyroidism, who presents with acute dyspnea and acute on chronic hypoxia, consistent with acute exacerbation of her COPD. ## COPD with acute exacerbation triggered by possible pneumonia (see below). Causing acute on chronic hypoxic respiratory failure. Currently up to 4 L oxygen, from baseline of 2 L. Start prednisone 40 mg daily DuoNeb q.4 hours PRN Treat pneumonia as below ## Pneumonia suspected, with some worsening infiltrate on her chest x-ray, al though no clear consolidation. However, does have leukocytosis, even prior to getting steroids. Note, patient has allergy to cephalexin. Continue levofloxacin 750 mg IV daily Follow-up blood cultures ## Acute on chronic hypoxic respiratory failure increase from her baseline 2 L up to 4 L currently. Titrate oxygen to maintain SpO2 between 91 and 94% ## Hypertension blood pressure elevated on arrival, secondary to not taking her medications today, as well as acute COPD exacerbation likely worsening her blood pressure. Resume home regimen including lisinopril 20 daily, Lopressor 25 BID, spironolactone 25 ## Chronic diastolic heart failure patient appears generally euvolemic currently, despite her description of leg edema, none is seen on exam. Her weight is unchanged. Although her proBNP is elevated to a similar degree as her admission last month when she had acute on chronic heart failure, the current episode seems to be more driven by COPD. Continue Lasix 20 mg daily Consider SGLT2 inhibitor as an outpatient ## CAD Continue Plavix 75, atorvastatin 40, Lopressor 25 BID CODE STATUS: Full code Prophylaxis: Start Lovenox 40 mg daily Diet: Regular Disposition: Place in observation, expect discharge to home once oxygen levels are back to baseline Entirety of encounter took place via live audio/video telemedicine device, with remote physician and patient in hospital, with the assistance of bedside nurse. Code(s): J44.1 - CHRONIC OBSTRUCTIVE PULMONARY DISEASE W (ACUTE) EXACERBATION Telemedicine Encounter - Telemedicine Encounter Telemedicine Encounter: "The entirety of this encounter was performed via Telemedicine" This visit was performed using real-time audio and video connection between my location and thepatients locationwith the assistance of a surrogateat the patients location. Written or verbal consent was obtained from the patient/guardian to perform this visit using[facility] technology. Any patient questions regarding the telemedicine interaction were answered.
[2024-08-12 04:46] LABS: Hematocrit 42.1 % (34.1-44.9); Hemoglobin 13.7 g/dL (11.2-15.7); Mean Corpuscular Hemoglobin 30.6 pg (25.6-32.2); Mean Corpuscular Hgb Concent. 32.5 g/dL (32.2-35.5); Mean Platelet Volume 10.8 fL (9.4-12.3); Platelet Count 184 x10^3/uL (182-369); Red Blood Count 4.48 x10^6/uL (3.93-5.22); Red Cell Distribution Width 14.6 % (11.7-14.4); White Blood Count 13.3 x10^3/uL (3.98-10.04)
[2024-08-12 04:52] LABS: ANION GAP 13.1 MEQ/L (5-15); Calcium 8.2 mg/dL (8.4-10.2); Creatinine 1 0.76 mg/dL (0.52-1.04); EST GLOMERULAR FILTRATION RATE 82.7 ML/MIN; Potassium 3.8 mmol/L (3.5-5.1)
--- NOTE | 2024-08-12 08:42 | XRAY ---
Indication: Short of breath. Comparison: July 01, 2024 Portable chest again demonstrates COPD. New mild bibasilar infiltrates/atelectasis/effusions. Heart not enlarged again with stent emanating from aortic arch. Bony thorax intact again with osteopenia and degenerative changes.
[2024-08-12] MEDS: SYNTHROID 125 MCG PO SCH (10:00)
[2024-08-12] MEDS ORDERED: LEVOTHYROXINE SODIUM 200 MCG PO SCH (10:00)
[2024-08-12] MEDS: NEURONTIN PO SCH (10:00)
[2024-08-12] MEDS: ENOXAPARIN SODIUM SQ SCH (10:00)
[2024-08-12] MEDS: PLAVIX Tablet PO SCH (10:00)
[2024-08-12] MEDS ORDERED: LEVOFLOXACIN 750MG/150ML D5W 750 MG/150 ML BAG IV SCH (10:00)
[2024-08-12] MEDS: Tums EX 750 MG PO SCH (10:01)
[2024-08-12] MEDS: Mylicon 80MG PO SCH (10:01)
[2024-08-12] MEDS: Aldactone 25 MG PO SCH (10:01)
[2024-08-12] MEDS: Zestril 20 MG PO SCH (10:01)
[2024-08-12] MEDS: LASIX 20 MG PO SCH (10:01)
[2024-08-12] MEDS: Lopressor 50 MG PO SCH (10:01)
[2024-08-12] MEDS: DELTASONE 20 MG PO SCH (10:01)
[2024-08-12] MEDS: ULTRAM 50 MG PO PRN (15:26)
[2024-08-12] MEDS: Nicoderm CQ 21 MG TOP SCH (15:46)
[2024-08-12] MEDS: PHENERGAN 25 MG PO PRN (15:48)
[2024-08-12] MEDS ORDERED: NON-FORMULARY ITEM (Atorvastatin Calcium 20 MG Tab) PO SCH (22:00)
[2024-08-12] MEDS: Lopressor 25MG Tab PO SCH (22:04)
[2024-08-12] MEDS: Protonix 40MG Tablet PO SCH (22:05)
[2024-08-12] MEDS: ZOCOR 20MG PO SCH (22:05)
[2024-08-12] MEDS ORDERED: Levaquin 250MG/50ML D5W 250 MG/50 ML BAG IV ONE (22:14)
[2024-08-12] MEDS ORDERED: Levofloxacin 500MG/100ML D5W 500 MG/100 ML BAG IV ONE (22:14)
[2024-08-12] MEDS: Levaquin 250MG/50ML D5W 250 MG/50 ML BAG IV SCH (22:16)
[2024-08-12] MEDS: Levofloxacin 500MG/100ML D5W 500 MG/100 ML BAG IV SCH (22:19)
[2024-08-12] MEDS ORDERED: Sodium Chloride 0.9% 100 ML ONE (22:22)
[2024-08-13] MEDS: DUONEB 0.5-3 MG/3 ml Neb IH PRN (08:49)
--- NOTE | 2024-08-13 10:38 | PCM.NOTE ---
Date and Time: 08/13/24 1033 Subjective Assessment: Ms. Yarbrough is a 74-year-old woman with a medical history of diastolic heart failure, COPD, chronic hypoxia on 2 L oxygen, hypothyroidism, coronary artery disease (CAD), and active tobacco. She presented on 08/12/24 with 2 days of progressively worsening dyspnea and wheezing, along with increased hypoxia. She increased her oxygen to 3 L but remained hypoxic. She reports some nausea but denies cough, fever, congestion, or sore throat, and has no chest pain. She also did not take any of her medications today. The patient notes some possible leg edema but denies paroxysmal nocturnal dyspnea (PND) or early satiety. Her weight was measured by her home health nurse yesterday at her baseline of 144 pounds. She only experienced relief after receiving nebulizer treatments in the ED and reports feeling better afterward. Currently, she is on 3 L nasal cannula (NC) with an oxygen saturation of 91%, whereas her baseline oxygen requirement is 2 L NC. Wheezing is still present on lung auscultation. The patient has been refusing further breathing treatments as recommended by respiratory therapy. She was advised to continue with the treatments to improve her symptoms. Her white blood cell count (WBC) is improving, and she will continue her current regimen, including Levaquin, prednisone, Advair, and Duonebs for COPD exacerbation and pneumonia. The patient is agreeable to staying another night, with the possibility of discharge tomorrow. - Review of Systems Constitutional: No Fever, No Chills Eyes: No Symptoms Ears, Nose, & Throat: No Symptoms Respiratory: Wheezing, No Cough, No Short Of Breath Cardiac: No Chest Pain, No Edema, No Syncope Abdominal/Gastrointestinal: No Abdominal Pain, No Nausea, No Vomiting, No Diarrhea Genitourinary Symptoms: No Dysuria Musculoskeletal: No Back Pain, No Neck Pain Skin: No Rash Neurological: No Dizziness, No Focal Weakness, No Sensory Changes Psychological: No Symptoms Endocrine: No Symptoms Hematologic/Lymphatic: No Symptoms Immunological/Allergic: No Symptoms Objective Exam General Appearance: no apparent distress, alert Neurologic Exam: alert, oriented x 3, cooperative, normal mood/affect, nml cerebellar function, sensation nml, No motor deficits Skin Exam: normal color, warm, dry Eye Exam: PERRL, EOMI, eyes nml inspection Ears, Nose, Throat Exam: normal ENT inspection, pharynx normal, moist mucous membranes Neck Exam: normal inspection, non-tender, supple, full range of motion Respiratory Exam: wheezing, No respiratory distress Cardiovascular Exam: regular rate/rhythm, normal heart sounds Gastrointestinal/Abdomen Exam: soft, No tenderness, No mass Extremity Exam: normal inspection, normal range of motion Back Exam: normal inspection, normal range of motion, No CVA tenderness, No vertebral tenderness Pelvic Exam: deferred Rectal Exam: deferred Objective Data Vital Signs: Vital Signs - 24 hr Temp Pulse Resp BP Pulse Ox 08/13/24 08:52 60 18 91 L 08/13/24 07:30 96.6 F 52 L 17 128/62 91 L 08/13/24 04:00 97.7 F 55 L 17 130/58 95 08/12/24 23:59 97.0 F 59 L 20 135/69 95 08/12/24 20:00 96.9 F 60 17 151/68 93 L 08/12/24 19:58 60 18 93 L 08/12/24 16:05 96.9 F 58 L 18 166/77 96 08/12/24 11:35 96.9 F 58 L 18 166/77 96 Pain Assessment - Last Documented Pain Intensity 0 Intake and Output: Intake & Output 08/10/24 08/11/24 08/12/24 08/13/24 11:59 11:59 11:59 11:59 Intake Total 480 1450 Balance 480 1450 Weight 68.8 kg Radiology Exams: Radiology Procedures Category Date Time Status CHEST 1 VIEW (PORTABLE) Stat Exams 08/11/24 23:23 Completed Multi-Disciplinary Progress Notes: Multi-Disciplinary Progress Notes 08/12/24 11:59 Case Management Note by Nessa Thompson PATIENT HAS [facility]. THEY WERE NOTIFIED PATIENT HERE OBS. THEY WILL NEED NOTIFIED AT TIME OF DC AT [phone]. THEY WILL NEED FAXED THE DC INSTRUCTIONS, DC MED LIST AND DC SUMMARY TO [phone] Initialized on 08/12/24 11:59 - END OF NOTE Assessment/Plan (1) Pneumonia Current Visit: Yes Status: Acute Assessment & Plan: - IV Levaquin changed to PO d/t IV medication shortage per pharmacy dosing for renal function - On 3lNC- 91% - Baseline O2 2lNC - BC x2 negative - Tele - Steroids PO, Duonebs, advair - Pt has been refusing breathing treatments- education provided - CBC. CMP reviewed - WBC 13.3- improved Code(s): J18.9 - PNEUMONIA, UNSPECIFIED ORGANISM (2) CAD (coronary artery disease) Current Visit: Yes Status: Chronic Assessment & Plan: - Continue Plavix 75, atorvastatin 40, Lopressor 25 BID Code(s): I25.10 - ATHSCL HEART DISEASE OF [place] CORONARY ARTERY W/O ANG PCTRS (3) COPD with exacerbation Current Visit: Yes Status: Acute Assessment & Plan: prednisone 40 mg daily DuoNeb q.4 hours PRN Treat pneumonia as above Code(s): J44.1 - CHRONIC OBSTRUCTIVE PULMONARY DISEASE W (ACUTE) EXACERBATION (4) Chronic diastolic (congestive) heart failure Current Visit: Yes Status: Chronic Assessment & Plan: Continue Lasix 20 mg daily Consider SGLT2 inhibitor as an outpatient - BNP reviewed - Echo 06/30/24- reviewed 55-60%- with grade 1 diastolic dysfunction Code(s): I50.32 - CHRONIC DIASTOLIC (CONGESTIVE) HEART FAILURE (5) Hypertension Current Visit: No Status: Chronic Assessment & Plan: - BP stable - continue home meds Code(s): I10 - ESSENTIAL (PRIMARY) HYPERTENSION (6) Hypothyroid Current Visit: No Status: Chronic Assessment & Plan: - Continue synthroid Code(s): E03.9 - HYPOTHYROIDISM, UNSPECIFIED (7) Smoker Current Visit: Yes Status: Chronic Assessment & Plan: - advised cessation - nicotine patch VTE: Lovenox PPI:Protonix Next of KIN: Child- Mery Yarbrough, D/C plan: tomorrow Code status: Full Code(s): F17.200 - NICOTINE DEPENDENCE, UNSPECIFIED, UNCOMPLICATED
[2024-08-13] MEDS: Advair Hfa 115/21 Common canister IH SCH (19:01)
[2024-08-13] MEDS: Levofloxacin 500 MG Tablet PO SCH (21:07)
[2024-08-14 06:15] LABS: Hemoglobin 12.6 g/dL (11.2-15.7); Mean Cell Volume 94.3 fL (79.4-94.8); Mean Corpuscular Hemoglobin 29.7 pg (25.6-32.2); Mean Corpuscular Hgb Concent. 31.5 g/dL (32.2-35.5); Mean Platelet Volume 10.4 fL (9.4-12.3); Platelet Count 222 x10^3/uL (182-369); Red Blood Count 4.24 x10^6/uL (3.93-5.22); Red Cell Distribution Width 15.1 % (11.7-14.4)
[2024-08-14 06:42] LABS: ALBUMIN 3.3 g/dL (3.5-5.0); ANION GAP 9.7 MEQ/L (5-15); BILIRUBIN,TOTAL 0.4 mg/dL (0.2-1.3); Calcium 8.5 mg/dL (8.4-10.2); Creatinine 1 0.86 mg/dL (0.52-1.04); EST GLOMERULAR FILTRATION RATE 71.3 ML/MIN; Potassium 4.1 mmol/L (3.5-5.1)
[2024-08-14 08:06] VITALS: BP 139/64; PULSE 56; RESP 16; TEMP 96.6; O2SAT 97
--- NOTE | 2024-08-14 08:20 | PCM.DS ---
Discharge Summary Date of Admission: 08/12/24 01:25 Date of Discharge: 08/14/24 Admitting Physician: JESSE NATION MD Primary Care Provider: LAURA SHELTON Allergies Allergies cephalexin [From Keflex] Allergy (Verified 08/11/24 22:56) Hospital Summary - Hospital Course Hospital Course: 08/13/24 Ms. Yarbrough is a 74-year-old woman with a medical history of diastolic heart failure, COPD, chronic hypoxia on 2 L oxygen, hypothyroidism, coronary artery disease (CAD), and active tobacco. She presented on 08/12/24 with 2 days of progressively worsening dyspnea and wheezing, along with increased hypoxia. She increased her oxygen to 3 L but remained hypoxic. She reports some nausea but denies cough, fever, congestion, or sore throat, and has no chest pain. She also did not take any of her medications today. The patient notes some possible leg edema but denies paroxysmal nocturnal dyspnea (PND) or early satiety. Her weight was measured by her home health nurse yesterday at her baseline of 144 pounds. She only experienced relief after receiving nebulizer treatments in the ED and reports feeling better afterward. Currently, she is on 3 L nasal cannula (NC) with an oxygen saturation of 91%, whereas her baseline oxygen requirement is 2 L NC. Wheezing is still present on lung auscultation. The patient has been refusing further breathing treatments as recommended by respiratory therapy. She was advised to continue with the treatments to improve her symptoms. Her white blood cell count (WBC) is improving, and she will continue her current regimen, including Levaquin, prednisone, Advair, and Duonebs for COPD exacerbation and pneumonia. The patient is agreeable to staying another night, with the possibility of discharge tomorrow. 08/14/24 Pt resting in bed. She is feeling much better today she reports and wants to d/c home with her [facility]. She is now on baseline O2 of 2lNC at 96%. Will continue Op antibiotics and steroids for COPD exacerbation and pneumonia. BC x2 negative. Labs overall improved. She denies and further concerns at this time. - Vitals & Intake/Output Vital Signs: Vital Signs Temperature 96.6 F 08/14/24 08:06 Pulse Rate 56 L 08/14/24 08:06 Respiratory Rate 16 08/14/24 08:06 Blood Pressure 139/64 08/14/24 08:06 O2 Sat by Pulse Oximetry 97 08/14/24 08:06 Intake & Output: Intake & Output 08/11/24 08/12/24 08/13/24 08/14/24 11:59 11:59 11:59 11:59 Intake Total 480 1450 1060 Balance 480 1450 1060 Weight 68.8 kg - Lab Result Diagrams: 08/14/24 05:50 08/14/24 05:50 Lab Results-Last 24 Hrs: Lab Results-Last 24 Hours 08/14/24 08/14/24 Range/Units 05:50 05:50 WBC 8.0 (3.98-10.04) x10^3/uL RBC 4.24 (3.93-5.22) x10^6/uL Hgb 12.6 (11.2-15.7) g/dL Hct 40.0 (34.1-44.9) % MCV 94.3 (79.4-94.8) fL MCH 29.7 (25.6-32.2) pg MCHC 31.5 L (32.2-35.5) g/dL RDW 15.1 H (11.7-14.4) % Plt Count 222 (182-369) x10^3/uL MPV 10.4 (9.4-12.3) fL Sodium 142 (135-145) mmol/L Potassium 4.1 (3.5-5.1) mmol/L Chloride 101 (98-107) mmol/L Carbon Dioxide 35 H (22-30) mmol/L Anion Gap 9.7 (5-15) MEQ/L BUN 20 H (7-17) mg/dL Creatinine 0.86 (0.52-1.04) mg/dL Estimated GFR 71.3 ML/MIN Glucose 97 (74-106) mg/dL Calcium 8.5 (8.4-10.2) mg/dL Total Bilirubin 0.40 (0.2-1.3) mg/dL AST 18 (14-36) U/L ALT 13 (0-35) U/L Alkaline Phosphatase 80 (38-126) U/L Serum Total Protein 6.0 L (6.3-8.2) g/dL Albumin 3.3 L (3.5-5.0) g/dL Micro Results-Entire Visit: Microbiology 08/11/24 03:15 Blood Culture - Preliminary Blood 08/11/24 23:01 Blood Culture - Preliminary Blood - Procedures and Test Procedures and Tests throughout Hospitalization: Therapy Orders & Screens 08/11/24 23:09 Respiratory Therapy Assessment DAILY Comment: 08/12/24 03:14 Oxygen Nasal Cannula 4 lpm Comment: 08/12/24 04:26 Respiratory Therapy Consult ONCE Comment: Reason For Exam: Diagnosis: COPD Exacerbation Discharge Exam General Appearance: no apparent distress, alert Neurologic Exam: alert, oriented x 3, cooperative, normal mood/affect, nml cerebellar function, sensation nml, No motor deficits Eye Exam: PERRL, EOMI, eyes nml inspection Ears, Nose, Throat Exam: normal ENT inspection, pharynx normal, moist mucous membranes Neck Exam: normal inspection, non-tender, supple, full range of motion Respiratory Exam: normal breath sounds, lungs clear, No respiratory distress Cardiovascular Exam: regular rate/rhythm, normal heart sounds Gastrointestinal/Abdomen Exam: soft, No tenderness, No mass Pelvic Exam: deferred Rectal Exam: deferred Back Exam: normal inspection, normal range of motion, No CVA tenderness, No vertebral tenderness Extremity Exam: normal inspection, normal range of motion Skin Exam: normal color, warm, dry Final Diagnosis/Problem List - Final Discharge Diagnosis/Problem (1) Pneumonia Current Visit: Yes Status: Acute Code(s): J18.9 - PNEUMONIA, UNSPECIFIED ORGANISM (2) CAD (coronary artery disease) Current Visit: Yes Status: Chronic Code(s): I25.10 - ATHSCL HEART DISEASE OF [place] CORONARY ARTERY W/O ANG PCTRS (3) COPD with exacerbation Current Visit: Yes Status: Acute Code(s): J44.1 - CHRONIC OBSTRUCTIVE PULMONARY DISEASE W (ACUTE) EXACERBATION (4) Chronic diastolic (congestive) heart failure Current Visit: Yes Status: Chronic Code(s): I50.32 - CHRONIC DIASTOLIC (CONGESTIVE) HEART FAILURE (5) Hypertension Current Visit: No Status: Chronic Code(s): I10 - ESSENTIAL (PRIMARY) HYPERTENSION (6) Hypothyroid Current Visit: No Status: Chronic Code(s): E03.9 - HYPOTHYROIDISM, UNSPECIFIED (7) Smoker Current Visit: Yes Status: Chronic Assessment & Plan: 1) Pneumonia Current Visit: Yes Status: Acute Assessment & Plan: - IV Levaquin changed to PO d/t IV medication shortage per pharmacy dosing for renal function - On 3lNC- 91% - Baseline O2 2lNC - BC x2 negative - Tele - Steroids PO, Duonebs, advair - Pt has been refusing breathing treatments- education provided - CBC. CMP reviewed - WBC 13.3- improved 08/14 - WBC 8.0- WNL - CBC, CMP reviewed - BC x2 negative - Will continue antibiotics and steroids OP - F/U with Dr. Gaitan- Pulmonology OP- pt reports she has an appointment this week Code(s): J18.9 - PNEUMONIA, UNSPECIFIED ORGANISM (2) CAD (coronary artery disease) Current Visit: Yes Status: Chronic Assessment & Plan: - Continue Plavix 75, atorvastatin 40, Lopressor 25 BID Code(s): I25.10 - ATHSCL HEART DISEASE OF [place] CORONARY ARTERY W/O ANG PCTRS (3) COPD with exacerbation Current Visit: Yes Status: Acute Assessment & Plan: prednisone 40 mg daily DuoNeb q.4 hours PRN Treat pneumonia as above Code(s): J44.1 - CHRONIC OBSTRUCTIVE PULMONARY DISEASE W (ACUTE) EXACERBATION (4) Chronic diastolic (congestive) heart failure Current Visit: Yes Status: Chronic Assessment & Plan: Continue Lasix 20 mg daily Consider SGLT2 inhibitor as an outpatient - BNP reviewed - Echo 06/30/24- reviewed 55-60%- with grade 1 diastolic dysfunction Code(s): I50.32 - CHRONIC DIASTOLIC (CONGESTIVE) HEART FAILURE (5) Hypertension Current Visit: No Status: Chronic Assessment & Plan: - BP stable - continue home meds Code(s): I10 - ESSENTIAL (PRIMARY) HYPERTENSION (6) Hypothyroid Current Visit: No Status: Chronic Assessment & Plan: - Continue synthroid Code(s): E03.9 - HYPOTHYROIDISM, UNSPECIFIED (7) Smoker Current Visit: Yes Status: Chronic Assessment & Plan: - advised cessation - nicotine patch Code(s): F17.200 - NICOTINE DEPENDENCE, UNSPECIFIED, UNCOMPLICATED - Discharge Discharge Date: 08/14/24 Disposition: HOME HEALTH SERVICE Condition: Stable Prescriptions: New Prednisone 20 mg [Deltasone 20 mg] 20 mg PO BID 5 Days #10 tablet Levofloxacin [Levofloxacin 500 MG Tablet] 500 mg PO Q24H22 5 Days #5 tablet Continue Metoprolol Tartrate 25 mg PO BID lisinopriL [Lisinopril] 20 mg PO DAILY Alendronate Sodium 70 mg [Fosamax 70 MG] 70 mg PO WEEKLY Furosemide 20 mg [Lasix 20 mg] 20 mg PO DAILY PRN PRN Reason: fluid overload Atorvastatin Calcium [Lipitor 20MG Tablet] 40 mg PO HS Docusate Sodium [Colace] 100 mg PO BID PRN PRN PRN Reason: Constipation Nitroglycerin 0.4 mg (Ed) [Nitrostat 0.4 MG (ED)] 0.4 mg SL DIRECTIONS UNKNOWN Spironolactone 25 mg PO DAILY Albuterol 8 gm Mdi Hfa [Ventolin Hfa MDI] 2 puff IH Q4-6HPRN PRN PRN Reason: Shortness Of Breath/Wheezing PANTOPRAZOLE 40 mg Tablet [Protonix 40MG Tablet] 40 mg PO HS Clopidogrel Bisulfate [Plavix] 75 mg PO DAILY #0 Gabapentin [Neurontin ] 300 mg PO TID Budesonide/Glycopyr/Formoterol [Breztri Aerosphere Inhaler] 2 puff IH BID Simethicone 80 mg [Mylicon 80MG] 80 mg PO BID Tramadol HCl 50 mg [Ultram 50 mg] 50 mg PO Q8H PRN PRN PRN Reason: Pain Levothyroxine Sodium 200 mcg PO DAILY 30 Days #30 tablet Levothyroxine Sodium 50 mcg PO DAILY 30 Days #30 cap Promethazine HCl 25 mg [Phenergan 25 mg] 1 tab PO Q6HPRN PRN PRN Reason: Nausea Albuterol 2.5 mg/3 ml Neb [Proventil 2.5 mg/3 ml Neb] 1 neb NEB Q6H PRN PRN PRN Reason: Shortness Of Breath Additional Instructions: Please follow up with Dr. Rangel's [employer] this week as scheduled. Follow up with: LAURA SHELTON, [Primary Care Provider] - Call for Appointment
[2024-08-14] MEDS ORDERED: Levofloxacin 500MG/100ML D5W 500 MG/100 ML BAG IV SCH (22:00)
[2024-08-14] MEDS ORDERED: Levaquin 250MG/50ML D5W 250 MG/50 ML BAG IV SCH (22:00)
== END 2024-08-14 15:29 | disposition home health service (06) ==
LOC: ED 22:33 → MED SURG 08-12 01:25
PROVIDERS: ADMIT Internal Medicine; ATTEND Internal Medicine
DX: J18.9 Pneumonia, unspecified organism (principal); I25.10 Atherosclerotic heart disease of native coronary artery without angina pectoris; J44.1 Chronic obstructive pulmonary disease with (acute) exacerbation; I11.0 Hypertensive heart disease with heart failure; I50.32 Chronic diastolic (congestive) heart failure; E03.9 Hypothyroidism, unspecified; F17.200 Nicotine dependence, unspecified, uncomplicated; R09.02 Hypoxemia; Z79.01 Long term (current) use of anticoagulants; Z79.899 Other long term (current) drug therapy; Z99.81 Dependence on supplemental oxygen
CPT/HCPCS: 0241U; 36415; 71045; 80048; 80053; 83036; 83605; 83735; 83880; 84484; 85025; 85027; 87040; 93005; 93041; 93268; 94640; 94760; 96374; 96375; 99285; G0378; Q3014; J0360; J1650; J1956; J2919; A9270-GY

== ENCOUNTER 2024-09-15 18:48 | Observation (INO) | payer MEDICARE ==
[2024-09-15] MEDS ORDERED: Sterile H2O 10 ml IJ ONE (19:23)
[2024-09-15] MEDS ORDERED: solu-MEDROL ONE (19:23)
[2024-09-15] MEDS: solu-MEDROL 125 MG, Sterile H2O 10 ml 2 ML IV ONE (19:25)
[2024-09-15 19:27] LABS: Absolute Neutrophil Ct (ANC) 12.58 x10^3/uL (1.56-6.13); BASOPHIL % 0.3 % (0.1-1.2); Basophil (Absolute #) 0.05 x10^3/uL (0.01-0.08); Eosinophil % 0.8 % (0.7-5.8); Eosinophil (Absolute #) 0.11 x10^3/uL (0.04-0.36); Hematocrit 44.2 % (34.1-44.9); Hemoglobin 14.2 g/dL (11.2-15.7); IMMATURE GRAN # 0.08 x10^3u/L (0.001-0.031); IMMATURE GRAN % 0.5 % (0.001-0.429); Lymphocyte (Absolute #) 0.96 x10^3/uL (1.18-3.74); Lymphocytes % 6.6 % (19.3-51.7); Mean Cell Volume 95.1 fL (79.4-94.8); Mean Corpuscular Hemoglobin 30.5 pg (25.6-32.2); Mean Corpuscular Hgb Concent. 32.1 g/dL (32.2-35.5); Mean Platelet Volume 10.1 fL (9.4-12.3); Monocyte (Absolute #) 0.84 x10^3/uL (0.24-0.86); Monocytes % 5.7 % (4.7-12.5); Neutrophil % 86.1 % (34.0-71.1); Platelet Count 184 x10^3/uL (182-369); Red Blood Count 4.65 x10^6/uL (3.93-5.22); Red Cell Distribution Width 16.1 % (11.7-14.4); White Blood Count 14.6 x10^3/uL (3.98-10.04)
[2024-09-15] MEDS ORDERED: DUONEB 0.5-3 MG/3 ml Neb IH ONE (19:29)
[2024-09-15 19:37] LABS: ALBUMIN 3.7 g/dL (3.5-5.0); ANION GAP 12.6 MEQ/L (5-15); BILIRUBIN,TOTAL 1.1 mg/dL (0.2-1.3); Calcium 8.9 mg/dL (8.4-10.2); Creatinine 1 0.8 mg/dL (0.52-1.04); EST GLOMERULAR FILTRATION RATE 77.8 ML/MIN; Potassium 4.3 mmol/L (3.5-5.1); Total Protein 6.3 g/dL (6.3-8.2)
[2024-09-15 19:44] LABS: NT PRO BNPII 1090 pg/mL (<300); TROPONIN < 0.012 ng/mL (0.000-0.033)
[2024-09-15] MEDS: DUONEB 0.5-3 MG/3 ml Neb IH ONE (19:50)
[2024-09-15 20:15] LABS: INFLUENZA A NEGATIVE (NEGATIVE); INFLUENZA B NEGATIVE (NEGATIVE); RESPIRATORY SYNCTIAL VIRUS NEGATIVE (NEGATIVE); SARS-CoV-2 Xpert Express NEGATIVE (NEGATIVE)
[2024-09-15] MEDS: LEVOFLOXACIN 750MG/150ML D5W 750 MG/150 ML BAG IV STA (20:47)
[2024-09-15] MEDS ORDERED: Levaquin 250MG/50ML D5W 250 MG/50 ML BAG IV ONE (20:50)
[2024-09-15] MEDS ORDERED: Levofloxacin 500MG/100ML D5W 500 MG/100 ML BAG IV ONE (20:50)
[2024-09-15] MEDS: Levaquin 250MG/50ML D5W 250 MG/50 ML BAG IV STA (20:51)
[2024-09-15] MEDS: Levofloxacin 500MG/100ML D5W 500 MG/100 ML BAG IV STA (20:52)
--- NOTE | 2024-09-15 20:54 | ERPHSYRPT ---
- History of Present Illness Time Seen by Provider: 09/15/24 18:49 Source: patient, family Exam Limitations: no limitations Patient Subjective Stated Complaint: C/O SOB that began last night Triage Nursing Assessment: Patient brought back to ER in a W/C. She is alert and oriented. SOB noted with a moist, non-productive cough. Expiratory rhonchi p resent to left upper lobe. Edema present to BLE. 02 sats 90% on 2L per N/C. 02 increased to 4L per N/C and 02 sats increased to 91% on the 4L. Physician History: 74 years old female with multiple medical problems including coronary artery disease with stenting, congestive heart failure, COPD with chronic respiratory failure on 2 L oxygen, tobacco abuse, hypothyroidism presented in the ER with increasing shortness of breath since last night. Patient reports having minimal productive cough of clear to yellow sputum. Reports her oxygen saturation was dropping to 84% with minimal ambulation earlier today. Patient has a oxygen saturation around 90 on presentation but struggling with bilateral wheezing, increased O2 to 4 L with improvement to 91%. Denies any chest pain or lower extremity swelling. Has subjective feeling of fever and chills. Denies any known sick contact. Allergies/Adverse Reactions: cephalexin [From Keflex] Allergy (Verified 09/15/24 18:50) Home Medications: Metoprolol Tartrate 25 mg PO BID 08/11/18 [History] lisinopriL [Lisinopril] 20 mg PO DAILY 08/11/18 [History] Alendronate Sodium 70 mg [Fosamax 70 MG] 70 mg PO WEEKLY 09/18/20 [History] Furosemide 20 mg [Lasix 20 mg] 20 mg PO DAILY PRN 09/18/20 [History] Atorvastatin Calcium [Lipitor 20MG Tablet] 40 mg PO HS 08/28/21 [History] Docusate Sodium [Colace] 100 mg PO BID PRN PRN 08/28/21 [History] Nitroglycerin 0.4 mg (Ed) [Nitrostat 0.4 MG (ED)] 0.4 mg SL DIRECTIONS UNKNOWN 08/28/21 [History] Spironolactone 25 mg PO DAILY 08/28/21 [History] Albuterol 8 gm Mdi Hfa [Ventolin Hfa MDI] 2 puff IH Q4-6HPRN PRN 09/02/21 [History] PANTOPRAZOLE 40 mg Tablet [Protonix 40MG Tablet] 40 mg PO HS 09/02/21 [History] Budesonide/Glycopyr/Formoterol [Breztri Aerosphere Inhaler] 2 puff IH BID 07/04/22 [History] Gabapentin [Neurontin ] 300 mg PO TID 07/04/22 [History] Simethicone 80 mg [Mylicon 80MG] 80 mg PO BID 07/04/22 [History] Tramadol HCl 50 mg [Ultram 50 mg] 50 mg PO Q8H PRN PRN 06/29/24 [History] Promethazine HCl 25 mg [Phenergan 25 mg] 1 tab PO Q6HPRN PRN 08/06/24 [His tory] Albuterol 2.5 mg/3 ml Neb [Proventil 2.5 mg/3 ml Neb] 1 neb NEB Q6H PRN PRN 08/11/24 [History] Hx Tetanus, Diphtheria Vaccination/Date Given: Yes Hx Influenza Vaccination/Date Given: No Hx Pneumococcal Vaccination/Date Given: No Immunizations Up to Date: Yes Travel Risk - International Travel Have you traveled outside of the country in past 3 weeks: No - Emerging Infectious Disease Are you exhibiting symptoms associated with any current EIDs: Yes Symptoms: Cough: New Onset, Fever, Shortness of Breath - Review of Systems Constitutional: Fever, Chills, Fatigue, Weakness Eyes: No Symptoms Ears, Nose, & Throat: No Symptoms Respiratory: Cough Cardiac: Edema Abdominal/Gastrointestinal: No Symptoms Genitourinary Symptoms: No Symptoms Musculoskeletal: Arthralgias Skin: No Symptoms Neurological: No Symptoms Endocrine: No Symptoms Hematologic/Lymphatic: No Symptoms - Past Medical History Pertinent Past Medical History: Yes Neurological History: No Pertinent History ENT History: No Pertinent History Cardiac History: Coronary Artery Disease, High Cholesterol, Hypertension, Other Respiratory History: COPD Endocrine Medical History: Hypothyroidism Musculoskeletal History: Arthritis GI Medical History: GERD, Hernia History: No Pertinent History Psycho-Social History: No Pertinent History Female Reproductive Disorders: No Pertinent History Other Medical History: CHRONIC BACK PAIN,wears home oxygen 2L at all times, Card iologist: Dr. Sierra - Past Surgical History Past Surgical History: Yes Neuro Surgical History: No Pertinent History Cardiac: Cardiac Catheterization, Cardiac Stent, Other Respiratory: No Pertinent History Gastrointestinal: No Pertinent History Genitourinary: No Pertinent History Musculoskeletal: Orthopedic Surgery Female Surgical History: Hysterectomy, Tubal Ligation Other Surgical History: Left knee replacement, 3 back surgeries, Right elbow surgeries, 3 carpal tunnel surgeries on right and left hand. 3 cardiac stents in 2019 Significant Family History: no pertinent family hx - Social History Smoking Status: Current every day smoker How long have you smoked: 14 y.o. Drug Use: none - Social Determinants of Health Will the patient participate in the screening: Yes Do you worry about a steady place to live?: No Do you have any problems with any of the following?: No known problems In the past 12 months,have you had to go without utilities?: No Transportation Issues: No Has anyone in your support network made you feel unsafe?: No Have you or anyone in your house had to go w/o enough food: No - Nursing Vital Signs Nursing Vital Signs: Initial Vital Signs Pulse Rate 115 H 09/15/24 18:52 Respiratory Rate 20 09/15/24 18:52 Blood Pressure 127/87 09/15/24 18:52 O2 Sat by Pulse Oximetry 91 L 09/15/24 18:52 Pain Scale Pain Intensity 0 - Physical Exam General Appearance: mild distress, alert Eye Exam: PERRL/EOMI Ears, Nose, Throat Exam: hearing grossly normal, pharyngeal erythema Neck Exam: normal inspection, non-tender, supple, full range of motion Respiratory Exam: diminished breath sounds, accessory muscle use, rhonchi, wheezing Cardiovascular/Chest Exam: normal heart sounds, tachycardia Abdominal/Gastrointestinal Exam: soft, normal bowel sounds, No tenderness Extremity Exam: non-tender, normal range of motion Neurologic Exam: alert, oriented x 3, cooperative Skin Exam: normal color SpO2 Interpretation: borderline oxygenation, O2 applied SpO2: 91 O2 Delivery: Nasal Cannula - Course EKG Interpreted by Me: RATE ([id number]), Sinus Tach, NORMAL AXIS, prolonged QT interval, Non-specific ST Changes Ordered Tests: Active Orders 24 hr Category Date Time Status Tool Or Die Drawing Checker STAT Care 09/15/24 19:18 Active EKG-ER Only STAT Care 09/15/24 19:18 Active IV Insertion STAT Care 09/15/24 19:18 Active Oxygen-ED Only Nasal Cannula 4 lpm Care 09/15/24 19:18 Active CHEST 1 VIEW (PORTABLE) Stat Exams 09/15/24 19:18 Taken BLOOD CULTURE Stat Lab 09/15/24 19:40 Received CBC W DIFF Stat Lab 09/15/24 19:15 Completed CMP Stat Lab 09/15/24 19:15 Completed Lactic Acid Stat Lab 09/15/24 19:18 Completed MAGNESIUM Stat Lab 09/15/24 19:15 Completed NT PRO BNPII Stat Lab 09/15/24 19:15 Completed TROPONIN Q4H Lab 09/15/24 19:15 Completed TROPONIN Q4H Lab 09/15/24 23:30 Ordered TROPONIN Q4H Lab 09/16/24 03:30 Ordered Respiratory Therapy Assessment DAILY RT 09/15/24 19:50 Active Transfer Order Routine Transfer 09/15/24 Ordered Medication Summary Generic Name Dose Route Start Last Admin Trade Name Freq PRN Reason Stop Dose Admin Levofloxacin/Dextrose 500 mg in 100 mls @ 100 mls/hr 09/15/24 20:47 09/15/24 20:52 Levofloxacin 500mg/100ml D5w IV 09/15/24 21:46 100 mls/hr STAT STA 100 mls/hr Administration Levofloxacin/Dextrose 250 mg in 50 mls @ 50 mls/hr 09/15/24 20:47 09/15/24 20:51 Levaquin 250mg/50ml D5w IV 09/15/24 21:46 50 mls/hr STAT STA 50 mls/hr Administration Discontinued Medications Generic Name Dose Route Start Last Admin Trade Name Freq PRN Reason Stop Dose Admin Albuterol/Ipratropium 3 ml 09/15/24 19:18 09/15/24 19:50 Ipratropium/Albuterol Sulfate 3 Ml Ampul.Neb IH 09/15/24 19:19 3 ml STAT ONE Administration Albuterol/Ipratropium Confirm 09/15/24 19:29 Ipratropium/Albuterol Sulfate 3 Ml Ampul.Neb Administered 09/15/24 19:30 Dose 3 ml IH .STK-MED ONE Methylprednisolone Sodium 0 mg 09/15/24 19:18 09/15/24 19:25 Succinate 125 mg/ Sterile IV 09/15/24 19:19 125 mg Water 2 ml STAT ONE Administration Levofloxacin/Dextrose 750 mg in 150 mls @ 100 mls/hr 09/15/24 20:36 09/15/24 20:47 Levofloxacin 750mg/150ml D5w IV 09/15/24 22:05 Not Given STAT STA Levofloxacin/Dextrose Confirm 09/15/24 20:50 Levofloxacin 500mg/100ml D5w Administered 09/15/24 20:51 Dose 500 mg in 100 mls @ ud IV .STK-MED ONE Levofloxacin/Dextrose Confirm 09/15/24 20:50 Levaquin 250mg/50ml D5w Administered 09/15/24 20:51 Dose 250 mg in 50 mls @ ud IV .STK-MED ONE Methylprednisolone Sodium Succinate Confirm 09/15/24 19:23 Methylprednis Sod Succ 125 Mg/2 Ml Vial Administered 09/15/24 19:24 Dose 125 mg .ROUTE .STK-MED ONE Sterile Water Confirm 09/15/24 19:23 Water For Injection,Sterile 10 Ml Vial Administered 09/15/24 19:24 Dose 10 ml IJ .STK-MED ONE Lab/Rad Data: Laboratory Result Diagrams 09/15/24 19:15 09/15/24 19:15 Laboratory Results 09/15/24 09/15/24 09/15/24 Range/Units 19:40 19:18 19:15 WBC (3.98-10.04) x10^3/uL RBC (3.93-5.22) x10^6/uL Hgb (11.2-15.7) g/dL Hct (34.1-44.9) % MCV (79.4-94.8) fL MCH (25.6-32.2) pg MCHC (32.2-35.5) g/dL RDW (11.7-14.4) % Plt Count (182-369) x10^3/uL MPV (9.4-12.3) fL Gran % (34.0-71.1) % Immature Gran % (Auto) (0.001-0.429) % Nucleat RBC Rel Count (0.00-0.2) % Eos # (Auto) (0.04-0.36) x10^3/uL Immature Gran # (Auto) (0.001-0.031) x10^3u/L Absolute Lymphs (auto) (1.18-3.74) x10^3/uL Absolute Monos (auto) (0.24-0.86) x10^3/uL Absolute Nucleated RBC (0.00-0.012) x10^3u/L Lymphocytes % (19.3-51.7) % Monocytes % (4.7-12.5) % Eosinophils % (0.7-5.8) % Basophils % (0.1-1.2) % Absolute Granulocytes (1.56-6.13) x10^3/uL Basophils # (0.01-0.08) x10^3/uL Sodium (135-145) mmol/L Potassium (3.5-5.1) mmol/L Chloride (98-107) mmol/L Carbon Dioxide (22-30) mmol/L Anion Gap (5-15) MEQ/L BUN (7-17) mg/dL Creatinine (0.52-1.04) mg/dL Estimated GFR ML/MIN Glucose (74-106) mg/dL Lactic Acid 0.9 (0.4-2.0) Calcium (8.4-10.2) mg/dL Magnesium (1.6-2.3) mg/dL Total Bilirubin (0.2-1.3) mg/dL AST (14-36) U/L ALT (0-35) U/L Alkaline Phosphatase (38-126) U/L Troponin I < 0.012 (0.000-0.033) ng/mL NT-Pro-B Natriuret Pep 1090 (<300) pg/mL Serum Total Protein (6.3-8.2) g/dL Albumin (3.5-5.0) g/dL Influenza Type A Ag NEGATIVE (NEGATIVE) Influenza Type B Ag NEGATIVE (NEGATIVE) RSV (PCR) NEGATIVE (NEGATIVE) SARS-CoV-2 (PCR) NEGATIVE (NEGATIVE) 09/15/24 09/15/24 Range/Units 19:15 19:15 WBC 14.6 H (3.98-10.04) x10^3/uL RBC 4.65 (3.93-5.22) x10^6/uL Hgb 14.2 (11.2-15.7) g/dL Hct 44.2 (34.1-44.9) % MCV 95.1 H (79.4-94.8) fL MCH 30.5 (25.6-32.2) pg MCHC 32.1 L (32.2-35.5) g/dL RDW 16.1 H (11.7-14.4) % Plt Count 184 (182-369) x10^3/uL MPV 10.1 (9.4-12.3) fL Gran % 86.1 H (34.0-71.1) % Immature Gran % (Auto) 0.5 H (0.001-0.429) % Nucleat RBC Rel Count 0.0 (0.00-0.2) % Eos # (Auto) 0.11 (0.04-0.36) x10^3/uL Immature Gran # (Auto) 0.08 H (0.001-0.031) x10^3u/L Absolute Lymphs (auto) 0.96 L (1.18-3.74) x10^3/uL Absolute Monos (auto) 0.84 (0.24-0.86) x10^3/uL Absolute Nucleated RBC 0.00 (0.00-0.012) x10^3u/L Lymphocytes % 6.6 L (19.3-51.7) % Monocytes % 5.7 (4.7-12.5) % Eosinophils % 0.8 (0.7-5.8) % Basophils % 0.3 (0.1-1.2) % Absolute Granulocytes 12.58 H (1.56-6.13) x10^3/uL Basophils # 0.05 (0.01-0.08) x10^3/uL Sodium 139 (135-145) mmol/L Potassium 4.3 (3.5-5.1) mmol/L Chloride 101 (98-107) mmol/L Carbon Dioxide 30 (22-30) mmol/L Anion Gap 12.6 (5-15) MEQ/L BUN 9 (7-17) mg/dL Creatinine 0.80 (0.52-1.04) mg/dL Estimated GFR 77.8 ML/MIN Glucose 107 H (74-106) mg/dL Lactic Acid (0.4-2.0) Calcium 8.9 (8.4-10.2) mg/dL Magnesium 2.0 (1.6-2.3) mg/dL Total Bilirubin 1.10 (0.2-1.3) mg/dL AST 23 (14-36) U/L ALT 14 (0-35) U/L Alkaline Phosphatase 123 (38-126) U/L Troponin I (0.000-0.033) ng/mL NT-Pro-B Natriuret Pep (<300) pg/mL Serum Total Protein 6.3 (6.3-8.2) g/dL Albumin 3.7 (3.5-5.0) g/dL Influenza Type A Ag (NEGATIVE) Influenza Type B Ag (NEGATIVE) RSV (PCR) (NEGATIVE) SARS-CoV-2 (PCR) (NEGATIVE) - Progress Progress: improved, re-examined Air Movement: fair Progress Note: 09/15/24 21:39 74 years old is evaluated in the ER for increasing shortness of breath and cough since yesterday. Patient was tachypneic and tachycardic with oxygen saturation barely around 90, was in mild distress, placed on 4 L oxygen which improved to low 90s EKG showed sinus tach with no ST elevations. She is given DuoNeb and Solu-Medrol, on reevaluation she is feeling better, later on patient fell asleep with her oxygen dropping again in upper 80s and increased to 6 L. She is not in any distress on reevaluation at all. Chest x-ray showed bilateral airspace disease specially on the right side r eviewed by me with pending official read. She is given a dose of Levaquin. Workup showed white count of 14, normal lactate and negative initial troponin. Chemistries fairly unremarkable otherwise. I believe patient has a combination of COPD exacerbation with pneumonia causing her respiratory failure and would benefit with IV steroid, frequent neb treatments along with antibiotics and slowly weaning off of oxygen to her routine 2 L. I have shared the results of workup with patient and plan of admission which she understands and agrees. Complexity of problem addressed: High acuity Complexity of data reviewed/analyzed: Moderate to extensive Risk of complications/morbidity/mortality associated with current condition: High risk Blood Culture(s) Obtained: Yes Antibiotics given: Yes Discussed with : Fay Will see patient in: hospital (observation) Counseled pt/family regarding: lab results, diagnosis, rad results Medical Desision Making - Discussion of managment Care discussed with:: hospitalist (Dr. Pinto) Reviewed:: Test results Agreed on:: Treatment plan, place in obs Will see patient: in hospital - Diagnostic Testing Diagnostic test were ordered, analyzed, and reviewed by me: Yes Radiological Interpretation: Interpreted by me, Reviewed by me - Risk of complications The pt has a mod risk of morbidity or mortality based on: Need for prescription drug management The pt has a high risk of morbidity or mortality based on: Decision regarding hospitilization or escalation of hosp level of care - Departure Departure Disposition: Observation Clinical Impression: COPD exacerbation Pneumonia Qualifiers: Pneumonia type: due to unspecified organism Laterality: bilateral Lung location: lower lobe of lung Qualified Code(s): J18.9 - Pneumonia, unspecified organism Respiratory failure Qualifiers: Chronicity: acute on chronic Respiratory failure complication: hypoxia Qualified Code(s): J96.21 - Acute and chronic respiratory failure with hypoxia Condition: Stable Critical Care Time: No Referrals: LAURA SHELTON DO [Primary Care Provider] - Follow up/PCP as directed Instructions: Chronic Obstructive Pulmonary Disease
[2024-09-15] MEDS ORDERED: TYLENOL 325 MG PO PRN (22:59)
--- NOTE | 2024-09-15 23:48 | PCM.HP ---
History of Present Illness - Chief Complaint Chief Complaint: Shortness of breath, cough Date: 09/15/24 History of Present Illness: 74-year-old woman with history of COPD, diastolic heart failure, chronic hypoxia on 2 L oxygen, hypothyroidism, CAD, and active tobacco use, who presents with cough and dyspnea for 1 day. Patient was recently admitted in June for acute on chronic diastolic heart failure, and on August 12 with COPD exacerbation. She completed her steroids and had been feeling better. She had some edema few days ago, but that had resolved, is at her baseline orthopnea as well as her 2 L oxygen. However starting last night, going into today particularly, has had progressive dyspnea, fever, and worsened cough. Associated with poor appetite and some wheezing. Prior leg edema has resolved, and no PND. Has had some intermittent diarrhea as well. Also noticed that her leg twitching from rest of leg syndrome has been worsening. Denies sick contacts. She tried increasing her oxygen to 3 L as well as using her home nebulizers, with no relief. Currently feeling better after getting continuous nebs and IV Solu-Medrol in the ED. - Review of Systems All Other Systems: Reviewed and Negative Medications & Allergies Home Medications: Home Medication List Metoprolol Tartrate 25 mg PO BID 08/11/18 [History Confirmed 08/11/24] lisinopriL [Lisinopril] 20 mg PO DAILY 08/11/18 [History Confirmed 09/16/24] Alendronate Sodium 70 mg [Fosamax 70 MG] 70 mg PO WEEKLY 09/18/20 [History Confirmed 09/16/24] Furosemide 20 mg [Lasix 20 mg] 20 mg PO DAILY PRN 09/18/20 [History Confirmed 09/16/24] Atorvastatin Calcium [Lipitor 20MG Tablet] 40 mg PO HS 08/28/21 [History Confirmed 09/16/24] Docusate Sodium [Colace] 100 mg PO BID PRN PRN 08/28/21 [History Confirmed 0 09/16/24] Nitroglycerin 0.4 mg (Ed) [Nitrostat 0.4 MG (ED)] 0.4 mg SL DIRECTIONS UNKNOWN 08/28/21 [History Confirmed 09/16/24] Spironolactone 25 mg PO DAILY 08/28/21 [History Confirmed 09/16/24] Albuterol 8 gm Mdi Hfa [Ventolin Hfa MDI] 2 puff IH Q4-6HPRN PRN 09/02/21 [History Confirmed 09/16/24] Clopidogrel Bisulfate [Plavix] 75 mg PO DAILY #0 09/02/21 [Rx Confirmed 09/16/24] PANTOPRAZOLE 40 mg Tablet [Protonix 40MG Tablet] 40 mg PO HS 09/02/21 [History Confirmed 09/16/24] Budesonide/Glycopyr/Formoterol [Breztri Aerosphere Inhaler] 2 puff IH BID 07/04/22 [History Confirmed 09/16/24] Gabapentin [Neurontin ] 300 mg PO TID 07/04/22 [History Confirmed 09/16/24] Simethicone 80 mg [Mylicon 80MG] 80 mg PO BID 07/04/22 [History Confirmed 09/16/24] Tramadol HCl 50 mg [Ultram 50 mg] 50 mg PO Q8H PRN PRN 06/29/24 [History Confirmed 09/16/24] Levothyroxine Sodium 50 mcg PO DAILY 30 Days #30 cap 07/01/24 [Rx Confirmed 08/11/24] Levothyroxine Sodium 200 mcg PO DAILY 30 Days #30 tablet 07/01/24 [Rx Confirmed 09/16/24] Promethazine HCl 25 mg [Phenergan 25 mg] 1 tab PO Q6HPRN PRN 08/06/24 [History Confirmed 09/16/24] Albuterol 2.5 mg/3 ml Neb [Proventil 2.5 mg/3 ml Neb] 1 neb NEB Q6H PRN PRN 08/11/24 [History Confirmed 09/16/24] Levofloxacin [Levofloxacin 500 MG Tablet] 500 mg PO Q24H22 5 Days #5 tablet 08/14/24 [Rx Confirmed 09/16/24] Prednisone 20 mg [Deltasone 20 mg] 20 mg PO BID 5 Days #10 tablet 08/14/24 [Rx Confirmed 09/16/24] Allergies/Adverse Reactions: Allergies Allergy/AdvReac Type Severity Reaction Status Date / Time cephalexin [From Keflex] Allergy Verified 09/15/24 18:50 - Past Medical History Past Medical History: Yes Neurological History: No Pertinent History ENT History: No Pertinent History Cardiac History: Coronary Artery Disease, High Cholesterol, Hypertension, Other Respiratory History: COPD Endocrine Medical History: Hypothyroidism Musculoskelatal History: Arthritis GI Medical History: GERD, Hernia History: No Pertinent History Pyscho-Social History: No Pertinent History Reproductive Disorders: No Pertinent History Comment: CHRONIC BACK PAIN,wears home oxygen 2L at all times, [employer]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 3 cardiac stents in 2019 Significant Family History: no pertinent family hx - Social History Smoking Status: Current every day smoker (1 pack per day) How long have you smoked: 14 y.o. Exposure to second hand smoke: Yes Alcohol: None Drug Use: none - Social Determinants of Health Will the patient participate in the screening: Yes Do you worry about a steady place to live?: No Do you have any problems with any of the following?: No known problems In the past 12 months,have you had to go without utilities?: No Have you or anyone in your house had to go without enough: No Transportation Issues: No Has anyone in your support network made you feel unsafe?: No Does the patient want assistance with any of the above?: Yes Comment: Pt and daughter want help getting on [facility]. - Physical Exam Vital Signs: Vital Signs - 24 hr Temp Pulse Resp BP BP Pulse Ox 09/15/24 22:30 100 H 140/78 95 09/15/24 22:00 100 H 19 145/86 95 09/15/24 21:44 91 L 09/15/24 21:30 118 H 21 143/75 93 L 09/15/24 21:00 102 H 20 114/54 93 L 09/15/24 20:30 104 H 23 114/48 93 L 09/15/24 20:16 108 H 22 91/69 91 L 09/15/24 20:15 107 H 21 91 L 09/15/24 20:10 108 H 19 90 L 09/15/24 20:02 107 H 23 90 L 09/15/24 19:51 106 H 18 91 L 09/15/24 19:00 112 H 16 148/69 94 L 09/15/24 18:54 99.9 F 120 H 22 127/87 90 L 09/15/24 18:52 115 H 20 127/87 91 L Physical Exam GEN: Sitting up in bed in no acute distress. HENT: Normocephalic, atraumatic. Moist mucous membranes. EYES: Normal inspection, anicteric sclera, extraocular movements intact. NECK: Supple, full range of motion CV: Regular rate and rhythm, no murmurs, no gallops. No JVD or edema. PULM: Diffuse expiratory wheezing. Coarse crackles worse at the right base. No work of breathing. On 4 L oxygen by nasal cannula. ABD: Nondistended, nontender. MSK: No joint effusions, full range of motion SKIN: No rashes, normal color. NEURO: Face symmetric, no focal motor or sensory deficits. PSYCH: Alert, oriented x 3 Results - Labs Lab/Micro Results: Lab Results-Last 24 Hours 09/15/24 09/15/24 09/15/24 Range/Units 19:15 19:15 19:15 WBC 14.6 H (3.98-10.04) x10^3/uL RBC 4.65 (3.93-5.22) x10^6/uL Hgb 14.2 (11.2-15.7) g/dL Hct 44.2 (34.1-44.9) % MCV 95.1 H (79.4-94.8) fL MCH 30.5 (25.6-32.2) pg MCHC 32.1 L (32.2-35.5) g/dL RDW 16.1 H (11.7-14.4) % Plt Count 184 (182-369) x10^3/uL MPV 10.1 (9.4-12.3) fL Gran % 86.1 H (34.0-71.1) % Immature Gran % (Auto) 0.5 H (0.001-0.429) % Nucleat RBC Rel Count 0.0 (0.00-0.2) % Eos # (Auto) 0.11 (0.04-0.36) x10^3/uL Immature Gran # (Auto) 0.08 H (0.001-0.031) x10^3u/L Absolute Lymphs (auto) 0.96 L (1.18-3.74) x10^3/uL Absolute Monos (auto) 0.84 (0.24-0.86) x10^3/uL Absolute Nucleated RBC 0.00 (0.00-0.012) x10^3u/L Lymphocytes % 6.6 L (19.3-51.7) % Monocytes % 5.7 (4.7-12.5) % Eosinophils % 0.8 (0.7-5.8) % Basophils % 0.3 (0.1-1.2) % Absolute Granulocytes 12.58 H (1.56-6.13) x10^3/uL Basophils # 0.05 (0.01-0.08) x10^3/uL Sodium 139 (135-145) mmol/L Potassium 4.3 (3.5-5.1) mmol/L Chloride 101 (98-107) mmol/L Carbon Dioxide 30 (22-30) mmol/L Anion Gap 12.6 (5-15) MEQ/L BUN 9 (7-17) mg/dL Creatinine 0.80 (0.52-1.04) mg/dL Estimated GFR 77.8 ML/MIN Glucose 107 H (74-106) mg/dL Lactic Acid (0.4-2.0) Calcium 8.9 (8.4-10.2) mg/dL Magnesium 2.0 (1.6-2.3) mg/dL Total Bilirubin 1.10 (0.2-1.3) mg/dL AST 23 (14-36) U/L ALT 14 (0-35) U/L Alkaline Phosphatase 123 (38-126) U/L Troponin I < 0.012 (0.000-0.033) ng/mL NT-Pro-B Natriuret Pep 1090 (<300) pg/mL Serum Total Protein 6.3 (6.3-8.2) g/dL Albumin 3.7 (3.5-5.0) g/dL Influenza Type A Ag (NEGATIVE) Influenza Type B Ag (NEGATIVE) RSV (PCR) (NEGATIVE) SARS-CoV-2 (PCR) (NEGATIVE) 09/15/24 09/15/24 Range/Units 19:18 19:40 WBC (3.98-10.04) x10^3/uL RBC (3.93-5.22) x10^6/uL Hgb (11.2-15.7) g/dL Hct (34.1-44.9) % MCV (79.4-94.8) fL MCH (25.6-32.2) pg MCHC (32.2-35.5) g/dL RDW (11.7-14.4) % Plt Count (182-369) x10^3/uL MPV (9.4-12.3) fL Gran % (34.0-71.1) % Immature Gran % (Auto) (0.001-0.429) % Nucleat RBC Rel Count (0.00-0.2) % Eos # (Auto) (0.04-0.36) x10^3/uL Immature Gran # (Auto) (0.001-0.031) x10^3u/L Absolute Lymphs (auto) (1.18-3.74) x10^3/uL Absolute Monos (auto) (0.24-0.86) x10^3/uL Absolute Nucleated RBC (0.00-0.012) x10^3u/L Lymphocytes % (19.3-51.7) % Monocytes % (4.7-12.5) % Eosinophils % (0.7-5.8) % Basophils % (0.1-1.2) % Absolute Granulocytes (1.56-6.13) x10^3/uL Basophils # (0.01-0.08) x10^3/uL Sodium (135-145) mmol/L Potassium (3.5-5.1) mmol/L Chloride (98-107) mmol/L Carbon Dioxide (22-30) mmol/L Anion Gap (5-15) MEQ/L BUN (7-17) mg/dL Creatinine (0.52-1.04) mg/dL Estimated GFR ML/MIN Glucose (74-106) mg/dL Lactic Acid 0.9 (0.4-2.0) Calcium (8.4-10.2) mg/dL Magnesium (1.6-2.3) mg/dL Total Bilirubin (0.2-1.3) mg/dL AST (14-36) U/L ALT (0-35) U/L Alkaline Phosphatase (38-126) U/L Troponin I (0.000-0.033) ng/mL NT-Pro-B Natriuret Pep (<300) pg/mL Serum Total Protein (6.3-8.2) g/dL Albumin (3.5-5.0) g/dL Influenza Type A Ag NEGATIVE (NEGATIVE) Influenza Type B Ag NEGATIVE (NEGATIVE) RSV (PCR) NEGATIVE (NEGATIVE) SARS-CoV-2 (PCR) NEGATIVE (NEGATIVE) - Radiology Impressions Radiology Exams & Impressions: Radiology Procedures Category Date Time Status CHEST 1 VIEW (PORTABLE) Stat Exams 09/15/24 19:18 Taken Chest x-ray consolidation on the right lower lobe lung field. New from prior chest x-ray in July. (Images personally reviewed) - Other Procedures and Tests Respiratory Therapy 09/15/24 22:59 Respiratory Therapy Consult ONCE Assessment/Plan (1) COPD exacerbation Current Visit: Yes Status: Acute Assessment & Plan: 74-year-old woman with a history of COPD, chronic hypoxia, HFpEF, CAD, hyp ertension, tobacco use, and hypothyroidism, who presents with pneumonia and COPD exacerbation. ## Pneumonia with right lower lobe consolidation on chest x-ray, new from prior chest x-ray, associated with fevers and worsening dyspnea. She also has a leukocytosis of 14.6. Worsened hypoxia, currently requiring 4 to 6 L. Differential includes PE and CHF, but appears to be euvolemic currently, and t imeline and compare to chest x-ray are more consistent with pneumonia. Start Levaquin 5 mg IV daily (allergy to cephalosporins) Titrate oxygen to maintain SpO2 between 91 and 94% ## COPD with acute exacerbation secondary to pneumonia. Given Solu-Medrol 125 mg in the ED Continue prednisone 40 mg daily DuoNeb q.4 hours PRN Can resume home Breztri when improved ## Chronic diastolic heart failure appears to be currently euvolemic. Continue Lasix 20 mg daily, spironolactone 25 mg daily ## CAD Continue metoprolol 25 mg BID, Plavix 75 mg daily, atorvastatin 40 mg QHS ## Hypothyroidism Continue home levothyroxine 250 mcg daily CODE STATUS: Full code Diet: Regular Prophylaxis: Lovenox 40 daily Dispo: Place in observation, expect discharge to home Entirety of encounter took place via live audio/video telemedicine device, with remote physician and patient in hospital, with the assistance of bedside nurse. Code(s): J44.1 - CHRONIC OBSTRUCTIVE PULMONARY DISEASE W (ACUTE) EXACERBATION (2) Pneumonia Current Visit: Yes Status: Acute Qualifiers: Pneumonia type: due to unspecified organism Laterality: bilateral Lung location: lower lobe of lung Qualified Code(s): J18.9 - Pneumonia, unspecified organism Code(s): J18.9 - PNEUMONIA, UNSPECIFIED ORGANISM Telemedicine Encounter - Telemedicine Encounter Telemedicine Encounter: "The entirety of this encounter was performed via Telemedicine" This visit was performed using real-time audio and video connection between my location and thepatients locationwith the assistance of a surrogateat the patients location. Written or verbal consent was obtained from the patient/guardian to perform this visit [facility]. Any patient questions regarding the telemedicine interaction were answered.
[2024-09-16] MEDS: Nicoderm CQ 21 MG TOP SCH (01:12)
[2024-09-16] MEDS: DUONEB 0.5-3 MG/3 ml Neb IH PRN (01:26)
[2024-09-16] MEDS ORDERED: Docusate Sodium 100 MG PO PRN (01:34)
[2024-09-16] MEDS ORDERED: LASIX 20 MG PO PRN (01:34)
[2024-09-16] MEDS ORDERED: PHENERGAN 25 MG PO PRN (01:34)
[2024-09-16] MEDS ORDERED: ULTRAM 50 MG PO PRN (01:34)
[2024-09-16 04:35] LABS: Hematocrit 43.9 % (34.1-44.9); Mean Cell Volume 95.4 fL (79.4-94.8); Mean Corpuscular Hemoglobin 30.4 pg (25.6-32.2); Mean Corpuscular Hgb Concent. 31.9 g/dL (32.2-35.5); Platelet Count 164 x10^3/uL (182-369); Red Cell Distribution Width 15.8 % (11.7-14.4); White Blood Count 14.3 x10^3/uL (3.98-10.04)
[2024-09-16 04:49] LABS: ANION GAP 11.4 MEQ/L (5-15); Calcium 8.8 mg/dL (8.4-10.2); Creatinine 1 0.87 mg/dL (0.52-1.04); EST GLOMERULAR FILTRATION RATE 70.3 ML/MIN; Potassium 4.1 mmol/L (3.5-5.1)
[2024-09-16 07:24] VITALS: BP 164/66; TEMP 97.2
[2024-09-16] MEDS: Advair Hfa 115/21 Common canister IH SCH (08:01)
--- NOTE | 2024-09-16 08:10 | XRAY ---
Indication: Short of breath. Comparison: August 11, 2024 Portable chest demonstrates near complete clearing left base infiltrate/atelectasis/effusion with minimal residual. Stable mild right base infiltrate/atelectasis/effusion. Heart not enlarged again with stent emanating from aortic arch. No new cardiopulmonary abnormalities.
[2024-09-16 08:21] VITALS: PULSE 91; RESP 18; O2SAT 96
--- NOTE | 2024-09-16 09:14 | PCM.DS ---
Discharge Summary Date of Admission: 09/15/24 22:55 Date of Discharge: 09/16/24 Admitting Physician: JESSE NATION MD Primary Care Provider: LAURA SHELTON Allergies Allergies cephalexin [From Keflex] Allergy (Verified 09/15/24 18:50) Hospital Summary - Hospital Course Hospital Course: Ms. Yarbrough is a 74-year-old woman with history of COPD, diastolic heart failure, chronic hypoxia on 2 L oxygen, hypothyroidism, CAD, and active tobacco use. She presented with cough and dyspnea for 1 day. Patient was recently admitted in June for acute on chronic diastolic heart failure, and on August 12 with COPD exacerbation. She completed her steroids and had been feeling better. She had some edema few days ago, but that had resolved, is at her baseline orthopnea as well as her 2 L oxygen. However, starting night of 09/14, going into 09/15 particularly, has had progressive dyspnea, fever, and worsened cough. Associated with poor appetite and some wheezing. Prior leg edema has resolved, and no PND. Has had some intermittent diarrhea as well. Also noticed that her leg twitching from rest of leg syndrome has been worsening. Denies sick contacts. She tried increasing her oxygen to 3 L as well as using her home nebulizers, with no relief. Currently feeling better after getting continuous nebs and IV Solu- Medrol in the ED. Today she continues to be on 3lNC @ 96%. She states 2-3 liters is her baseline and she would like to go home. She continues to have some intermittent coarse lung sounds and states this is normal for her. Will D/C with steroids and antibiotics. She denies CP, abd. pain, N/V/D, fever of chills. Pt states she has breathing treatments at home for her neb machine and does not need any refills. - Vitals & Intake/Output Vital Signs: Vital Signs Temperature 97.2 F 09/16/24 07:23 Pulse Rate 91 H 09/16/24 08:18 Respiratory Rate 18 09/16/24 08:18 Blood Pressure 164/66 09/16/24 07:23 O2 Sat by Pulse Oximetry 96 09/16/24 08:18 Intake & Output: Intake & Output 09/13/24 09/14/24 09/15/24 09/16/24 11:59 11:59 11:59 11:59 Intake Total 120 Balance 120 Weight 67.3 kg - Lab Result Diagrams: 09/16/24 04:33 09/16/24 04:33 Lab Results-Last 24 Hrs: Lab Results-Last 24 Hours 09/15/24 09/15/24 09/15/24 Range/Units 19:15 19:15 19:15 WBC 14.6 H (3.98-10.04) x10^3/uL RBC 4.65 (3.93-5.22) x10^6/uL Hgb 14.2 (11.2-15.7) g/dL Hct 44.2 (34.1-44.9) % MCV 95.1 H (79.4-94.8) fL MCH 30.5 (25.6-32.2) pg MCHC 32.1 L (32.2-35.5) g/dL RDW 16.1 H (11.7-14.4) % Plt Count 184 (182-369) x10^3/uL MPV 10.1 (9.4-12.3) fL Gran % 86.1 H (34.0-71.1) % Immature Gran % (Auto) 0.5 H (0.001-0.429) % Nucleat RBC Rel Count 0.0 (0.00-0.2) % Eos # (Auto) 0.11 (0.04-0.36) x10^3/uL Immature Gran # (Auto) 0.08 H (0.001-0.031) x10^3u/L Absolute Lymphs (auto) 0.96 L (1.18-3.74) x10^3/uL Absolute Monos (auto) 0.84 (0.24-0.86) x10^3/uL Absolute Nucleated RBC 0.00 (0.00-0.012) x10^3u/L Lymphocytes % 6.6 L (19.3-51.7) % Monocytes % 5.7 (4.7-12.5) % Eosinophils % 0.8 (0.7-5.8) % Basophils % 0.3 (0.1-1.2) % Absolute Granulocytes 12.58 H (1.56-6.13) x10^3/uL Basophils # 0.05 (0.01-0.08) x10^3/uL Sodium 139 (135-145) mmol/L Potassium 4.3 (3.5-5.1) mmol/L Chloride 101 (98-107) mmol/L Carbon Dioxide 30 (22-30) mmol/L Anion Gap 12.6 (5-15) MEQ/L BUN 9 (7-17) mg/dL Creatinine 0.80 (0.52-1.04) mg/dL Estimated GFR 77.8 ML/MIN Glucose 107 H (74-106) mg/dL Lactic Acid (0.4-2.0) Calcium 8.9 (8.4-10.2) mg/dL Magnesium 2.0 (1.6-2.3) mg/dL Total Bilirubin 1.10 (0.2-1.3) mg/dL AST 23 (14-36) U/L ALT 14 (0-35) U/L Alkaline Phosphatase 123 (38-126) U/L Troponin I < 0.012 (0.000-0.033) ng/mL NT-Pro-B Natriuret Pep 1090 (<300) pg/mL Serum Total Protein 6.3 (6.3-8.2) g/dL Albumin 3.7 (3.5-5.0) g/dL Influenza Type A Ag (NEGATIVE) Influenza Type B Ag (NEGATIVE) RSV (PCR) (NEGATIVE) SARS-CoV-2 (PCR) (NEGATIVE) 09/15/24 09/15/24 09/16/24 Range/Units 19:18 19:40 04:33 WBC 14.3 H (3.98-10.04) x10^3/uL RBC 4.60 (3.93-5.22) x10^6/uL Hgb 14.0 (11.2-15.7) g/dL Hct 43.9 (34.1-44.9) % MCV 95.4 H (79.4-94.8) fL MCH 30.4 (25.6-32.2) pg MCHC 31.9 L (32.2-35.5) g/dL RDW 15.8 H (11.7-14.4) % Plt Count 164 L (182-369) x10^3/uL MPV 10.0 (9.4-12.3) fL Gran % (34.0-71.1) % Immature Gran % (Auto) (0.001-0.429) % Nucleat RBC Rel Count (0.00-0.2) % Eos # (Auto) (0.04-0.36) x10^3/uL Immature Gran # (Auto) (0.001-0.031) x10^3u/L Absolute Lymphs (auto) (1.18-3.74) x10^3/uL Absolute Monos (auto) (0.24-0.86) x10^3/uL Absolute Nucleated RBC (0.00-0.012) x10^3u/L Lymphocytes % (19.3-51.7) % Monocytes % (4.7-12.5) % Eosinophils % (0.7-5.8) % Basophils % (0.1-1.2) % Absolute Granulocytes (1.56-6.13) x10^3/uL Basophils # (0.01-0.08) x10^3/uL Sodium (135-145) mmol/L Potassium (3.5-5.1) mmol/L Chloride (98-107) mmol/L Carbon Dioxide (22-30) mmol/L Anion Gap (5-15) MEQ/L BUN (7-17) mg/dL Creatinine (0.52-1.04) mg/dL Estimated GFR ML/MIN Glucose (74-106) mg/dL Lactic Acid 0.9 (0.4-2.0) Calcium (8.4-10.2) mg/dL Magnesium (1.6-2.3) mg/dL Total Bilirubin (0.2-1.3) mg/dL AST (14-36) U/L ALT (0-35) U/L Alkaline Phosphatase (38-126) U/L Troponin I (0.000-0.033) ng/mL NT-Pro-B Natriuret Pep (<300) pg/mL Serum Total Protein (6.3-8.2) g/dL Albumin (3.5-5.0) g/dL Influenza Type A Ag NEGATIVE (NEGATIVE) Influenza Type B Ag NEGATIVE (NEGATIVE) RSV (PCR) NEGATIVE (NEGATIVE) SARS-CoV-2 (PCR) NEGATIVE (NEGATIVE) 09/16/24 Range/Units 04:33 WBC (3.98-10.04) x10^3/uL RBC (3.93-5.22) x10^6/uL Hgb (11.2-15.7) g/dL Hct (34.1-44.9) % MCV (79.4-94.8) fL MCH (25.6-32.2) pg MCHC (32.2-35.5) g/dL RDW (11.7-14.4) % Plt Count (182-369) x10^3/uL MPV (9.4-12.3) fL Gran % (34.0-71.1) % Immature Gran % (Auto) (0.001-0.429) % Nucleat RBC Rel Count (0.00-0.2) % Eos # (Auto) (0.04-0.36) x10^3/uL Immature Gran # (Auto) (0.001-0.031) x10^3u/L Absolute Lymphs (auto) (1.18-3.74) x10^3/uL Absolute Monos (auto) (0.24-0.86) x10^3/uL Absolute Nucleated RBC (0.00-0.012) x10^3u/L Lymphocytes % (19.3-51.7) % Monocytes % (4.7-12.5) % Eosinophils % (0.7-5.8) % Basophils % (0.1-1.2) % Absolute Granulocytes (1.56-6.13) x10^3/uL Basophils # (0.01-0.08) x10^3/uL Sodium 140 (135-145) mmol/L Potassium 4.1 (3.5-5.1) mmol/L Chloride 102 (98-107) mmol/L Carbon Dioxide 30 (22-30) mmol/L Anion Gap 11.4 (5-15) MEQ/L BUN 12 (7-17) mg/dL Creatinine 0.87 (0.52-1.04) mg/dL Estimated GFR 70.3 ML/MIN Glucose 163 H (74-106) mg/dL Lactic Acid (0.4-2.0) Calcium 8.8 (8.4-10.2) mg/dL Magnesium (1.6-2.3) mg/dL Total Bilirubin (0.2-1.3) mg/dL AST (14-36) U/L ALT (0-35) U/L Alkaline Phosphatase (38-126) U/L Troponin I (0.000-0.033) ng/mL NT-Pro-B Natriuret Pep (<300) pg/mL Serum Total Protein (6.3-8.2) g/dL Albumin (3.5-5.0) g/dL Influenza Type A Ag (NEGATIVE) Influenza Type B Ag (NEGATIVE) RSV (PCR) (NEGATIVE) SARS-CoV-2 (PCR) (NEGATIVE) - Radiology Exams Ordered Rad Exams-Entire Visit: Radiology Procedures Category Date Time Status CHEST 1 VIEW (PORTABLE) Stat Exams 09/15/24 19:18 Completed - Procedures and Test Procedures and Tests throughout Hospitalization: Therapy Orders & Screens 09/15/24 19:50 Respiratory Therapy Assessment DAILY Comment: 09/15/24 22:59 Respiratory Therapy Consult ONCE Comment: Reason For Exam: 09/16/24 01:27 Oxygen Nasal Cannula 4 lpm Comment: Diagnosis: COPD Exacerbation; PNE; Resp. Failure Discharge Exam General Appearance: no apparent distress, alert Neurologic Exam: alert, oriented x 3, cooperative, normal mood/affect, nml c erebellar function, sensation nml, No motor deficits Eye Exam: PERRL, EOMI, eyes nml inspection Ears, Nose, Throat Exam: normal ENT inspection, pharynx normal, moist mucous membranes Neck Exam: normal inspection, non-tender, supple, full range of motion Respiratory Exam: normal breath sounds, crackles/rales, No respiratory distress Cardiovascular Exam: regular rate/rhythm, normal heart sounds Gastrointestinal/Abdomen Exam: soft, No tenderness, No mass Pelvic Exam: deferred Rectal Exam: deferred Back Exam: normal inspection, normal range of motion, No CVA tenderness, No vertebral tenderness Extremity Exam: normal inspection, normal range of motion Skin Exam: normal color, warm, dry Final Diagnosis/Problem List - Final Discharge Diagnosis/Problem (1) Pneumonia Current Visit: Yes Status: Acute Assessment & Plan: - Levaquin - Nebs, prednisione, Breztri - CBC, CMP reviewed - 3lNC 96%- BL 2-3 L per pt - CXR: Portable chest demonstrates near complete clearing left base infiltrate/atelectasis/effusion with minimal residual. Stable mild right base infiltrate/atelectasis/effusion. Heart not enlarged again with stent emanating from aortic arch. No new cardiopulmonary abnormalities. Code(s): J18.9 - PNEUMONIA, UNSPECIFIED ORGANISM (2) COPD exacerbation Current Visit: Yes Status: Acute Assessment & Plan: Given Solu-Medrol 125 mg in the ED Continue prednisone 40 mg daily DuoNeb q.4 hours PRN Resume home Breztri - Levaquin - 3lnc 96% - Pt would benefit from Pulm rehab for repeat admission related to COPD. - Case management to make referral. Code(s): J44.1 - CHRONIC OBSTRUCTIVE PULMONARY DISEASE W (ACUTE) EXACERBATION (3) Chronic diastolic (congestive) heart failure Current Visit: No Status: Chronic Assessment & Plan: - Tele appears to be currently euvolemic. Continue Lasix 20 mg daily, spironolactone 25 mg daily Code(s): I50.32 - CHRONIC DIASTOLIC (CONGESTIVE) HEART FAILURE (4) Current smoker Current Visit: No Status: Chronic Assessment & Plan: - advised cessation - nicotine patch - 1800quit now information provided Code(s): F17.200 - NICOTINE DEPENDENCE, UNSPECIFIED, UNCOMPLICATED (5) Hypertension Current Visit: No Status: Chronic Assessment & Plan: - BP stable- trend - COntinue home meds Code(s): I10 - ESSENTIAL (PRIMARY) HYPERTENSION (6) Hyperlipidemia Current Visit: Yes Status: Chronic Assessment & Plan: - Continue statin Code(s): E78.5 - HYPERLIPIDEMIA, UNSPECIFIED (7) Hypothyroidism Current Visit: Yes Status: Chronic Assessment & Plan: - Continue synthroid Code(s): E03.9 - HYPOTHYROIDISM, UNSPECIFIED (8) GERD (gastroesophageal reflux disease) Current Visit: No Status: Chronic Assessment & Plan: - Continue protonix Code(s): K21.9 - GASTRO-ESOPHAGEAL REFLUX DISEASE WITHOUT ESOPHAGITIS - Discharge Discharge Date: 09/16/24 Disposition: Home, Self-Care Condition: Stable Prescriptions: New Prednisone 20 mg [Deltasone 20 mg] 20 mg PO BID 5 Days #10 tablet Levofloxacin [Levofloxacin 500 MG Tablet] 500 mg PO QAM 5 Days #5 tablet Continue Metoprolol Tartrate 25 mg PO BID lisinopriL [Lisinopril] 20 mg PO DAILY Alendronate Sodium 70 mg [Fosamax 70 MG] 70 mg PO WEEKLY Furosemide 20 mg [Lasix 20 mg] 20 mg PO DAILY PRN PRN Reason: fluid overload Atorvastatin Calcium [Lipitor 20MG Tablet] 40 mg PO HS Docusate Sodium [Colace] 100 mg PO BID PRN PRN PRN Reason: Constipation Nitroglycerin 0.4 mg (Ed) [Nitrostat 0.4 MG (ED)] 0.4 mg SL DIRECTIONS UNKNOWN Spironolactone 25 mg PO DAILY Albuterol 8 gm Mdi Hfa [Ventolin Hfa MDI] 2 puff IH Q4-6HPRN PRN PRN Reason: Shortness Of Breath/Wheezing PANTOPRAZOLE 40 mg Tablet [Protonix 40MG Tablet] 40 mg PO HS Clopidogrel Bisulfate [Plavix] 75 mg PO DAILY #0 Gabapentin [Neurontin ] 300 mg PO TID Budesonide/Glycopyr/Formoterol [Breztri Aerosphere Inhaler] 2 puff IH BID Simethicone 80 mg [Mylicon 80MG] 80 mg PO BID Tramadol HCl 50 mg [Ultram 50 mg] 50 mg PO Q8H PRN PRN PRN Reason: Pain Levothyroxine Sodium 200 mcg PO DAILY 30 Days #30 tablet Levothyroxine Sodium 50 mcg PO DAILY 30 Days #30 cap Promethazine HCl 25 mg [Phenergan 25 mg] 1 tab PO Q6HPRN PRN PRN Reason: Nausea Albuterol 2.5 mg/3 ml Neb [Proventil 2.5 mg/3 ml Neb] 1 neb NEB Q6H PRN PRN PRN Reason: Shortness Of Breath Discontinued Prednisone 20 mg [Deltasone 20 mg] 20 mg PO BID 5 Days #10 tablet Levofloxacin [Levofloxacin 500 MG Tablet] 500 mg PO Q24H22 5 Days #5 tablet Follow up with: LAURA SHELTON, [Primary Care Provider] -
[2024-09-16] MEDS ORDERED: NON-FORMULARY ITEM (Budesonide/Glycopyr/Formoterol [Breztri Aerosphere Inhaler] 10.7 GM Hf IH SCH (10:00)
[2024-09-16] MEDS ORDERED: NON-FORMULARY ITEM (Levothyroxine Sodium [Levothyroxine Sodium] 50 MCG Capsule) PO SCH (10:00)
[2024-09-16] MEDS: ENOXAPARIN SODIUM SQ SCH (10:33)
[2024-09-16] MEDS: Zestril 20 MG PO SCH (10:34)
[2024-09-16] MEDS: Aldactone 25 MG PO SCH (10:34)
[2024-09-16] MEDS: DELTASONE 20 MG PO SCH (10:34)
[2024-09-16] MEDS: PLAVIX Tablet PO SCH (10:34)
[2024-09-16] MEDS: Lopressor 25MG Tab PO SCH (10:34)
[2024-09-16] MEDS: SYNTHROID 125 MCG PO SCH (10:34)
[2024-09-16] MEDS: NEURONTIN PO SCH (10:34)
[2024-09-16] MEDS ORDERED: ZOCOR 20MG PO SCH (22:00)
[2024-09-16] MEDS ORDERED: Levofloxacin 500MG/100ML D5W 500 MG/100 ML BAG IV SCH (22:00)
[2024-09-16] MEDS ORDERED: Nicoderm CQ 21 MG TOP SCH (22:00)
[2024-09-16] MEDS ORDERED: Protonix 40MG Tablet PO SCH (22:00)
== END 2024-09-16 11:40 | disposition home or self-care (01) ==
LOC: ED 18:48 → MED SURG 22:55
PROVIDERS: ADMIT Internal Medicine; ATTEND Internal Medicine
DX: J18.9 Pneumonia, unspecified organism (principal); J44.1 Chronic obstructive pulmonary disease with (acute) exacerbation; I11.0 Hypertensive heart disease with heart failure; I50.32 Chronic diastolic (congestive) heart failure; F17.200 Nicotine dependence, unspecified, uncomplicated; E78.5 Hyperlipidemia, unspecified; E03.9 Hypothyroidism, unspecified; K21.9 Gastro-esophageal reflux disease without esophagitis; Z79.01 Long term (current) use of anticoagulants; Z79.899 Other long term (current) drug therapy; Z99.81 Dependence on supplemental oxygen
CPT/HCPCS: 0241U; 36415; 71045; 80048; 80053; 83605; 83735; 83880; 84484; 85025; 85027; 87040; 93005; 93041; 93268; 94640; 94760; 96374; 99285; G0378; Q3014; 99284; J1650; J1956; J2919; A9270-GY

== ENCOUNTER 2024-11-05 20:51 | Emergency (ER) | payer MEDICARE ==
[2024-11-05 21:29] VITALS: TEMP 96.4
--- NOTE | 2024-11-05 21:31 | ERPHSYRPT ---
- History of Present Illness Time Seen by Provider: 11/05/24 21:29 Historian: patient, family Exam Limitations: no limitations Physician History: This is a 74-year-old white female patient arrives by private vehicle accompanied by her daughter with an initial complaint of abdominal pain which is why she brought the patient in. However, as I spoke with the daughter and the patient, there were multiple other complaints that have been chronic within the last month or so. Patient complains of shortness of breath. She has no chest pain per se. She did have diarrhea yesterday but none today. She has not had a fever. She has not had a cough. The daughter noticed, 1 month ago, that the patient's right pupil was larger than the left. Patient has multiple medical issues including hypertension, hyperlipidemia, osteoporosis, restless leg syndrome on gabapentin, coronary artery disease with cardiac stents x 3. Her abdominal pain is primarily on the right side and described as a pressure and bloating sensation. Timing/Duration: day(s) (2) Quality: aching, fullness, pressure (Bloating), other (Symptoms are primarily right side upper and lower abdomen) Abdominal Pain Onset Location: RUQ, RLQ Pain Radiation: no radiation Severity of Pain-Max: moderate Severity of Pain-Current: moderate Modifying Factors: Improves With: nothing Associated Symptoms: diarrhea (Yesterday but none today), loss of appetite, nausea, No chest pain, No weakness Previous symptoms: same symptoms as today, no recent treatment Allergies/Adverse Reactions: cephalexin [From Keflex] Allergy (Verified 11/05/24 21:13) Home Medications: Metoprolol Tartrate 25 mg PO BID 08/11/18 [History] lisinopriL [Lisinopril] 20 mg PO DAILY 08/11/18 [History] Alendronate Sodium 70 mg [Fosamax 70 MG] 70 mg PO WEEKLY 09/18/20 [History] Furosemide 20 mg [Lasix 20 mg] 20 mg PO DAILY PRN 09/18/20 [History] Atorvastatin Calcium [Lipitor 20MG Tablet] 40 mg PO HS 08/28/21 [History] Docusate Sodium [Colace] 100 mg PO BID PRN PRN 08/28/21 [History] Nitroglycerin 0.4 mg (Ed) [Nitrostat 0.4 MG (ED)] 0.4 mg SL DIRECTIONS UNKNOWN 08/28/21 [History] Spironolactone 25 mg PO DAILY 08/28/21 [History] Albuterol 8 gm Mdi Hfa [Ventolin Hfa MDI] 2 puff IH Q4-6HPRN PRN 09/02/21 [History] PANTOPRAZOLE 40 mg Tablet [Protonix 40MG Tablet] 40 mg PO HS 09/02/21 [History] Budesonide/Glycopyr/Formoterol [Breztri Aerosphere Inhaler] 2 puff IH BID 07/04/22 [History] Gabapentin [Neurontin ] 300 mg PO TID 07/04/22 [History] Simethicone 80 mg [Mylicon 80MG] 80 mg PO BID 07/04/22 [History] Tramadol HCl 50 mg [Ultram 50 mg] 50 mg PO Q8H PRN PRN 06/29/24 [History] Promethazine HCl 25 mg [Phenergan 25 mg] 1 tab PO Q6HPRN PRN 08/06/24 [History] Albuterol 2.5 mg/3 ml Neb [Proventil 2.5 mg/3 ml Neb] 1 neb NEB Q6H PRN PRN 08/11/24 [History] Hx Tetanus, Diphtheria Vaccination/Date Given: Yes Hx Influenza Vaccination/Date Given: No Hx Pneumococcal Vaccination/Date Given: No Travel Risk - International Travel Have you traveled outside of the country in past 3 weeks: No - Emerging Infectious Disease Are you exhibiting symptoms associated with any current EIDs: No Symptoms: Cough: New Onset, Fever, Shortness of Breath - Review of Systems Constitutional: No Symptoms Eyes: No Symptoms Ears, Nose, & Throat: No Symptoms Respiratory: Dyspnea (Chronic) Cardiac: No Symptoms Abdominal/Gastrointestinal: Abdominal Pain (Primarily right side of her abdomen), Nausea, Diarrhea (Yesterday but none today) Genitourinary Symptoms: No Symptoms Musculoskeletal: No Symptoms Skin: No Symptoms Neurological: No Symptoms Psychological: No Symptoms Endocrine: No Symptoms Hematologic/Lymphatic: No Symptoms Immunological/Allergic: No Symptoms All Other Systems: Reviewed and Negative - Past Medical History Pertinent Past Medical History: Yes Cardiac History: Coronary Artery Disease, High Cholesterol, Hypertension, Other Respiratory History: COPD - Past Surgical History Past Surgical History: Yes Neuro Surgical History: No Pertinent History Cardiac: Cardiac Catheterization, Cardiac Stent, Other Respiratory: No Pertinent History Gastrointestinal: No Pertinent History Genitourinary: No Pertinent History Musculoskeletal: Orthopedic Surgery Female Surgical History: Hysterectomy, Tubal Ligation Other Surgical History: Left knee replacement, 3 back surgeries, Right elbow surgeries, 3 carpal tunnel surgeries on right and left hand. 3 cardiac stents in 2019 Significant Family History: no pertinent family hx - Social History Smoking Status: Current every day smoker (1 pack per day) How long have you smoked: 14 y.o. Exposure to second hand smoke: Yes Drug Use: none - Social Determinants of Health Will the patient participate in the screening: Yes Do you worry about a steady place to live?: No In the past 12 months,have you had to go without utilities?: No Transportation Issues: No Has anyone in your support network made you feel unsafe?: No Have you or anyone in your house had to go w/o enough food: No Comment: Pt and daughter want help getting on [employer]. - Nursing Vital Signs Nursing Vital Signs: Initial Vital Signs Pulse Rate 62 11/05/24 21:17 Blood Pressure 127/72 11/05/24 21:17 O2 Sat by Pulse Oximetry 96 11/05/24 21:17 Pain Scale Pain Intensity 10 - Physical Exam General Appearance: no apparent distress, alert Eye Exam: PERRL/EOMI, eyes nml inspection Ears, Nose, Throat Exam: normal ENT inspection, moist mucous membranes Neck Exam: normal inspection, non-tender, supple, full range of motion Respiratory Exam: airway intact, rhonchi (Right side expiratory), No chest tenderness, No respiratory distress Cardiovascular Exam: regular rate/rhythm, normal heart sounds, normal peripheral pulses Gastrointestinal/Abdomen Exam: soft, normal bowel sounds, tenderness (Mild tenderness to palpation right upper and lower quadrants) Pelvic Exam: not done Rectal Exam: not done Back Exam: normal inspection, normal range of motion, No CVA tenderness, No vertebral tenderness Extremity Exam: normal inspection, normal range of motion, pelvis stable Neurologic Exam: alert, oriented x 3, cooperative, rat breeder II-XII nml as tested Skin Exam: normal color, warm, dry Lymphatic Exam: No adenopathy SpO2 Interpretation: normal O2 Delivery: Room Air - Course Nursing assessment & vital signs reviewed: Yes Ordered Tests: Active Orders 24 hr Category Date Time Status IV Insertion STAT Care 11/05/24 22:26 Active ABDOMEN AND PELVIS W/0 CONTRAS [CT] Stat Exams 11/05/24 22:26 Completed CHEST 1 VIEW (PORTABLE) Stat Exams 11/05/24 22:26 Taken HEAD WITHOUT CONTRAST [CT] Stat Exams 11/05/24 22:27 Completed AMYLASE Stat Lab 11/05/24 21:30 Completed BLOOD CULTURE Stat Lab 11/05/24 22:45 Received CBC W DIFF Stat Lab 11/05/24 21:30 Completed CMP Stat Lab 11/05/24 21:30 Completed LIPASE Stat Lab 11/05/24 21:30 Completed Lactic Acid Stat Lab 11/05/24 22:46 Completed NT PRO BNPII Stat Lab 11/05/24 21:30 Completed TROPONIN Q4H Lab 11/05/24 21:30 Completed TROPONIN Q4H Lab 11/06/24 02:30 Ordered TROPONIN Q4H Lab 11/06/24 06:30 Ordered UA W/RFX UR CULTURE Stat Lab 11/05/24 21:30 Completed Lab/Rad Data: Laboratory Result Diagrams 11/05/24 21:30 11/05/24 21:30 Laboratory Results 11/05/24 11/05/24 11/05/24 Range/Units 22:46 21:30 21:30 WBC (3.98-10.04) x10^3/uL RBC (3.93-5.22) x10^6/uL Hgb (11.2-15.7) g/dL Hct (34.1-44.9) % MCV (79.4-94.8) fL MCH (25.6-32.2) pg MCHC (32.2-35.5) g/dL RDW (11.7-14.4) % Plt Count (182-369) x10^3/uL MPV (9.4-12.3) fL Gran % (34.0-71.1) % Immature Gran % (Auto) (0.001-0.429) % Nucleat RBC Rel Count (0.00-0.2) % Eos # (Auto) (0.04-0.36) x10^3/uL Immature Gran # (Auto) (0.001-0.031) x10^3u/L Absolute Lymphs (auto) (1.18-3.74) x10^3/uL Absolute Monos (auto) (0.24-0.86) x10^3/uL Absolute Nucleated RBC (0.00-0.012) x10^3u/L Lymphocytes % (19.3-51.7) % Monocytes % (4.7-12.5) % Eosinophils % (0.7-5.8) % Basophils % (0.1-1.2) % Absolute Granulocytes (1.56-6.13) x10^3/uL Basophils # (0.01-0.08) x10^3/uL Sodium 137 (135-145) mmol/L Potassium 4.3 (3.5-5.1) mmol/L Chloride 105 (98-107) mmol/L Carbon Dioxide 28 (22-30) mmol/L Anion Gap 7.1 (5-15) MEQ/L BUN 9 (7-17) mg/dL Creatinine 0.96 (0.52-1.04) mg/dL Estimated GFR 62.5 ML/MIN Glucose 92 (74-106) mg/dL Lactic Acid 0.7 (0.4-2.0) Calcium 8.7 (8.4-10.2) mg/dL Total Bilirubin 0.60 (0.2-1.3) mg/dL AST 23 (14-36) U/L ALT 10 (0-35) U/L Alkaline Phosphatase 99 (38-126) U/L Troponin I < 0.012 (0.000-0.033) ng/mL NT-Pro-B Natriuret Pep 558 (<300) pg/mL Serum Total Protein 5.8 L (6.3-8.2) g/dL Albumin 3.5 (3.5-5.0) g/dL Amylase 53 (30-110) U/L Lipase 69 (23-300) U/L Urine Color (Yellow) Urine Appearance (Clear) Urine pH (4.6-8.0) Ur Specific [place] (1.005-1.030) Urine Protein (Negative) Urine Glucose (UA) (Negative) mg/dL Urine Ketones (Negative) Urine Blood (Negative) Urine Nitrite (Negative) Urine Bilirubin (Negative) Urine Urobilinogen (0.2) mg/dL Ur Leukocyte Esterase (Negative) U Hyaline Cast (Auto) (0-2) /LPF Urine Microscopic RBC (0-5) /HPF Urine Microscopic WBC (0-5) /HPF Ur Epithelial Cells (None Seen) /HPF Urine Bacteria (None Seen) /HPF Urine Culture Reflexed (NO) 11/05/24 11/05/24 Range/Units 21:30 21:30 WBC 7.3 (3.98-10.04) x10^3/uL RBC 4.48 (3.93-5.22) x10^6/uL Hgb 13.8 (11.2-15.7) g/dL Hct 42.5 (34.1-44.9) % MCV 94.9 H (79.4-94.8) fL MCH 30.8 (25.6-32.2) pg MCHC 32.5 (32.2-35.5) g/dL RDW 13.1 (11.7-14.4) % Plt Count 176 L (182-369) x10^3/uL MPV 11.0 (9.4-12.3) fL Gran % 68.3 (34.0-71.1) % Immature Gran % (Auto) 0.1 (0.001-0.429) % Nucleat RBC Rel Count 0.0 (0.00-0.2) % Eos # (Auto) 0.53 H (0.04-0.36) x10^3/uL Immature Gran # (Auto) 0.01 (0.001-0.031) x10^3u/L Absolute Lymphs (auto) 1.14 L (1.18-3.74) x10^3/uL Absolute Monos (auto) 0.56 (0.24-0.86) x10^3/uL Absolute Nucleated RBC 0.00 (0.00-0.012) x10^3u/L Lymphocytes % 15.6 L (19.3-51.7) % Monocytes % 7.7 (4.7-12.5) % Eosinophils % 7.3 H (0.7-5.8) % Basophils % 1.0 (0.1-1.2) % Absolute Granulocytes 5.00 (1.56-6.13) x10^3/uL Basophils # 0.07 (0.01-0.08) x10^3/uL Sodium (135-145) mmol/L Potassium (3.5-5.1) mmol/L Chloride (98-107) mmol/L Carbon Dioxide (22-30) mmol/L Anion Gap (5-15) MEQ/L BUN (7-17) mg/dL Creatinine (0.52-1.04) mg/dL Estimated GFR ML/MIN Glucose (74-106) mg/dL Lactic Acid (0.4-2.0) Calcium (8.4-10.2) mg/dL Total Bilirubin (0.2-1.3) mg/dL AST (14-36) U/L ALT (0-35) U/L Alkaline Phosphatase (38-126) U/L Troponin I (0.000-0.033) ng/mL NT-Pro-B Natriuret Pep (<300) pg/mL Serum Total Protein (6.3-8.2) g/dL Albumin (3.5-5.0) g/dL Amylase (30-110) U/L Lipase (23-300) U/L Urine Color Yellow (Yellow) Urine Appearance Clear (Clear) Urine pH 7.5 (4.6-8.0) Ur Specific [place] 1.015 (1.005-1.030) Urine Protein Negative (Negative) Urine Glucose (UA) Negative (Negative) mg/dL Urine Ketones Negative (Negative) Urine Blood Negative (Negative) Urine Nitrite Negative (Negative) Urine Bilirubin Negative (Negative) Urine Urobilinogen 1.0 A (0.2) mg/dL Ur Leukocyte Esterase Negative (Negative) U Hyaline Cast (Auto) NONE SEEN (0-2) /LPF Urine Microscopic RBC 3-5 (0-5) /HPF Urine Microscopic WBC 3-5 (0-5) /HPF Ur Epithelial Cells Few (None Seen) /HPF Urine Bacteria None Seen (None Seen) /HPF Urine Culture Reflexed NO (NO) - Progress Progress: improved, pain not gone completely Progress Note: 11/05/24 22:43 My medical decision making and the assignment of moderate complexity to this patient's medical issue today is based on review of the patient's past medical history, review the patient's medication list, review the patient drug allergy list, history present illness and physical findings on examination. The workup in this patient includes placement of intravenous line, CBC, CMP, amylase, lipase, urinalysis, chest x-ray, twelve-lead EKG, troponin level, CT scan of the head, CT scan of the abdomen pelvis. Differential diagnosis includes but is not limited to TIA, CVA, pneumonia, upper respiratory infection, acute intra-abdominal/pelvic abnormality 11/06/24 00:18 I interpreted the patient's laboratory data results. Based on the laboratory data results, there are no acute, emergent medical issues. The CT scan of the head without contrast was interpreted by the radiologist and I reviewed the impression. The impression states when compared to CT scan of the head dated 08/06/2024, there is no evidence of acute infarction, hemorrhage or mass effect. There is unchanged brain involutional changes that is age- related. 11/06/24 00:[address] scan of the abdomen pelvis without contrast was interpreted by the radiologist and I reviewed the impression. The impression states compared to similar study dated 10/11/2023, overall, noncontrast CT scan of the abdomen pelvis today shows no acute intra-abdominalpelvic pathology or process. There is complete resolution of minimal pericardial effusion and bilateral lower thick atelectatic bands Counseled pt/family regarding: lab results, diagnosis, need for follow-up, rad results Medical Desision Making - Independent Historian Additional History obtained from: Family - Diagnostic Testing Diagnostic test were ordered, analyzed, and reviewed by me: Yes Radiological Interpretation: Interpreted by me, Reviewed by me, Teleradiologist Report - Risk of complications Low Risk: Low risk of morbidity from additional dx testing or treatment - Departure Departure Disposition: Home Clinical Impression: Shortness of breath, Abdominal pain Condition: Stable Critical Care Time: No Referrals: LAURA SHELTON, DO [Primary Care Provider, [facility]] - Follow up/PCP as directed Additional Instructions: Take your medications as prescribed. Call your prescribing provider on 11/07/2024, to make arrangements for follow-up appointment for further evaluation management.
[2024-11-05 22:35] LABS: Basophil (Absolute #) 0.07 x10^3/uL (0.01-0.08); Eosinophil % 7.3 % (0.7-5.8); Eosinophil (Absolute #) 0.53 x10^3/uL (0.04-0.36); Hematocrit 42.5 % (34.1-44.9); Hemoglobin 13.8 g/dL (11.2-15.7); IMMATURE GRAN # 0.01 x10^3u/L (0.001-0.031); IMMATURE GRAN % 0.1 % (0.001-0.429); Lymphocyte (Absolute #) 1.14 x10^3/uL (1.18-3.74); Lymphocytes % 15.6 % (19.3-51.7); Mean Cell Volume 94.9 fL (79.4-94.8); Mean Corpuscular Hemoglobin 30.8 pg (25.6-32.2); Mean Corpuscular Hgb Concent. 32.5 g/dL (32.2-35.5); Monocyte (Absolute #) 0.56 x10^3/uL (0.24-0.86); Monocytes % 7.7 % (4.7-12.5); Neutrophil % 68.3 % (34.0-71.1); Platelet Count 176 x10^3/uL (182-369); Red Blood Count 4.48 x10^6/uL (3.93-5.22); Red Cell Distribution Width 13.1 % (11.7-14.4); White Blood Count 7.3 x10^3/uL (3.98-10.04)
[2024-11-05 22:41] LABS: ALBUMIN 3.5 g/dL (3.5-5.0); ANION GAP 7.1 MEQ/L (5-15); Appearance Clear (Clear); BILIRUBIN,TOTAL 0.6 mg/dL (0.2-1.3); Bacteria None Seen /HPF (None Seen); Bilirubin Negative (Negative); Blood Negative (Negative); Calcium 8.7 mg/dL (8.4-10.2); Creatinine 1 0.96 mg/dL (0.52-1.04); EST GLOMERULAR FILTRATION RATE 62.5 ML/MIN; Epithelial Cells Few /HPF (None Seen); Glucose, Urine Negative (Negative); Hyaline Casts NONE SEEN /LPF (0-2); Ketones Negative (Negative); Leukocyte Esterase Negative (Negative); Nitrite Negative (Negative); Ph 7.5 (4.6-8.0); Potassium 4.3 mmol/L (3.5-5.1); Protein,Urine Dip Negative (Negative); Specific Gravity 1.015 (1.005-1.030); Total Protein 5.8 g/dL (6.3-8.2)
[2024-11-05 22:53] LABS: NT PRO BNPII 558 pg/mL (<300); TROPONIN < 0.012 ng/mL (0.000-0.033)
--- NOTE | 2024-11-06 00:04 | XRAY ---
CLINICAL HISTORY: MORALEZ; right pupil larger than left COMPARISON: 08/06/2024. TECHNIQUE: Axial non-contrast CT scan of the brain was performed from the skull base to the high parietal region. One of the following dose reduction techniques was utilized for this exam: Automated exposure control, adjustment of the mA and/or kV according to patient size, use of iterative reconstruction. FINDINGS: Brain Parenchyma: Stationary course of exaggerated periventricular white matter hypodensity, otherwise normal attenuation of the cerebral hemispheres, cerebellum, and brainstem. No evidence of acute infarct, hemorrhage, or mass effect. Still noted right parietal centrum semiovale rounded hypodense area of CSF attenuation No abnormal areas of hyperattenuation. Ventricular System: Ventricles are prominent. Subarachnoid Spaces: Widened cortical sulci and basal cisterns. No evidence of subarachnoid hemorrhage or extra-axial fluid collections. Cerebellum and Brainstem: No masses, lesions, or areas of abnormal density. Orbits: Normal appearance of the globes, optic nerves, and extraocular muscles. No evidence of orbital masses or abnormal density. Sinuses: Clear paranasal sinuses. No evidence of sinusitis or mucosal thickening. Mastoid Air Cells: Clear mastoid air cells. No evidence of mastoiditis. Skull: Normal skull morphology. IMPRESSION: 1. No acute brain insult 2. Stationary course of small artery disease. 3. 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 4. Brain involutional changes related to patient age are still unchanged. Electronically Signed by: Gregorio Krause MD. (11/06/2024 00:00:35 EDT)
--- NOTE | 2024-11-06 00:18 | XRAY ---
CLINICAL HISTORY: Abdominal pain COMPARISON: CT 10/11/2023. TECHNIQUE: CT of the abdomen and pelvis was performed, with the following protocol: axial images, and reconstructed coronal and sagittal images. No intravenous contrast was administered. One of the following dose reduction techniques was utilized for this exam: Automated exposure control, adjustment of the mA and/or kV according to patient size, and use of iterative reconstruction. FINDINGS: Marked aortoiliac intimal atherosclerotic calcifications. Complete resolution of minimal pericardial effusion and bilateral lower thick atelectatic bands. Surgically removed gall bladder, with a clear operative bed. The liver is still enlarged, right lobe span is 18.6 cm with regular margins. No focal or diffuse parenchymal abnormality. No hepatic mass is identified. Unchanged dilated subhepatic IVC and hepatic veins could be secondary to right heart strain for further assessment. 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 Still noted small-sized right kidney, with no dense stones, cysts, or back pressure. Normal CT appearance of the uterus and both adenxial regions. Stationary course of splenic calcifications could be granulomas. The intrahepatic biliary radicals and the bile ducts are normal. The pancreas appears normal. No peripancreatic fat stranding, pancreatic pseudocyst, or peripancreatic fluid collection. The left kidney is normal in size, shape and orientation. No calculi, cyst mass, or hydronephrosis. No evidence of acute appendicitis. Both the ureters and urinary bladder appear normal. Stomach and small bowel loops are unremarkable. The caecum and the ileocecal junction appear normal. Large bowel loops appear normal without evidence of bowel obstruction. The sigmoid and rectum appear normal. Normal appearance of the urinary bladder with no stones or masses inside. No evidence of significant enlargement of the mesenteric or retroperitoneal lymph nodes. Bones and Soft Tissues: Pelvic bones and soft tissues are unremarkable. No fractures or abnormal masses were identified. Thoracolumbar spine spondylodegenerative changes are still present. IMPRESSION: 1. Overall, non-contrast CT abdomen and pelvis demonstrates no evidence of acute intra-abdominal pathology. 2. Complete resolution of minimal pericardial effusion and bilateral lower thick atelectatic bands. 3. Stationary course regarding the followin. Multiple splenic calcific foci could be granulomas. 5. Hepatomegaly. 6. Dilated subhepatic IVC and hepatic veins could be secondary to right heart strain, for further assessment. 7. 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 8. Small-sized right kidney. Electronically Signed by: Gregorio Krause MD. (11/06/2024 00:15:24 EDT)
[2024-11-06 00:27] VITALS: RESP 18
[2024-11-06 00:52] VITALS: BP 129/80; PULSE 67; O2SAT 96
--- NOTE | 2024-11-06 08:08 | XRAY ---
Indication: Short of breath. Comparison: September 15, 2024 Portable chest improved with near complete clearing previous right base infiltrate/atelectasis/effusion. Stable minimal left base infiltrate/atelectasis. Remaining heart and upper lungs unremarkable. Bony thorax intact again with osteopenia. No new cardiopulmonary abnormalities.
== END 2024-11-06 00:51 | disposition home or self-care (01) ==
LOC: ED 20:51
DX: R06.02 Shortness of breath (principal); R10.9 Unspecified abdominal pain; I10 Essential (primary) hypertension; E78.5 Hyperlipidemia, unspecified; Z79.899 Other long term (current) drug therapy; Z72.0 Tobacco use
CPT/HCPCS: 36415; 70450; 71045; 74176; 80053; 81001; 82150; 83605; 83690; 83880; 84484; 85025; 87040; 99284; 99285

== ENCOUNTER 2025-03-25 19:58 | Observation (INO) | payer MEDICARE ==
--- NOTE | 2025-03-25 20:08 | ERPHSYRPT ---
- History of Present Illness Time Seen by Provider: 03/25/25 20:08 Source: patient, family Exam Limitations: no limitations Physician History: This is a 75-year-old white female patient brought to the emergency department by the patient's daughter by private vehicle and is a patient of Dr. Shelton with concerns about low oxygen levels. Patient is on 4 L of oxygen via nasal cannula. The last few days she has noticed that the patient's oxygen saturation level was 68%. She has been more sleepy than usual as well. Although, she is not in any distress at this time, the patient has had a productive cough without chest pain. She denies abdominal pain. She denies fever. We placed this patient on 4 L of oxygen via nasal cannula and the oxygen saturation level is 91%. This patient has multiple medical problems including hypertension, gastroesophageal reflux disease, hypothyroid, hyperlipidemia, COPD, restless leg syndrome, osteoporosis, coronary disease (cardiac stents x 3). Patient is on Plavix. Timing/Duration: day(s) (Last few days), worse Possible Cause: occasional episodes Modifying Factors: Improves With: coughing, oxygen Associated Symptoms: cough, productive cough, No chest pain/discomfort Allergies/Adverse Reactions: cephalexin [From Keflex] Allergy (Verified 03/25/25 20:14) Home Medications: Metoprolol Tartrate 25 mg PO DAILY 08/11/18 [History] lisinopriL [Lisinopril] 20 mg PO DAILY 08/11/18 [History] Furosemide 20 mg [Lasix 20 mg] 20 mg PO DAILY PRN 09/18/20 [History] Atorvastatin Calcium [Lipitor 20MG Tablet] 40 mg PO HS 08/28/21 [History] Docusate Sodium [Colace] 100 mg PO BID PRN PRN 08/28/21 [History] Nitroglycerin 0.4 mg (Ed) [Nitrostat 0.4 MG (ED)] 0.4 mg SL DIRECTIONS UNKNOWN 08/28/21 [History] Spironolactone 25 mg PO DAILY 08/28/21 [History] Albuterol 8 gm Mdi Hfa [Ventolin Hfa MDI] 2 puff IH Q4-6HPRN PRN 09/02/21 [History] PANTOPRAZOLE 40 mg Tablet [Protonix 40MG Tablet] 40 mg PO HS 09/02/21 [History] Budesonide/Glycopyr/Formoterol [Breztri Aerosphere Inhaler] 2 puff IH BID 07/04/22 [History] Gabapentin [Neurontin ] 300 mg PO TID 07/04/22 [History] Simethicone 80 mg [Mylicon 80MG] 80 mg PO BID 07/04/22 [History] Tramadol HCl 50 mg [Ultram 50 mg] 50 mg PO Q8H PRN PRN 06/29/24 [History] Promethazine HCl 25 mg [Phenergan 25 mg] 1 tab PO Q6HPRN PRN 08/06/24 [History] Albuterol 2.5 mg/3 ml Neb [Proventil 2.5 mg/3 ml Neb] 1 neb NEB Q6H PRN PRN 08/11/24 [History] Ezetimibe 10 mg [Zetia 10 MG] 10 mg PO DAILY 03/25/25 [History] Isosorbide Mononitrate 30 mg [Imdur 30 MG] 30 mg PO DAILY 03/25/25 [History] Levothyroxine Sodium 88 mcg PO DAILY 03/25/25 [History] Sucralfate 1 gm [Carafate 1 GM] 1 g PO ACHS 03/25/25 [History] Verapamil HCl 40 mg PO TID 03/25/25 [History] Hx Tetanus, Diphtheria Vaccination/Date Given: Yes Hx Influenza Vaccination/Date Given: No Hx Pneumococcal Vaccination/Date Given: No Travel Risk - International Travel Have you traveled outside of the country in past 3 weeks: No - Emerging Infectious Disease Are you exhibiting symptoms associated with any current EIDs: No Symptoms: Cough: New Onset, Shortness of Breath - Review of Systems Constitutional: No Symptoms Eyes: No Symptoms Ears, Nose, & Throat: No Symptoms Respiratory: Cough Cardiac: No Symptoms Abdominal/Gastrointestinal: No Symptoms Genitourinary Symptoms: No Symptoms Musculoskeletal: No Symptoms Skin: No Symptoms Neurological: Other (Were sleepy than typical for her per patient daughter) Psychological: No Symptoms Endocrine: No Symptoms Hematologic/Lymphatic: No Symptoms Immunological/Allergic: No Symptoms All Other Systems: Reviewed and Negative - Past Medical History Pertinent Past Medical History: Yes Neurological History: No Pertinent History ENT History: No Pertinent History Cardiac History: Coronary Artery Disease, High Cholesterol, Hypertension, Other Respiratory History: COPD Endocrine Medical History: Hypothyroidism Musculoskeletal History: Arthritis GI Medical History: GERD, Hernia History: No Pertinent History Psycho-Social History: No Pertinent History Female Reproductive Disorders: No Pertinent History Other Medical History: CHRONIC BACK PAIN,wears home oxygen 2L at all times, 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 Sierra - Past Surgical History Past Surgical History: Yes Neuro Surgical History: No Pertinent History Cardiac: Cardiac Catheterization, Cardiac Stent, Other Respiratory: No Pertinent History Gastrointestinal: No Pertinent History Genitourinary: No Pertinent History Musculoskeletal: Orthopedic Surgery Female Surgical History: Hysterectomy, Tubal Ligation Other Surgical History: Left knee replacement, 3 back surgeries, Right elbow surgeries, 3 carpal tunnel surgeries on right and left hand. 3 cardiac stents in 2019 Significant Family History: no pertinent family hx - Social History Smoking Status: Current every day smoker How long have you smoked: 14 y.o. Exposure to second hand smoke: Yes Drug Use: none - Social Determinants of Health Will the patient participate in the screening: Yes Do you worry about a steady place to live?: No In the past 12 months,have you had to go without utilities?: No Transportation Issues: No Has anyone in your support network made you feel unsafe?: No Have you or anyone in your house had to go w/o enough food: No - Nursing Vital Signs Nursing Vital Signs: Initial Vital Signs Pulse Rate 102 H 03/25/25 20:11 Respiratory Rate 25 H 03/25/25 20:11 Blood Pressure 182/88 03/25/25 20:11 O2 Sat by Pulse Oximetry 90 L 03/25/25 20:11 Pain Scale Pain Intensity 0 - Physical Exam General Appearance: no apparent distress, alert Eye Exam: PERRL/EOMI, eyes nml inspection Ears, Nose, Throat Exam: hearing grossly normal, normal ENT inspection, normal pharynx Neck Exam: normal inspection, non-tender, supple, full range of motion Respiratory Exam: normal breath sounds, lungs clear, airway intact, No chest tenderness, No respiratory distress Cardiovascular/Chest Exam: normal heart sounds, regular rate/rhythm Abdominal/Gastrointestinal Exam: soft, normal bowel sounds, No tenderness Rectal Exam: not done Extremity Exam: non-tender, normal range of motion, normal inspection, no pedal edema, pelvis stable Neurologic Exam: alert, oriented x 3, cooperative, sensation nml Skin Exam: normal color, warm, dry Lymphatic Exam: No adenopathy SpO2 Interpretation: hypoxic, ABG ordered, O2 applied O2 Delivery: Nasal Cannula - Course Nursing assessment & vital signs reviewed: Yes Ordered Tests: Active Orders 24 hr Category Date Time Status EKG-ER Only STAT Care 03/25/25 20:29 Active IV Insertion STAT Care 03/25/25 20:29 Active Pulse Oximetry (ED) STAT Care 03/25/25 20:29 Active CHEST 1 VIEW (PORTABLE) Stat Exams 03/25/25 20:30 Taken ARTERIAL BLOOD GASES Stat Lab 03/25/25 20:52 Completed BLOOD CULTURE Stat Lab 03/25/25 20:29 Received CBC W DIFF Stat Lab 03/25/25 20:40 Completed CMP Stat Lab 03/25/25 20:40 Completed CULTURE,URINE Stat Lab 03/25/25 21:40 Received Lactic Acid Stat Lab 03/25/25 20:52 Completed MAGNESIUM Stat Lab 03/25/25 20:40 Completed NT PRO BNPII Stat Lab 03/25/25 20:40 Completed PROCALCITONIN Stat Lab 03/25/25 20:40 Completed PROTIME WITH INR Stat Lab 03/25/25 20:40 Completed TROPONIN Q4H Lab 03/25/25 20:40 Completed TROPONIN Q4H Lab 03/26/25 00:30 Ordered TROPONIN Q4H Lab 03/26/25 04:30 Ordered UA W/RFX UR CULTURE Stat Lab 03/25/25 21:40 Completed Medication Summary Generic Name Dose Route Start Last Admin Trade Name Freq PRN Reason Stop Dose Admin Levofloxacin/Dextrose 500 mg in 100 mls @ 100 mls/hr 03/25/25 21:51 Levofloxacin 500mg/100ml D5w IV 03/25/25 22:50 STAT STA Discontinued Medications Generic Name Dose Route Start Last Admin Trade Name Freq PRN Reason Stop Dose Admin Methylprednisolone Sodium 0 mg 03/25/25 21:53 Succinate 125 mg/ Sterile IV 03/25/25 21:54 Water 2 ml STAT ONE Lab/Rad Data: Laboratory Result Diagrams 03/25/25 20:40 03/25/25 20:40 Laboratory Results 03/25/25 03/25/25 03/25/25 Range/Units 21:40 20:52 20:50 WBC (3.98-10.04) x10^3/uL RBC (3.93-5.22) x10^6/uL Hgb (11.2-15.7) g/dL Hct (34.1-44.9) % MCV (79.4-94.8) fL MCH (25.6-32.2) pg MCHC (32.2-35.5) g/dL RDW (11.7-14.4) % Plt Count (182-369) x10^3/uL MPV (9.4-12.3) fL Gran % (34.0-71.1) % Immature Gran % (Auto) (0.001-0.429) % Nucleat RBC Rel Count (0.00-0.2) % Eos # (Auto) (0.04-0.36) x10^3/uL Immature Gran # (Auto) (0.001-0.031) x10^3u/L Absolute Lymphs (auto) (1.18-3.74) x10^3/uL Absolute Monos (auto) (0.24-0.86) x10^3/uL Absolute Nucleated RBC (0.00-0.012) x10^3u/L Lymphocytes % (19.3-51.7) % Monocytes % (4.7-12.5) % Eosinophils % (0.7-5.8) % Basophils % (0.1-1.2) % Absolute Granulocytes (1.56-6.13) x10^3/uL Basophils # (0.01-0.08) x10^3/uL PT (9.4-12.5) SECONDS INR (0.8-3.0) Puncture Site LEFT RADIAL pCO2 55 H (35-45) mmHg pO2 55 L (75-100) mmHg Base Excess 7.4 H (-2.0-2.0) O2 Saturation 82.7 L (94-100) g/dF ABG pH 7.40 (7.35-7.45) ABG HCO3 34.1 H* (22-28) ABG O2 Sat (Measured) 91.8 L (95-100) % Mello Test YES A-a Gradient 26 a/A Ratio 0.68 Hemoglobin 14.4 Carboxyhemoglobin 9.3 H* (0.0-6.9) % THgb Methemoglobin 0.6 L (1.4-1.5) % Temperature 37.0 C POC O2 Flow Rate 21 % Sodium (135-145) mmol/L Potassium 3.9 (3.5-5.1) mmol/L Chloride (98-107) mmol/L Carbon Dioxide (22-30) mmol/L Anion Gap (5-15) MEQ/L BUN (7-17) mg/dL Creatinine (0.52-1.04) mg/dL Estimated GFR ML/MIN Glucose (74-106) mg/dL Lactic Acid 0.5 (0.4-2.0) Calcium (8.4-10.2) mg/dL Magnesium (1.6-2.3) mg/dL Total Bilirubin (0.2-1.3) mg/dL AST (14-36) U/L ALT (0-35) U/L Alkaline Phosphatase (38-126) U/L Troponin I (0.000-0.033) ng/mL NT-Pro-B Natriuret Pep (<300) pg/mL Serum Total Protein (6.3-8.2) g/dL Albumin (3.5-5.0) g/dL Procalcitonin (0.030-0.080) ng/mL Urine Color Yellow (Yellow) Urine Appearance Clear (Clear) Urine pH 7.0 (4.6-8.0) Ur Specific [place] 1.010 (1.005-1.030) Urine Protein 30 (Negative) Urine Glucose (UA) Negative (Negative) mg/dL Urine Ketones Negative (Negative) Urine Blood Negative (Negative) Urine Nitrite Negative (Negative) Urine Bilirubin Negative (Negative) Urine Urobilinogen 1.0 A (0.2) mg/dL Ur Leukocyte Esterase Small A (Negative) U Hyaline Cast (Auto) NONE SEEN (0-2) /LPF Urine Microscopic RBC 0-2 (0-5) /HPF Urine Microscopic WBC 21-50 A (0-5) /HPF Ur Epithelial Cells None Seen (None Seen) /HPF Urine Bacteria Many A (None Seen) /HPF Urine Culture Reflexed YES (NO) Influenza Type A Ag NEGATIVE (NEGATIVE) Influenza Type B Ag NEGATIVE (NEGATIVE) RSV (PCR) NEGATIVE (NEGATIVE) SARS-CoV-2 (PCR) NEGATIVE (NEGATIVE) 03/25/25 03/25/25 03/25/25 Range/Units 20:40 20:40 20:40 WBC (3.98-10.04) x10^3/uL RBC (3.93-5.22) x10^6/uL Hgb (11.2-15.7) g/dL Hct (34.1-44.9) % MCV (79.4-94.8) fL MCH (25.6-32.2) pg MCHC (32.2-35.5) g/dL RDW (11.7-14.4) % Plt Count (182-369) x10^3/uL MPV (9.4-12.3) fL Gran % (34.0-71.1) % Immature Gran % (Auto) (0.001-0.429) % Nucleat RBC Rel Count (0.00-0.2) % Eos # (Auto) (0.04-0.36) x10^3/uL Immature Gran # (Auto) (0.001-0.031) x10^3u/L Absolute Lymphs (auto) (1.18-3.74) x10^3/uL Absolute Monos (auto) (0.24-0.86) x10^3/uL Absolute Nucleated RBC (0.00-0.012) x10^3u/L Lymphocytes % (19.3-51.7) % Monocytes % (4.7-12.5) % Eosinophils % (0.7-5.8) % Basophils % (0.1-1.2) % Absolute Granulocytes (1.56-6.13) x10^3/uL Basophils # (0.01-0.08) x10^3/uL PT 11.2 (9.4-12.5) SECONDS INR 1.00 (0.8-3.0) Puncture Site pCO2 (35-45) mmHg pO2 (75-100) mmHg Base Excess (-2.0-2.0) O2 Saturation (94-100) g/dF ABG pH (7.35-7.45) ABG HCO3 (22-28) ABG O2 Sat (Measured) (95-100) % Mello Test A-a Gradient a/A Ratio Hemoglobin Carboxyhemoglobin (0.0-6.9) % THgb Methemoglobin (1.4-1.5) % Temperature C POC O2 Flow Rate % Sodium (135-145) mmol/L Potassium (3.5-5.1) mmol/L Chloride (98-107) mmol/L Carbon Dioxide (22-30) mmol/L Anion Gap (5-15) MEQ/L BUN (7-17) mg/dL Creatinine (0.52-1.04) mg/dL Estimated GFR ML/MIN Glucose (74-106) mg/dL Lactic Acid (0.4-2.0) Calcium (8.4-10.2) mg/dL Magnesium (1.6-2.3) mg/dL Total Bilirubin (0.2-1.3) mg/dL AST (14-36) U/L ALT (0-35) U/L Alkaline Phosphatase (38-126) U/L Troponin I < 0.012 (0.000-0.033) ng/mL NT-Pro-B Natriuret Pep 961 (<300) pg/mL Serum Total Protein (6.3-8.2) g/dL Albumin (3.5-5.0) g/dL Procalcitonin 0.254 H (0.030-0.080) ng/mL Urine Color (Yellow) Urine Appearance (Clear) Urine pH (4.6-8.0) Ur Specific [place] (1.005-1.030) Urine Protein (Negative) Urine Glucose (UA) (Negative) mg/dL Urine Ketones (Negative) Urine Blood (Negative) Urine Nitrite (Negative) Urine Bilirubin (Negative) Urine Urobilinogen (0.2) mg/dL Ur Leukocyte Esterase (Negative) U Hyaline Cast (Auto) (0-2) /LPF Urine Microscopic RBC (0-5) /HPF Urine Microscopic WBC (0-5) /HPF Ur Epithelial Cells (None Seen) /HPF Urine Bacteria (None Seen) /HPF Urine Culture Reflexed (NO) Influenza Type A Ag (NEGATIVE) Influenza Type B Ag (NEGATIVE) RSV (PCR) (NEGATIVE) SARS-CoV-2 (PCR) (NEGATIVE) 03/25/25 03/25/25 Range/Units 20:40 20:40 WBC 15.8 H (3.98-10.04) x10^3/uL RBC 4.49 (3.93-5.22) x10^6/uL Hgb 14.1 (11.2-15.7) g/dL Hct 44.9 (34.1-44.9) % MCV 100.0 H (79.4-94.8) fL MCH 31.4 (25.6-32.2) pg MCHC 31.4 L (32.2-35.5) g/dL RDW 14.0 (11.7-14.4) % Plt Count 173 L (182-369) x10^3/uL MPV 10.3 (9.4-12.3) fL Gran % 88.3 H (34.0-71.1) % Immature Gran % (Auto) 0.5 H (0.001-0.429) % Nucleat RBC Rel Count 0.0 (0.00-0.2) % Eos # (Auto) 0.04 (0.04-0.36) x10^3/uL Immature Gran # (Auto) 0.08 H (0.001-0.031) x10^3u/L Absolute Lymphs (auto) 0.93 L (1.18-3.74) x10^3/uL Absolute Monos (auto) 0.74 (0.24-0.86) x10^3/uL Absolute Nucleated RBC 0.00 (0.00-0.012) x10^3u/L Lymphocytes % 5.9 L (19.3-51.7) % Monocytes % 4.7 (4.7-12.5) % Eosinophils % 0.3 L (0.7-5.8) % Basophils % 0.3 (0.1-1.2) % Absolute Granulocytes 13.93 H (1.56-6.13) x10^3/uL Basophils # 0.04 (0.01-0.08) x10^3/uL PT (9.4-12.5) SECONDS INR (0.8-3.0) Puncture Site pCO2 (35-45) mmHg pO2 (75-100) mmHg Base Excess (-2.0-2.0) O2 Saturation (94-100) g/dF ABG pH (7.35-7.45) ABG HCO3 (22-28) ABG O2 Sat (Measured) (95-100) % Mello Test A-a Gradient a/A Ratio Hemoglobin Carboxyhemoglobin (0.0-6.9) % THgb Methemoglobin (1.4-1.5) % Temperature C POC O2 Flow Rate % Sodium 138 (135-145) mmol/L Potassium 3.7 (3.5-5.1) mmol/L Chloride 100 (98-107) mmol/L Carbon Dioxide 33 H (22-30) mmol/L Anion Gap 9.1 (5-15) MEQ/L BUN 11 (7-17) mg/dL Creatinine 1.09 H (0.52-1.04) mg/dL Estimated GFR 53.3 ML/MIN Glucose 105 (74-106) mg/dL Lactic Acid (0.4-2.0) Calcium 8.5 (8.4-10.2) mg/dL Magnesium 2.3 (1.6-2.3) mg/dL Total Bilirubin 0.50 (0.2-1.3) mg/dL AST 22 (14-36) U/L ALT 12 (0-35) U/L Alkaline Phosphatase 118 (38-126) U/L Troponin I (0.000-0.033) ng/mL NT-Pro-B Natriuret Pep (<300) pg/mL Serum Total Protein 7.0 (6.3-8.2) g/dL Albumin 3.8 (3.5-5.0) g/dL Procalcitonin (0.030-0.080) ng/mL Urine Color (Yellow) Urine Appearance (Clear) Urine pH (4.6-8.0) Ur Specific [place] (1.005-1.030) Urine Protein (Negative) Urine Glucose (UA) (Negative) mg/dL Urine Ketones (Negative) Urine Blood (Negative) Urine Nitrite (Negative) Urine Bilirubin (Negative) Urine Urobilinogen (0.2) mg/dL Ur Leukocyte Esterase (Negative) U Hyaline Cast (Auto) (0-2) /LPF Urine Microscopic RBC (0-5) /HPF Urine Microscopic WBC (0-5) /HPF Ur Epithelial Cells (None Seen) /HPF Urine Bacteria (None Seen) /HPF Urine Culture Reflexed (NO) Influenza Type A Ag (NEGATIVE) Influenza Type B Ag (NEGATIVE) RSV (PCR) (NEGATIVE) SARS-CoV-2 (PCR) (NEGATIVE) - Progress Progress: improved, re-examined Air Movement: fair Progress Note: 03/25/25 20:36 My medical decision making and the assignment of moderate to high complexity of this patient's medical issue today is based on review of the patient's past medical history, reviewed patient's medication list, reviewed patient drug allergy list, history of present illness and physical findings on examination. The workup in this patient includes chest x-ray, intravenous line, CBC, CMP, BNP, troponin level, twelve-lead EKG, procalcitonin level, lactic acid level ABG, viral swabs. Differential diagnosis includes but is not limited to malfunctioning oxygen tank, CO2 retention, pulmonary infiltrate, anemia, CHF exacerbation, COPD exacerbation, myocardial infarction, arrhythmia, viral illness 03/25/25 22:09 I interpreted the patient's laboratory data results. Based on laboratory data results, the patient has leukocytosis. She also has urinary tract infection I interpreted the preliminary chest x-ray report on this patient. The patient appears to have bibasilar infiltrates. Blood Culture(s) Obtained: Yes Antibiotics given: Yes Counseled pt/family regarding: lab results, diagnosis, rad results Medical Desision Making - Diagnostic Testing Diagnostic test were ordered, analyzed, and reviewed by me: Yes Radiological Interpretation: Interpreted by me - Risk of complications The pt has a high risk of morbidity or mortality based on: Decision regarding hospitilization or escalation of hosp level of care - Departure Departure Disposition: Observation Clinical Impression: Bilateral pulmonary infiltrates, Urinary tract infection, Leukocytosis, Hypoxia Condition: Fair Critical Care Time: Yes Critical Care Time(excluding separately billable procedures): Critical 30-74 mins (45) Referrals: LAURA SHELTON, [Primary Care Provider, [facility]] - Follow up/PCP as directed
[2025-03-25 20:56] LABS: A-aADO2 26; ABG HEMOGLOBIN 14.4; ABG POTASSIUM 3.9 (3.5-5.1); ARTERIAL BLD GAS O2 SATURATION 91.8 % (95-100); ARTERIAL BLOOD GAS BASE EXCESS 7.4 (-2.0-2.0); ARTERIAL BLOOD GAS FIO2 21 %; ARTERIAL BLOOD GAS PCO2 55 mmHg (35-45); ARTERIAL BLOOD GAS PO2 55 mmHg (75-100); ARTERIAL BLOOD GAS TEMPERATURE 37.0 C; HCO3- 34.1 (22-28); HGB O2 SAT 82.7 g/dF (94-100); Methhemoglobin 0.6 % (1.4-1.5); paO2 pAO1 0.68
[2025-03-25 20:58] LABS: ABG SITE LEFT RADIAL; ALLEN TEST OK? YES
[2025-03-25 21:00] LABS: BASOPHIL % 0.3 % (0.1-1.2); Basophil (Absolute #) 0.04 x10^3/uL (0.01-0.08); Eosinophil (Absolute #) 0.04 x10^3/uL (0.04-0.36); Hematocrit 44.9 % (34.1-44.9); Hemoglobin 14.1 g/dL (11.2-15.7); IMMATURE GRAN # 0.08 x10^3u/L (0.001-0.031); IMMATURE GRAN % 0.5 % (0.001-0.429); Lymphocyte (Absolute #) 0.93 x10^3/uL (1.18-3.74); Mean Corpuscular Hemoglobin 31.4 pg (25.6-32.2); Mean Corpuscular Hgb Concent. 31.4 g/dL (32.2-35.5); Monocyte (Absolute #) 0.74 x10^3/uL (0.24-0.86); NUCLEATED RBC # 0.00 x10^3u/L (0.00-0.012); NUCLEATED RBC % 0.0 % (0.00-0.2); Platelet Count 173 x10^3/uL (182-369); Red Blood Count 4.49 x10^6/uL (3.93-5.22); White Blood Count 15.8 x10^3/uL (3.98-10.04)
[2025-03-25 21:14] LABS: Calcium 8.5 mg/dL (8.4-10.2); Carbon Dioxide 33.0 mmol/L (22-30); Creatinine 1 1.09 mg/dL (0.52-1.04); EST GLOMERULAR FILTRATION RATE 53.3 ML/MIN; Glucose 105.0 mg/dL (74-106); INR 1.0 (0.8-3.0); PROTIME 11.2 SECONDS (9.4-12.5); Potassium 3.7 mmol/L (3.5-5.1); SGOT/AST 22.0 U/L (14-36); SGPT/ALT 12.0 U/L (0-35); Total Protein 7.0 g/dL (6.3-8.2)
[2025-03-25 21:31] LABS: NT PRO BNPII 961.0 pg/mL (<300)
[2025-03-25 21:37] LABS: INFLUENZA A NEGATIVE (NEGATIVE); INFLUENZA B NEGATIVE (NEGATIVE); RESPIRATORY SYNCTIAL VIRUS NEGATIVE (NEGATIVE); SARS-CoV-2 Xpert Express NEGATIVE (NEGATIVE)
[2025-03-25 21:47] LABS: Glucose, Urine Negative (Negative); Protein,Urine Dip 30 (Negative); RBC 0-2 /HPF (0-5); WBC 21-50 /HPF (0-5)
[2025-03-25] MEDS ORDERED: Sterile H2O 10 ml IJ ONE (22:10)
[2025-03-25] MEDS: solu-MEDROL 125 MG, Sterile H2O 10 ml 2 ML IV ONE (22:10)
[2025-03-25] MEDS ORDERED: Levofloxacin 500MG/100ML D5W 500 MG/100 ML BAG IV ONE (22:10)
[2025-03-25] MEDS: Levofloxacin 500MG/100ML D5W 500 MG/100 ML BAG IV STA (22:11)
[2025-03-25] MEDS ORDERED: DUONEB 0.5-3 MG/3 ml Neb IH ONE (23:50)
[2025-03-26] MEDS ORDERED: TYLENOL 325 MG PO PRN (01:12)
[2025-03-26] MEDS ORDERED: Zofran 4 MG/2 ML VIAL IV PRN (01:12)
[2025-03-26] MEDS: NEURONTIN PO SCH (01:13)
[2025-03-26] MEDS: ULTRAM 50 MG PO PRN (01:13)
--- NOTE | 2025-03-26 01:58 | PCM.HP ---
History of Present Illness - Chief Complaint Chief Complaint: uti copd Date: 03/26/25 History of Present Illness: The patient is a 75-year-old female with a PMH of CAD status post multiple stents, COPD, hypertension, hyperlipidemia, who presents to the emergency room with complaints of shortness of breath and cough. The patient reports that she has been experiencing gradually worsening shortness of breath and cough productive of green phlegm for the past 2 to 3 weeks. She notes that prior to this, her cough had clear phlegm. She also reported some urinary complaints including urinary urgency and frequency but denied dysuria. She further denied experiencing chest pain, fever, chills, nausea, vomiting, or abdominal pain. Chest x-ray in the emergency room which was reviewed with the ER provider and revealed a right lower lobe infiltrate concerning for pneumonia. Laboratory evaluation was remarkable for leukocytosis of 15.8, platelet count 173, ABG pCO2 55, sodium 138, potassium 3.7, CO2 33, BUN 11, creatinine 1.09, troponin less than 0.012, procalcitonin 0.254, with UA showing 21-50 WBCs and small leukocyte esterase with respiratory viral panel negative. The case was discussed with the ER provider in detail and chart was reviewed. Review of Systems: A complete and thorough review of system was performed and was negative except as stated in the HPI. Physical Examination: General: Well-nourished, in no acute distress. Normal weight. HEENT: Head atruamatic normocephaic, PERRL, no scleral icterus, no oral lesions Cardiovascular: Regular rate and rhythm, S1S2 normal, no murmurs appreciated Respiratory: Diffuse mild rhonchi without wheezing or rales Abdomen: Soft, nontender, nondistended, normoactive bowel sounds, no guarding Musculoskeletal: Full range of motion. No obvious swelling or tenderness noted Neurological: Alert and oriented x 3. Strength 5/5 in all extremities grossly, no obvious focal deficits noted Psychiatric: Normal mood, affect, with cohesive thought process Assessment & Plan Community-acquired pneumonia - Continue with Levaquin 500 mg every 24 hour (cephalosporin allergy) - Follow-up blood cultures - Supplemental oxygen - Tylenol as needed Urinary tract infection - Continue Levaquin as stated above - Follow-up urine cultures Thrombocytopenia, mild - Monitor CBC for now Chronic conditions: CAD, COPD, hypertension, hyperlipidemia - Continue with home meds DVT Prophylaxis: Eliquis Code Status: Full Code Medications & Allergies Home Medications: Home Medication List Metoprolol Tartrate 25 mg PO DAILY 08/11/18 [History Confirmed 03/25/25] lisinopriL [Lisinopril] 20 mg PO DAILY 08/11/18 [History Confirmed 03/25/25] Furosemide 20 mg [Lasix 20 mg] 20 mg PO DAILY PRN 09/18/20 [History Confirmed 03/25/25] Atorvastatin Calcium [Lipitor 20MG Tablet] 40 mg PO HS 08/28/21 [History Confirmed 03/25/25] Docusate Sodium [Colace] 100 mg PO BID PRN PRN 08/28/21 [History Confirmed 03/25/25] Nitroglycerin 0.4 mg (Ed) [Nitrostat 0.4 MG (ED)] 0.4 mg SL DIRECTIONS UNKNOWN 08/28/21 [History Confirmed 03/25/25] Spironolactone 25 mg PO DAILY 08/28/21 [History Confirmed 03/25/25] Albuterol 8 gm Mdi Hfa [Ventolin Hfa MDI] 2 puff IH Q4-6HPRN PRN 09/02/21 [History Confirmed 03/25/25] Clopidogrel Bisulfate [Plavix] 75 mg PO DAILY #0 09/02/21 [Rx Confirmed 03/25/25] PANTOPRAZOLE 40 mg Tablet [Protonix 40MG Tablet] 40 mg PO HS 09/02/21 [History Confirmed 03/25/25] Budesonide/Glycopyr/Formoterol [Breztri Aerosphere Inhaler] 2 puff IH BID 07/04/22 [History Confirmed 03/25/25] Gabapentin [Neurontin ] 300 mg PO TID 07/04/22 [History Confirmed 03/25/25] Simethicone 80 mg [Mylicon 80MG] 80 mg PO BID 07/04/22 [History Confirmed 03/25/25] Tramadol HCl 50 mg [Ultram 50 mg] 50 mg PO Q8H PRN PRN 06/29/24 [History Confirmed 03/25/25] Levothyroxine Sodium 200 mcg PO DAILY 30 Days #30 tablet 07/01/24 [Rx Confirmed 03/25/25] Promethazine HCl 25 mg [Phenergan 25 mg] 1 tab PO Q6HPRN PRN 08/06/24 [History Confirmed 03/25/25] Albuterol 2.5 mg/3 ml Neb [Proventil 2.5 mg/3 ml Neb] 1 neb NEB Q6H PRN PRN 08/11/24 [History Confirmed 03/25/25] Ezetimibe 10 mg [Zetia 10 MG] 10 mg PO DAILY 03/25/25 [History Confirmed 03/25/25] Isosorbide Mononitrate 30 mg [Imdur 30 MG] 30 mg PO DAILY 03/25/25 [History Confirmed 03/25/25] Levothyroxine Sodium 88 mcg PO DAILY 03/25/25 [History Confirmed 03/25/25] Sucralfate 1 gm [Carafate 1 GM] 1 g PO ACHS 03/25/25 [History Confirmed 03/25/25] Verapamil HCl 40 mg PO TID 03/25/25 [History Confirmed 03/25/25] Allergies/Adverse Reactions: Allergies Allergy/AdvReac Type Severity Reaction Status Date / Time cephalexin [From Keflex] Allergy Verified 03/25/25 20:14 - Past Medical History Past Medical History: Yes Neurological History: No Pertinent History ENT History: No Pertinent History Cardiac History: Coronary Artery Disease, High Cholesterol, Hypertension, Other Respiratory History: COPD Endocrine Medical History: Hypothyroidism Musculoskelatal History: Arthritis, Osteoporosis GI Medical History: GERD, Hernia History: No Pertinent History Pyscho-Social History: No Pertinent History Reproductive Disorders: No Pertinent History Comment: CHRONIC BACK PAIN,wears home oxygen 2L at all times, 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 3 cardiac stents in 2019 Significant Family History: no pertinent family hx - Social History Smoking Status: Current every day smoker How long have you smoked: 50 years Exposure to second hand smoke: Yes Alcohol: None Drug Use: none - Social Determinants of Health Will the patient participate in the screening: Yes Do you worry about a steady place to live?: No Do you have any problems with any of the following?: No known problems In the past 12 months,have you had to go without utilities?: Yes Have you or anyone in your house had to go without enough: No Transportation Issues: No Has anyone in your support network made you feel unsafe?: No Does the patient want assistance with any of the above?: Yes Comment: help with utilities - Physical Exam Vital Signs: Vital Signs - 24 hr Temp Pulse Resp BP BP Pulse Ox 03/26/25 01:12 96 03/25/25 23:30 98.0 F 106 H 24 107/61 87 L 03/25/25 23:00 99 H 18 143/86 91 L 03/25/25 22:30 101 H 20 164/81 91 L 03/25/25 22:00 101 H 19 146/81 90 L 03/25/25 21:30 100 H 17 146/97 90 L 03/25/25 21:00 101 H 22 156/82 90 L 03/25/25 20:31 90 L 03/25/25 20:30 101 H 20 151/76 03/25/25 20:14 99.5 F 104 H 23 182/88 90 L 03/25/25 20:11 102 H 25 H 182/88 90 L Results - Labs Lab/Micro Results: Lab Results-Last 24 Hours 03/25/25 03/25/25 03/25/25 Range/Units 20:40 20:40 20:40 WBC 15.8 H (3.98-10.04) x10^3/uL RBC 4.49 (3.93-5.22) x10^6/uL Hgb 14.1 (11.2-15.7) g/dL Hct 44.9 (34.1-44.9) % MCV 100.0 H (79.4-94.8) fL MCH 31.4 (25.6-32.2) pg MCHC 31.4 L (32.2-35.5) g/dL RDW 14.0 (11.7-14.4) % Plt Count 173 L (182-369) x10^3/uL MPV 10.3 (9.4-12.3) fL Gran % 88.3 H (34.0-71.1) % Immature Gran % (Auto) 0.5 H (0.001-0.429) % Nucleat RBC Rel Count 0.0 (0.00-0.2) % Eos # (Auto) 0.04 (0.04-0.36) x10^3/uL Immature Gran # (Auto) 0.08 H (0.001-0.031) x10^3u/L Absolute Lymphs (auto) 0.93 L (1.18-3.74) x10^3/uL Absolute Monos (auto) 0.74 (0.24-0.86) x10^3/uL Absolute Nucleated RBC 0.00 (0.00-0.012) x10^3u/L Lymphocytes % 5.9 L (19.3-51.7) % Monocytes % 4.7 (4.7-12.5) % Eosinophils % 0.3 L (0.7-5.8) % Basophils % 0.3 (0.1-1.2) % Absolute Granulocytes 13.93 H (1.56-6.13) x10^3/uL Basophils # 0.04 (0.01-0.08) x10^3/uL PT 11.2 (9.4-12.5) SECONDS INR 1.00 (0.8-3.0) Puncture Site pCO2 (35-45) mmHg pO2 (75-100) mmHg Base Excess (-2.0-2.0) O2 Saturation (94-100) g/dF ABG pH (7.35-7.45) ABG HCO3 (22-28) ABG O2 Sat (Measured) (95-100) % Mello Test A-a Gradient a/A Ratio Hemoglobin Carboxyhemoglobin (0.0-6.9) % THgb Methemoglobin (1.4-1.5) % Temperature C POC O2 Flow Rate % Sodium 138 (135-145) mmol/L Potassium 3.7 (3.5-5.1) mmol/L Chloride 100 (98-107) mmol/L Carbon Dioxide 33 H (22-30) mmol/L Anion Gap 9.1 (5-15) MEQ/L BUN 11 (7-17) mg/dL Creatinine 1.09 H (0.52-1.04) mg/dL Estimated GFR 53.3 ML/MIN Glucose 105 (74-106) mg/dL Lactic Acid (0.4-2.0) Calcium 8.5 (8.4-10.2) mg/dL Magnesium 2.3 (1.6-2.3) mg/dL Total Bilirubin 0.50 (0.2-1.3) mg/dL AST 22 (14-36) U/L ALT 12 (0-35) U/L Alkaline Phosphatase 118 (38-126) U/L Troponin I (0.000-0.033) ng/mL NT-Pro-B Natriuret Pep (<300) pg/mL Serum Total Protein 7.0 (6.3-8.2) g/dL Albumin 3.8 (3.5-5.0) g/dL Procalcitonin (0.030-0.080) ng/mL Urine Color (Yellow) Urine Appearance (Clear) Urine pH (4.6-8.0) Ur Specific [place] (1.005-1.030) Urine Protein (Negative) Urine Glucose (UA) (Negative) mg/dL Urine Ketones (Negative) Urine Blood (Negative) Urine Nitrite (Negative) Urine Bilirubin (Negative) Urine Urobilinogen (0.2) mg/dL Ur Leukocyte Esterase (Negative) U Hyaline Cast (Auto) (0-2) /LPF Urine Microscopic RBC (0-5) /HPF Urine Microscopic WBC (0-5) /HPF Ur Epithelial Cells (None Seen) /HPF Urine Bacteria (None Seen) /HPF Urine Culture Reflexed (NO) Influenza Type A Ag (NEGATIVE) Influenza Type B Ag (NEGATIVE) RSV (PCR) (NEGATIVE) SARS-CoV-2 (PCR) (NEGATIVE) 03/25/25 03/25/25 03/25/25 Range/Units 20:40 20:40 20:50 WBC (3.98-10.04) x10^3/uL RBC (3.93-5.22) x10^6/uL Hgb (11.2-15.7) g/dL Hct (34.1-44.9) % MCV (79.4-94.8) fL MCH (25.6-32.2) pg MCHC (32.2-35.5) g/dL RDW (11.7-14.4) % Plt Count (182-369) x10^3/uL MPV (9.4-12.3) fL Gran % (34.0-71.1) % Immature Gran % (Auto) (0.001-0.429) % Nucleat RBC Rel Count (0.00-0.2) % Eos # (Auto) (0.04-0.36) x10^3/uL Immature Gran # (Auto) (0.001-0.031) x10^3u/L Absolute Lymphs (auto) (1.18-3.74) x10^3/uL Absolute Monos (auto) (0.24-0.86) x10^3/uL Absolute Nucleated RBC (0.00-0.012) x10^3u/L Lymphocytes % (19.3-51.7) % Monocytes % (4.7-12.5) % Eosinophils % (0.7-5.8) % Basophils % (0.1-1.2) % Absolute Granulocytes (1.56-6.13) x10^3/uL Basophils # (0.01-0.08) x10^3/uL PT (9.4-12.5) SECONDS INR (0.8-3.0) Puncture Site pCO2 (35-45) mmHg pO2 (75-100) mmHg Base Excess (-2.0-2.0) O2 Saturation (94-100) g/dF ABG pH (7.35-7.45) ABG HCO3 (22-28) ABG O2 Sat (Measured) (95-100) % Mello Test A-a Gradient a/A Ratio Hemoglobin Carboxyhemoglobin (0.0-6.9) % THgb Methemoglobin (1.4-1.5) % Temperature C POC O2 Flow Rate % Sodium (135-145) mmol/L Potassium (3.5-5.1) mmol/L Chloride (98-107) mmol/L Carbon Dioxide (22-30) mmol/L Anion Gap (5-15) MEQ/L BUN (7-17) mg/dL Creatinine (0.52-1.04) mg/dL Estimated GFR ML/MIN Glucose (74-106) mg/dL Lactic Acid (0.4-2.0) Calcium (8.4-10.2) mg/dL Magnesium (1.6-2.3) mg/dL Total Bilirubin (0.2-1.3) mg/dL AST (14-36) U/L ALT (0-35) U/L Alkaline Phosphatase (38-126) U/L Troponin I < 0.012 (0.000-0.033) ng/mL NT-Pro-B Natriuret Pep 961 (<300) pg/mL Serum Total Protein (6.3-8.2) g/dL Albumin (3.5-5.0) g/dL Procalcitonin 0.254 H (0.030-0.080) ng/mL Urine Color (Yellow) Urine Appearance (Clear) Urine pH (4.6-8.0) Ur Specific [place] (1.005-1.030) Urine Protein (Negative) Urine Glucose (UA) (Negative) mg/dL Urine Ketones (Negative) Urine Blood (Negative) Urine Nitrite (Negative) Urine Bilirubin (Negative) Urine Urobilinogen (0.2) mg/dL Ur Leukocyte Esterase (Negative) U Hyaline Cast (Auto) (0-2) /LPF Urine Microscopic RBC (0-5) /HPF Urine Microscopic WBC (0-5) /HPF Ur Epithelial Cells (None Seen) /HPF Urine Bacteria (None Seen) /HPF Urine Culture Reflexed (NO) Influenza Type A Ag NEGATIVE (NEGATIVE) Influenza Type B Ag NEGATIVE (NEGATIVE) RSV (PCR) NEGATIVE (NEGATIVE) SARS-CoV-2 (PCR) NEGATIVE (NEGATIVE) 03/25/25 03/25/25 03/26/25 Range/Units 20:52 21:40 00:23 WBC (3.98-10.04) x10^3/uL RBC (3.93-5.22) x10^6/uL Hgb (11.2-15.7) g/dL Hct (34.1-44.9) % MCV (79.4-94.8) fL MCH (25.6-32.2) pg MCHC (32.2-35.5) g/dL RDW (11.7-14.4) % Plt Count (182-369) x10^3/uL MPV (9.4-12.3) fL Gran % (34.0-71.1) % Immature Gran % (Auto) (0.001-0.429) % Nucleat RBC Rel Count (0.00-0.2) % Eos # (Auto) (0.04-0.36) x10^3/uL Immature Gran # (Auto) (0.001-0.031) x10^3u/L Absolute Lymphs (auto) (1.18-3.74) x10^3/uL Absolute Monos (auto) (0.24-0.86) x10^3/uL Absolute Nucleated RBC (0.00-0.012) x10^3u/L Lymphocytes % (19.3-51.7) % Monocytes % (4.7-12.5) % Eosinophils % (0.7-5.8) % Basophils % (0.1-1.2) % Absolute Granulocytes (1.56-6.13) x10^3/uL Basophils # (0.01-0.08) x10^3/uL PT (9.4-12.5) SECONDS INR (0.8-3.0) Puncture Site LEFT RADIAL pCO2 55 H (35-45) mmHg pO2 55 L (75-100) mmHg Base Excess 7.4 H (-2.0-2.0) O2 Saturation 82.7 L (94-100) g/dF ABG pH 7.40 (7.35-7.45) ABG HCO3 34.1 H* (22-28) ABG O2 Sat (Measured) 91.8 L (95-100) % Mello Test YES A-a Gradient 26 a/A Ratio 0.68 Hemoglobin 14.4 Carboxyhemoglobin 9.3 H* (0.0-6.9) % THgb Methemoglobin 0.6 L (1.4-1.5) % Temperature 37.0 C POC O2 Flow Rate 21 % Sodium (135-145) mmol/L Potassium 3.9 (3.5-5.1) mmol/L Chloride (98-107) mmol/L Carbon Dioxide (22-30) mmol/L Anion Gap (5-15) MEQ/L BUN (7-17) mg/dL Creatinine (0.52-1.04) mg/dL Estimated GFR ML/MIN Glucose (74-106) mg/dL Lactic Acid 0.5 (0.4-2.0) Calcium (8.4-10.2) mg/dL Magnesium (1.6-2.3) mg/dL Total Bilirubin (0.2-1.3) mg/dL AST (14-36) U/L ALT (0-35) U/L Alkaline Phosphatase (38-126) U/L Troponin I 0.015 (0.000-0.033) ng/mL NT-Pro-B Natriuret Pep (<300) pg/mL Serum Total Protein (6.3-8.2) g/dL Albumin (3.5-5.0) g/dL Procalcitonin (0.030-0.080) ng/mL Urine Color Yellow (Yellow) Urine Appearance Clear (Clear) Urine pH 7.0 (4.6-8.0) Ur Specific [place] 1.010 (1.005-1.030) Urine Protein 30 (Negative) Urine Glucose (UA) Negative (Negative) mg/dL Urine Ketones Negative (Negative) Urine Blood Negative (Negative) Urine Nitrite Negative (Negative) Urine Bilirubin Negative (Negative) Urine Urobilinogen 1.0 A (0.2) mg/dL Ur Leukocyte Esterase Small A (Negative) U Hyaline Cast (Auto) NONE SEEN (0-2) /LPF Urine Microscopic RBC 0-2 (0-5) /HPF Urine Microscopic WBC 21-50 A (0-5) /HPF Ur Epithelial Cells None Seen (None Seen) /HPF Urine Bacteria Many A (None Seen) /HPF Urine Culture Reflexed YES (NO) Influenza Type A Ag (NEGATIVE) Influenza Type B Ag (NEGATIVE) RSV (PCR) (NEGATIVE) SARS-CoV-2 (PCR) (NEGATIVE) - Radiology Impressions Radiology Exams & Impressions: Radiology Procedures Category Date Time Status CHEST 1 VIEW (PORTABLE) Stat Exams 03/25/25 20:30 Taken - Other Procedures and Tests Respiratory Therapy 03/26/25 01:12 EKG REPEAT IN AM Oxygen Nasal Cannula 4 lpm Respiratory Therapy Consult ONCE Telemedicine Encounter - Telemedicine Encounter Telemedicine Encounter: "The entirety of this encounter was performed via Telemedicine" This visit was performed using real-time audio and video connection between my location and thepatients locationwith the assistance of a surrogateat the patients location. Written or verbal consent was obtained from the patient/guardian to perform this visit [email or web address]. Any patient questions regarding the telemedicine interaction were answered.
[2025-03-26] MEDS ORDERED: PHENERGAN 25 MG PO PRN (02:00)
[2025-03-26] MEDS ORDERED: Nitrostat 0.4 MG (ED) SL SCH (02:00)
[2025-03-26] MEDS: xanAX 0.25 MG PO ONE (02:59)
[2025-03-26 03:35] LABS: A-aADO2 202; ABG HEMOGLOBIN 14.8; ABG POTASSIUM 4.2 (3.5-5.1); ABG SITE RIGHT RADIAL; ALLEN TEST OK? YES; ARTERIAL BLD GAS O2 SATURATION 98.1 % (95-100); ARTERIAL BLOOD GAS BASE EXCESS 5.3 (-2.0-2.0); ARTERIAL BLOOD GAS FIO2 50 %; ARTERIAL BLOOD GAS PCO2 56 mmHg (35-45); ARTERIAL BLOOD GAS PO2 85 mmHg (75-100); ARTERIAL BLOOD GAS TEMPERATURE 37.0 C; HCO3- 32.4 (22-28); HGB O2 SAT 92.9 g/dF (94-100); Methhemoglobin 1.1 % (1.4-1.5); paO2 pAO1 0.30
--- NOTE | 2025-03-26 04:23 | XRAY ---
CLINICAL HISTORY: Hypoxia COMPARISON: 06/29/2024 X-ray. 11/05/2024 CT review for lung bases TECHNIQUE: X-ray image of the chest was obtained in the AP projection. The film is rotated. FINDINGS: Pulmonary Parenchyma: Both lung swann are hyperlucent and hyperinflated. There is a redemonstration of suspicious reticulonodular opacities noted in the bilateral lower zones, more on the right side. They are also reaching up to the lateral one-third of the chest. There is interval development of an ill-defined, horizontally oriented linear opacity in the right supradiaphragmatic region, which may represent infective or inflammatory infiltrates. Blunting of the right CP angle is identified, which may be due to pleural thickening or a small pleural effusion. There is no evidence of pleural effusion or thickening on the left side. Heart and Mediastinum: The left hilum is prominent, likely due to rotated film. The heart size and shape are normal. There is no mediastinal widening or masses. There is no hilar or mediastinal lymphadenopathy. Bony Thorax: Age-appropriate degenerative changes are identified in the visualized spine. The bony thorax appears intact, without fractures or deformities. Soft Tissues: The soft tissues overlying the chest wall are unremarkable. IMPRESSION: 1. There is interval development of an ill-defined, horizontally oriented linear opacity in the right supradiaphragmatic region, which may represent infective or inflammatory infiltrates. Advise clinical and laboratory correlation along with follow-up.(Interval new finding) 2. There are bilaterally hyperlucent and hyperinflated lungs, with bilateral basal reticulonodular shadowing, which possibly represent COPD. 3. CT of the chest may be advised for further evaluation or follow-up X-ray. Electronically Signed by: Travis Crowe MD. (03/26/2025 04:23:02 EDT)
[2025-03-26] MEDS: DUONEB 0.5-3 MG/3 ml Neb IH PRN (05:08)
[2025-03-26 05:54] LABS: BASOPHIL % 0.1 % (0.1-1.2); Basophil (Absolute #) 0.02 x10^3/uL (0.01-0.08); Eosinophil (Absolute #) 0 x10^3/uL (0.04-0.36); Hematocrit 43.4 % (34.1-44.9); Hemoglobin 13.3 g/dL (11.2-15.7); IMMATURE GRAN # 0.09 x10^3u/L (0.001-0.031); IMMATURE GRAN % 0.6 % (0.001-0.429); Lymphocyte (Absolute #) 0.49 x10^3/uL (1.18-3.74); Mean Corpuscular Hemoglobin 30.4 pg (25.6-32.2); Mean Corpuscular Hgb Concent. 30.6 g/dL (32.2-35.5); Monocyte (Absolute #) 0.20 x10^3/uL (0.24-0.86); NUCLEATED RBC # 0.00 x10^3u/L (0.00-0.012); NUCLEATED RBC % 0.0 % (0.00-0.2); Platelet Count 177 x10^3/uL (182-369); Red Blood Count 4.37 x10^6/uL (3.93-5.22); White Blood Count 14.3 x10^3/uL (3.98-10.04)
[2025-03-26 07:12] LABS: Slide Review 1 YES
[2025-03-26 07:21] LABS: Calcium 8.1 mg/dL (8.4-10.2); Carbon Dioxide 31.0 mmol/L (22-30); Creatinine 1 0.9 mg/dL (0.52-1.04); EST GLOMERULAR FILTRATION RATE 67.1 ML/MIN; Glucose 163.0 mg/dL (74-106); NT PRO BNPII 958.0 pg/mL (<300); Potassium 4.2 mmol/L (3.5-5.1); SGOT/AST 18.0 U/L (14-36); SGPT/ALT 11.0 U/L (0-35); Total Protein 5.9 g/dL (6.3-8.2)
[2025-03-26] MEDS ORDERED: VENTOLIN COMMON CANISTER IH PRN (07:23)
[2025-03-26 07:47] VITALS: RESP 16
[2025-03-26] MEDS: Advair Hfa 115/21 Common canister IH SCH (07:50)
--- NOTE | 2025-03-26 09:23 | XRAY ---
Indication: Productive cough. Hypoxia. Comparison: December 10, 2024 Portable chest again hyperinflated with worsening moderate right base infiltrate/atelectasis/effusion. Left lung remains clear. Heart not enlarged. Bony thorax intact again with osteopenia and degenerative changes.
[2025-03-26] MEDS ORDERED: NON-FORMULARY ITEM (Budesonide/Glycopyr/Formoterol [Breztri Aerosphere Inhaler] 10.7 GM Hf IH SCH (10:00)
--- NOTE | 2025-03-26 10:38 | XRAY ---
CLINICAL HISTORY: dyspnea elevated ddimer COMPARISON: Chest X-ray dated 03/26/2025. TECHNIQUE: Contiguous 3.[address] images of the chest were acquired with the administration of intravenous contrast 80 cc Isovue 370. Coronal and sagittal reconstructions were obtained. One of the following dose reduction techniques was utilized for this exam: automated exposure control, adjustment of the mA and/or kV according to patient size, and the use of iterative reconstruction. FINDINGS: Lungs: The right lower lung lobe bronchus shows a diffuse, mild, circumferential sheet of soft tissue thickening running along its course and partially attenuating its lumen, showing the following features: It is seen running caudally throughout the course of the bronchus and encroaching on the secondary and tertiary divisions running to different segments of the right lower lobe. Cranially, it is reaching the right hilar region. There is a focal subsegmental consolidation patch along the posterior segment of the right lower lung lobe, and this soft tissue thickening is seen merging with the consolidation patch and partially merging with the medial aspect of the costal pleura, with reactive pleural thickening and minimal ipsilateral pleural effusion. Another smaller focal subsegmental consolidation patch is noted along the medial segment of the right middle lung lobe. The related pulmonary vessels (arteries and veins) are seen coursing through the lesion with adequate opacification of contrast and no evidence of thrombosis within. It roughly measures 5.4 x 4.4 cm at the maximum axial dimensions measured in axial image 51/296. Mosaic lung parenchymal attenuation with emphysematous parenchymal changes is present, mainly centrilobular. A small, well-defined, fissural-based nodule is seen at the apico-posterior segment of the left upper lung lobe, measuring 8.4 x 6.5 mm, identified at axial images 208/296. Centrilobular minute pulmonary nodules with a tree-in-bud appearance are identified at the anterior segment of the right upper lung lobe in axial image 126/296. Minimal left-sided pleural effusion with related basal left-sided atelectasis. Scattered fibroatelectatic lung bands. Mediastinum: Multiple enlarged mediastinal lymphadenopathies, the largest seen at the carinal-subcarinal group and measuring 19 x 13.7 mm. Normal appearance of the thymus. Normal CT appearance of the left hilum. Heart and Great Vessels: Cardiomegaly. No pericardial effusion. Normal caliber and course of the thoracic aorta and other great vessels. No aneurysm or dissection. Atherosclerotic changes along the aorta, the coronaries, and the major branches are identified. Pulmonary Arteries: No evidence of pulmonary embolism. Normal size and course of the pulmonary arteries. Esophagus: Normal course and caliber. No masses or dilatation. Bones: Spondylodegenerative changes along the spine. No fractures or lytic/sclerotic lesions. No evidence of rib fractures. Chest Wall: No masses or soft tissue abnormalities. Upper Abdomen: Multiple foci of calcification are identified in the splenic parenchyma. An ill-defined area of peripheral arterial enhancement is identified along hepatic segment , measuring 20 x 17 mm. Thyroid: Normal size and morphology. No nodules or masses. IMPRESSION: 1. Normal contrast opacification of the pulmonary artery with no evidence of filling defects or thrombosis. 2. An ill-defined sheet of soft tissue density along the right hilar region and the right lower lobe bronchus, showing features and extensions as detailed, with associated focal consolidation patches along the posterior segment of the right lower lung lobe and the medial segment of the middle lung lobe. Further diagnostic PET-CT imaging with histopathological sampling is advised. 3. A well-defined fissural-based nodule at the apico-posterior segment of the left upper lung lobe, measuring 8.4 x 6.5 mm. 4. Ongoing inflammatory process along the right upper lung lobe with a tree-in-bud pattern suggestive of bronchiolitis with bronchovascular interstitial infiltration is suggested. 5. Bilateral minimal pleural effusion. 6. Multiple enlarged mediastinal lymphadenopathies along the carinal/subcarinal groups. 7. No evidence of aortic aneurysm or dissection. 8. Cardiomegaly. 9. Hepatic segment area of peripheral enhancement, which could be suggestive of an underlying hemangioma. Needs triphasic CT assessment. 10. Splenic granuloma. 11. The lung parenchymal findings concur with the prior X-ray of the chest. Electronically Signed by: Travis Crowe MD. (03/26/2025 10:37:00 EDT)
[2025-03-26] MEDS: Spiriva 18 Mcg/Cap Inhaler IH SCH (11:19)
--- NOTE | 2025-03-26 11:20 | PCM.DS ---
Discharge Summary Date of Admission: 03/25/25 23:14 Date of Discharge: 03/26/25 Admitting Physician: ALEXANDRA STYLES MD Primary Care Provider: LAURA SHELTON Allergies Allergies cephalexin [From Keflex] Allergy (Verified 03/25/25 20:14) Hospital Summary - Hospital Course Hospital Course: Ms. Yarbrough is a 75-year-old female with a history of coronary artery disease status post multiple stents, COPD, hypertension, and hyperlipidemia who presented to the emergency department with two to three weeks of progressive shortness of breath and cough that had changed from clear to green sputum. She also noted urinary urgency and frequency but denied dysuria, chest pain, fever, chills, nausea, vomiting, or abdominal pain. In the emergency room, chest X-ray revealed a right lower lobe infiltrate concerning for pneumonia. Initial laboratory evaluation was notable for leukocytosis with WBC 15.8 K/L, platelet count 173 K/L, sodium 138 mmol/L, potassium 3.7 mmol/L, CO? 33 mmol/L, BUN 11 mg/dL, creatinine 1.09 mg/dL, and troponin less than 0.012. Arterial blood gas showed pCO? 55 mmHg consistent with hypercapnia. Procalcitonin was mildly elevated at 0.254 ng/mL. Urinalysis demonstrated 2150 WBCs and small leukocyte esterase, concerning for urinary tract infection. The respiratory viral panel was negative. She was started on intravenous Levofloxacin 500 mg daily, which was chosen both for pneumonia and urinary tract coverage given her cephalosporin allergy. During her hospital course, she developed acute desaturation with oxygen saturation dropping into the 70s, improving only to 86% with repositioning. She required escalation to 12 L oxygen by oxymask. CPAP was trialed but not tolerated. Repeat chest X-ray at that time showed interval development of a horizontally oriented right supradiaphragmatic opacity, concerning for a new infective or inflammatory infiltrate, in addition to bilaterally hyperlucent, hyperinflated lungs with basal reticulonodular shadowing consistent with her underlying COPD. Given the worsening findings, a CT chest was obtained. This demonstrated an ill-defined soft tissue density in the right hilar region extending to the right lower lobe bronchus with associated consolidation in the right lower and middle lobes, as well as a tree-in-bud pattern in the right upper lobe suggestive of bronchiolitis. There was also a well-defined fissural-based nodule in the left upper lobe measuring 8.4 x 6.5 mm, bilateral minimal pleural effusions, and multiple enlarged mediastinal lymph nodes in the carinal and subcarinal regions. Additional findings included cardiomegaly, a hepatic segment lesion with peripheral enhancement likely representing a hemangioma requiring further triphasic CT evaluation, and a splenic granuloma consistent with prior granulomatous disease. Repeat labs on the day of transfer (03/26) showed WBC trending to 14.3 K/L with stable renal function and platelet count. Despite antibiotics and oxygen supplementation, she remained dependent on 12 L oxymask. Given her persistent hypoxemia, complex imaging findings, and need for further diagnostic evaluation including PET-CT and potential tissue sampling of the right hilar process and mediastinal adenopathy, the case was reviewed with pulmonology. Dr. Fay who recommended transfer to a higher level of care for advanced pulmonary management and further workup. The patient is therefore being transferred to [facility] for continued care. I spent 35 minutes [id number] with the patient on the day of discharge performing discharge exam, discussing hospital stay and discharge instructions with patient and caregivers, preparation of discharge records, prescriptions & referral forms and addressing any questions/concerns the patient had as documented above. - Vitals & Intake/Output Vital Signs: Vital Signs Temperature 98 F 03/26/25 07:46 Pulse Rate 57 L 03/26/25 07:46 Respiratory Rate 16 03/26/25 07:46 Blood Pressure 118/56 03/26/25 07:46 O2 Sat by Pulse Oximetry 94 L 03/26/25 07:46 Intake & Output: Intake & Output 03/23/25 03/24/25 03/25/25 03/26/25 11:59 11:59 11:59 11:59 Intake Total 120 Balance 120 Weight 69.8 kg - Lab Result Diagrams: 03/26/25 05:13 03/26/25 05:13 Lab Results-Last 24 Hrs: Lab Results-Last 24 Hours 03/25/25 03/25/25 03/25/25 Range/Units 20:40 20:40 20:40 WBC 15.8 H (3.98-10.04) x10^3/uL RBC 4.49 (3.93-5.22) x10^6/uL Hgb 14.1 (11.2-15.7) g/dL Hct 44.9 (34.1-44.9) % MCV 100.0 H (79.4-94.8) fL MCH 31.4 (25.6-32.2) pg MCHC 31.4 L (32.2-35.5) g/dL RDW 14.0 (11.7-14.4) % Plt Count 173 L (182-369) x10^3/uL MPV 10.3 (9.4-12.3) fL Gran % 88.3 H (34.0-71.1) % Immature Gran % (Auto) 0.5 H (0.001-0.429) % Nucleat RBC Rel Count 0.0 (0.00-0.2) % Eos # (Auto) 0.04 (0.04-0.36) x10^3/uL Immature Gran # (Auto) 0.08 H (0.001-0.031) x10^3u/L Absolute Lymphs (auto) 0.93 L (1.18-3.74) x10^3/uL Absolute Monos (auto) 0.74 (0.24-0.86) x10^3/uL Absolute Nucleated RBC 0.00 (0.00-0.012) x10^3u/L Lymphocytes % 5.9 L (19.3-51.7) % Monocytes % 4.7 (4.7-12.5) % Eosinophils % 0.3 L (0.7-5.8) % Basophils % 0.3 (0.1-1.2) % Absolute Granulocytes 13.93 H (1.56-6.13) x10^3/uL Basophils # 0.04 (0.01-0.08) x10^3/uL PT 11.2 (9.4-12.5) SECONDS INR 1.00 (0.8-3.0) D-Dimer (0.0-0.50) mg/L Puncture Site pCO2 (35-45) mmHg pO2 (75-100) mmHg Base Excess (-2.0-2.0) O2 Saturation (94-100) g/dF ABG pH (7.35-7.45) ABG HCO3 (22-28) ABG O2 Sat (Measured) (95-100) % Mello Test A-a Gradient a/A Ratio Hemoglobin Carboxyhemoglobin (0.0-6.9) % THgb Methemoglobin (1.4-1.5) % Temperature C POC O2 Flow Rate % Sodium 138 (135-145) mmol/L Potassium 3.7 (3.5-5.1) mmol/L Chloride 100 (98-107) mmol/L Carbon Dioxide 33 H (22-30) mmol/L Anion Gap 9.1 (5-15) MEQ/L BUN 11 (7-17) mg/dL Creatinine 1.09 H (0.52-1.04) mg/dL Estimated GFR 53.3 ML/MIN Glucose 105 (74-106) mg/dL Lactic Acid (0.4-2.0) Calcium 8.5 (8.4-10.2) mg/dL Magnesium 2.3 (1.6-2.3) mg/dL Total Bilirubin 0.50 (0.2-1.3) mg/dL AST 22 (14-36) U/L ALT 12 (0-35) U/L Alkaline Phosphatase 118 (38-126) U/L Troponin I (0.000-0.033) ng/mL NT-Pro-B Natriuret Pep (<300) pg/mL Serum Total Protein 7.0 (6.3-8.2) g/dL Albumin 3.8 (3.5-5.0) g/dL Procalcitonin (0.030-0.080) ng/mL Urine Color (Yellow) Urine Appearance (Clear) Urine pH (4.6-8.0) Ur Specific [place] (1.005-1.030) Urine Protein (Negative) Urine Glucose (UA) (Negative) mg/dL Urine Ketones (Negative) Urine Blood (Negative) Urine Nitrite (Negative) Urine Bilirubin (Negative) Urine Urobilinogen (0.2) mg/dL Ur Leukocyte Esterase (Negative) U Hyaline Cast (Auto) (0-2) /LPF Urine Microscopic RBC (0-5) /HPF Urine Microscopic WBC (0-5) /HPF Ur Epithelial Cells (None Seen) /HPF Urine Bacteria (None Seen) /HPF Urine Culture Reflexed (NO) Influenza Type A Ag (NEGATIVE) Influenza Type B Ag (NEGATIVE) RSV (PCR) (NEGATIVE) SARS-CoV-2 (PCR) (NEGATIVE) Slides for Path Review 03/25/25 03/25/25 03/25/25 Range/Units 20:40 20:40 20:50 WBC (3.98-10.04) x10^3/uL RBC (3.93-5.22) x10^6/uL Hgb (11.2-15.7) g/dL Hct (34.1-44.9) % MCV (79.4-94.8) fL MCH (25.6-32.2) pg MCHC (32.2-35.5) g/dL RDW (11.7-14.4) % Plt Count (182-369) x10^3/uL MPV (9.4-12.3) fL Gran % (34.0-71.1) % Immature Gran % (Auto) (0.001-0.429) % Nucleat RBC Rel Count (0.00-0.2) % Eos # (Auto) (0.04-0.36) x10^3/uL Immature Gran # (Auto) (0.001-0.031) x10^3u/L Absolute Lymphs (auto) (1.18-3.74) x10^3/uL Absolute Monos (auto) (0.24-0.86) x10^3/uL Absolute Nucleated RBC (0.00-0.012) x10^3u/L Lymphocytes % (19.3-51.7) % Monocytes % (4.7-12.5) % Eosinophils % (0.7-5.8) % Basophils % (0.1-1.2) % Absolute Granulocytes (1.56-6.13) x10^3/uL Basophils # (0.01-0.08) x10^3/uL PT (9.4-12.5) SECONDS INR (0.8-3.0) D-Dimer (0.0-0.50) mg/L Puncture Site pCO2 (35-45) mmHg pO2 (75-100) mmHg Base Excess (-2.0-2.0) O2 Saturation (94-100) g/dF ABG pH (7.35-7.45) ABG HCO3 (22-28) ABG O2 Sat (Measured) (95-100) % Mello Test A-a Gradient a/A Ratio Hemoglobin Carboxyhemoglobin (0.0-6.9) % THgb Methemoglobin (1.4-1.5) % Temperature C POC O2 Flow Rate % Sodium (135-145) mmol/L Potassium (3.5-5.1) mmol/L Chloride (98-107) mmol/L Carbon Dioxide (22-30) mmol/L Anion Gap (5-15) MEQ/L BUN (7-17) mg/dL Creatinine (0.52-1.04) mg/dL Estimated GFR ML/MIN Glucose (74-106) mg/dL Lactic Acid (0.4-2.0) Calcium (8.4-10.2) mg/dL Magnesium (1.6-2.3) mg/dL Total Bilirubin (0.2-1.3) mg/dL AST (14-36) U/L ALT (0-35) U/L Alkaline Phosphatase (38-126) U/L Troponin I < 0.012 (0.000-0.033) ng/mL NT-Pro-B Natriuret Pep 961 (<300) pg/mL Serum Total Protein (6.3-8.2) g/dL Albumin (3.5-5.0) g/dL Procalcitonin 0.254 H (0.030-0.080) ng/mL Urine Color (Yellow) Urine Appearance (Clear) Urine pH (4.6-8.0) Ur Specific [place] (1.005-1.030) Urine Protein (Negative) Urine Glucose (UA) (Negative) mg/dL Urine Ketones (Negative) Urine Blood (Negative) Urine Nitrite (Negative) Urine Bilirubin (Negative) Urine Urobilinogen (0.2) mg/dL Ur Leukocyte Esterase (Negative) U Hyaline Cast (Auto) (0-2) /LPF Urine Microscopic RBC (0-5) /HPF Urine Microscopic WBC (0-5) /HPF Ur Epithelial Cells (None Seen) /HPF Urine Bacteria (None Seen) /HPF Urine Culture Reflexed (NO) Influenza Type A Ag NEGATIVE (NEGATIVE) Influenza Type B Ag NEGATIVE (NEGATIVE) RSV (PCR) NEGATIVE (NEGATIVE) SARS-CoV-2 (PCR) NEGATIVE (NEGATIVE) Slides for Path Review 10/04/25 10/04/25 10/05/25 Range/Units 20:52 21:40 00:23 WBC (3.98-10.04) x10^3/uL RBC (3.93-5.22) x10^6/uL Hgb (11.2-15.7) g/dL Hct (34.1-44.9) % MCV (79.4-94.8) fL MCH (25.6-32.2) pg MCHC (32.2-35.5) g/dL RDW (11.7-14.4) % Plt Count (182-369) x10^3/uL MPV (9.4-12.3) fL Gran % (34.0-71.1) % Immature Gran % (Auto) (0.001-0.429) % Nucleat RBC Rel Count (0.00-0.2) % Eos # (Auto) (0.04-0.36) x10^3/uL Immature Gran # (Auto) (0.001-0.031) x10^3u/L Absolute Lymphs (auto) (1.18-3.74) x10^3/uL Absolute Monos (auto) (0.24-0.86) x10^3/uL Absolute Nucleated RBC (0.00-0.012) x10^3u/L Lymphocytes % (19.3-51.7) % Monocytes % (4.7-12.5) % Eosinophils % (0.7-5.8) % Basophils % (0.1-1.2) % Absolute Granulocytes (1.56-6.13) x10^3/uL Basophils # (0.01-0.08) x10^3/uL PT (9.4-12.5) SECONDS INR (0.8-3.0) D-Dimer (0.0-0.50) mg/L Puncture Site LEFT RADIAL pCO2 55 H (35-45) mmHg pO2 55 L (75-100) mmHg Base Excess 7.4 H (-2.0-2.0) O2 Saturation 82.7 L (94-100) g/dF ABG pH 7.40 (7.35-7.45) ABG HCO3 34.1 H* (22-28) ABG O2 Sat (Measured) 91.8 L (95-100) % Mello Test YES A-a Gradient 26 a/A Ratio 0.68 Hemoglobin 14.4 Carboxyhemoglobin 9.3 H* (0.0-6.9) % THgb Methemoglobin 0.6 L (1.4-1.5) % Temperature 37.0 C POC O2 Flow Rate 21 % Sodium (135-145) mmol/L Potassium 3.9 (3.5-5.1) mmol/L Chloride (98-107) mmol/L Carbon Dioxide (22-30) mmol/L Anion Gap (5-15) MEQ/L BUN (7-17) mg/dL Creatinine (0.52-1.04) mg/dL Estimated GFR ML/MIN Glucose (74-106) mg/dL Lactic Acid 0.5 (0.4-2.0) Calcium (8.4-10.2) mg/dL Magnesium (1.6-2.3) mg/dL Total Bilirubin (0.2-1.3) mg/dL AST (14-36) U/L ALT (0-35) U/L Alkaline Phosphatase (38-126) U/L Troponin I 0.015 (0.000-0.033) ng/mL NT-Pro-B Natriuret Pep (<300) pg/mL Serum Total Protein (6.3-8.2) g/dL Albumin (3.5-5.0) g/dL Procalcitonin (0.030-0.080) ng/mL Urine Color Yellow (Yellow) Urine Appearance Clear (Clear) Urine pH 7.0 (4.6-8.0) Ur Specific [place] 1.010 (1.005-1.030) Urine Protein 30 (Negative) Urine Glucose (UA) Negative (Negative) mg/dL Urine Ketones Negative (Negative) Urine Blood Negative (Negative) Urine Nitrite Negative (Negative) Urine Bilirubin Negative (Negative) Urine Urobilinogen 1.0 A (0.2) mg/dL Ur Leukocyte Esterase Small A (Negative) U Hyaline Cast (Auto) NONE SEEN (0-2) /LPF Urine Microscopic RBC 0-2 (0-5) /HPF Urine Microscopic WBC 21-50 A (0-5) /HPF Ur Epithelial Cells None Seen (None Seen) /HPF Urine Bacteria Many A (None Seen) /HPF Urine Culture Reflexed YES (NO) Influenza Type A Ag (NEGATIVE) Influenza Type B Ag (NEGATIVE) RSV (PCR) (NEGATIVE) SARS-CoV-2 (PCR) (NEGATIVE) Slides for Path Review 03/26/25 03/26/25 03/26/25 Range/Units 03:25 05:13 05:13 WBC 14.3 H (3.98-10.04) x10^3/uL RBC 4.37 (3.93-5.22) x10^6/uL Hgb 13.3 (11.2-15.7) g/dL Hct 43.4 (34.1-44.9) % MCV 99.3 H (79.4-94.8) fL MCH 30.4 (25.6-32.2) pg MCHC 30.6 L (32.2-35.5) g/dL RDW 13.8 (11.7-14.4) % Plt Count 177 L (182-369) x10^3/uL MPV 10.7 (9.4-12.3) fL Gran % 94.5 H (34.0-71.1) % Immature Gran % (Auto) 0.6 H (0.001-0.429) % Nucleat RBC Rel Count 0.0 (0.00-0.2) % Eos # (Auto) 0 L (0.04-0.36) x10^3/uL Immature Gran # (Auto) 0.09 H (0.001-0.031) x10^3u/L Absolute Lymphs (auto) 0.49 L (1.18-3.74) x10^3/uL Absolute Monos (auto) 0.20 L (0.24-0.86) x10^3/uL Absolute Nucleated RBC 0.00 (0.00-0.012) x10^3u/L Lymphocytes % 3.4 L (19.3-51.7) % Monocytes % 1.4 L (4.7-12.5) % Eosinophils % 0.0 L (0.7-5.8) % Basophils % 0.1 (0.1-1.2) % Absolute Granulocytes 13.48 H (1.56-6.13) x10^3/uL Basophils # 0.02 (0.01-0.08) x10^3/uL PT (9.4-12.5) SECONDS INR (0.8-3.0) D-Dimer (0.0-0.50) mg/L Puncture Site RIGHT RADIAL pCO2 56 H (35-45) mmHg pO2 85 (75-100) mmHg Base Excess 5.3 H (-2.0-2.0) O2 Saturation 92.9 L (94-100) g/dF ABG pH 7.37 (7.35-7.45) ABG HCO3 32.4 H* (22-28) ABG O2 Sat (Measured) 98.1 (95-100) % Mello Test YES A-a Gradient 202 a/A Ratio 0.30 Hemoglobin 14.8 Carboxyhemoglobin 4.2 (0.0-6.9) % THgb Methemoglobin 1.1 L (1.4-1.5) % Temperature 37.0 C POC O2 Flow Rate 50 % Sodium (135-145) mmol/L Potassium 4.2 (3.5-5.1) mmol/L Chloride (98-107) mmol/L Carbon Dioxide (22-30) mmol/L Anion Gap (5-15) MEQ/L BUN (7-17) mg/dL Creatinine (0.52-1.04) mg/dL Estimated GFR ML/MIN Glucose (74-106) mg/dL Lactic Acid (0.4-2.0) Calcium (8.4-10.2) mg/dL Magnesium (1.6-2.3) mg/dL Total Bilirubin (0.2-1.3) mg/dL AST (14-36) U/L ALT (0-35) U/L Alkaline Phosphatase (38-126) U/L Troponin I 0.012 (0.000-0.033) ng/mL NT-Pro-B Natriuret Pep (<300) pg/mL Serum Total Protein (6.3-8.2) g/dL Albumin (3.5-5.0) g/dL Procalcitonin (0.030-0.080) ng/mL Urine Color (Yellow) Urine Appearance (Clear) Urine pH (4.6-8.0) Ur Specific [place] (1.005-1.030) Urine Protein (Negative) Urine Glucose (UA) (Negative) mg/dL Urine Ketones (Negative) Urine Blood (Negative) Urine Nitrite (Negative) Urine Bilirubin (Negative) Urine Urobilinogen (0.2) mg/dL Ur Leukocyte Esterase (Negative) U Hyaline Cast (Auto) (0-2) /LPF Urine Microscopic RBC (0-5) /HPF Urine Microscopic WBC (0-5) /HPF Ur Epithelial Cells (None Seen) /HPF Urine Bacteria (None Seen) /HPF Urine Culture Reflexed (NO) Influenza Type A Ag (NEGATIVE) Influenza Type B Ag (NEGATIVE) RSV (PCR) (NEGATIVE) SARS-CoV-2 (PCR) (NEGATIVE) Slides for Path Review YES 03/26/25 03/26/25 Range/Units 05:13 05:13 WBC (3.98-10.04) x10^3/uL RBC (3.93-5.22) x10^6/uL Hgb (11.2-15.7) g/dL Hct (34.1-44.9) % MCV (79.4-94.8) fL MCH (25.6-32.2) pg MCHC (32.2-35.5) g/dL RDW (11.7-14.4) % Plt Count (182-369) x10^3/uL MPV (9.4-12.3) fL Gran % (34.0-71.1) % Immature Gran % (Auto) (0.001-0.429) % Nucleat RBC Rel Count (0.00-0.2) % Eos # (Auto) (0.04-0.36) x10^3/uL Immature Gran # (Auto) (0.001-0.031) x10^3u/L Absolute Lymphs (auto) (1.18-3.74) x10^3/uL Absolute Monos (auto) (0.24-0.86) x10^3/uL Absolute Nucleated RBC (0.00-0.012) x10^3u/L Lymphocytes % (19.3-51.7) % Monocytes % (4.7-12.5) % Eosinophils % (0.7-5.8) % Basophils % (0.1-1.2) % Absolute Granulocytes (1.56-6.13) x10^3/uL Basophils # (0.01-0.08) x10^3/uL PT (9.4-12.5) SECONDS INR (0.8-3.0) D-Dimer 1.08 H* (0.0-0.50) mg/L Puncture Site pCO2 (35-45) mmHg pO2 (75-100) mmHg Base Excess (-2.0-2.0) O2 Saturation (94-100) g/dF ABG pH (7.35-7.45) ABG HCO3 (22-28) ABG O2 Sat (Measured) (95-100) % Mello Test A-a Gradient a/A Ratio Hemoglobin Carboxyhemoglobin (0.0-6.9) % THgb Methemoglobin (1.4-1.5) % Temperature C POC O2 Flow Rate % Sodium 136 (135-145) mmol/L Potassium 4.2 (3.5-5.1) mmol/L Chloride 100 (98-107) mmol/L Carbon Dioxide 31 H (22-30) mmol/L Anion Gap 8.4 (5-15) MEQ/L BUN 11 (7-17) mg/dL Creatinine 0.90 (0.52-1.04) mg/dL Estimated GFR 67.1 ML/MIN Glucose 163 H (74-106) mg/dL Lactic Acid (0.4-2.0) Calcium 8.1 L (8.4-10.2) mg/dL Magnesium (1.6-2.3) mg/dL Total Bilirubin 0.50 (0.2-1.3) mg/dL AST 18 (14-36) U/L ALT 11 (0-35) U/L Alkaline Phosphatase 122 (38-126) U/L Troponin I (0.000-0.033) ng/mL NT-Pro-B Natriuret Pep 958 (<300) pg/mL Serum Total Protein 5.9 L (6.3-8.2) g/dL Albumin 3.1 L (3.5-5.0) g/dL Procalcitonin (0.030-0.080) ng/mL Urine Color (Yellow) Urine Appearance (Clear) Urine pH (4.6-8.0) Ur Specific [place] (1.005-1.030) Urine Protein (Negative) Urine Glucose (UA) (Negative) mg/dL Urine Ketones (Negative) Urine Blood (Negative) Urine Nitrite (Negative) Urine Bilirubin (Negative) Urine Urobilinogen (0.2) mg/dL Ur Leukocyte Esterase (Negative) U Hyaline Cast (Auto) (0-2) /LPF Urine Microscopic RBC (0-5) /HPF Urine Microscopic WBC (0-5) /HPF Ur Epithelial Cells (None Seen) /HPF Urine Bacteria (None Seen) /HPF Urine Culture Reflexed (NO) Influenza Type A Ag (NEGATIVE) Influenza Type B Ag (NEGATIVE) RSV (PCR) (NEGATIVE) SARS-CoV-2 (PCR) (NEGATIVE) Slides for Path Review - Radiology Exams Ordered Rad Exams-Entire Visit: Radiology Procedures Category Date Time Status CHEST 1 VIEW (PORTABLE) Stat Exams 03/25/25 20:30 Completed CHEST 1 VIEW (PORTABLE) Stat Exams 03/26/25 02:52 Completed CHEST WITH CONTRAST [CT] Stat Exams 03/26/25 07:54 Completed - Procedures and Test Procedures and Tests throughout Hospitalization: Therapy Orders & Screens 03/26/25 01:12 EKG REPEAT IN AM Comment: Oxygen Nasal Cannula 4 lpm Comment: Respiratory Therapy Consult ONCE Comment: Reason For Exam: 03/26/25 02:51 BiPap/CPAP ROUTINE Comment: 12 IPAP, 5 EPAP, FiI2 titrate to SpO2 > 90% Diagnosis: uti copd 03/26/25 03:12 Respiratory MDI BID Comment: Diagnosis: uti copd 03/26/25 04:10 Respiratory Therapy Assessment DAILY Comment: Diagnosis: uti copd Discharge Exam General Appearance: no apparent distress Neurologic Exam: alert, oriented x 3, cooperative Eye Exam: PERRL Ears, Nose, Throat Exam: normal ENT inspection Neck Exam: normal inspection Respiratory Exam: crackles/rales, wheezing Cardiovascular Exam: regular rate/rhythm, normal heart sounds Gastrointestinal/Abdomen Exam: soft, normal bowel sounds Pelvic Exam: deferred Rectal Exam: deferred Back Exam: normal inspection Extremity Exam: normal inspection Skin Exam: normal color Final Diagnosis/Problem List - Final Discharge Diagnosis/Problem (1) Pneumonia Current Visit: Yes Status: Acute Assessment & Plan: - 23 weeks worsening dyspnea, productive cough (green sputum). -Labs: WBC 15.8 -14.3 K/L, procalcitonin 0.254 ng/mL, ABG with pCO? 55 mmHg. -Initial chest X-ray: right lower lobe infiltrate. -Repeat CXR: interval development of ill-defined right supradiaphragmatic opacity, with bilateral hyperlucent, hyperinflated lungs and basal reticulonodular changes. -CT chest: consolidation in posterior right lower lobe and medial right middle lobe, tree-in-bud pattern in right upper lobe consistent with bronchiolitis. -Required escalating O2 up to 12 L oxymask, unable to tolerate CPAP. -Continue Levofloxacin - supplemental O2, transfer for pulmonology evaluation. Code(s): J18.9 - PNEUMONIA, UNSPECIFIED ORGANISM (2) Acute respiratory failure with hypoxia Current Visit: No Status: Resolved Assessment & Plan: ABG pCO2 55 with [id number] up to 12 L. CXR/CT: hyperinflated lungs, reticulonodular opacities consistent with COPD baseline. Pulmonology recommends higher level of care. Supplemental oxygen, monitor for BiPAP tolerance at receiving facility. Code(s): J96.01 - ACUTE RESPIRATORY FAILURE WITH HYPOXIA (3) Mediastinal lymphadenopathy Current Visit: Yes Status: Acute Assessment & Plan: CT: ill-defined right hilar soft tissue with mediastinal nodes; suspicious for neoplastic vs inflammatory process. Requires PET-CT and tissue sampling at higher level of care. Code(s): R59.0 - LOCALIZED ENLARGED LYMPH NODES (4) Pulmonary nodule Current Visit: Yes Status: Acute Assessment & Plan: Requires outpatient CT/PET follow-up depending on overall workup Code(s): R91.1 - SOLITARY PULMONARY NODULE (5) Hepatic lesion Current Visit: Yes Status: Acute Assessment & Plan: Likely hemangioma, needs triphasic CT for confirmation. Code(s): K76.9 - LIVER DISEASE, UNSPECIFIED (6) CAD (coronary artery disease) Current Visit: Yes Status: Acute Assessment & Plan: continue home medications. Code(s): I25.10 - ATHSCL HEART DISEASE OF [place] CORONARY ARTERY W/O ANG PCTRS (7) HTN (hypertension) Current Visit: Yes Status: Acute Assessment & Plan: continue home regimen. Code(s): I10 - ESSENTIAL (PRIMARY) HYPERTENSION (8) HLD (hyperlipidemia) Current Visit: Yes Status: Acute Assessment & Plan: continue home regimen. Code(s): E78.5 - HYPERLIPIDEMIA, UNSPECIFIED (9) UTI (urinary tract infection) Current Visit: Yes Status: Acute Assessment & Plan: UA: WBC 2150, leukocyte esterase positive. Covered with Levofloxacin. Urine culture pending. Code(s): N39.0 - URINARY TRACT INFECTION, SITE NOT SPECIFIED (10) Thrombocytopenia Current Visit: Yes Status: Acute Assessment & Plan: Platelets 173 K/L (stable) - Discharge Discharge Date: 03/26/25 Disposition: Home, Self-Care Condition: Fair Prescriptions: New Levofloxacin [Levofloxacin 500MG/100ML D5W] 500 mg IV QPM Methylprednisolone Sod Suc 40M [solu-MEDROL] 40 mg IV Q8HT Tiotropium [place] Inhaler [Spiriva 18 Mcg/Cap Inhaler] 1 ea IH DAILY inhaler Continue Metoprolol Tartrate 25 mg PO DAILY lisinopriL [Lisinopril] 20 mg PO DAILY Furosemide 20 mg [Lasix 20 mg] 20 mg PO DAILY PRN PRN Reason: fluid overload Atorvastatin Calcium [Lipitor 20MG Tablet] 40 mg PO HS Docusate Sodium [Colace] 100 mg PO BID PRN PRN PRN Reason: Constipation Nitroglycerin 0.4 mg (Ed) [Nitrostat 0.4 MG (ED)] 0.4 mg SL DIRECTIONS UNKNOWN Spironolactone 25 mg PO DAILY Albuterol 8 gm Mdi Hfa [Ventolin Hfa MDI] 2 puff IH Q4-6HPRN PRN PRN Reason: Shortness Of Breath/Wheezing PANTOPRAZOLE 40 mg Tablet [Protonix 40MG Tablet] 40 mg PO HS Clopidogrel Bisulfate [Plavix] 75 mg PO DAILY #0 Gabapentin [Neurontin ] 300 mg PO TID Budesonide/Glycopyr/Formoterol [Breztri Aerosphere Inhaler] 2 puff IH BID Simethicone 80 mg [Mylicon 80MG] 80 mg PO BID Tramadol HCl 50 mg [Ultram 50 mg] 50 mg PO Q8H PRN PRN PRN Reason: Pain Levothyroxine Sodium 200 mcg PO DAILY 30 Days #30 tablet Albuterol 2.5 mg/3 ml Neb [Proventil 2.5 mg/3 ml Neb] 1 neb NEB Q6H PRN PRN PRN Reason: Shortness Of Breath Verapamil HCl 40 mg PO TID Sucralfate 1 gm [Carafate 1 GM] 1 g PO ACHS Levothyroxine Sodium 88 mcg PO DAILY Isosorbide Mononitrate 30 mg [Imdur 30 MG] 30 mg PO DAILY Ezetimibe 10 mg [Zetia 10 MG] 10 mg PO DAILY Discontinued Promethazine HCl 25 mg [Phenergan 25 mg] 1 tab PO Q6HPRN PRN PRN Reason: Nausea Follow up with: LAURA SHELTON, [Primary Care Provider, [facility]]
[2025-03-26] MEDS: Zestril 20 MG PO SCH (11:31)
[2025-03-26] MEDS: SYNTHROID 100 MCG PO SCH (11:31)
[2025-03-26] MEDS: LASIX 20 MG PO PRN (11:32)
[2025-03-26] MEDS: Imdur 30 MG PO SCH (11:32)
[2025-03-26] MEDS: CALAN 80 MG PO SCH (11:32)
[2025-03-26] MEDS: PLAVIX Tablet PO SCH (11:32)
[2025-03-26] MEDS: Aldactone 25 MG PO SCH (11:32)
[2025-03-26] MEDS: Mylicon 80MG PO SCH (11:34)
[2025-03-26] MEDS: Lopressor 25MG Tab PO SCH (11:35)
[2025-03-26] MEDS: SYNTHROID 88 MCG PO SCH (11:35)
[2025-03-26] MEDS: Docusate Sodium 100 MG PO PRN (11:35)
[2025-03-26] MEDS: solu-MEDROL 40 MG, Sterile H2O 10 ml 1 ML IV SCH ×2 (11:36→15:46)
[2025-03-26 17:06] VITALS: BP 94/53; PULSE 50; TEMP 98; O2SAT 96
[2025-03-26] MEDS ORDERED: Levofloxacin 500MG/100ML D5W 500 MG/100 ML BAG IV SCH (22:00)
[2025-03-26] MEDS ORDERED: Zocor 10MG PO SCH (22:00)
[2025-03-26] MEDS ORDERED: Protonix 40MG Tablet PO SCH (22:00)
== END 2025-03-26 18:50 | disposition home or self-care (01) ==
LOC: ED 19:58 → MED SURG 23:14
PROVIDERS: ADMIT Internal Medicine; ATTEND Internal Medicine
DX: J18.9 Pneumonia, unspecified organism (principal); J96.01 Acute respiratory failure with hypoxia; Z59.12 Inadequate housing utilities; R59.0 Localized enlarged lymph nodes; R91.1 Solitary pulmonary nodule; K76.9 Liver disease, unspecified; I25.10 Atherosclerotic heart disease of native coronary artery without angina pectoris; I10 Essential (primary) hypertension; E78.5 Hyperlipidemia, unspecified; N39.0 Urinary tract infection, site not specified; D69.6 Thrombocytopenia, unspecified; J44.9 Chronic obstructive pulmonary disease, unspecified; F17.200 Nicotine dependence, unspecified, uncomplicated; Z79.899 Other long term (current) drug therapy; Z99.81 Dependence on supplemental oxygen; Z79.01 Long term (current) use of anticoagulants
CPT/HCPCS: 36415; 36600; 71045; 71260; 80053; 81001; 82375; 82803; 83605; 83735; 83880; 84145; 84484; 85025; 85379; 85610; 87040; 87086; 87637; 93005; 93268; 94002; 94640; 94760; 94762; 96365; 96374; 99291; G0378

== ENCOUNTER 2025-04-19 06:01 | Observation (INO) | payer MEDICARE ==
[2025-04-19] MEDS ORDERED: DUONEB 0.5-3 MG/3 ml Neb IH ONE (06:15)
[2025-04-19] MEDS: DUONEB 0.5-3 MG/3 ml Neb IH ONE (06:21)
[2025-04-19] MEDS ORDERED: Sterile H2O 10 ml IJ ONE (06:27)
[2025-04-19] MEDS: solu-MEDROL 125 MG, Sterile H2O 10 ml 2 ML IV ONE (06:29)
--- NOTE | 2025-04-19 06:30 | ERPHSYRPT ---
- History of Present Illness Time Seen by Provider: 04/19/25 06:25 Source: patient Exam Limitations: no limitations Patient Subjective Stated Complaint: "I feel short of breath and feels like I can't get a deep breath. I've been coughing up yellow stuff and I've also been having some pain in my stomach, I think it's a hernia". Triage Nursing Assessment: Pt presents to ER with complaints of shortness of breath. Arrives by private vehicle and brought back to ER room 6 by wheelchair. Pt is able to get into bed with stand by assist x 1. Pt wears 2L via NC at home 12/01. Arrived to ER on 3L via NC and Spo2 88% after ambulating to stretcher. Pt has productive intermittent cough with yellow sputum. Lung sounds present with wheezing noted throughout upper lobes bilaterally and course crackles in lower lobes bilaterally. Pt is alert and oriented x 3. Skin is pink, warm, and dry. Denies fevers. Complaining of pain in center of abdomen, abdomen appears slightly distended and firm to touch. Complains of nausea, denies vomiting or diarrhea. Rates pain in abdomen 8/10 scale. Also complaining of pain in left knee also which is chronic issue. Pt has noted moderate lower extermity edema noted. Physician History: Patient is a 75-year-old female current smoker history of hyperlipidemia hypertension coronary artery disease cardiac stent to COPD hypothyroidism presents to our ED for evaluation of shortness of breath. Symptoms started today. Patient states he is having difficulty taking a deep breath. Patient describes a productive cough of yellow sputum. No fever. Patient wears 2 L nasal cannula at home. Patient increased her oxygen from 2 L to 3 L. However and spite patient O2 sat upon arrival was 88%. Patient adds that she is experiencing abdominal discomfort. No nausea no vomiting no diarrhea no rash. Symptoms are moderate in intensity. Mild nausea. No diarrhea. No vomiting. Patient voices no other complaints or concerns at this time. Portions of this note were created with voice recognition technology. There may be grammatical, spelling, punctuation or sound alike errors Timing/Duration: today Severity: moderate Modifying Factors: Improves With: nothing Associated Symptoms: denies symptoms Allergies/Adverse Reactions: cephalexin [From Keflex] Allergy (Verified 04/19/25 06:04) Home Medications: Metoprolol Tartrate 25 mg PO DAILY 08/11/18 [History] lisinopriL [Lisinopril] 20 mg PO DAILY 08/11/18 [History] Furosemide 20 mg [Lasix 20 mg] 20 mg PO DAILY PRN 09/18/20 [History] Atorvastatin Calcium [Lipitor 20MG Tablet] 40 mg PO HS 08/28/21 [History] Docusate Sodium [Colace] 100 mg PO BID PRN PRN 08/28/21 [History] Nitroglycerin 0.4 mg (Ed) [Nitrostat 0.4 MG (ED)] 0.4 mg SL DIRECTIONS UNKNOWN 08/28/21 [History] Spironolactone 25 mg PO DAILY 08/28/21 [History] Albuterol 8 gm Mdi Hfa [Ventolin Hfa MDI] 2 puff IH Q4-6HPRN PRN 09/02/21 [History] PANTOPRAZOLE 40 mg Tablet [Protonix 40MG Tablet] 40 mg PO HS 09/02/21 [History] Budesonide/Glycopyr/Formoterol [Breztri Aerosphere Inhaler] 2 puff IH BID 07/04/22 [History] Gabapentin [Neurontin ] 300 mg PO TID 07/04/22 [History] Simethicone 80 mg [Mylicon 80MG] 80 mg PO BID 07/04/22 [History] Tramadol HCl 50 mg [Ultram 50 mg] 50 mg PO Q8H PRN PRN 06/29/24 [History] Albuterol 2.5 mg/3 ml Neb [Proventil 2.5 mg/3 ml Neb] 1 neb NEB Q6H PRN PRN 08/11/24 [History] Ezetimibe 10 mg [Zetia 10 MG] 10 mg PO DAILY 03/25/25 [History] Isosorbide Mononitrate 30 mg [Imdur 30 MG] 30 mg PO DAILY 03/25/25 [History] Levothyroxine Sodium 88 mcg PO DAILY 03/25/25 [History] Sucralfate 1 gm [Carafate 1 GM] 1 g PO ACHS 03/25/25 [History] Verapamil HCl 40 mg PO TID 03/25/25 [History] Hx Tetanus, Diphtheria Vaccination/Date Given: No Hx Influenza Vaccination/Date Given: No Hx Pneumococcal Vaccination/Date Given: No Immunizations Up to Date: No Travel Risk - International Travel Have you traveled outside of the country in past 3 weeks: No - Emerging Infectious Disease Are you exhibiting symptoms associated with any current EIDs: Yes Symptoms: Abdominal Pain, Shortness of Breath - Review of Systems All Other Systems: Reviewed and Negative - Past Medical History Pertinent Past Medical History: Yes Neurological History: No Pertinent History ENT History: No Pertinent History Cardiac History: Coronary Artery Disease, High Cholesterol, Hypertension, Other Respiratory History: COPD Endocrine Medical History: Hypothyroidism Musculoskeletal History: Arthritis, Osteoporosis GI Medical History: GERD, Hernia History: No Pertinent History Psycho-Social History: No Pertinent History Female Reproductive Disorders: No Pertinent History Other Medical History: CHRONIC BACK PAIN,wears home oxygen 2L at all times, [employer]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 3 cardiac stents in 2019 Significant Family History: no pertinent family hx - Social History Smoking Status: Current every day smoker How long have you smoked: 50 years Exposure to second hand smoke: Yes Drug Use: none - Social Determinants of Health Will the patient participate in the screening: Yes Do you worry about a steady place to live?: No Do you have any problems with any of the following?: No known problems In the past 12 months,have you had to go without utilities?: No Transportation Issues: No Has anyone in your support network made you feel unsafe?: No Have you or anyone in your house had to go w/o enough food: No - Nursing Vital Signs Nursing Vital Signs: Initial Vital Signs Temperature 96.8 F 04/19/25 06:04 Pulse Rate 111 H 04/19/25 06:04 Respiratory Rate 24 04/19/25 06:04 Blood Pressure 147/98 04/19/25 06:04 O2 Sat by Pulse Oximetry 95 04/19/25 06:04 Pain Scale Pain Intensity 8 - Physical Exam General Appearance: no apparent distress, alert Eye Exam: PERRL/EOMI, eyes nml inspection Ears, Nose, Throat Exam: normal ENT inspection, moist mucous membranes Neck Exam: normal inspection, full range of motion Respiratory Exam: normal breath sounds, diminished breath sounds, crackles/rales, wheezing, No respiratory distress Cardiovascular Exam: regular rate/rhythm, normal heart sounds, normal peripheral pulses Gastrointestinal/Abdomen Exam: soft, normal bowel sounds, No tenderness, No mass Back Exam: normal inspection, normal range of motion, No CVA tenderness, No vertebral tenderness Extremity Exam: normal inspection, normal range of motion, pelvis stable Neurologic Exam: alert, oriented x 3, cooperative, normal mood/affect, sensation nml, No motor deficits Skin Exam: normal color, warm, dry, No rash Lymphatic Exam: No adenopathy SpO2 Interpretation: normal SpO2: 95 O2 Delivery: Room Air - Course Nursing assessment & vital signs reviewed: Yes EKG Interpreted by Me: RATE ([id number]), Sinus Tach, Left [place] Deviation, NORMAL INTERVALS, NORMAL QRS - Radiology Exams Chest X-ray Interpretation: Interpreted by me (Chronic findings) Ordered Tests: Active Orders 24 hr Category Date Time Status Conservation Of Resources Commissioner STAT Care 04/19/25 06:22 Active EKG-ER Only STAT Care 04/19/25 06:21 Active IV Insertion STAT Care 04/19/25 06:30 Active Pulse Oximetry (ED) STAT Care 04/19/25 06:21 Active ABDOMEN AND PELVIS W/0 CONTRAS [CT] Stat Exams 04/19/25 06:32 Ordered CHEST 1 VIEW (PORTABLE) Stat Exams 04/19/25 06:22 Ordered BLOOD CULTURE Stat Lab 04/19/25 06:21 Ordered CBC W DIFF Stat Lab 04/19/25 06:21 Ordered D-DIMER QUANTITATIVE Stat Lab 04/19/25 06:21 Ordered NT PRO BNPII Stat Lab 04/19/25 Ordered TROPONIN Q4H Lab 04/19/25 06:30 Ordered TROPONIN Q4H Lab 04/19/25 10:30 Ordered TROPONIN Q4H Lab 04/19/25 14:30 Ordered UA W/RFX UR CULTURE Stat Lab 04/19/25 06:31 Ordered Respiratory Therapy Assessment DAILY RT 04/19/25 06:21 Active Medication Summary Discontinued Medications Generic Name Dose Route Start Last Admin Trade Name Sandie PRN Reason Stop Dose Admin Albuterol/Ipratropium Confirm 04/19/25 06:15 Ipratropium/Albuterol Sulfate 3 Ml Ampul.Neb Administered 04/19/25 06:16 Dose 3 ml IH .STK-MED ONE Albuterol/Ipratropium 3 ml 04/19/25 06:18 04/19/25 06:21 Ipratropium/Albuterol Sulfate 3 Ml Ampul.Neb IH 04/19/25 06:19 3 ml STAT ONE Administration Methylprednisolone Sodium 0 mg 04/19/25 06:21 04/19/25 06:29 Succinate 125 mg/ Sterile IV 04/19/25 06:22 125 mg Water 2 ml STAT ONE Administration Methylprednisolone Sodium Succinate Confirm 04/19/25 06:27 Methylprednis Sod Succ 125 Mg/2 Ml Vial Administered 04/19/25 06:28 Dose 125 mg .ROUTE .STK-MED ONE Sterile Water Confirm 04/19/25 06:27 Water For Injection,Sterile 10 Ml Vial Administered 04/19/25 06:28 Dose 10 ml IJ .STK-MED ONE - Progress Progress: improved Progress Note: Patient is a 75-year-old female current smoker history of hyperlipidemia hypertension coronary artery disease cardiac stent to COPD hypothyroidism presents to our ED for evaluation of shortness of breath. Symptoms started today. Patient states he is having difficulty taking a deep breath. Patient describes a productive cough of yellow sputum. No fever. Chest x-ray reviewed and interpreted by Dr. Schmid. However this is a preliminary read. Chronic findings observed. Formal read pending Physical exam reveals diffuse wheezing crackles diminished breath sounds. Mild mid abdomen pain. Labs pending. It is currently the change of shift. Patient endorsed to incoming physician Dr. Rodriguez who will review all orders which are pending and make final disposition. Portions of this note were created with voice recognition technology. There may be grammatical, spelling, punctuation or sound alike errors History obtained from patient Differential diagnosis pneumonia, COPD exacerbation, CHF Complexity of problems addressed is moderate acute complicated. No critical care time. Complex of data reviewed and analyzed is extensive. Test ordered chest reviewed results analyzed and correlated clinically with history and physical exam. Management discussed with hospitalist who accepts admission to observation. Risk of complication and or risk of morbidity/mortality of patient management is high. Patient requires hospitalization for further evaluation and treatment. Vital stable. Time spent to admit patient approximately 20 minutes. Plan of care established for shared decision making. No social determinants of health present to impede follow-up. Portions of this note were created with voice recognition technology. There may be grammatical, spelling, punctuation or sound alike errors 04/19/25 06:38 Counseled pt/family regarding: lab results, diagnosis, rad results - Departure Departure Disposition: Observation Clinical Impression: COPD exacerbation, Hypoxia Condition: Stable Critical Care Time: No Referrals: LAURA SHELTON, DO [Primary Care Provider, [facility]] - Follow up/PCP as directed Instructions: Chronic Obstructive Pulmonary Disease
[2025-04-19 07:13] LABS: BASOPHIL % 0.4 % (0.1-1.2); Basophil (Absolute #) 0.04 x10^3/uL (0.01-0.08); Eosinophil (Absolute #) 0.16 x10^3/uL (0.04-0.36); Hematocrit 45.4 % (34.1-44.9); Hemoglobin 14.1 g/dL (11.2-15.7); IMMATURE GRAN # 0.04 x10^3u/L (0.001-0.031); IMMATURE GRAN % 0.4 % (0.001-0.429); Lymphocyte (Absolute #) 1.68 x10^3/uL (1.18-3.74); Mean Corpuscular Hemoglobin 30.5 pg (25.6-32.2); Mean Corpuscular Hgb Concent. 31.1 g/dL (32.2-35.5); Monocyte (Absolute #) 0.72 x10^3/uL (0.24-0.86); NUCLEATED RBC # 0.00 x10^3u/L (0.00-0.012); NUCLEATED RBC % 0.0 % (0.00-0.2); Platelet Count 156 x10^3/uL (182-369); Red Blood Count 4.63 x10^6/uL (3.93-5.22); White Blood Count 9.7 x10^3/uL (3.98-10.04)
[2025-04-19 07:53] LABS: INFLUENZA A NEGATIVE (NEGATIVE); INFLUENZA B NEGATIVE (NEGATIVE); RESPIRATORY SYNCTIAL VIRUS NEGATIVE (NEGATIVE); SARS-CoV-2 Xpert Express NEGATIVE (NEGATIVE)
[2025-04-19] MEDS ORDERED: Lasix 40 MG/4 ML ONE (08:49)
[2025-04-19 08:51] LABS: Calcium 8.7 mg/dL (8.4-10.2); Carbon Dioxide 27.0 mmol/L (22-30); Creatinine 1 0.86 mg/dL (0.52-1.04); EST GLOMERULAR FILTRATION RATE 70.9 ML/MIN; Glucose 113.0 mg/dL (74-106); Potassium 4.0 mmol/L (3.5-5.1); SGOT/AST 20.0 U/L (14-36); SGPT/ALT 14.0 U/L (0-35); Total Protein 7.0 g/dL (6.3-8.2)
[2025-04-19] MEDS: Lasix 40 MG/4 ML IV ONE (08:51)
[2025-04-19 08:57] LABS: Glucose, Urine Negative (Negative); Protein,Urine Dip Trace (Negative); RBC 0-2 /HPF (0-5); WBC 0-2 /HPF (0-5)
--- NOTE | 2025-04-19 09:06 | XRAY ---
Indication: Pain. Multiple contiguous axial images obtained through the abdomen and pelvis without contrast. Comparison: November 05, 2024 Lung bases again demonstrates pulmonary emphysema and mild right middle lobe subsegmental atelectasis/scarring. No infiltrate or effusion. Heart not enlarged. Noncontrasted stomach and bowel loops appear nonobstructed. Again mild diffuse scattered colonic diverticulosis, tiny splenic calcified granulomas, and cholecystectomy no free fluid/air. Stable bilateral adrenal adenomas, right renal atrophy, and nonobstructing left renal punctate calculus. Remaining liver, pancreas, spleen, adrenal glands, kidneys, ureters, bladder, and uterus are unremarkable for noncontrast exam. There remains moderate scattered aortoiliac calcifications without AAA. Osseous structures intact again with osteopenia, mild/moderate multilevel degenerative spondylosis, minimal dextroscoliosis centered at L3, and mild degenerative changes both hips. Impression: Again chronic findings including pulmonary emphysema with atelectasis/scarring, mild diffuse colonic fecal stasis, bilateral adrenal adenomas, right renal atrophy, nonobstructing left renal punctate calculus, arteriosclerotic disease, and chronic bony findings. No new/acute findings on this noncontrast exam.
--- NOTE | 2025-04-19 09:08 | XRAY ---
Indication: Short of breath. Comparison: March 26, 2025 Portable chest more rotated and with COPD. Lungs now clear. Heart not enlarged again with coronary stent. Bony thorax intact again with osteopenia and mild degenerative changes. Impression: Nonacute chest with chronic features.
[2025-04-19] MEDS ORDERED: Zofran 4 MG/2 ML VIAL IV PRN (12:10)
--- NOTE | 2025-04-19 13:08 | PCM.HP ---
History of Present Illness - Chief Complaint Chief Complaint: dyspnea Date: 04/19/25 History of Present Illness: is a 75 year old female with a history of coronary artery disease status post multiple stents, COPD on 2l oxygen at baseline, gerd, hypertension, and hyperlipidemia who presented to the emergency department 04/19/25 with complaints of increased shortness of breath and productive cough. Patient reports spo2 levels at 74% at home. This has been going on for about a month or longer but worsened overnight/this morning. She was recently admitted 03/25/25 with similar symptoms,diagnosed with pneumonia, and requiring high flow oxygen. CT of the chest performed at that time showed a lung mass and mediastinal adenopathy which was reviewed by Dr. De Dios who recommended transfer to [facility] 03/26/25 for Bronchoscopy. Patient reports that it was later decided to obtain a PET scan, no bronchoscopy performed. She has not yet received an appt for the PET scan. She continues to smoke 1.5-2 PPD. Patient also reports several month history of abdominal pain with nausea, no vomiting. Eating aggravates the pain, medications help. Denies fever, cp,MORALEZ, or dizziness. Upon arrival to ED patient tachycardic and tachypneic. Lab findings remarkable for elevated BNP at 1870. CMP/CBC unremarkable. DDimer negative. EKG with sinus tach with HR at 108, left axis deviation. CXR negative for acute findings. CT abdomen and pelvis negative for acute findings. Patient treated with solu- medrol, lasix, and duonebs in ED. Currently patient is resting comfortably on 5L oxymask. Lung sounds coarse with exp wheezes. BLE with 2+ pitting edema. Plan to consult Dr. Fay (pulmonology). Will treat for COPD exacerbation. - Review of Systems Constitutional: Weakness Eyes: No Symptoms Ears, Nose, & Throat: No Symptoms Respiratory: Cough, Short Of Breath, Wheezing Cardiac: Edema (BLE 2+ pitting) Abdominal/Gastrointestinal: Abdominal Pain, Nausea, Diarrhea Genitourinary Symptoms: No Symptoms Musculoskeletal: No Symptoms Skin: No Symptoms Neurological: No Symptoms Psychological: No Symptoms Endocrine: No Symptoms Hematologic/Lymphatic: No Symptoms Immunological/Allergic: No Symptoms Medications & Allergies Home Medications: Home Medication List Metoprolol Tartrate 25 mg PO DAILY 08/11/18 [History Confirmed 03/25/25] lisinopriL [Lisinopril] 20 mg PO DAILY 08/11/18 [History Confirmed 03/25/25] Furosemide 20 mg [Lasix 20 mg] 20 mg PO DAILY PRN 09/18/20 [History Confirmed 03/25/25] Atorvastatin Calcium [Lipitor 20MG Tablet] 40 mg PO HS 08/28/21 [History Confirmed 03/25/25] Nitroglycerin 0.4 mg (Ed) [Nitrostat 0.4 MG (ED)] 0.4 mg SL DIRECTIONS UNKNOWN 08/28/21 [History Confirmed 03/25/25] Spironolactone 25 mg PO DAILY 08/28/21 [History Confirmed 03/25/25] Albuterol 8 gm Mdi Hfa [Ventolin Hfa MDI] 2 puff IH Q4-6HPRN PRN 09/02/21 [History Confirmed 03/25/25] Clopidogrel Bisulfate [Plavix] 75 mg PO DAILY #0 09/02/21 [Rx Confirmed 03/25/25] PANTOPRAZOLE 40 mg Tablet [Protonix 40MG Tablet] 40 mg PO HS 09/02/21 [History Confirmed 03/25/25] Budesonide/Glycopyr/Formoterol [Breztri Aerosphere Inhaler] 2 puff IH BID 07/04/22 [History Confirmed 03/25/25] Gabapentin [Neurontin ] 300 mg PO TID 07/04/22 [History Confirmed 03/25/25] Tramadol HCl 50 mg [Ultram 50 mg] 50 mg PO Q8H PRN PRN 06/29/24 [History Confirmed 03/25/25] Levothyroxine Sodium 200 mcg PO DAILY 30 Days #30 tablet 07/01/24 [Rx Confirmed 03/25/25] Albuterol 2.5 mg/3 ml Neb [Proventil 2.5 mg/3 ml Neb] 1 neb NEB Q6H PRN PRN 08/11/24 [History Confirmed 03/25/25] Ezetimibe 10 mg [Zetia 10 MG] 10 mg PO DAILY 03/25/25 [History Confirmed 03/25/25] Isosorbide Mononitrate 30 mg [Imdur 30 MG] 30 mg PO DAILY 03/25/25 [History Confirmed 03/25/25] Levothyroxine Sodium 88 mcg PO DAILY 03/25/25 [History Confirmed 03/25/25] Sucralfate 1 gm [Carafate 1 GM] 1 g PO ACHS 03/25/25 [History Confirmed 03/25/25] Verapamil HCl 40 mg PO TID 03/25/25 [History Confirmed 03/25/25] Allergies/Adverse Reactions: Allergies Allergy/AdvReac Type Severity Reaction Status Date / Time cephalexin [From Keflex] Allergy Verified 04/19/25 12:10 - Past Medical History Past Medical History: Yes Neurological History: No Pertinent History ENT History: No Pertinent History Cardiac History: Congestive Heart Failure, Coronary Artery Disease, High Cholesterol, Hypertension, Other Respiratory History: CHF, COPD, Emphysema, Pneumonia, Sleep Apnea Endocrine Medical History: Hypothyroidism Musculoskelatal History: Arthritis, Osteoporosis GI Medical History: GERD, Hernia History: No Pertinent History Pyscho-Social History: No Pertinent History Reproductive Disorders: No Pertinent History Comment: CHRONIC BACK PAIN, wears home oxygen 2L at all times, RLS, Land Measurer: Dr. Sierra, Felt Hanger: Dr. Rubin, Pulmonolgist: Dr. Rangel (usually seen by Luma CROCKETT) - Past Surgical History Past Surgical History: Yes Neuro Surgical History: No Pertinent History Cardiac History: Cardiac Catheterization, Cardiac Stent, Other Respiratory Surgery: No Pertinent History GI Surgical History: No Pertinent History Genitourinary Surgical Hx: No Pertinent History Musculskeletal Surgical Hx: Joint Replacement, Orthopedic Surgery Female Surgical History: Hysterectomy, Tubal Ligation Other Surgical History: Left knee replacement, 3 back surgeries, Right elbow surgeries, 3 carpal tunnel surgeries on right and left hand. 3 cardiac stents Significant Family History: cancer, diabetes, other (AD) - Social History Smoking Status: Current every day smoker How long have you smoked: 50 years Exposure to second hand smoke: Yes Alcohol: None Drug Use: none - Social Determinants of Health Will the patient participate in the screening: Yes Do you worry about a steady place to live?: No Do you have any problems with any of the following?: No known problems In the past 12 months,have you had to go without utilities?: No Have you or anyone in your house had to go without enough: No Transportation Issues: No Has anyone in your support network made you feel unsafe?: No Does the patient want assistance with any of the above?: Yes Comment: help with utilities - Physical Exam Vital Signs: Vital Signs - 24 hr Temp Pulse Resp BP BP Pulse Ox 04/19/25 11:40 98 04/19/25 11:30 91 L 04/19/25 11:00 90 20 160/90 95 04/19/25 10:59 159/78 94 L 04/19/25 10:58 94 L 04/19/25 10:50 89 83 L 04/19/25 10:40 95 04/19/25 10:32 98 H 15 97 04/19/25 10:00 110 H 18 149/110 96 04/19/25 09:30 110 H 13 159/64 94 L 04/19/25 09:00 91 H 12 146/89 87 L 04/19/25 08:30 96 H 21 160/79 91 L 04/19/25 08:29 103 H 22 89 L 04/19/25 08:20 103 H 27 H 04/19/25 08:19 109 H 31 H 92 L 04/19/25 07:00 106 H 21 157/78 91 L 04/19/25 06:53 95 04/19/25 06:30 105 H 30 H 143/76 92 L 04/19/25 06:22 108 H 22 95 04/19/25 06:21 94 L 04/19/25 06:05 106 H 25 H 147/98 97 04/19/25 06:04 96.8 F 111 H 26 H 147/98 88 L General Appearance: no apparent distress Neurologic Exam: alert, oriented x 3, cooperative Eye Exam: PERRL/EOMI Ears, Nose, Throat Exam: normal ENT inspection Neck Exam: normal inspection Respiratory Exam: diminished breath sounds, crackles/rales, wheezing Cardiovascular Exam: normal heart sounds, tachycardia Gastrointestinal/Abdomen Exam: soft, normal bowel sounds, tenderness (TTP diffuse) Pelvic Exam: not done Rectal Exam: deferred Back Exam: normal inspection Extremity Exam: swelling (BLE 2+ pitting) Skin Exam: normal color Results - Labs Lab/Micro Results: Lab Results-Last 24 Hours 04/19/25 04/19/25 04/19/25 Range/Units 06:50 06:50 06:50 WBC (3.98-10.04) x10^3/uL RBC (3.93-5.22) x10^6/uL Hgb (11.2-15.7) g/dL Hct (34.1-44.9) % MCV (79.4-94.8) fL MCH (25.6-32.2) pg MCHC (32.2-35.5) g/dL RDW (11.7-14.4) % Plt Count (182-369) x10^3/uL MPV (9.4-12.3) fL Gran % (34.0-71.1) % Immature Gran % (Auto) (0.001-0.429) % Nucleat RBC Rel Count (0.00-0.2) % Eos # (Auto) (0.04-0.36) x10^3/uL Immature Gran # (Auto) (0.001-0.031) x10^3u/L Absolute Lymphs (auto) (1.18-3.74) x10^3/uL Absolute Monos (auto) (0.24-0.86) x10^3/uL Absolute Nucleated RBC (0.00-0.012) x10^3u/L Lymphocytes % (19.3-51.7) % Monocytes % (4.7-12.5) % Eosinophils % (0.7-5.8) % Basophils % (0.1-1.2) % Absolute Granulocytes (1.56-6.13) x10^3/uL Basophils # (0.01-0.08) x10^3/uL D-Dimer (0.0-0.50) mg/L Sodium (135-145) mmol/L Potassium (3.5-5.1) mmol/L Chloride (98-107) mmol/L Carbon Dioxide (22-30) mmol/L Anion Gap (5-15) MEQ/L BUN (7-17) mg/dL Creatinine (0.52-1.04) mg/dL Estimated GFR ML/MIN Glucose (74-106) mg/dL Calcium (8.4-10.2) mg/dL Total Bilirubin (0.2-1.3) mg/dL AST (14-36) U/L ALT (0-35) U/L Alkaline Phosphatase (38-126) U/L Troponin I 0.012 (0.000-0.033) ng/mL NT-Pro-B Natriuret Pep 1870 (<300) pg/mL Serum Total Protein (6.3-8.2) g/dL Albumin (3.5-5.0) g/dL Urine Color (Yellow) Urine Appearance (Clear) Urine pH (4.6-8.0) Ur Specific [place] (1.005-1.030) Urine Protein (Negative) Urine Glucose (UA) (Negative) mg/dL Urine Ketones (Negative) Urine Blood (Negative) Urine Nitrite (Negative) Urine Bilirubin (Negative) Urine Urobilinogen (0.2) mg/dL Ur Leukocyte Esterase (Negative) U Hyaline Cast (Auto) (0-2) /LPF Urine Microscopic RBC (0-5) /HPF Urine Microscopic WBC (0-5) /HPF Ur Epithelial Cells (None Seen) /HPF Urine Bacteria (None Seen) /HPF Urine Culture Reflexed (NO) Influenza Type A Ag NEGATIVE (NEGATIVE) Influenza Type B Ag NEGATIVE (NEGATIVE) RSV (PCR) NEGATIVE (NEGATIVE) SARS-CoV-2 (PCR) NEGATIVE (NEGATIVE) 04/19/25 04/19/25 04/19/25 Range/Units 07:00 07:00 07:05 WBC 9.7 (3.98-10.04) x10^3/uL RBC 4.63 (3.93-5.22) x10^6/uL Hgb 14.1 (11.2-15.7) g/dL Hct 45.4 H (34.1-44.9) % MCV 98.1 H (79.4-94.8) fL MCH 30.5 (25.6-32.2) pg MCHC 31.1 L (32.2-35.5) g/dL RDW 13.8 (11.7-14.4) % Plt Count 156 L (182-369) x10^3/uL MPV 10.8 (9.4-12.3) fL Gran % 72.6 H (34.0-71.1) % Immature Gran % (Auto) 0.4 (0.001-0.429) % Nucleat RBC Rel Count 0.0 (0.00-0.2) % Eos # (Auto) 0.16 (0.04-0.36) x10^3/uL Immature Gran # (Auto) 0.04 H (0.001-0.031) x10^3u/L Absolute Lymphs (auto) 1.68 (1.18-3.74) x10^3/uL Absolute Monos (auto) 0.72 (0.24-0.86) x10^3/uL Absolute Nucleated RBC 0.00 (0.00-0.012) x10^3u/L Lymphocytes % 17.4 L (19.3-51.7) % Monocytes % 7.5 (4.7-12.5) % Eosinophils % 1.7 (0.7-5.8) % Basophils % 0.4 (0.1-1.2) % Absolute Granulocytes 7.02 H (1.56-6.13) x10^3/uL Basophils # 0.04 (0.01-0.08) x10^3/uL D-Dimer 0.45 (0.0-0.50) mg/L Sodium 139 (135-145) mmol/L Potassium 4.0 (3.5-5.1) mmol/L Chloride 105 (98-107) mmol/L Carbon Dioxide 27 (22-30) mmol/L Anion Gap 11.0 (5-15) MEQ/L BUN 10 (7-17) mg/dL Creatinine 0.86 (0.52-1.04) mg/dL Estimated GFR 70.9 ML/MIN Glucose 113 H (74-106) mg/dL Calcium 8.7 (8.4-10.2) mg/dL Total Bilirubin 0.90 (0.2-1.3) mg/dL AST 20 (14-36) U/L ALT 14 (0-35) U/L Alkaline Phosphatase 122 (38-126) U/L Troponin I (0.000-0.033) ng/mL NT-Pro-B Natriuret Pep (<300) pg/mL Serum Total Protein 7.0 (6.3-8.2) g/dL Albumin 3.8 (3.5-5.0) g/dL Urine Color (Yellow) Urine Appearance (Clear) Urine pH (4.6-8.0) Ur Specific [place] (1.005-1.030) Urine Protein (Negative) Urine Glucose (UA) (Negative) mg/dL Urine Ketones (Negative) Urine Blood (Negative) Urine Nitrite (Negative) Urine Bilirubin (Negative) Urine Urobilinogen (0.2) mg/dL Ur Leukocyte Esterase (Negative) U Hyaline Cast (Auto) (0-2) /LPF Urine Microscopic RBC (0-5) /HPF Urine Microscopic WBC (0-5) /HPF Ur Epithelial Cells (None Seen) /HPF Urine Bacteria (None Seen) /HPF Urine Culture Reflexed (NO) Influenza Type A Ag (NEGATIVE) Influenza Type B Ag (NEGATIVE) RSV (PCR) (NEGATIVE) SARS-CoV-2 (PCR) (NEGATIVE) 04/19/25 04/19/25 Range/Units 08:27 10:36 WBC (3.98-10.04) x10^3/uL RBC (3.93-5.22) x10^6/uL Hgb (11.2-15.7) g/dL Hct (34.1-44.9) % MCV (79.4-94.8) fL MCH (25.6-32.2) pg MCHC (32.2-35.5) g/dL RDW (11.7-14.4) % Plt Count (182-369) x10^3/uL MPV (9.4-12.3) fL Gran % (34.0-71.1) % Immature Gran % (Auto) (0.001-0.429) % Nucleat RBC Rel Count (0.00-0.2) % Eos # (Auto) (0.04-0.36) x10^3/uL Immature Gran # (Auto) (0.001-0.031) x10^3u/L Absolute Lymphs (auto) (1.18-3.74) x10^3/uL Absolute Monos (auto) (0.24-0.86) x10^3/uL Absolute Nucleated RBC (0.00-0.012) x10^3u/L Lymphocytes % (19.3-51.7) % Monocytes % (4.7-12.5) % Eosinophils % (0.7-5.8) % Basophils % (0.1-1.2) % Absolute Granulocytes (1.56-6.13) x10^3/uL Basophils # (0.01-0.08) x10^3/uL D-Dimer (0.0-0.50) mg/L Sodium (135-145) mmol/L Potassium (3.5-5.1) mmol/L Chloride (98-107) mmol/L Carbon Dioxide (22-30) mmol/L Anion Gap (5-15) MEQ/L BUN (7-17) mg/dL Creatinine (0.52-1.04) mg/dL Estimated GFR ML/MIN Glucose (74-106) mg/dL Calcium (8.4-10.2) mg/dL Total Bilirubin (0.2-1.3) mg/dL AST (14-36) U/L ALT (0-35) U/L Alkaline Phosphatase (38-126) U/L Troponin I < 0.012 (0.000-0.033) ng/mL NT-Pro-B Natriuret Pep (<300) pg/mL Serum Total Protein (6.3-8.2) g/dL Albumin (3.5-5.0) g/dL Urine Color Yellow (Yellow) Urine Appearance Clear (Clear) Urine pH 7.5 (4.6-8.0) Ur Specific [place] 1.010 (1.005-1.030) Urine Protein Trace A (Negative) Urine Glucose (UA) Negative (Negative) mg/dL Urine Ketones Negative (Negative) Urine Blood Trace (Negative) Urine Nitrite Negative (Negative) Urine Bilirubin Negative (Negative) Urine Urobilinogen 1.0 A (0.2) mg/dL Ur Leukocyte Esterase Trace A (Negative) U Hyaline Cast (Auto) NONE SEEN (0-2) /LPF Urine Microscopic RBC 0-2 (0-5) /HPF Urine Microscopic WBC 0-2 (0-5) /HPF Ur Epithelial Cells Few (None Seen) /HPF Urine Bacteria None Seen (None Seen) /HPF Urine Culture Reflexed YES (NO) Influenza Type A Ag (NEGATIVE) Influenza Type B Ag (NEGATIVE) RSV (PCR) (NEGATIVE) SARS-CoV-2 (PCR) (NEGATIVE) - Radiology Impressions Radiology Exams & Impressions: Radiology Procedures Category Date Time Status ABDOMEN AND PELVIS W/0 CONTRAS [CT] Stat Exams 04/19/25 06:32 Completed CHEST 1 VIEW (PORTABLE) Stat Exams 04/19/25 06:22 Completed - Other Procedures and Tests Respiratory Therapy 04/19/25 12:10 EKG REPEAT IN AM Oxygen Oxymask LPM 2 lpm Respiratory Therapy Consult ONCE Assessment/Plan (1) Acute respiratory failure with hypoxia Current Visit: Yes Status: Acute Assessment & Plan: -Most likely multifactorial with COPD exac, new finding of lung mass -Continue solu-medrol 40mg q8h -duoneb emma/prn/inh -RT to follow -Pulm consult (Dr. Fay) -CT chest from 03/26/25 reviewed- per patient OP PET pending -continue supplemental oxygen with goal spo2 > 89% - currently at 5L oxymask -Ceftriaxone/azithromycin per GOLD guidelines -Smoking cessation advised- Nicotine patch ordered Code(s): J96.01 - ACUTE RESPIRATORY FAILURE WITH HYPOXIA (2) COPD exacerbation Current Visit: Yes Status: Acute Assessment & Plan: -see above Code(s): J44.1 - CHRONIC OBSTRUCTIVE PULMONARY DISEASE W (ACUTE) EXACERBATION (3) Lung mass Current Visit: Yes Status: Acute Assessment & Plan: -Pulm consulted -Follow up with Pulmonology to expedite PET scan scheduling for further characterization and staging. -Oncology referral to be considered depending on PET findings. -Smoking cessation support emphasized. Code(s): R91.8 - OTHER NONSPECIFIC ABNORMAL FINDING OF LUNG FIELD (4) Abdominal pain Current Visit: Yes Status: Acute Assessment & Plan: -CT abdomen/pelvis with no acute findings -Continue PPI therapy -Avoid trigger foods, caffeine, and late-night meals. -If persistent or worsening, consider outpatient GI follow-up for EGD evaluation. Code(s): R10.9 - UNSPECIFIED ABDOMINAL PAIN (5) CAD (coronary artery disease) Current Visit: No Status: Chronic Assessment & Plan: -continue home meds Code(s): I25.10 - ATHSCL HEART DISEASE OF [place] CORONARY ARTERY W/O ANG PCTRS (6) Chronic diastolic (congestive) heart failure Current Visit: No Status: Chronic Assessment & Plan: -Continue lasix 40mg daily -I&O and daily weights. -Echo reviewed from 06/29/24 Code(s): I50.32 - CHRONIC DIASTOLIC (CONGESTIVE) HEART FAILURE (7) Current smoker Current Visit: No Status: Chronic Assessment & Plan: -Advised cesstion -Nicotine patch Code(s): F17.200 - NICOTINE DEPENDENCE, UNSPECIFIED, UNCOMPLICATED (8) GERD (gastroesophageal reflux disease) Current Visit: No Status: Chronic Qualifiers: Esophagitis presence: esophagitis presence not specified Qualified Code(s): K21.9 - Gastro-esophageal reflux disease without esophagitis Assessment & Plan: -Protonix Code(s): K21.9 - GASTRO-ESOPHAGEAL REFLUX DISEASE WITHOUT ESOPHAGITIS (9) Hyperlipidemia Current Visit: No Status: Chronic Assessment & Plan: -continue statin Code(s): E78.5 - HYPERLIPIDEMIA, UNSPECIFIED (10) Hypertension Current Visit: No Status: Chronic Assessment & Plan: -continue home meds Code(s): I10 - ESSENTIAL (PRIMARY) HYPERTENSION (11) Hypothyroidism Current Visit: No Status: Chronic Assessment & Plan: -continue levothyroxine VTE: lovenox PPI: protonix Dispo: 1-2 days Plan of care time spent greater than 40 mins Code(s): E03.9 - HYPOTHYROIDISM, UNSPECIFIED
[2025-04-19] MEDS ORDERED: VENTOLIN COMMON CANISTER IH PRN (13:49)
[2025-04-19] MEDS ORDERED: Nitrostat 0.4 MG Tablet SL PRN (13:51)
[2025-04-19] MEDS ORDERED: MEDICATION INTERVENTION MC SCH (14:00)
[2025-04-19] MEDS ORDERED: PROVENTIL 2.5 MG/3 ML NEB IH ONE (14:03)
[2025-04-19] MEDS: Nicoderm CQ 21 MG TOP SCH (14:03)
[2025-04-19] MEDS: Zocor 10MG PO SCH (14:05)
[2025-04-19] MEDS: Imdur 30 MG PO SCH (14:05)
[2025-04-19] MEDS: Zetia 10 MG PO SCH (14:05)
[2025-04-19] MEDS: SYNTHROID 88 MCG PO SCH (14:06)
[2025-04-19] MEDS: PLAVIX Tablet PO SCH (14:06)
[2025-04-19] MEDS: Lopressor 25MG Tab PO SCH (14:06)
[2025-04-19] MEDS: SYNTHROID 100 MCG PO SCH (14:06)
[2025-04-19] MEDS: Zestril 20 MG PO SCH (14:06)
[2025-04-19] MEDS: solu-MEDROL 40 MG, Sterile H2O 10 ml 1 ML IV SCH (14:07)
[2025-04-19] MEDS: AZACTAM 1 GM*** 2 GM in Sodium Chloride 0.9% 100 ML IV SCH (14:07)
[2025-04-19] MEDS: ENOXAPARIN SODIUM SQ SCH (14:07)
[2025-04-19] MEDS: PROVENTIL 2.5 MG/3 ML NEB IH SCH (14:12)
[2025-04-19] MEDS: ULTRAM 50 MG PO SCH (14:57)
[2025-04-19] MEDS: CALAN 80 MG PO SCH (14:57)
[2025-04-19] MEDS: ZITHROMAX IV*** 500 MG in Sodium Chloride 0.9% 250 ML 250 ML IV SCH (15:00)
[2025-04-19] MEDS: TYLENOL 325 MG PO PRN (16:13)
[2025-04-19] MEDS: NEURONTIN PO SCH (16:13)
[2025-04-19] MEDS: Carafate 1 GM PO SCH (16:13)
[2025-04-19] MEDS: Protonix 40MG Tablet PO SCH (21:54)
[2025-04-19] MEDS ORDERED: NON-FORMULARY ITEM (Budesonide/Glycopyr/Formoterol [Breztri Aerosphere Inhaler] 10.7 GM Hf IH SCH (22:00)
--- NOTE | 2025-04-20 05:10 | PCM.NOTE ---
Date and Time: 04/20/25 0506 Subjective Assessment: is a 75 year old female with a history of coronary artery disease status post multiple stents, COPD on 2l oxygen at baseline, gerd, hypertension, and hyperlipidemia who presented to the emergency department 04/19/25 with complaints of increased shortness of breath and productive cough. Patient rep orts spo2 levels at 74% at home. This has been going on for about a month or longer but worsened overnight/this morning. She was recently admitted 03/25/25 with similar symptoms,diagnosed with pneumonia, and requiring high flow oxygen. CT of the chest performed at that time showed a lung mass and mediastinal adenopathy which was reviewed by Dr. De Dios who recommended transfer to [facility] 03/26/25 for Bronchoscopy. Patient reports that it was later decided to obtain a PET scan, no bronchoscopy performed. She has not yet received an appt for the PET scan. She continues to smoke 1.5-2 PPD. Patient also reports several month history of abdominal pain with nausea, no vomiting. Eating aggravates the pain, medications help. Denies fever, cp,MORALEZ, or dizziness. Upon arrival to ED patient tachycardic and tachypneic. Lab findings remarkable for elevated BNP at 1870. CMP/CBC unremarkable. DDimer negative. EKG with sinus tach with HR at 108, left axis deviation. CXR negative for acute fin dings. CT abdomen and pelvis negative for acute findings. Patient treated with solu-medrol, lasix, and duonebs in ED. Currently patient is resting comfortably on 5L oxymask. Lung sounds coarse with exp wheezes. BLE with 2+ pitting edema. Pulmonology declined consult due to OP non-compliance with appts. Will schedule OP appt with provider to set up PET on discharge. 04/20/25: Patient seen and evaluated at bedside. She continues to report dyspnea and productive cough with clear sputum. Currently requiring 5 L oxygen via Oxymask. Lung sounds are coarse throughout on auscultation. Blood pressure noted to be low this morning at 91/52 mm Hg. The importance of adherence to outpatient pulmonology follow-up and the pending PET scan was reinforced, as records indicate multiple missed appointments for both the scan and clinic visits. The patient verbalizes understanding and expresses willingness to pursue further evaluation of the lung mass identified on recent CT imaging, stating she will arrange transportation for future appointments. At this time, steroids will be increased, furosemide will be held due to hypotension, and antibiotics will be continued. - Review of Systems Constitutional: Weakness Eyes: No Symptoms Ears, Nose, & Throat: No Symptoms Respiratory: Cough, Short Of Breath Cardiac: Edema (BLE +2 pitting) Abdominal/Gastrointestinal: Nausea Genitourinary Symptoms: No Symptoms Musculoskeletal: No Symptoms Skin: No Symptoms Neurological: No Symptoms Psychological: No Symptoms Endocrine: No Symptoms Hematologic/Lymphatic: No Symptoms Immunological/Allergic: No Symptoms Objective Exam General Appearance: no apparent distress Neurologic Exam: alert, oriented x 3, cooperative Skin Exam: pale Eye Exam: PERRL Neck Exam: normal inspection Respiratory Exam: diminished breath sounds, crackles/rales Cardiovascular Exam: regular rate/rhythm, normal heart sounds Gastrointestinal/Abdomen Exam: soft, normal bowel sounds Extremity Exam: pedal edema, swelling Back Exam: normal inspection Pelvic Exam: deferred Rectal Exam: deferred Objective Data Vital Signs: Vital Signs - 24 hr Temp Pulse Resp BP BP Pulse Ox 04/20/25 04:00 97.8 F 58 L 20 88/51 90 L 04/19/25 23:40 97.5 F 69 22 86/53 91 L 04/19/25 20:00 97.9 F 57 L 18 78/45 94 L 04/19/25 19:35 57 L 18 92 L 04/19/25 16:00 97.0 F 68 21 117/57 93 L 04/19/25 14:15 91 H 22 92 L 04/19/25 12:30 97.3 F 94 H 17 167/79 94 L 04/19/25 12:10 97.3 F 94 H 17 167/79 94 L 04/19/25 11:40 98 04/19/25 11:30 91 L 04/19/25 11:00 90 20 160/90 95 04/19/25 10:59 159/78 94 L 04/19/25 10:58 94 L 04/19/25 10:50 89 83 L 04/19/25 10:40 95 04/19/25 10:32 98 H 15 97 04/19/25 10:00 110 H 18 149/110 96 04/19/25 09:30 110 H 13 159/64 94 L 04/19/25 09:00 91 H 12 146/89 87 L 04/19/25 08:30 96 H 21 160/79 91 L 04/19/25 08:29 103 H 22 89 L 04/19/25 08:20 103 H 27 H 04/19/25 08:19 109 H 31 H 92 L 04/19/25 07:00 106 H 21 157/78 91 L 04/19/25 06:53 95 04/19/25 06:30 105 H 30 H 143/76 92 L 04/19/25 06:22 108 H 22 95 04/19/25 06:21 94 L 04/19/25 06:05 106 H 25 H 147/98 97 04/19/25 06:04 96.8 F 111 H 26 H 147/98 88 L Pain Assessment - Last Documented Pain Intensity 0 Pain Scale Used 0-10 Pain Scale Intake and Output: Intake & Output 04/17/25 04/18/25 04/19/25 04/20/25 11:59 11:59 11:59 11:59 Intake Total 875 Output Total 300 Balance 575 Weight 71.4 kg 69.2 kg Lab Results: Lab Results-Last 24 Hours 04/19/25 04/19/25 04/19/25 Range/Units 06:50 06:50 06:50 WBC (3.98-10.04) x10^3/uL RBC (3.93-5.22) x10^6/uL Hgb (11.2-15.7) g/dL Hct (34.1-44.9) % MCV (79.4-94.8) fL MCH (25.6-32.2) pg MCHC (32.2-35.5) g/dL RDW (11.7-14.4) % Plt Count (182-369) x10^3/uL MPV (9.4-12.3) fL Gran % (34.0-71.1) % Immature Gran % (Auto) (0.001-0.429) % Nucleat RBC Rel Count (0.00-0.2) % Eos # (Auto) (0.04-0.36) x10^3/uL Immature Gran # (Auto) (0.001-0.031) x10^3u/L Absolute Lymphs (auto) (1.18-3.74) x10^3/uL Absolute Monos (auto) (0.24-0.86) x10^3/uL Absolute Nucleated RBC (0.00-0.012) x10^3u/L Lymphocytes % (19.3-51.7) % Monocytes % (4.7-12.5) % Eosinophils % (0.7-5.8) % Basophils % (0.1-1.2) % Absolute Granulocytes (1.56-6.13) x10^3/uL Basophils # (0.01-0.08) x10^3/uL D-Dimer (0.0-0.50) mg/L Sodium (135-145) mmol/L Potassium (3.5-5.1) mmol/L Chloride (98-107) mmol/L Carbon Dioxide (22-30) mmol/L Anion Gap (5-15) MEQ/L BUN (7-17) mg/dL Creatinine (0.52-1.04) mg/dL Estimated GFR ML/MIN Glucose (74-106) mg/dL Calcium (8.4-10.2) mg/dL Total Bilirubin (0.2-1.3) mg/dL AST (14-36) U/L ALT (0-35) U/L Alkaline Phosphatase (38-126) U/L Troponin I 0.012 (0.000-0.033) ng/mL NT-Pro-B Natriuret Pep 1870 (<300) pg/mL Serum Total Protein (6.3-8.2) g/dL Albumin (3.5-5.0) g/dL Urine Color (Yellow) Urine Appearance (Clear) Urine pH (4.6-8.0) Ur Specific [place] (1.005-1.030) Urine Protein (Negative) Urine Glucose (UA) (Negative) mg/dL Urine Ketones (Negative) Urine Blood (Negative) Urine Nitrite (Negative) Urine Bilirubin (Negative) Urine Urobilinogen (0.2) mg/dL Ur Leukocyte Esterase (Negative) U Hyaline Cast (Auto) (0-2) /LPF Urine Microscopic RBC (0-5) /HPF Urine Microscopic WBC (0-5) /HPF Ur Epithelial Cells (None Seen) /HPF Urine Bacteria (None Seen) /HPF Urine Culture Reflexed (NO) Influenza Type A Ag NEGATIVE (NEGATIVE) Influenza Type B Ag NEGATIVE (NEGATIVE) RSV (PCR) NEGATIVE (NEGATIVE) SARS-CoV-2 (PCR) NEGATIVE (NEGATIVE) 04/19/25 04/19/25 04/19/25 Range/Units 07:00 07:00 07:05 WBC 9.7 (3.98-10.04) x10^3/uL RBC 4.63 (3.93-5.22) x10^6/uL Hgb 14.1 (11.2-15.7) g/dL Hct 45.4 H (34.1-44.9) % MCV 98.1 H (79.4-94.8) fL MCH 30.5 (25.6-32.2) pg MCHC 31.1 L (32.2-35.5) g/dL RDW 13.8 (11.7-14.4) % Plt Count 156 L (182-369) x10^3/uL MPV 10.8 (9.4-12.3) fL Gran % 72.6 H (34.0-71.1) % Immature Gran % (Auto) 0.4 (0.001-0.429) % Nucleat RBC Rel Count 0.0 (0.00-0.2) % Eos # (Auto) 0.16 (0.04-0.36) x10^3/uL Immature Gran # (Auto) 0.04 H (0.001-0.031) x10^3u/L Absolute Lymphs (auto) 1.68 (1.18-3.74) x10^3/uL Absolute Monos (auto) 0.72 (0.24-0.86) x10^3/uL Absolute Nucleated RBC 0.00 (0.00-0.012) x10^3u/L Lymphocytes % 17.4 L (19.3-51.7) % Monocytes % 7.5 (4.7-12.5) % Eosinophils % 1.7 (0.7-5.8) % Basophils % 0.4 (0.1-1.2) % Absolute Granulocytes 7.02 H (1.56-6.13) x10^3/uL Basophils # 0.04 (0.01-0.08) x10^3/uL D-Dimer 0.45 (0.0-0.50) mg/L Sodium 139 (135-145) mmol/L Potassium 4.0 (3.5-5.1) mmol/L Chloride 105 (98-107) mmol/L Carbon Dioxide 27 (22-30) mmol/L Anion Gap 11.0 (5-15) MEQ/L BUN 10 (7-17) mg/dL Creatinine 0.86 (0.52-1.04) mg/dL Estimated GFR 70.9 ML/MIN Glucose 113 H (74-106) mg/dL Calcium 8.7 (8.4-10.2) mg/dL Total Bilirubin 0.90 (0.2-1.3) mg/dL AST 20 (14-36) U/L ALT 14 (0-35) U/L Alkaline Phosphatase 122 (38-126) U/L Troponin I (0.000-0.033) ng/mL NT-Pro-B Natriuret Pep (<300) pg/mL Serum Total Protein 7.0 (6.3-8.2) g/dL Albumin 3.8 (3.5-5.0) g/dL Urine Color (Yellow) Urine Appearance (Clear) Urine pH (4.6-8.0) Ur Specific [place] (1.005-1.030) Urine Protein (Negative) Urine Glucose (UA) (Negative) mg/dL Urine Ketones (Negative) Urine Blood (Negative) Urine Nitrite (Negative) Urine Bilirubin (Negative) Urine Urobilinogen (0.2) mg/dL Ur Leukocyte Esterase (Negative) U Hyaline Cast (Auto) (0-2) /LPF Urine Microscopic RBC (0-5) /HPF Urine Microscopic WBC (0-5) /HPF Ur Epithelial Cells (None Seen) /HPF Urine Bacteria (None Seen) /HPF Urine Culture Reflexed (NO) Influenza Type A Ag (NEGATIVE) Influenza Type B Ag (NEGATIVE) RSV (PCR) (NEGATIVE) SARS-CoV-2 (PCR) (NEGATIVE) 04/19/25 04/19/25 04/19/25 Range/Units 08:27 10:36 14:28 WBC (3.98-10.04) x10^3/uL RBC (3.93-5.22) x10^6/uL Hgb (11.2-15.7) g/dL Hct (34.1-44.9) % MCV (79.4-94.8) fL MCH (25.6-32.2) pg MCHC (32.2-35.5) g/dL RDW (11.7-14.4) % Plt Count (182-369) x10^3/uL MPV (9.4-12.3) fL Gran % (34.0-71.1) % Immature Gran % (Auto) (0.001-0.429) % Nucleat RBC Rel Count (0.00-0.2) % Eos # (Auto) (0.04-0.36) x10^3/uL Immature Gran # (Auto) (0.001-0.031) x10^3u/L Absolute Lymphs (auto) (1.18-3.74) x10^3/uL Absolute Monos (auto) (0.24-0.86) x10^3/uL Absolute Nucleated RBC (0.00-0.012) x10^3u/L Lymphocytes % (19.3-51.7) % Monocytes % (4.7-12.5) % Eosinophils % (0.7-5.8) % Basophils % (0.1-1.2) % Absolute Granulocytes (1.56-6.13) x10^3/uL Basophils # (0.01-0.08) x10^3/uL D-Dimer (0.0-0.50) mg/L Sodium (135-145) mmol/L Potassium (3.5-5.1) mmol/L Chloride (98-107) mmol/L Carbon Dioxide (22-30) mmol/L Anion Gap (5-15) MEQ/L BUN (7-17) mg/dL Creatinine (0.52-1.04) mg/dL Estimated GFR ML/MIN Glucose (74-106) mg/dL Calcium (8.4-10.2) mg/dL Total Bilirubin (0.2-1.3) mg/dL AST (14-36) U/L ALT (0-35) U/L Alkaline Phosphatase (38-126) U/L Troponin I < 0.012 < 0.012 (0.000-0.033) ng/mL NT-Pro-B Natriuret Pep (<300) pg/mL Serum Total Protein (6.3-8.2) g/dL Albumin (3.5-5.0) g/dL Urine Color Yellow (Yellow) Urine Appearance Clear (Clear) Urine pH 7.5 (4.6-8.0) Ur Specific [place] 1.010 (1.005-1.030) Urine Protein Trace A (Negative) Urine Glucose (UA) Negative (Negative) mg/dL Urine Ketones Negative (Negative) Urine Blood Trace (Negative) Urine Nitrite Negative (Negative) Urine Bilirubin Negative (Negative) Urine Urobilinogen 1.0 A (0.2) mg/dL Ur Leukocyte Esterase Trace A (Negative) U Hyaline Cast (Auto) NONE SEEN (0-2) /LPF Urine Microscopic RBC 0-2 (0-5) /HPF Urine Microscopic WBC 0-2 (0-5) /HPF Ur Epithelial Cells Few (None Seen) /HPF Urine Bacteria None Seen (None Seen) /HPF Urine Culture Reflexed YES (NO) Influenza Type A Ag (NEGATIVE) Influenza Type B Ag (NEGATIVE) RSV (PCR) (NEGATIVE) SARS-CoV-2 (PCR) (NEGATIVE) Radiology Exams: Radiology Procedures Category Date Time Status ABDOMEN AND PELVIS W/0 CONTRAS [CT] Stat Exams 04/19/25 06:32 Completed CHEST 1 VIEW (PORTABLE) Stat Exams 04/19/25 06:22 Completed Medications: Medications Generic Name Dose Route Start Last Admin Trade Name Freq PRN Reason Stop Dose Admin Acetaminophen 650 mg 04/19/25 12:10 04/19/25 16:13 Acetaminophen 325 Mg Tablet PO 05/19/25 12:09 650 mg Q4H PRN PRN Administration PAIN, FEVER, HEADACHE Albuterol Sulfate 2.5 mg 04/19/25 19:00 04/19/25 19:33 Albuterol Sulfate 2.5 Mg/3 Ml Neb 05/19/25 18:59 2.5 mg TIDRT EMMA Administration Albuterol Sulfate 2 puff 04/19/25 13:49 Albuterol Common Canister Inhaler 05/19/25 13:48 Q4HPRN PRN SHORTNESS OF BREATH/WHEEZING Clopidogrel Bisulfate 75 mg 04/19/25 13:00 04/19/25 14:06 Clopidogrel Bisulfate 75 Mg Tablet PO 05/19/25 12:59 75 mg DAILY EMMA Administration Methylprednisolone Sodium 0 mg 04/19/25 14:00 04/19/25 21:54 Succinate 40 mg/ Sterile Water IV 05/19/25 13:59 40 mg 1 ml Q8HT EMMA Administration Ezetimibe 10 mg 04/19/25 13:00 04/19/25 14:05 Ezetimibe 10 Mg Tab PO 05/19/25 12:59 10 mg DAILY EMMA Administration Enoxaparin Sodium 40 mg 04/19/25 14:00 04/19/25 14:07 Enoxaparin Sodium 40 Mg/0.4 Ml Syringe SQ 05/19/25 13:59 40 mg DAILY EMMA Administration Furosemide 40 mg 04/20/25 10:00 Furosemide 40 Mg/4 Ml Vial IV 05/20/25 09:59 DAILY EMMA Gabapentin 300 mg 04/19/25 17:00 04/19/25 21:54 Gabapentin 300 Mg Capsule PO 05/19/25 16:59 300 mg QID EMMA Administration Azithromycin 500 mg/ Sodium 250 mls @ 250 mls/hr 04/19/25 16:00 04/19/25 15:00 Chloride IV 05/19/25 15:59 250 mls/hr Q24H EMMA Administration Aztreonam 2 gm/ Sodium 100 mls @ 200 mls/hr 04/19/25 14:00 04/19/25 21:53 Chloride IV 04/22/25 13:59 200 mls/hr Q8HT EMMA Administration Isosorbide Mononitrate 30 mg 04/19/25 13:00 04/19/25 14:05 Isosorbide Mononitrate 30 Mg Tab PO 05/19/25 12:59 30 mg DAILY EMMA Administration Levothyroxine Sodium 88 mcg 04/19/25 14:00 04/19/25 14:06 Levothyroxine Sodium 88 Mcg Tablet PO 05/19/25 13:59 88 mcg DAILY EMMA Administration Levothyroxine Sodium 200 mcg 04/19/25 14:00 04/19/25 14:06 Levothyroxine Sodium 100 Mcg Tablet PO 05/19/25 13:59 200 mcg DAILY EMMA Administration Lisinopril 20 mg 04/19/25 14:00 04/19/25 14:06 Lisinopril 20 Mg Tablet PO 05/19/25 13:59 20 mg DAILY EMMA Administration Metoprolol Tartrate 25 mg 04/19/25 13:00 04/19/25 14:06 Metoprolol Tartrate 25 Mg Tab PO 05/19/25 12:59 25 mg DAILY EMMA Administration Miscellaneous Information 1 each 04/19/25 14:00 Medication Intervention 1 Each Each 05/19/25 13:59 .RT TO CHECK EMMA Nicotine 21 mg 04/19/25 13:30 04/19/25 14:03 Nicotine 21 Mg/Patch Patch TOP 05/19/25 13:29 21 mg Q24H10 EMMA Administration Nitroglycerin 0.4 mg 04/19/25 13:51 Nitroglycerin 0.4 Mg Tablet Bottle SL 05/19/25 13:50 Q5MIN PRN MR X 3 PRN Ondansetron HCl 4 mg 04/19/25 12:10 Ondansetron Hcl 4 Mg/2 Ml Vial IV 05/19/25 12:09 Q6H PRN PRN NAUSEA/VOMITING Pantoprazole Sodium 40 mg 04/19/25 22:00 04/19/25 21:54 Protonix (Pantoprazole) 40 Mg Tablet PO 05/19/25 21:59 40 mg HS EMMA Administration Simvastatin 10 mg 04/19/25 14:00 04/19/25 14:05 Simvastatin 10 Mg Tablet PO 05/19/25 13:59 10 mg DAILY EMMA Administration Sucralfate 1 g 04/19/25 16:30 04/19/25 21:54 Sucralfate 1 G Tablet PO 05/19/25 16:29 1 g ACHS EMMA Administration Tramadol HCl 50 mg 04/19/25 15:00 04/19/25 21:54 Tramadol Hcl 50 Mg Tablet PO 05/19/25 14:59 50 mg TID EMMA Administration Verapamil HCl 40 mg 04/19/25 15:00 04/19/25 21:53 Verapamil Hcl 80 Mg Tablet PO 05/19/25 14:59 Not Given TID EMMA Discontinued Medications Generic Name Dose Route Start Last Admin Trade Name Freq PRN Reason Stop Dose Admin Albuterol Sulfate Confirm 04/19/25 14:03 Albuterol Sulfate 2.5 Mg/3 Ml Neb Administered 04/19/25 14:04 Dose 2.5 mg IH .STK-MED ONE Albuterol/Ipratropium Confirm 04/19/25 06:15 Ipratropium/Albuterol Sulfate 3 Ml Ampul.Neb Administered 04/19/25 06:16 Dose 3 ml IH .STK-MED ONE Albuterol/Ipratropium 3 ml 04/19/25 06:18 04/19/25 06:21 Ipratropium/Albuterol Sulfate 3 Ml Ampul.Neb IH 04/19/25 06:19 3 ml STAT ONE Administration Methylprednisolone Sodium 0 mg 04/19/25 06:21 04/19/25 06:29 Succinate 125 mg/ Sterile IV 04/19/25 06:22 125 mg Water 2 ml STAT ONE Administration Furosemide 40 mg 04/19/25 08:36 04/19/25 08:51 Furosemide 40 Mg/4 Ml Vial IV 04/19/25 08:37 40 mg STAT ONE Administration Furosemide Confirm 04/19/25 08:49 Furosemide 40 Mg/4 Ml Vial Administered 04/19/25 08:50 Dose 40 mg .ROUTE .STK-MED ONE Ceftriaxone Sodium 1 gm in 100 mls @ 200 mls/hr 04/20/25 10:00 Rocephin 1 Gm / 100 Ml Nacl IV 05/20/25 09:59 Q24H10 EMMA Methylprednisolone Sodium Succinate Confirm 04/19/25 06:27 Methylprednis Sod Succ 125 Mg/2 Ml Vial Administered 04/19/25 06:28 Dose 125 mg .ROUTE .STK-MED ONE Sterile Water Confirm 04/19/25 06:27 Water For Injection,Sterile 10 Ml Vial Administered 04/19/25 06:28 Dose 10 ml IJ .STK-MED ONE Assessment/Plan (1) Acute respiratory failure with hypoxia Current Visit: Yes Status: Acute Assessment & Plan: -Most likely multifactorial with COPD exac, new finding of lung mass -Continue solu-medrol 40mg q8h -duoneb emma/prn/inh -RT to follow -Pulm consult (Dr. Fay) -CT chest from 03/26/25 reviewed- per patient OP PET pending -continue supplemental oxygen with goal spo2 > 89% - currently at 5L oxymask -Ceftriaxone/azithromycin per GOLD guidelines -Smoking cessation advised- Nicotine patch ordered 04/20: - On 5L at 90% spo2- titrate as need for goal > 89% -Pulm declined consult as patient has had many missed appt- reports patient was scheduled for PET and no showed to appt -Continue Aztronam as pt has allergy to cephlosporins- continue azithromycin -continue solumedrol with dose increased to 80mg TID -NEBs/INH -RT following Code(s): J96.01 - ACUTE RESPIRATORY FAILURE WITH HYPOXIA (2) COPD exacerbation Current Visit: Yes Status: Acute Assessment & Plan: -see above Code(s): J44.1 - CHRONIC OBSTRUCTIVE PULMONARY DISEASE W (ACUTE) EXACERBATION (3) Lung mass Current Visit: Yes Status: Acute Assessment & Plan: -Pulm consulted -Follow up with Pulmonology to expedite PET scan scheduling for further characterization and staging. -Oncology referral to be considered depending on PET findings. -Smoking cessation support emphasized. 04/20: -Pt will have to follow up OP with Pulm- declined IP consult as stated above Code(s): R91.8 - OTHER NONSPECIFIC ABNORMAL FINDING OF LUNG FIELD (4) Abdominal pain Current Visit: Yes Status: Acute Assessment & Plan: -CT abdomen/pelvis with no acute findings -Continue PPI therapy and carafate -Avoid trigger foods, caffeine, and late-night meals. -If persistent or worsening, consider outpatient GI follow-up for EGD evaluation. Code(s): R10.9 - UNSPECIFIED ABDOMINAL PAIN (5) CAD (coronary artery disease) Current Visit: No Status: Chronic Assessment & Plan: -continue home meds Code(s): I25.10 - ATHSCL HEART DISEASE OF [place] CORONARY ARTERY W/O ANG PCTRS (6) Chronic diastolic (congestive) heart failure Current Visit: No Status: Chronic Assessment & Plan: -Continue lasix 40mg daily -I&O and daily weights. -Echo reviewed from 06/29/2404/20: -BP soft and creat elevated at 1.19- hold lasix Code(s): I50.32 - CHRONIC DIASTOLIC (CONGESTIVE) HEART FAILURE NUSRAT -Most likely secondary to diurectic -creat reviewed at 1.19 -Avoid nephrotoxic agents -Hold lasix -Monitor renal/lytes daily (7) Current smoker Current Visit: No Status: Chronic Assessment & Plan: -Advised cesstion -Nicotine patch Code(s): F17.200 - NICOTINE DEPENDENCE, UNSPECIFIED, UNCOMPLICATED (8) GERD (gastroesophageal reflux disease) Current Visit: No Status: Chronic Qualifiers: Esophagitis presence: esophagitis presence not specified Qualified Code(s): K21.9 - Gastro-esophageal reflux disease without esophagitis Assessment & Plan: -Protonix Code(s): K21.9 - GASTRO-ESOPHAGEAL REFLUX DISEASE WITHOUT ESOPHAGITIS (9) Hyperlipidemia Current Visit: No Status: Chronic Assessment & Plan: -continue statin Code(s): E78.5 - HYPERLIPIDEMIA, UNSPECIFIED (10) Hypertension Current Visit: No Status: Chronic Assessment & Plan: -continue home meds 04/20: -Hold BP meds while BP soft- monitor and resume when safe Code(s): I10 - ESSENTIAL (PRIMARY) HYPERTENSION (11) Hypothyroidism Current Visit: No Status: Chronic Assessment & Plan: -continue levothyroxine VTE: lovenox PPI: protonix Dispo: 1-2 days Plan of care time spent greater than 40 mins Code(s): J96.01 - ACUTE RESPIRATORY FAILURE WITH HYPOXIA (2) COPD exacerbation Current Visit: Yes Status: Acute Code(s): J44.1 - CHRONIC OBSTRUCTIVE PULMONARY DISEASE W (ACUTE) EXACERBATION (3) Lung mass Current Visit: Yes Status: Acute Code(s): R91.8 - OTHER NONSPECIFIC ABNORMAL FINDING OF LUNG FIELD (4) Abdominal pain Current Visit: Yes Status: Acute Code(s): R10.9 - UNSPECIFIED ABDOMINAL PAIN (5) CAD (coronary artery disease) Current Visit: No Status: Chronic Code(s): I25.10 - ATHSCL HEART DISEASE OF [place] CORONARY ARTERY W/O ANG PCTRS (6) Chronic diastolic (congestive) heart failure Current Visit: No Status: Chronic Code(s): I50.32 - CHRONIC DIASTOLIC (CONGESTIVE) HEART FAILURE (7) Current smoker Current Visit: No Status: Chronic Code(s): F17.200 - NICOTINE DEPENDENCE, UNSPECIFIED, UNCOMPLICATED (8) GERD (gastroesophageal reflux disease) Current Visit: No Status: Chronic Qualifiers: Esophagitis presence: esophagitis presence not specified Qualified Code(s): K21.9 - Gastro-esophageal reflux disease without esophagitis Code(s): K21.9 - GASTRO-ESOPHAGEAL REFLUX DISEASE WITHOUT ESOPHAGITIS (9) Hyperlipidemia Current Visit: No Status: Chronic Code(s): E78.5 - HYPERLIPIDEMIA, UNSPECIFIED (10) Hypertension Current Visit: No Status: Chronic Code(s): I10 - ESSENTIAL (PRIMARY) HYPERTENSION (11) Hypothyroidism Current Visit: No Status: Chronic Code(s): E03.9 - HYPOTHYROIDISM, UNSPECIFIED
[2025-04-20 05:23] LABS: BASOPHIL % 0.0 % (0.1-1.2); Basophil (Absolute #) 0 x10^3/uL (0.01-0.08); Eosinophil (Absolute #) 0 x10^3/uL (0.04-0.36); Hematocrit 40.8 % (34.1-44.9); Hemoglobin 12.4 g/dL (11.2-15.7); IMMATURE GRAN # 0.06 x10^3u/L (0.001-0.031); IMMATURE GRAN % 0.7 % (0.001-0.429); Lymphocyte (Absolute #) 0.92 x10^3/uL (1.18-3.74); Mean Corpuscular Hemoglobin 30.3 pg (25.6-32.2); Mean Corpuscular Hgb Concent. 30.4 g/dL (32.2-35.5); Monocyte (Absolute #) 0.27 x10^3/uL (0.24-0.86); NUCLEATED RBC # 0.00 x10^3u/L (0.00-0.012); NUCLEATED RBC % 0.0 % (0.00-0.2); Platelet Count 180 x10^3/uL (182-369); Red Blood Count 4.09 x10^6/uL (3.93-5.22); White Blood Count 9.0 x10^3/uL (3.98-10.04)
[2025-04-20 05:52] LABS: Calcium 8.1 mg/dL (8.4-10.2); Carbon Dioxide 32.0 mmol/L (22-30); Creatinine 1 1.19 mg/dL (0.52-1.04); EST GLOMERULAR FILTRATION RATE 48.0 ML/MIN; Glucose 145.0 mg/dL (74-106); NT PRO BNPII 2430.0 pg/mL (<300); Potassium 3.9 mmol/L (3.5-5.1); SGOT/AST 17.0 U/L (14-36); SGPT/ALT 15.0 U/L (0-35); Total Protein 6.4 g/dL (6.3-8.2)
[2025-04-20] MEDS ORDERED: Lasix 40 MG/4 ML IV SCH (10:00)
[2025-04-20] MEDS ORDERED: ROCEPHIN 1 GM / 100 ML NaCl 1 GM/100 ML IVPB IV SCH (10:00)
[2025-04-20] MEDS: solu-MEDROL 80 MG, Sterile H2O 10 ml 2 ML IV SCH (13:37)
[2025-04-21 05:02] LABS: BASOPHIL % 0.1 % (0.1-1.2); Basophil (Absolute #) 0.01 x10^3/uL (0.01-0.08); Eosinophil (Absolute #) 0 x10^3/uL (0.04-0.36); Hematocrit 39.8 % (34.1-44.9); Hemoglobin 12.0 g/dL (11.2-15.7); IMMATURE GRAN # 0.04 x10^3u/L (0.001-0.031); IMMATURE GRAN % 0.4 % (0.001-0.429); Lymphocyte (Absolute #) 0.71 x10^3/uL (1.18-3.74); Mean Corpuscular Hemoglobin 30.5 pg (25.6-32.2); Mean Corpuscular Hgb Concent. 30.2 g/dL (32.2-35.5); Monocyte (Absolute #) 0.23 x10^3/uL (0.24-0.86); NUCLEATED RBC # 0.00 x10^3u/L (0.00-0.012); NUCLEATED RBC % 0.0 % (0.00-0.2); Platelet Count 193 x10^3/uL (182-369); Red Blood Count 3.94 x10^6/uL (3.93-5.22); White Blood Count 10.2 x10^3/uL (3.98-10.04)
--- NOTE | 2025-04-21 05:07 | PCM.NOTE ---
Date and Time: 04/21/25 0506 Subjective Assessment: is a 75 year old female with a history of coronary artery disease status post multiple stents, COPD on 2l oxygen at baseline, gerd, hypertension, and hyperlipidemia who presented to the emergency department 04/19/25 with complaints of increased shortness of breath and productive cough. Patient rep orts spo2 levels at 74% at home. This has been going on for about a month or longer but worsened overnight/this morning. She was recently admitted 03/25/25 with similar symptoms,diagnosed with pneumonia, and requiring high flow oxygen. CT of the chest performed at that time showed a lung mass and mediastinal adenopathy which was reviewed by Dr. De Dios who recommended transfer to [facility] 03/26/25 for Bronchoscopy. Patient reports that it was later decided to obtain a PET scan, no bronchoscopy performed. She has not yet received an appt for the PET scan. She continues to smoke 1.5-2 PPD. Patient also reports several month history of abdominal pain with nausea, no vomiting. Eating aggravates the pain, medications help. Denies fever, cp,MORALEZ, or dizziness. Upon arrival to ED patient tachycardic and tachypneic. Lab findings remarkable for elevated BNP at 1870. CMP/CBC unremarkable. DDimer negative. EKG with sinus tach with HR at 108, left axis deviation. CXR negative for acute fin dings. CT abdomen and pelvis negative for acute findings. Patient treated with solu-medrol, lasix, and duonebs in ED. Currently patient is resting comfortably on 5L oxymask. Lung sounds coarse with exp wheezes. BLE with 2+ pitting edema. Pulmonology declined consult due to OP non-compliance with appts. Will schedule OP appt with provider to set up PET on discharge. 04/20/25: Patient seen and evaluated at bedside. She continues to report dyspnea and productive cough with clear sputum. Currently requiring 5 L oxygen via Oxymask. Lung sounds are coarse throughout on auscultation. Blood pressure noted to be low this morning at 91/52 mm Hg. The importance of adherence to outpatient pulmonology follow-up and the pending PET scan was reinforced, as records indicate multiple missed appointments for both the scan and clinic visits. The patient verbalizes understanding and expresses willingness to pursue further evaluation of the lung mass identified on recent CT imaging, stating she will arrange transportation for future appointments. At this time, steroids will be increased, furosemide will be held due to hypotension, and antibiotics will be continued. Objective Data Vital Signs: Vital Signs - 24 hr Temp Pulse Resp BP Pulse Ox 04/21/25 00:00 80 96 04/20/25 20:00 96.5 F 85 18 92/54 97 04/20/25 18:47 87 16 95 04/20/25 16:00 97.9 F 77 18 95/53 94 L 04/20/25 13:16 85 16 96 04/20/25 11:23 97.8 F 71 18 107/60 92 L 04/20/25 07:20 98.3 F 77 16 91/52 97 Pain Assessment - Last Documented Pain Intensity 0 Pain Scale Used 0-10 Pain Scale Intake and Output: Intake & Output 04/18/25 04/19/25 04/20/25 04/21/25 11:59 11:59 11:59 11:59 Intake Total 1355 1510 Output Total 300 Balance 1055 1510 Weight 71.4 kg 70.5 kg Lab Results: Lab Results-Last 24 Hours 04/19/25 04/19/25 04/20/25 Range/Units 06:50 06:50 04:46 WBC 9.0 (3.98-10.04) x10^3/uL RBC 4.09 (3.93-5.22) x10^6/uL Hgb 12.4 (11.2-15.7) g/dL Hct 40.8 (34.1-44.9) % MCV 99.8 H (79.4-94.8) fL MCH 30.3 (25.6-32.2) pg MCHC 30.4 L (32.2-35.5) g/dL RDW 13.9 (11.7-14.4) % Plt Count 180 L (182-369) x10^3/uL MPV 11.2 (9.4-12.3) fL Gran % 86.1 H (34.0-71.1) % Immature Gran % (Auto) 0.7 H (0.001-0.429) % Nucleat RBC Rel Count 0.0 (0.00-0.2) % Eos # (Auto) 0 L (0.04-0.36) x10^3/uL Immature Gran # (Auto) 0.06 H (0.001-0.031) x10^3u/L Absolute Lymphs (auto) 0.92 L (1.18-3.74) x10^3/uL Absolute Monos (auto) 0.27 (0.24-0.86) x10^3/uL Absolute Nucleated RBC 0.00 (0.00-0.012) x10^3u/L Lymphocytes % 10.2 L (19.3-51.7) % Monocytes % 3.0 L (4.7-12.5) % Eosinophils % 0.0 L (0.7-5.8) % Basophils % 0.0 L (0.1-1.2) % Absolute Granulocytes 7.78 H (1.56-6.13) x10^3/uL Basophils # 0 L (0.01-0.08) x10^3/uL Sodium (135-145) mmol/L Potassium (3.5-5.1) mmol/L Chloride (98-107) mmol/L Carbon Dioxide (22-30) mmol/L Anion Gap (5-15) MEQ/L BUN (7-17) mg/dL Creatinine (0.52-1.04) mg/dL Estimated GFR ML/MIN Glucose (74-106) mg/dL Calcium (8.4-10.2) mg/dL Total Bilirubin (0.2-1.3) mg/dL AST (14-36) U/L ALT (0-35) U/L Alkaline Phosphatase (38-126) U/L NT-Pro-B Natriuret Pep 1870 (<300) pg/mL Serum Total Protein (6.3-8.2) g/dL Albumin (3.5-5.0) g/dL Influenza Type A Ag NEGATIVE (NEGATIVE) Influenza Type B Ag NEGATIVE (NEGATIVE) RSV (PCR) NEGATIVE (NEGATIVE) SARS-CoV-2 (PCR) NEGATIVE (NEGATIVE) 04/20/25 Range/Units 04:46 WBC (3.98-10.04) x10^3/uL RBC (3.93-5.22) x10^6/uL Hgb (11.2-15.7) g/dL Hct (34.1-44.9) % MCV (79.4-94.8) fL MCH (25.6-32.2) pg MCHC (32.2-35.5) g/dL RDW (11.7-14.4) % Plt Count (182-369) x10^3/uL MPV (9.4-12.3) fL Gran % (34.0-71.1) % Immature Gran % (Auto) (0.001-0.429) % Nucleat RBC Rel Count (0.00-0.2) % Eos # (Auto) (0.04-0.36) x10^3/uL Immature Gran # (Auto) (0.001-0.031) x10^3u/L Absolute Lymphs (auto) (1.18-3.74) x10^3/uL Absolute Monos (auto) (0.24-0.86) x10^3/uL Absolute Nucleated RBC (0.00-0.012) x10^3u/L Lymphocytes % (19.3-51.7) % Monocytes % (4.7-12.5) % Eosinophils % (0.7-5.8) % Basophils % (0.1-1.2) % Absolute Granulocytes (1.56-6.13) x10^3/uL Basophils # (0.01-0.08) x10^3/uL Sodium 139 (135-145) mmol/L Potassium 3.9 (3.5-5.1) mmol/L Chloride 102 (98-107) mmol/L Carbon Dioxide 32 H (22-30) mmol/L Anion Gap 8.9 (5-15) MEQ/L BUN 20 H (7-17) mg/dL Creatinine 1.19 H (0.52-1.04) mg/dL Estimated GFR 48.0 ML/MIN Glucose 145 H (74-106) mg/dL Calcium 8.1 L (8.4-10.2) mg/dL Total Bilirubin 0.20 (0.2-1.3) mg/dL AST 17 (14-36) U/L ALT 15 (0-35) U/L Alkaline Phosphatase 100 (38-126) U/L NT-Pro-B Natriuret Pep 2430 (<300) pg/mL Serum Total Protein 6.4 (6.3-8.2) g/dL Albumin 3.4 L (3.5-5.0) g/dL Influenza Type A Ag (NEGATIVE) Influenza Type B Ag (NEGATIVE) RSV (PCR) (NEGATIVE) SARS-CoV-2 (PCR) (NEGATIVE) Radiology Exams: Radiology Procedures Category Date Time Status ABDOMEN AND PELVIS W/0 CONTRAS [CT] Stat Exams 04/19/25 06:32 Completed CHEST 1 VIEW (PORTABLE) Stat Exams 04/19/25 06:22 Completed Medications: Medications Generic Name Dose Route Start Last Admin Trade Name Freq PRN Reason Stop Dose Admin Acetaminophen 650 mg 04/19/25 12:10 04/19/25 16:13 Acetaminophen 325 Mg Tablet PO 05/19/25 12:09 650 mg Q4H PRN PRN Administration PAIN, FEVER, HEADACHE Albuterol Sulfate 2.5 mg 04/19/25 19:00 04/20/25 18:47 Albuterol Sulfate 2.5 Mg/3 Ml Neb IH 05/19/25 18:59 2.5 mg TIDRT EMMA Administration Albuterol Sulfate 2 puff 04/19/25 13:49 Albuterol Common Canister Inhaler 05/19/25 13:48 Q4HPRN PRN SHORTNESS OF BREATH/WHEEZING Clopidogrel Bisulfate 75 mg 04/19/25 13:00 04/20/25 08:46 Clopidogrel Bisulfate 75 Mg Tablet PO 05/19/25 12:59 75 mg DAILY EMMA Administration Methylprednisolone Sodium 0 mg 04/20/25 14:00 04/20/25 21:50 Succinate 80 mg/ Sterile Water IV 05/20/25 13:59 80 mg 2 ml Q8HT EMMA Administration Ezetimibe 10 mg 04/19/25 13:00 04/20/25 08:46 Ezetimibe 10 Mg Tab PO 05/19/25 12:59 10 mg DAILY EMMA Administration Enoxaparin Sodium 40 mg 04/19/25 14:00 04/20/25 08:45 Enoxaparin Sodium 40 Mg/0.4 Ml Syringe SQ 05/19/25 13:59 40 mg DAILY EMMA Administration Gabapentin 300 mg 04/19/25 17:00 04/20/25 21:51 Gabapentin 300 Mg Capsule PO 05/19/25 16:59 300 mg QID EMMA Administration Azithromycin 500 mg/ Sodium 250 mls @ 250 mls/hr 04/19/25 16:00 04/20/25 16:16 Chloride IV 05/19/25 15:59 250 mls/hr Q24H EMMA Administration Aztreonam 2 gm/ Sodium 100 mls @ 200 mls/hr 04/19/25 14:00 04/20/25 21:50 Chloride IV 04/23/25 13:59 200 mls/hr Q8HT EMMA Administration Isosorbide Mononitrate 30 mg 04/19/25 13:00 04/20/25 08:48 Isosorbide Mononitrate 30 Mg Tab PO 05/19/25 12:59 30 mg DAILY EMMA Administration Levothyroxine Sodium 88 mcg 04/19/25 14:00 04/20/25 11:51 Levothyroxine Sodium 88 Mcg Tablet PO 05/19/25 13:59 88 mcg DAILY EMMA Administration Levothyroxine Sodium 200 mcg 04/19/25 14:00 04/20/25 08:45 Levothyroxine Sodium 100 Mcg Tablet PO 05/19/25 13:59 200 mcg DAILY EMMA Administration Lisinopril 20 mg 04/19/25 14:00 04/20/25 16:15 Lisinopril 20 Mg Tablet PO 05/19/25 13:59 Not Given DAILY EMMA Metoprolol Tartrate 25 mg 04/19/25 13:00 04/20/25 16:15 Metoprolol Tartrate 25 Mg Tab PO 05/19/25 12:59 Not Given DAILY EMMA Miscellaneous Information 1 each 04/19/25 14:00 Medication Intervention 1 Each Each 05/19/25 13:59 .RT TO CHECK EMMA Nicotine 21 mg 04/19/25 13:30 04/20/25 08:44 Nicotine 21 Mg/Patch Patch TOP 05/19/25 13:29 21 mg Q24H10 EMMA Administration Nitroglycerin 0.4 mg 04/19/25 13:51 Nitroglycerin 0.4 Mg Tablet Bottle SL 05/19/25 13:50 Q5MIN PRN MR X 3 PRN Ondansetron HCl 4 mg 04/19/25 12:10 Ondansetron Hcl 4 Mg/2 Ml Vial IV 05/19/25 12:09 Q6H PRN PRN NAUSEA/VOMITING Pantoprazole Sodium 40 mg 04/19/25 22:00 04/20/25 21:51 Protonix (Pantoprazole) 40 Mg Tablet PO 05/19/25 21:59 40 mg HS EMMA Administration Simvastatin 10 mg 04/19/25 14:00 04/20/25 08:47 Simvastatin 10 Mg Tablet PO 05/19/25 13:59 10 mg DAILY EMMA Administration Sucralfate 1 g 04/19/25 16:30 04/20/25 21:51 Sucralfate 1 G Tablet PO 05/19/25 16:29 1 g ACHS EMMA Administration Tramadol HCl 50 mg 04/19/25 15:00 04/20/25 21:51 Tramadol Hcl 50 Mg Tablet PO 05/19/25 14:59 50 mg TID EMMA Administration Verapamil HCl 40 mg 04/19/25 15:00 04/20/25 16:34 Verapamil Hcl 80 Mg Tablet PO 05/19/25 14:59 Not Given TID EMMA Discontinued Medications Generic Name Dose Route Start Last Admin Trade Name Freq PRN Reason Stop Dose Admin Albuterol Sulfate Confirm 04/19/25 14:03 Albuterol Sulfate 2.5 Mg/3 Ml Neb Administered 04/19/25 14:04 Dose 2.5 mg IH .STK-MED ONE Albuterol/Ipratropium Confirm 04/19/25 06:15 Ipratropium/Albuterol Sulfate 3 Ml Ampul.Neb Administered 04/19/25 06:16 Dose 3 ml IH .STK-MED ONE Albuterol/Ipratropium 3 ml 04/19/25 06:18 04/19/25 06:21 Ipratropium/Albuterol Sulfate 3 Ml Ampul.Neb IH 04/19/25 06:19 3 ml STAT ONE Administration Methylprednisolone Sodium 0 mg 04/19/25 06:21 04/19/25 06:29 Succinate 125 mg/ Sterile IV 04/19/25 06:22 125 mg Water 2 ml STAT ONE Administration Methylprednisolone Sodium 0 mg 04/19/25 14:00 04/20/25 05:43 Succinate 40 mg/ Sterile Water IV 05/19/25 13:59 40 mg 1 ml Q8HT EMMA Administration Furosemide 40 mg 04/19/25 08:36 04/19/25 08:51 Furosemide 40 Mg/4 Ml Vial IV 04/19/25 08:37 40 mg STAT ONE Administration Furosemide Confirm 04/19/25 08:49 Furosemide 40 Mg/4 Ml Vial Administered 04/19/25 08:50 Dose 40 mg .ROUTE .STK-MED ONE Furosemide 40 mg 04/20/25 10:00 Furosemide 40 Mg/4 Ml Vial IV 05/20/25 09:59 DAILY EMMA Ceftriaxone Sodium 1 gm in 100 mls @ 200 mls/hr 04/20/25 10:00 Rocephin 1 Gm / 100 Ml Nacl IV 05/20/25 09:59 Q24H10 EMMA Methylprednisolone Sodium Succinate Confirm 04/19/25 06:27 Methylprednis Sod Succ 125 Mg/2 Ml Vial Administered 04/19/25 06:28 Dose 125 mg .ROUTE .STK-MED ONE Sterile Water Confirm 04/19/25 06:27 Water For Injection,Sterile 10 Ml Vial Administered 04/19/25 06:28 Dose 10 ml IJ .STK-MED ONE Multi-Disciplinary Progress Notes: Multi-Disciplinary Progress Notes 04/20/25 13:25 Case Management Note by Nessa Thompson CALLED [facility] TO RESCHEDULE PET SCAN FOR PATIENT AFTER DC- LM WITH RADIOLOGY DEPARTMENT Initialized on 04/20/25 13:25 - END OF NOTE 04/20/25 13:18 Case Management Note by Nessa Thompson Addendum entered by Nessa Thompson 04/20/25 13:18: [facility] HAS ACCEPTED Original Note: REFERRAL SENT TO [facility]. THEY WILL NEED NOTIFIED AT TIME OF DC AT [phone]. THEY WILL NEED FAXED THE DC INSTRUCTIONS, DC MED LIST AND DC SUMMARY TO [phone] Initialized on 04/20/25 13:18 - END OF NOTE 04/20/25 12:13 Respiratory Note by Clarita Mcwilliams [employer] TO 5LPM SPO2 88% Initialized on 04/20/25 12:13 - END OF NOTE 04/20/25 12:00 (created 04/20/25 13:19) Case Management Note by Nessa Thompson DURING DC PLANNING ASSESSEMNT PATIENT NOTED THAT THERE HAVE BEEN EXPENSIVE MEDICATIONS THAT SHE IS GOING WITHOUT D/T THE INABILITY TO AFFORD THEM. THIS DEPARTMENT DIRECTOR CALLED AND S/W DRYWALL FOREMAN AT [facility]- PATIENT DOES NOT HAVE ANY MEDS ON HOLD THERE AND ALL MEDS HAVE EITHER BEEN $0 COPAY OR THE MOST EXPENSIVE $4. SCOTTY FROM [employer] [facility] PATIENT VOICED THIS- SHE WILL SEE IF DOE CORRIGAN CAN S/W PATIENT TO SEE IF SHE QUALIFIES FOR MEDICAID ASSISTANCE. 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 CALLED [facility]- THEY REPORT PATIENT 'S INSURANCE IS NOW REQUIRING EVERYTHING DME TO GO THRU THE [facility] . CALLED [facility]- THEY REPORT THEY HAVE ALREADY PLACED AN ORDER FOR THIS TO BE DONE WITH [facility] 03/27/25, . CALLED ADRIANA WITH [facility]- HE STATES HE WOULD LOOK INTO THIS- HAVE THE [place] AND THEY WILL MAKE SURE IT IS DONE. PATIENT WILL NEED SENT HOME WITH PORTABLE FROM [facility] AT TIME OF DC. [facility] INFORMATION PLACED IN DC INSTRUCTIONS FOR PATIENT AT DC Initialized on 04/20/25 13:19 - END OF NOTE Assessment/Plan (1) Acute respiratory failure with hypoxia Current Visit: Yes Status: Acute Assessment & Plan: -Most likely multifactorial with COPD exac, new finding of lung mass -Continue solu-medrol 40mg q8h -duoneb emma/prn/inh -RT to follow -Pulm consult (Dr. Fay) -CT chest from 03/26/25 reviewed- per patient OP PET pending -continue supplemental oxygen with goal spo2 > 89% - currently at 5L oxymask -Ceftriaxone/azithromycin per GOLD guidelines -Smoking cessation advised- Nicotine patch ordered 04/20: - On 5L at 90% spo2- titrate as need for goal > 89% -Pulm declined consult as patient has had many missed appt- reports patient was scheduled for PET and no showed to appt -Continue Aztronam as pt has allergy to cephlosporins- continue azithromycin -continue solumedrol with dose increased to 80mg TID -NEBs/INH -RT following Code(s): J96.01 - ACUTE RESPIRATORY FAILURE WITH HYPOXIA (2) COPD exacerbation Current Visit: Yes Status: Acute Assessment & Plan: -see above Code(s): J44.1 - CHRONIC OBSTRUCTIVE PULMONARY DISEASE W (ACUTE) EXACERBATION (3) Lung mass Current Visit: Yes Status: Acute Assessment & Plan: -Pulm consulted -Follow up with Pulmonology to expedite PET scan scheduling for further c haracterization and staging. -Oncology referral to be considered depending on PET findings. -Smoking cessation support emphasized. 04/20: -Pt will have to follow up OP with Pulm- declined IP consult as stated above Code(s): R91.8 - OTHER NONSPECIFIC ABNORMAL FINDING OF LUNG FIELD (4) Abdominal pain Current Visit: Yes Status: Acute Assessment & Plan: -CT abdomen/pelvis with no acute findings -Continue PPI therapy and carafate -Avoid trigger foods, caffeine, and late-night meals. -If persistent or worsening, consider outpatient GI follow-up for EGD evaluation. Code(s): R10.9 - UNSPECIFIED ABDOMINAL PAIN (5) CAD (coronary artery disease) Current Visit: No Status: Chronic Assessment & Plan: -continue home meds Code(s): I25.10 - ATHSCL HEART DISEASE OF [place] CORONARY ARTERY W/O ANG PCTRS (6) Chronic diastolic (congestive) heart failure Current Visit: No Status: Chronic Assessment & Plan: -Continue lasix 40mg daily -I&O and daily weights. -Echo reviewed from 06/29/2404/20: -BP soft and creat elevated at 1.19- hold lasix Code(s): I50.32 - CHRONIC DIASTOLIC (CONGESTIVE) HEART FAILURE NUSRAT -Most likely secondary to diurectic -creat reviewed at 1.19 -Avoid nephrotoxic agents -Hold lasix -Monitor renal/lytes daily (7) Current smoker Current Visit: No Status: Chronic Assessment & Plan: -Advised cesstion -Nicotine patch Code(s): F17.200 - NICOTINE DEPENDENCE, UNSPECIFIED, UNCOMPLICATED (8) GERD (gastroesophageal reflux disease) Current Visit: No Status: Chronic Qualifiers: Esophagitis presence: esophagitis presence not specified Qualified Code(s): K21.9 - Gastro-esophageal reflux disease without esophagitis Assessment & Plan: -Protonix Code(s): K21.9 - GASTRO-ESOPHAGEAL REFLUX DISEASE WITHOUT ESOPHAGITIS (9) Hyperlipidemia Current Visit: No Status: Chronic Assessment & Plan: -continue statin Code(s): E78.5 - HYPERLIPIDEMIA, UNSPECIFIED (10) Hypertension Current Visit: No Status: Chronic Assessment & Plan: -continue home meds 04/20: -Hold BP meds while BP soft- monitor and resume when safe Code(s): I10 - ESSENTIAL (PRIMARY) HYPERTENSION (11) Hypothyroidism Current Visit: No Status: Chronic Assessment & Plan: -continue levothyroxine VTE: lovenox PPI: protonix Dispo: 1-2 days Plan of care time spent greater than 40 mins Code(s): J96.01 - ACUTE RESPIRATORY FAILURE WITH HYPOXIA (2) COPD exacerbation Current Visit: Yes Status: Acute Code(s): J44.1 - CHRONIC OBSTRUCTIVE PULMONARY DISEASE W (ACUTE) EXACERBATION (3) Lung mass Current Visit: Yes Status: Acute Code(s): R91.8 - OTHER NONSPECIFIC ABNORMAL FINDING OF LUNG FIELD (4) Abdominal pain Current Visit: Yes Status: Acute Code(s): R10.9 - UNSPECIFIED ABDOMINAL PAIN (5) CAD (coronary artery disease) Current Visit: No Status: Chronic Code(s): I25.10 - ATHSCL HEART DISEASE OF [place] CORONARY ARTERY W/O ANG PCTRS (6) Chronic diastolic (congestive) heart failure Current Visit: No Status: Chronic Code(s): I50.32 - CHRONIC DIASTOLIC (CONGESTIVE) HEART FAILURE (7) Current smoker Current Visit: No Status: Chronic Code(s): F17.200 - NICOTINE DEPENDENCE, UNSPECIFIED, UNCOMPLICATED (8) GERD (gastroesophageal reflux disease) Current Visit: No Status: Chronic Qualifiers: Esophagitis presence: esophagitis presence not specified Qualified Code(s): K21.9 - Gastro-esophageal reflux disease without esophagitis Code(s): K21.9 - GASTRO-ESOPHAGEAL REFLUX DISEASE WITHOUT ESOPHAGITIS (9) Hyperlipidemia Current Visit: No Status: Chronic Code(s): E78.5 - HYPERLIPIDEMIA, UNSPECIFIED (10) Hypertension Current Visit: No Status: Chronic Code(s): I10 - ESSENTIAL (PRIMARY) HYPERTENSION (11) Hypothyroidism Current Visit: No Status: Chronic Code(s): E03.9 - HYPOTHYROIDISM, UNSPECIFIED
[2025-04-21 05:20] LABS: Calcium 8.0 mg/dL (8.4-10.2); Carbon Dioxide 32 mmol/L (22-30); Creatinine 1 1.01 mg/dL (0.52-1.04); EST GLOMERULAR FILTRATION RATE 58.4 ML/MIN; Glucose 127 mg/dL (74-106); Potassium 4.2 mmol/L (3.5-5.1); SGOT/AST 17 U/L (14-36); SGPT/ALT 13 U/L (0-35); Total Protein 6.0 g/dL (6.3-8.2)
[2025-04-21 07:09] VITALS: RESP 16
--- NOTE | 2025-04-21 10:59 | PCM.DS ---
Discharge Summary Date of Admission: 04/19/25 12:05 Date of Discharge: 04/21/25 Admitting Physician: KENDRA GRIJALVA MD Consults: Consults on Case 04/19/25 13:53 Consult Pulmonology ROUTINE Primary Care Provider: LAURA SHELTON Allergies Allergies cephalexin [From Keflex] Allergy (Verified 04/19/25 12:10) Hospital Summary - Hospital Course Hospital Course: Ms. Yarbrough is a 75-year-old female with a history of coronary artery disease status post multiple stents, COPD on 2 L home oxygen, GERD, hypertension, and hyperlipidemia who presented on April 19, 2025 with worsening shortness of breath and productive cough. She reported home [id number] as low as 74%, noting progressive dyspnea over the prior month with acute worsening overnight. She was recently admitted March 25, 2025 for similar symptoms, diagnosed with pneumonia requiring high-flow oxygen. A CT chest (03/26/25) from that admission demonstrated a left lung mass with mediastinal adenopathy, for which Dr. Fay (Pulmonology) recommended bronchoscopy; this was deferred in favor of an outpatient PET scan that has not yet been completed. The patient continues to smoke 1.52 packs per day. She also endorsed chronic postprandial abdominal pain and nausea without vomiting. In the ED, she was tachycardic and tachypneic, saturating in the low 80s on home oxygen. Labs revealed BNP 1870, consistent with volume overload, though CMP/CBC were unremarkable and D-dimer was negative. EKG showed sinus tachycardia with left axis deviation. CXR revealed no acute infiltrates, and CT abdomen/pelvis was negative for acute intraabdominal pathology. She was treated with Solu- Medrol, IV Lasix, and DuoNebs, resulting in mild improvement. On admission, she required 5 L O2 via Oxymask with coarse expiratory wheezes and bilateral 2+ pitting edema. Pulmonology declined inpatient consultation citing repeated outpatient noncompliance; a follow-up appointment will be arranged at discharge to expedite PET scheduling. During hospitalization, her oxygen requirement remained at 5 L, with symptomatic improvement following increased corticosteroid dosing and continuation of bronchodilators. Blood pressure was intermittently soft (as low as 91/52 mm Hg), prompting temporary cessation of diuretics. Repeat labs showed stable renal function (Cr 1.19 ). The patient verbalized understanding of the need for pulmonary evaluation and further workup of the lung mass. She was counseled extensively on smoking cessation, though she is not ready to quit; [phone] information was provided. She is stable for discharge on home oxygen at 5 L, with plans for outpatient PET scan and pulmonology follow-up. Discharge Note New Diagnosis: COPD exacerbation New Medications: Prednisone 40mg daily, Doxycycline 100mg po bid x 7 days, Azithromycin 250mg x 2 days to complete course Follow Up: PCP/Pulm Outpatient testing to order: PET I spent 35 minutes [id number] with the patient on the day of discharge performing discharge exam, discussing hospital stay and discharge instructions with patient and caregivers, preparation of discharge records, prescriptions & referral forms and addressing any questions/concerns the patient had as documented above. - Vitals & Intake/Output Vital Signs: Vital Signs Temperature 97.8 F 04/21/25 07:08 Pulse Rate 56 L 04/21/25 07:08 Respiratory Rate 16 04/21/25 07:08 Blood Pressure 132/63 04/21/25 07:08 O2 Sat by Pulse Oximetry 98 04/21/25 07:08 Intake & Output: Intake & Output 04/18/25 04/19/25 04/20/25 04/21/25 11:59 11:59 11:59 11:59 Intake Total 1355 2190 Output Total 300 Balance 1055 2190 Weight 71.4 kg 70.5 kg 69.7 kg - Lab Result Diagrams: 04/21/25 04:34 04/21/25 04:34 Lab Results-Last 24 Hrs: Lab Results-Last 24 Hours 04/19/25 04/19/25 04/21/25 Range/Units 06:50 06:50 04:34 WBC 10.2 H (3.98-10.04) x10^3/uL RBC 3.94 (3.93-5.22) x10^6/uL Hgb 12.0 (11.2-15.7) g/dL Hct 39.8 (34.1-44.9) % MCV 101.0 H (79.4-94.8) fL MCH 30.5 (25.6-32.2) pg MCHC 30.2 L (32.2-35.5) g/dL RDW 13.9 (11.7-14.4) % Plt Count 193 (182-369) x10^3/uL MPV 10.8 (9.4-12.3) fL Gran % 90.2 H (34.0-71.1) % Immature Gran % (Auto) 0.4 (0.001-0.429) % Nucleat RBC Rel Count 0.0 (0.00-0.2) % Eos # (Auto) 0 L (0.04-0.36) x10^3/uL Immature Gran # (Auto) 0.04 H (0.001-0.031) x10^3u/L Absolute Lymphs (auto) 0.71 L (1.18-3.74) x10^3/uL Absolute Monos (auto) 0.23 L (0.24-0.86) x10^3/uL Absolute Nucleated RBC 0.00 (0.00-0.012) x10^3u/L Lymphocytes % 7.0 L (19.3-51.7) % Monocytes % 2.3 L (4.7-12.5) % Eosinophils % 0.0 L (0.7-5.8) % Basophils % 0.1 (0.1-1.2) % Absolute Granulocytes 9.22 H (1.56-6.13) x10^3/uL Basophils # 0.01 (0.01-0.08) x10^3/uL Sodium (135-145) mmol/L Potassium (3.5-5.1) mmol/L Chloride (98-107) mmol/L Carbon Dioxide (22-30) mmol/L Anion Gap (5-15) MEQ/L BUN (7-17) mg/dL Creatinine (0.52-1.04) mg/dL Estimated GFR ML/MIN Glucose (74-106) mg/dL Calcium (8.4-10.2) mg/dL Total Bilirubin (0.2-1.3) mg/dL AST (14-36) U/L ALT (0-35) U/L Alkaline Phosphatase (38-126) U/L NT-Pro-B Natriuret Pep 1870 (<300) pg/mL Serum Total Protein (6.3-8.2) g/dL Albumin (3.5-5.0) g/dL Influenza Type A Ag NEGATIVE (NEGATIVE) Influenza Type B Ag NEGATIVE (NEGATIVE) RSV (PCR) NEGATIVE (NEGATIVE) SARS-CoV-2 (PCR) NEGATIVE (NEGATIVE) 04/21/25 Range/Units 04:34 WBC (3.98-10.04) x10^3/uL RBC (3.93-5.22) x10^6/uL Hgb (11.2-15.7) g/dL Hct (34.1-44.9) % MCV (79.4-94.8) fL MCH (25.6-32.2) pg MCHC (32.2-35.5) g/dL RDW (11.7-14.4) % Plt Count (182-369) x10^3/uL MPV (9.4-12.3) fL Gran % (34.0-71.1) % Immature Gran % (Auto) (0.001-0.429) % Nucleat RBC Rel Count (0.00-0.2) % Eos # (Auto) (0.04-0.36) x10^3/uL Immature Gran # (Auto) (0.001-0.031) x10^3u/L Absolute Lymphs (auto) (1.18-3.74) x10^3/uL Absolute Monos (auto) (0.24-0.86) x10^3/uL Absolute Nucleated RBC (0.00-0.012) x10^3u/L Lymphocytes % (19.3-51.7) % Monocytes % (4.7-12.5) % Eosinophils % (0.7-5.8) % Basophils % (0.1-1.2) % Absolute Granulocytes (1.56-6.13) x10^3/uL Basophils # (0.01-0.08) x10^3/uL Sodium 138 (135-145) mmol/L Potassium 4.2 (3.5-5.1) mmol/L Chloride 104 (98-107) mmol/L Carbon Dioxide 32 H (22-30) mmol/L Anion Gap 6.3 (5-15) MEQ/L BUN 23 H (7-17) mg/dL Creatinine 1.01 (0.52-1.04) mg/dL Estimated GFR 58.4 ML/MIN Glucose 127 H (74-106) mg/dL Calcium 8.0 L (8.4-10.2) mg/dL Total Bilirubin < 0.10 L (0.2-1.3) mg/dL AST 17 (14-36) U/L ALT 13 (0-35) U/L Alkaline Phosphatase 90 (38-126) U/L NT-Pro-B Natriuret Pep (<300) pg/mL Serum Total Protein 6.0 L (6.3-8.2) g/dL Albumin 3.2 L (3.5-5.0) g/dL Influenza Type A Ag (NEGATIVE) Influenza Type B Ag (NEGATIVE) RSV (PCR) (NEGATIVE) SARS-CoV-2 (PCR) (NEGATIVE) Micro Results-Entire Visit: Microbiology 04/19/25 08:27 Urine Culture - Final Clean Catch Midstream <10K NORMAL SKIN JAYNE PROBABLE SKIN CONTAMINANT 04/19/25 06:50 Blood Culture - Preliminary Blood 04/19/25 06:50 Blood Culture - Preliminary Blood - Procedures and Test Procedures and Tests throughout Hospitalization: Therapy Orders & Screens 04/19/25 06:21 Respiratory Therapy Assessment DAILY Comment: 04/19/25 12:10 EKG REPEAT IN AM Comment: Oxygen Oxymask LPM 2 lpm Comment: Respiratory Therapy Consult ONCE Comment: Reason For Exam: 04/19/25 14:14 Respiratory Therapy Assessment DAILY Comment: Diagnosis: dyspnea Discharge Exam General Appearance: no apparent distress Neurologic Exam: alert, oriented x 3, cooperative Eye Exam: PERRL Ears, Nose, Throat Exam: normal ENT inspection Neck Exam: normal inspection Respiratory Exam: diminished breath sounds, crackles/rales Cardiovascular Exam: regular rate/rhythm, normal heart sounds Gastrointestinal/Abdomen Exam: soft, normal bowel sounds Pelvic Exam: deferred Rectal Exam: deferred Back Exam: normal inspection Extremity Exam: normal inspection Skin Exam: normal color Final Diagnosis/Problem List - Final Discharge Diagnosis/Problem (1) Acute respiratory failure with hypoxia Current Visit: Yes Status: Acute Assessment & Plan: Likely multifactorial from COPD exacerbation and underlying lung mass. Continue Prednisone 40 mg PO daily 5 days Continue doxycycline 100mg po bid x 7 days and azithromycin 250mg x 2 days (to complete course) Maintain supplemental O2 at 5 L/min goal SpO2 > 89%. Nebulized bronchodilators Smoking cessation counseling reinforced [id number] information provided Outpatient Pulmonology to coordinate PET scan for further evaluation of mass. Code(s): J96.01 - ACUTE RESPIRATORY FAILURE WITH HYPOXIA (2) COPD exacerbation Current Visit: Yes Status: Acute Assessment & Plan: see ARF Code(s): J44.1 - CHRONIC OBSTRUCTIVE PULMONARY DISEASE W (ACUTE) EXACERBATION (3) Lung mass Current Visit: Yes Status: Acute Assessment & Plan: CT chest (03/26/25): left lung mass with mediastinal adenopathy. PET scan pending; no bronchoscopy performed. Pulmonology follow-up essential; patient agrees to reschedule missed appointments. Pulm to follow PET results. Code(s): R91.8 - OTHER NONSPECIFIC ABNORMAL FINDING OF LUNG FIELD (4) Abdominal pain Current Visit: Yes Status: Acute Assessment & Plan: CT abdomen/pelvis (04/19/25): no acute findings. Continue Protonix 40 mg daily and Carafate. Advise avoidance of trigger foods, caffeine, late-night meals. If persistent, consider outpatient GI consult for EGD. Code(s): R10.9 - UNSPECIFIED ABDOMINAL PAIN (5) CAD (coronary artery disease) Current Visit: No Status: Chronic Assessment & Plan: Stable; continue home cardiac medications (aspirin, statin, beta-joceline as tolerated). Monitor for exertional symptoms. Code(s): I25.10 - ATHSCL HEART DISEASE OF [place] CORONARY ARTERY W/O ANG PCTRS (6) Chronic diastolic (congestive) heart failure Current Visit: No Status: Chronic Assessment & Plan: Echo (06/29/24) reviewed preserved EF consistent with HFpEF. BNP 1870 likely reflecting congestion Resume Lasix 20 mg daily as tolerated once BP stable. Monitor daily weights, I/O, and renal function as outpatient. Avoid nephrotoxins until renal function returns to baseline. Code(s): I50.32 - CHRONIC DIASTOLIC (CONGESTIVE) HEART FAILURE (7) Current smoker Current Visit: No Status: Chronic Assessment & Plan: Smoking cessation encouraged, though patient not ready to quit. Nicotine patch advised - declined; provided [phone] information. Code(s): F17.200 - NICOTINE DEPENDENCE, UNSPECIFIED, UNCOMPLICATED (8) GERD (gastroesophageal reflux disease) Current Visit: No Status: Chronic Assessment & Plan: Continue Protonix 40 mg daily. Dietary and lifestyle modifications reinforced Code(s): K21.9 - GASTRO-ESOPHAGEAL REFLUX DISEASE WITHOUT ESOPHAGITIS (9) Hyperlipidemia Current Visit: No Status: Chronic Assessment & Plan: continue statin Code(s): E78.5 - HYPERLIPIDEMIA, UNSPECIFIED (10) Hypertension Current Visit: No Status: Chronic Assessment & Plan: continue home meds Code(s): I10 - ESSENTIAL (PRIMARY) HYPERTENSION (11) Hypothyroidism Current Visit: No Status: Chronic Assessment & Plan: continue levothyroxine Follow-up: Primary Care within 1 week, Pulmonology for PET scan coordination, consider Oncology pending results. Patient Education: Medication review completed; reinforced importance of outpatient compliance and smoking cessation. Code(s): E03.9 - HYPOTHYROIDISM, UNSPECIFIED - Discharge Discharge Date: 04/21/25 Disposition: Home, Self-Care Condition: Stable Prescriptions: New Azithromycin 250 mg PO DAILY 2 Days #2 tablet Prednisone 20 mg [Deltasone 20 mg] 20 mg PO BID 5 Days #10 tablet Doxycycline Hyclate 100 mg [Vibramycin 100 MG] 100 mg PO BID 7 Days #14 tab Continue Metoprolol Tartrate 25 mg PO DAILY lisinopriL [Lisinopril] 20 mg PO DAILY Furosemide 20 mg [Lasix 20 mg] 20 mg PO DAILY PRN PRN Reason: fluid overload Atorvastatin Calcium [Lipitor 20MG Tablet] 40 mg PO DAILY Nitroglycerin 0.4 mg (Ed) [Nitrostat 0.4 MG (ED)] 0.4 mg SL DIRECTIONS UNKNOWN Spironolactone 12.5 mg PO DAILY Albuterol 8 gm Mdi Hfa [Ventolin Hfa MDI] 2 puff IH Q4-6HPRN PRN PRN Reason: Shortness Of Breath/Wheezing PANTOPRAZOLE 40 mg Tablet [Protonix 40MG Tablet] 40 mg PO HS Clopidogrel Bisulfate [Plavix] 75 mg PO DAILY #0 Gabapentin [Neurontin ] 300 mg PO QID Budesonide/Glycopyr/Formoterol [Breztri Aerosphere Inhaler] 2 puff IH BID Tramadol HCl 50 mg [Ultram 50 mg] 50 mg PO TID Levothyroxine Sodium 200 mcg PO DAILY 30 Days #30 tablet Albuterol 2.5 mg/3 ml Neb [Proventil 2.5 mg/3 ml Neb] 1 neb NEB TID Verapamil HCl 40 mg PO TID Sucralfate 1 gm [Carafate 1 GM] 1 g PO ACHS Levothyroxine Sodium 88 mcg PO DAILY Isosorbide Mononitrate 30 mg [Imdur 30 MG] 30 mg PO DAILY Ezetimibe 10 mg [Zetia 10 MG] 10 mg PO DAILY Additional Instructions: CALL [facility] WHEN YOU LEAVE [facility] SO THEY CAN MAKE ARRANGEMENTS TO GET YOUR TANKS CHANGED OUT. THEIR PHONE NUMBER IS [phone]. IF YOU HAVE ANY DIFFICULTY-ASK TO S/W [facility], TELL THEM THAT THE SENIOR MOBILE WEB DEVELOPER, MARTITA, FROM [place] INSTRUCTED YOU TO DO SO. YOU ARE SCHEDULED FOR A PET SCAN AT [facility] 05/01/25 @10 AM - PLEASE ARRIVE 20-30 MINS PRIOR TO YOUR APPOINTMENT. NOTHING BY MOUTH BESIDES WATER AFTER 4 AM ON 05/01/25 (MUST BE NPO FOR 6 HOURS PRIOR TO TEST) [facility] HAS BEEN SET UP FOR YOU. THEY WILL CALL YOU TO ARRANGE A TIME TO COME SEE YOU. THEIR PHONE NUMBER IS [phone] IF YOU NEED ANYTHING PRIOR TO THEM CONTACTING YOU Follow up with: LAURA SHELTON, [Primary Care Provider, [facility]ILY [facility]] - Call for Appointment
[2025-04-21 11:36] VITALS: BP 176/79; PULSE 80; TEMP 97.7; O2SAT 93
== END 2025-04-21 12:05 | disposition home health service (06) ==
LOC: ED 06:01 → MED SURG 12:05
PROVIDERS: ADMIT Internal Medicine; ATTEND Internal Medicine
DX: J96.01 Acute respiratory failure with hypoxia (principal); J44.1 Chronic obstructive pulmonary disease with (acute) exacerbation; R60.0 Localized edema; R91.8 Other nonspecific abnormal finding of lung field; R10.9 Unspecified abdominal pain; I25.10 Atherosclerotic heart disease of native coronary artery without angina pectoris; I11.0 Hypertensive heart disease with heart failure; I50.32 Chronic diastolic (congestive) heart failure; F17.200 Nicotine dependence, unspecified, uncomplicated; K21.9 Gastro-esophageal reflux disease without esophagitis; E78.5 Hyperlipidemia, unspecified; E03.9 Hypothyroidism, unspecified; Z79.899 Other long term (current) drug therapy; Z59.12 Inadequate housing utilities
CPT/HCPCS: 36415; 71045; 74176; 80053; 81001; 83880; 84484; 85025; 85379; 87040; 87086; 87637; 93005; 93041; 94640; 94760; 94762; 96374; 99285; Q3014